=== PATIENT | male | born 1970 | race Caucasian/White ===

== ENCOUNTER → 2020-05-01 16:06 | Outpatient (CLI) | payer OTHER, SELFPAY ==
[2016-10-18 14:06] VITALS: BMI 22.8
--- NOTE | 2020-05-01 16:11 | RAD_ITS ---
STUDY: X-RAY - LEFT SHOULDER REASON FOR EXAM: Male, 49 years old. LIFTING INJURY, PAIN X1 MONTH, LIMITED ROM TECHNIQUE: 4 view(s) of the shoulder. COMPARISON: None. FINDINGS: Normal glenohumeral articulation. There is degenerative arthrosis of the acromioclavicular joint without inferior osseous spur formation. Normal acromion. Normal humeral head and visualized proximal humerus. The soft tissue structures are unremarkable. Normal visualized pulmonary apex. RAD/Shoulder min 2 Views IMPRESSION: Mild acromioclavicular joint arthrosis. MRI may be useful. Electronically Signed: Giovanny Luevano MD at 7:23 EDT Tel , Service support ,
== END ==
PROVIDERS: PCP Family Medicine; Referring Provider Family Medicine; Visit Provider Family Medicine
DX: S46.002A Unspecified injury of muscle(s) and tendon(s) of the rotator cuff of left shoulder, initial encounter (principal)
CPT/HCPCS: 73030

== ENCOUNTER → 2020-06-18 07:10 | Outpatient (CLI) | payer OTHER, SELFPAY ==
[2020-06-08 12:57] VITALS: BMI 24.3
--- NOTE | 2020-06-18 07:11 | MRI_ITS ---
STUDY: MRI LEFT SHOULDER REASON FOR EXAM: Left shoulder pain for 2 months. TECHNIQUE: Standardized fat and water weighted pulse sequences were obtained in all 3 orthogonal planes. COMPARISON: Radiographs 05/01/2020. FINDINGS: There is a full-thickness tear of the supraspinatus tendon retracted approximately 2.4 cm (T2 coronal images 8-12). Normal infraspinatus tendon. Normal subscapularis tendon. Normal teres minor tendon. Normal supraspinatus muscle. Normal infraspinatus muscle. Normal subscapularis muscle. Normal teres minor muscle. There is a glenohumeral joint effusion. There is very mild reactive bone edema in the posterior aspect of the greater tuberosity. Normal biceps labral complex. There is mild tendinosis of the intracapsular long biceps tendon (T2 sagittal images 9-13). Normal labrum. Normal capsulo- ligamentous complex. There is acromioclavicular arthrosis without substantial undersurface osteophytes (T2 sagittal images 8, 9). There is a Type I morphology (flat undersurface), with a neutral orientation. There is a small volume of subacromial-subdeltoid bursal fluid. Normal visualized coracohumeral and coracoacromial ligaments. Normal deltoid muscle. Normal trapezius muscle. MRI/Upper Ext Joint Only(Routine) IMPRESSION: Full-thickness tear of the supraspinatus tendon. Mild tendinosis of the long biceps tendon. Acromioclavicular arthrosis. Glenohumeral joint fluid communicating with the subacromial-subdeltoid bursa. Electronically Signed: Jeramy Murphy MD at 9:11 EDT Tel , Service support ,
== END ==
PROVIDERS: PCP Family Medicine; Referring Provider Orthopaedic Surgery; Visit Provider Orthopaedic Surgery
DX: M25.512 Pain in left shoulder (principal)
CPT/HCPCS: 73221

== ENCOUNTER 2020-06-26 09:30 | Outpatient (RCR) | payer OTHER, SELFPAY ==
[2020-06-08 12:57] VITALS: BMI 24.3
--- NOTE | 2020-06-29 14:26 | HP.FCE ---
Floor (Occasional 1-33% of Day): 35# Floor (Frequent 34-66% of Day): 18# Floor (Constant 67-100% of Day): 7# Floor PDL: Light-Medium Knee (Occasional 1-33% of Day): 45# Knee (Frequent 34-66% of Day): 22# Knee (Constant 67-100% of Day): 9# Knee PDL: Light-Medium Waist (Occasional 1-33% of Day): 45# Waist (Frequent 34-66% of Day): 22# Waist (Constant 67-100% of Day): 9# Waist PDL: Light-Medium Shoulder (Occasional 1-33% of Day): 35# Shoulder (Frequent 34-66% of Day): 18# Shoulder (Constant 67-100% of Day): 7# Shoulder PDL: Light-Medium Overhead (Occasional 1-33% of Day): 25# Overhead (Frequent 34-66% of Day): 12# Overhead (Constant 67-100% of Day): NA Overhead PDL: Light Bending: Occasional Ability (1-33% of day) Squatting: Occasional Ability (1-33% of day) Comments: low occasional ability Kneeling: Occasional Ability (1-33% of day) Comments: low occasional ability Reaching out: Frequent Ability (34-66% of day) Reaching up: Occasional Ability (1-33% of day) Sitting: Occasional Ability (1-33% of day) Walking: Occasional Ability (1-33% of day) Standing: Occasional Ability (1-33% of day) Duration Sedentary Sedentary Light Light Light Medium Medium Medium Heavy Very Heavy Heavy Occasional (0-33% of day) Frequent (34-66% of day) Constant (67-100% of day) 10 # Negligible Negligible 15 # 8 # Negligible 20 # 10# Negli. 35 # 18 # 7 # 50 # 25 # 10 # 75 # 100 # >100 # 38 # 50 # >50 # 15 # 20 # >20 # Height: 1.63 m Weight:: 63.503 kg Hand Dominance: right Medical History Including Restrictions: This 49-year-old male states he was in good health until he had his first back fusion in 2005 at level L4-L5. pt states he had a 2nd back sx L3-L4 January 2019. Pt states he had pain mtg until the last back sx he hasn't been able to return to pain mtg. since as he lost his medical insurance. Pt states he does have left shoulder pain that he had recent MRI on and reports carpal tunnel. pt states he does not exercise on a regular basis. Pt states he is not on lift restriction currently. Diagnoses: DDD dx 2006. carpal tunnel dx in 6 years ago Symptoms: bilateral hand tingling/numbness. pain in left shoulder. Back pain Pain: Pt states sitting his back pain 1-11/04. pt takes tylonal for pain. resting heart rate is 90 Work History: PT states he works at [employer] and has been employed there for 8 years. 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 pt states lifting requirements 50-100#. pt states he has not worked there for about a year and a half since his 2nd back sx. Pt states he is currently on disability through work. pt states he needs to be able to be on his feet for 10-hour days lifting, bending etc. pt states at this time he would not be able to work this position due to pain. Behavioral: Pt cooperative during the assessment ADLS: Pt lives with mother in a ranch home with a basement room. pt has a flight of stairs to get to the bathroom and shower. Pt states he is ind. with bathing/dressing- pt uses walk in shower. Drives independently. pt states sister does the grocery shopping, and his mother does the cooking. Pt states he does help with laundry but watches how he does the tasks. All share in the cleaning. pt does not use ad. eq. need currently. pt states he does the yard work with a riding electrician substation supervisor. pt states boys will assist at times son is 25 years and a 23-year-old when they are around. pt states he and his sister share yard work. ROM: pt demo ROM WNL Strength: left shoulder MMT -4/5. right shoulder MMT 4/5. LE 4/5 right LE 4+/5. heart rate increase to 105 with this task Right Aquacultural Worker Supervisor Strength Average: 66.66 Right Aquacultural Worker Supervisor Strength Percentile: 1.4% Left Aquacultural Worker Supervisor Strength Average: 78.33 Left Aquacultural Worker Supervisor Strength Percentile: 11% Right Lateral Pinch Average: 20.66 Right Lateral Pinch Percentile: 50% Left Lateral Pinch Average: 21.33 Left Lateral Pinch Percentile: 75% Right Tripod Pinch Average: 20.00 Right Tripod Pinch Percentile: 50% Left Tripod Pinch Average: 18.00 Left Tripod Pinch Percentile: 50% Sensation: right thumb 3.61 left 3.61 Diminished light touch. right IF 3.61 left 3.61 diminished light touch. right MF 4.08 Diminished protective sensation left 3.61 diminished light touch. right RF 3.22 diminished light touch left 2.83 Normal sensation. right LF 2.83 left 2.83 normal sensation Fine Motor: 9 hole-peg test. right 24.14 sec. 25%. left 31.68 sec. 0% Balance: no loss of balance noted Bending: initial heart rate 92 pt demo the ability to bend forward three times, ten times and ten times rapidly. pt reported pain at 5/10 HR at 105 pt can band forward on an occasional ability Squatting: pt demo the ability to squat three times with external support, ten times with both external support and using thighs to push. pt reported pain 7/10 HR at 106. pt unable to perform 10 x rapidly pt can squat on a low occasional ability Kneeling: pt demo the ability to kneel three times, ten times pt stated pain level was 6-7/10 HR at 118 pt was unable to kneel ten times rapidly. pt can kneel on a low occasional ability Reaching out/up: pt demo the abiilty to reach up/out three , ten times and ten times rapidly. pt c/ left shoulder pain 6/10 heart rate 120. pt request sitting down due to a increase in back pain 7/10. pt can reach out/up on occasional ability Walking: pt ambulated for 7 min with antalgic gait, pt states pain in back was 5/10 but LE fatigue with ambulation was more bothersome for him. Pt can ambulate on occasional ability Standing: pt demo standing for 3 min shifting weight and leaning on counter top. pt can stand on a occasional abiltiy Sitting: pt demo the ability to sit for 30 min with shifting body wt. noted from sitting to stand transition pt demo difficutly with standing. pt required increase time to transition from sitting to standing. pt can sit on a frequent ability Climbing Stairs: pt demo the ability to ascend/descend ten steps with reciprocal step pattern. Pt did use bilateral handrails intermittently. Floor Lift: pt demo the ability to lift 35# maximally from this level with good lift mecahnics Knee Lift: pt demo the ability to lift 45# maximally from this level with fair lift mechanics Waist Lift: Pt demo the ability to lift 45# maximally from this level with good lift mechanics Shoulder Lift: pt demo the ablity to lift 35# maximally from this level. reported sharp left shoulder pain during lift but not after. Overhead Lift: pt demo the ability to lift 25# maximally from this level. Carrying: pt demo the ability to carry 35# for 30 feet. HR 118 Comments: pt limited with functional tasks due to back pain. 122 HR. pt had increase in pain during the assessment ranging from 1-2/10 and increased to 7/10 this was with the repetitive squatting, bending and kneeling tasks.
--- NOTE | 2020-06-29 14:26 | HP.OT.NRP ---
EMIL Ruiz KANDICE was seen in my office for initial evaluation on . The following Plan of Care was established for this patient: pt was seen for FCE only This patient was last seen in our office . Pertinent comments regarding their Occupational therapy will appear below: At this point I will be discontinuing this patient from occupational therapy. I would be happy to see this patient again in the future if found appropriate by the physician. Thank you! Janee Lozano, OTR/L, CHT
== END 2020-06-26 19:00 | disposition home or self-care (01) ==
LOC: OT 09:30
PROVIDERS: PCP Family Medicine; Referring Provider Family Medicine; Visit Provider Family Medicine
DX: S46.009D Unspecified injury of muscle(s) and tendon(s) of the rotator cuff of unspecified shoulder, subsequent encounter (principal); M54.5 Low back pain; G89.29 Other chronic pain
CPT/HCPCS: 97750

== ENCOUNTER 2020-07-14 08:59 | Day surgery (SDC) | payer OTHER, SELFPAY ==
[2020-06-29 07:46] VITALS: BMI 24.3
--- NOTE | 2020-07-08 08:56 | EKG12_ITS ---
Test Reason : PRE OP Blood Pressure : / mmHG Vent. Rate : 070 BPM Atrial Rate : 070 BPM P-R Int : 160 ms QRS Dur : 072 ms QT Int : 382 ms P-R-T Axes : 037 034 065 degrees QTc Int : 412 ms Normal sinus rhythm Normal ECG Confirmed by DOYLE MILLER, SHWETHA ([id number]), pictures editor ALLYSON MCDONALD ([id number]) on 07/13/2020 8:26:27 A M Referred By: Madi Cloud Confirmed By:BELLO KWON MD
[2020-07-08 10:12] LABS: Hematocrit 36.3 % (40-54); Mean Corp Hgb Conc 33.1 g/dL (32-36); Mean Corpuscular Hgb 28.6 pg (27.0-32.0); Mean Corpuscular Volume 86.6 fL (80-94); Mean Platelet Vol. 9.6 fl (6.2-12.0); Platelet Count 414 K/mm3 (150-450); RBC Distribution Width CV 13.4 % (11.6-14.6); RBC Distribution Width SD 41.6 fl (35.1-43.9); Red Blood Count 4.19 M/mm3 (4.6-6.2); White Blood Count 8.7 K/mm3 (4.4-11.0)
[2020-07-14] VITALS (7 sets, daily range): BP systolic 133–145; BP diastolic 82–95; PULSE 63–83; RESP 16; TEMP 36.1–36.8; O2SAT 96–99; BMI 25.4
[2020-07-14] MEDS: Lactated Ringers 1,000 ML 100 ML IV (09:54)
[2020-07-14] MEDS: Epinephrine (1 mg/ml) 1 MG/ML VIAL (10:30)
[2020-07-14] MEDS: Cefazolin 2 GM in 0.9% Normal Saline 100 ML IV (11:35)
[2020-07-14] MEDS: Bupiv/Epi 0.5% Mpf 30 ML Vial (12:16)
[2020-07-14] MEDS: Bupivacaine Mpf 0.5% 30 ML VIAL (13:30)
[2020-07-14] MEDS: morphine PF (epidural) 5 MG/10 ML Vial (13:30)
--- NOTE | 2020-07-14 13:37 | PCM.HP.BLA ---
History and Physical Date of Admission: 07/14/20 Addendum entered and electronically signed by Madi Cloud DO 07/10/20 09:26: Assessment & Plan Problems 1. Traumatic complete tear of left rotator cuff, subsequent encounter S46.012D Plan - Dr. Madi Cloud DO Educated the patient about the anatomy of the shoulder and etiology of his pain. Spoke with him about a rotator cuff tear. Recommended the patient have surgery for rotator cuff repair and possible biceps tenotomy. Explained the procedure, post op restrictions and recovery. Reviewed the pre-operative plans with the patient. Risks and benefits of the procedure were fully explained, including but not limited to infection, neurovascular injury, continued pain, arthritis, stiffness, need for further surgery, re-injury, DVT, PE, general risks of anesthesia, and loss of limb or life. The patient understands all the risks and does wish to proceed with written consent. Follow up for 2 week post op appointment or sooner if pain, swelling, numbness or associated symptoms, or concerns develop. All questions answered. Patient in agreement of plan. Intake Intake Visit Reasons: LEFT SHOULDER Is patient in pain?: Yes Allergies aspirin Adverse Reaction (Verified 06/29/20 13:30) Upset Stomach tramadol Adverse Reaction (Verified 06/29/20 13:30) Upset Stomach Medications etodolac 500 mg tablet 500 mg PO BID #60 tab 06/08/20 [Rx Confirmed 06/08/20] FOR[facility]LY [facility] Medical History (Updated 06/08/20 @ 13:09 by Magalys Gilmore) H/o cataract surgery (Acute) H/o removal of appendix (Acute) Surgical History (Updated 06/08/20 @ 13:09 by Magalys Gilmore) H/O Spinal surgery (Acute) H/O inguinal hernia repair (Acute) Social History (Updated 06/29/20 @ 13:[address] Madi Cloud DO) household members: other details: mother and sister Smoking Status: Current every day smoker tobacco type: cigarettes Tobacco: How many years used: 20 alcohol intake: never what type of physical activity do you participate in: none do you feel safe at home: Yes HPI LEFT SHOULDER: Details: Parts of this documentation were recorded by a scribe, this documentation accurately reflects the service provided and the decisions made by me, Dr. Madi Cloud, DO 06/29/20 0746. EMIL WOODSON is a 49 year old M here today for a followup on his left shoulder MRI. Patient states that he continues to have shoulder pain and limited shoulder range of motion. He denies any changes in his symptoms since his last appointment. Patient has been taking the etodolac which has been helpful. ROS Musc Reports joint pain, Reports limited joint movement, Reports muscle weakness, Reports stiffness Skin/Breast Reports system reviewed and no additional complaints, except as docu Neuro Yes system reviewed and no additional complaints, except as docu Ortho Exam Left Shoulder Skin/Wound: Yes CDI, No ecchymosis, No erythema SHOULDER: eft Shoulder Skin/Wound: No ecchymosis, No erythema, No swelling Testing: Yes Hawkin's, Yes Neer's, Yes TTP Biceps, No TTP AC Joint, Yes Drop Arm, Yes AROM-Forward Elevation 0-180 (90), Yes AROM-External Rotation at 90 0-60 (50), Yes PROM-Forward Elevation 0-180 (75), Yes lift off (intact) SHOULDER: Drooping of left shoulder, that corrects with prompted postural commands. muscle spasms over romboid muscles, no cyst appreciated mild biceps tenderness mild ecchymosis over anterior arm multiple excoriations and scabbing without infection +drop arm, slight pop felt with range of motion intact sensation over deltoid arm and forearm Supplemental Info 06/18/2020 MRI left shoulder:Full-thickness tearing of the supraspinatus tendon with retraction tendinosis of long head of biceps AC joint arthrosis 05/01/2020 x-ray left shoulder: mild AC joint arthrosis Assessment & Plan Problems 1. Traumatic complete tear of left rotator cuff, subsequent encounter S46.012D Plan Educated the patient about the anatomy of the shoulder and etiology of his pain. Spoke with him about a rotator cuff tear. Recommended the patient have surgery for rotator cuff repair. Explained the procedure, post op restrictions and recovery. Reviewed the pre-operative plans with the patient. Risks and benefits of the procedure were fully explained, including but not limited to infection, neurovascular injury, continued pain, arthritis, stiffness, need for further surgery, re-injury, DVT, PE, general risks of anesthesia, and loss of limb or life. The patient understands all the risks and does wish to proceed with written consent. Follow up for 2 week post op appointment or sooner if pain, swelling, numbness or associated symptoms, or concerns develop. All questions answered. Patient in agreement of plan. Coding Level of Care Code Off vis,est,level 3 Diagnoses Traumatic complete tear of left rotator cuff, subsequent encounter S46.012D ??Encounter type: subsequent encounter ??Rotator cuff tear extent: complete ??Rotator cuff tear trauma status: traumatic I have re-examined the patient. There are no clinical changes since date of exam
--- NOTE | 2020-07-14 13:42 | PCM.DC.ORTHO ---
Additional Instructions: keep sling on. keep dressing clean and dry. do not remove dressing for 72 hrs. then may remove and begin showering daily. no active shoulder motion. ok to preform elbow and wrist and finger range of motion but no active lifting of shoulder. may replace dressing in 72 hrs with bandaids. follow up in 2 weeks in office call if any concerns. Allergies/Adverse Reactions: Allergies aspirin Adverse Reaction (Verified 07/14/20 09:33) Upset Stomach tramadol Adverse Reaction (Verified 07/14/20 09:33) Upset Stomach Medications to take at Discharge Etodolac 500 mg PO BID 07/06/20 Acetaminophen [Tylenol Extra Strength] 1,000 mg PO Q6H PRN #100 tab 07/14/20 Doxycycline 100 mg PO BID #40 cap 07/14/20 Oxycodone [Oxyir] 5 mg PO Q4H PRN PRN #60 tab 07/14/20 The following prescriptions were given: Doxycycline 100 mg PO BID #40 cap Transmission Status: Pending to [id number] Oxycodone [Oxyir] 5 mg PO Q4H PRN PRN #60 tab PRN Reason: Pain Score 6-10 Prescription Printed Acetaminophen [Tylenol Extra Strength] 1,000 mg PO Q6H PRN #100 tab Transmission Status: Pending to [id number] Primary Care Physician: Robert Diaz MD [Primary Care Provider] - Test Results: Test results from this visit will be discussed in further detail at your follow-up appointment, if applicable. Please Follow Up With: Madi Cloud DO - 2weeks
[2020-07-14] MEDS: oxyCODONE 5 MG Tablet PO (15:22)
[2020-07-14] MEDS: Acetaminophen 500 MG Tablet 1000 MG PO (15:22)
--- NOTE | 2020-07-14 15:32 | PCM.OPRPT ---
Report of Operation Date of Procedure: 07/14/20 Description of Surgical Findings:: Preoperative diagnosis: Left rotator cuff tear supra spinatus Postoperative diagnosis: Full-thickness supraspinatus rotator cuff tear Procedure: Arthroscopic rotator cuff repair Implants: Arthrex speed bridge 4 anchor pair Anesthesia: General with interscalane block EBL: 25 cc Complications None Indication for procedure: This is a 49-year-old male patient who had an injury to his left shoulder had MRI evidence of full-thickness retracted supraspinatus rotator cuff tear Risks benefits and alternatives of the procedure were reviewed including risk of bleeding infection nerve artery tissue damage need for further surgery continued pain postoperative stiffness and need for postoperative physical therapy and continued pain and retear. Procedure: Patient was met in the preoperative holding area the operative extremity was identified by both the patient and the physician and was marked. Patient was met by anesthesia and brought back to the operating room on a wheeled cart. Patient was transferred to the operating table in the supine position. Anesthesia was started. Patient was then positioned in the beach chair configuration. Bony prominences were well-padded. The patient was prepped and draped in the usual sterile fashion. A timeout was called to ensure the proper patient procedure and extremity were being contemplated. Anatomic landmarks were palpated and marked with a marking pen. A 0.25% Marcaine with epinephrine was injected into the planned portal sites. An 11 blade scalpel was used to make a stab incision in the posterior lateral portal. Arthroscope was inserted into the glenohumeral space with ease. Inflow and outflow tubes were attached and arthroscopic visualization began. An anterior portal was established with an 18-gauge spinal needle. Subscapularis was intact biceps had no tendinopathy tearing or synovitisThere is mild fraying of the superior portion of the labrum which was debrided The rotator cuff was evaluated and was found to have a full-thickness tear of supraspinatus . The axillary pouch was investigated and was free of loose bodies. The subscapularis was intact. The arthroscope was then repositioned into the subacromial space and a lateral portal was established. A subacromial decompression with an ArthroCare wand and shaver was performed. There was noted to be anterior spurring of the acromion which was burred to create a flat surface. Performing an anterior acromioplasty. Full-thickness tearing of the supraspinatus was noted there was significant retraction and bursal thickeningThe rotator cuff was freedAnd in a standard speed bridge configuration2 medial anchors were placedScorpion was used to pass theFiber tape through the rotator cuff and tapes were cut and crossed in standard fashion and secured to self punching lateral anchors.The free stitch in the posterior anchor was used to provide an additional fixation passing 1 limb through the infraspinatus and one limb through the posterior aspect of the supraspinatus and tying creating essentially a marginal convergenceThe free limb of the anterior lateral anchor was then used to place an additional simple stitch in the anterior rotator cuff Excellent repair was achieved. The wound was thoroughly irrigated through the scope followed by a subacromial injection with 4 mg of morphine and 8 cc of 0.5% Marcaine plain. Suture portals were closed with 3-0 nylon arthroscopic stitches followed by Xeroform 4 x 4 ABD and a Ioban dressing. A abduction sling and pillow was placed. Anesthesia was reversed and patient tolerated the procedure well was and was transferred to the PACU. All counts were correct patient will follow-up in the office in 2 weeks . Patient may begin active elbow and wrist range of motion and pendulums of the shoulder but no active shoulder motion, dressing is to be left on for 48 hours before being changed daily after showering
== END 2020-07-14 15:49 | disposition home or self-care (01) ==
LOC: SDC 08:59 → AC 08:59
PROVIDERS: Anesthesiology; PCP Family Medicine; Referring Provider Orthopaedic Surgery; Visit Provider Orthopaedic Surgery
PROC: (CPT 29827; principal; 2020-07-14 11:25)
DX: S46.012A Strain of muscle(s) and tendon(s) of the rotator cuff of left shoulder, initial encounter (principal); F17.210 Nicotine dependence, cigarettes, uncomplicated; K21.9 Gastro-esophageal reflux disease without esophagitis; Z20.828 Contact with and (suspected) exposure to other viral communicable diseases; X58.XXXA Exposure to other specified factors, initial encounter; Y93.89 Activity, other specified; Y92.89 Other specified places as the place of occurrence of the external cause; Y99.8 Other external cause status
CPT/HCPCS: 01630; 29826; 29827; 36415; 85027; 87635; 93005; C9803; J7120; J2405; U0003

== ENCOUNTER 2020-08-05 14:58 | Outpatient (RCR) | payer OTHER, SELFPAY ==
[2020-07-29 13:45] VITALS: BMI 24.3
--- NOTE | 2020-08-06 09:30 | HP.PTEVAL ---
Patient's Visit Information EMIL WOODSON is a 50 year old M referred to Physical Therapy by Dr. Madi Cloud DO with a diagnosis of S/P LEFT RTC REAPIR. Date of Evaluation: 08/05/20 Physical Therapist: Siva Smith, PT, Cert MDT, OCS - Visit Plan Frequency: 2x /Week Duration: 12 Plan: S/P RTC REPAIR OF SUPRASPINATOUS 07/14. S/P 4 WEEKS 08/11. PT INTERVENTIONS INTIALLY PROM ,THEN AAROM 4WEEKS AND AROM 6WEEKS ,MANUAL THERAPY CP/MHP,STRENGTHENING PER MD - Subjective This 49 y/o male presents to physical therapy with s/p left RTC repair on 07/14/[address] Bellamy at [facility]. Patient was d/c DOS with sling . Patient seen DR Bellamy last 07/29/20 okay to start PT remove sling for pendulum and PT. Start PROM ,then start 4weeks AAROM and AROM 6weeks. Patient RTD Aug 27. Patient injuried shoulder 2 months ago mid summer lifting self over garageheard a pop and caused gradual pain. Intially ,seen family DR santos Bellamy who did MRI 4weeks ago showed full thickness tear of supraspinatous. Patient has some pain . Patient has difiiculty sleeping from pain. Patient has limitations with all functional activity with ADLS and self hygine. Patient surgery RTC impairs QOL and function. SOCAIL: single. VOCATION: disablity - Pain Left Pain Intensity (Out of 10): 4 Pain Intensity Range: 10 - Objective POSTURE: mild foward posture rounded shoulders ,sling intact. OBSERVATION: inscion well approximate. PROM: shoulder flexion 135 degrees,abduction 140 degrees,ER 70 degrees. AROM: elbow and wrist WFL. MMT: NT - Goals Goal 1:: Patient to be I with HEP Goal Time Frame: 8-12 Weeks Goal 2:: Patient to improve AROM shoulder flexion 150 degrees ,abduction 150 degrees,ER 90 degrees and IR L1 to improve function with ADLS's. Goal Time Frame: 8-12 Weeks Goal 3:: Patient to decrease pain by 80% or> with function. Goal Time Frame: 8-12 Weeks Goal 4:: Patient to increase strength of RTC 4/5,except supraspinatous 4-/5 and deltoid 3+/5 to improve function. Goal Time Frame: 6-8 Weeks Goal 5:: Patient to improve quick dash by 10 points bor> to improve QOL. Goal Time Frame: 8-12 Weeks - Rehabilitation Potential Physical Therapy Diagnosis: This patient underwents s/p RTC repair 07/14/20 with decrease ROM,pain ,decrease strength which impairs function and ADL'S /self hygine thus benifit from skilled PT . Rehabilitation Potential: Good - Anticipated Interventions Patient/Client Instruction: Educate patient on: Condition, Plan of Care For the Purpose of:: To decrease pain, To increase ROM, To improve muscle performance and motor function, To improve ability to perform ADL's, To increase tolerance to activity/condition/position, To improve performance and independence with ADL's, To improve ability of physical actions for home/community/work/leisure, To improve health of tissue, To decrease soft tissue restriction, To increase flexibility/ROM, To reduce risk of recurrence, To improve ability to perform tasks related to life management Therapeutic Exercise to Include: Strength training, Passive ROM, Active ROM Comment: INTIALLY PROM ,AAROM 4 WEEKS AND AROM 6 WEEKS POST OP For the Purpose of:: To decrease pain, To increase ROM, To improve muscle performance and motor function, To improve ability to perform ADL's, To increase tolerance to activity/condition/position, To improve performance and independence with ADL's, To improve ability of physical actions for home/community/work/leisure, To improve health of tissue, To decrease soft tissue restriction, To increase flexibility/ROM, To assume or resume ADL's, To improve ability to perform tasks related to life management Manual Therapy Techniques to Include: Passive ROM For the Purpose of:: To increase ROM, To improve nutrient delivery to tissue, To increase oxygenation perfusion, To improve health of tissue, To decrease soft tissue restriction, To increase flexibility/ROM TENS: Yes IF ES: Yes Cryotherapy (ice pack, ice massage): Yes Thermo therapy (hot pack): Yes For the Purpose of:: To decrease pain, To decrease swelling/inflammation, To improve nutrient delivery to tissue, To increase oxygenation perfusion, To increase flexibility/ROM, To improve endurance Thank you for the opportunity to evaluate your patient. For Medicare and Medicare HMO plans, please review the plan of care and approve it. It will need to be FAXED BACK to us at [phone] for Medicare purposes. For Medicare only, by signing this I certify the plan of care. Please let me know if there are questions or concerns regarding this plan of care. Physician Signature: Date:
--- NOTE | 2021-02-17 09:45 | HP.PTDCNRP_ITS ---
EMIL WOODSON was seen in my office for initial evaluation on 08/05/20. The following Plan of Care was established for this patient: Initial Frequency: 2x /Week Initial Duration: 12 Patient/Client Instruction: Educate patient on: Condition, Plan of Care For the Purpose of:: To decrease pain, To increase ROM, To improve muscle performance and motor function, To improve ability to perform ADL's, To increase tolerance to activity/condition/position, To improve performance and inde pendence with ADL's, To improve ability of physical actions for home/community/work/leisure, To improve health of tissue, To decrease soft tissue restriction, To increase flexibility/ROM, To reduce risk of recurrence, To improve ability to perform tasks related to life management Therapeutic Exercise to Include: Strength training, Passive ROM, Active ROM For the Purpose of:: To decrease pain, To increase ROM, To improve muscle performance and motor function, To improve ability to perform ADL's, To increase tolerance to activity/condition/position, To improve performance and independence with ADL's, To improve ability of physical actions for home/community/work/leisure, To improve health of tissue, To decrease soft tissue restriction, To increase flexibility/ROM, To assume or resume ADL's, To improve ability to perform tasks related to life management Manual Therapy Techniques to Include: Passive ROM For the Purpose of:: To increase ROM, To improve nutrient delivery to tissue, To increase oxygenation perfusion, To improve health of tissue, To decrease soft tissue restriction, To increase flexibility/ROM TENS: Yes IF ES: Yes Cryotherapy (ice pack, ice massage): Yes Thermo therapy (hot pack): Yes For the Purpose of:: To decrease pain, To decrease swelling/inflammation, To improve nutrient delivery to tissue, To increase oxygenation perfusion, To increase flexibility/ROM, To improve endurance This patient was last seen in our office . Pertinent comments regarding their Physical therapy will appear below: Patient seen for PT EVAL FOR LEFT RTC REPAIR BUT NEVER RETURN TO PT At this point I will be discontinuing this patient from physical therapy. I would be happy to see this patient again in the future if found appropriate by the physician. Thank you! Siva Smith, PT, Cert MDT, OCS
== END 2020-08-05 19:00 | disposition home or self-care (01) ==
LOC: PT 14:58
PROVIDERS: PCP Family Medicine; Referring Provider Orthopaedic Surgery; Visit Provider Orthopaedic Surgery
DX: Z47.89 Encounter for other orthopedic aftercare (principal)
CPT/HCPCS: 97140; 97162

== ENCOUNTER → 2021-05-04 16:39 | Outpatient (CLI) | payer OTHER, SELFPAY ==
--- NOTE | 2021-05-04 16:43 | RAD_ITS ---
STUDY: X-RAY - UNILATERAL RIBS ( RIGHT ) REASON FOR EXAM: Male, 50 years old. INJURY OF RIB TECHNIQUE: 4 view(s) of the ribs. COMPARISON: None. FINDINGS: There is a linear fracture through the posterior aspect of the right 11th rib with mild separation of fracture fragments. The visualized lung is clear and expanded. RAD/Ribs Unil 2V No CXR IMPRESSION: Acute fracture of the right posterior 11th rib Electronically Signed: Mejia Raya MD at 17:20 EDT , Service support ,
--- NOTE | 2021-05-04 16:43 | RAD_ITS ---
STUDY: X-RAY - THORACIC SPINE REASON FOR EXAM: Male, 50 years old. SPINE PAIN TECHNIQUE: 3 view(s) of the thoracic spine were obtained. COMPARISON: None. FINDINGS: Normal kyphosis of the thoracic spine. There is no substantial scoliosis. There is a compression fracture of one of the mid dorsal vertebrae at approximately the level of T8 without well-defined fracture line probably chronic. There is no definitive evidence for acute fracture The soft tissue structures are unremarkable. RAD/Thoracic Spine 2 Views IMPRESSION: Probable chronic compression fracture of the mid dorsal spine however MRI would be helpful for further evaluation if suspicion for recent injury.. Electronically Signed: Mejia Raya MD at 18:22 EDT , Service support ,
== END ==
PROVIDERS: PCP Family Medicine; Referring Provider Family Medicine; Visit Provider Family Medicine
DX: M54.6 Pain in thoracic spine (principal); S29.9XXA Unspecified injury of thorax, initial encounter
CPT/HCPCS: 71100; 72070

== ENCOUNTER → 2021-06-04 16:23 | Outpatient (CLI) | payer OTHER, SELFPAY ==
--- NOTE | 2021-06-04 16:45 | MRI_ITS ---
STUDY: MRI THORACIC SPINE WITHOUT CONTRAST REASON FOR EXAM: Male, 50 years old. COMPRESSION FX TECHNIQUE: Standardized fat and water weighted pulse sequences were obtained in the sagittal and axial planes. COMPARISON: Thoracic spine x-rays from 05/04/2021 FINDINGS: PA superior endplate Schmorl''s node (disc herniation into superior endplate) shows low T1 and low T2 signal in the herniation pit. Adjacent marrow signal is normal; this is not an acute finding. There is slight anterior vertebral body height loss and there may be an associated chronic partial wedge compression fracture. Visualized cord shows normal signal with no intramedullary mass lesion. CONUS terminates at the distal L1 vertebral body level. There is a T10-T11 disc protrusion also completely effacing CSF signal anterior to the cord and resulting in anterior cord flattening. CSF signal posterior to the cord isn''t effaced; [id number] central canal stenosis. No other central canal stenosis suggested. There is no neural foraminal narrowing. Multilevel degenerative disc desiccation. No significant degenerative endplate changes. L1-L2, incompletely visualized. There appears to be significant irregularity inferior endplate of L1 with abnormal marrow signal changes. This is likely degenerative in etiology however correlation with MRI lumbar spine should be considered in this patient with reported lumbar pain. Soft tissues of the thorax and abdomen included in the [id number]-dn-[id number] normal limits. Posterior fossa included in the field of view shows no cerebellar ectopia or posterior crowding. Visualized portions of the brain and face are within normal limits the exam. MRI/Spine Thoracic (Routine) IMPRESSION: T8 superior endplate irregularity most likely represents a large disc herniation through the superior endplate; Schmorl''s node. Small anterior wedge compression fracture component cannot be completely excluded. No marrow edema to suggest acute etiology. T10-11 posterior disc protrusion results in [id number]-[id number] central canal stenosis. Incompletely visualized significant irregularity inferior endplate of L1 with significant associated marrow signal changes likely due to degenerative disc disease. Electronically Signed: Maverick Mccormack DO at 23:28 EDT Tel , Service support ,
== END ==
PROVIDERS: PCP Family Medicine; Referring Provider Family Medicine; Visit Provider Family Medicine
DX: M48.50XA Collapsed vertebra, not elsewhere classified, site unspecified, initial encounter for fracture (principal)
CPT/HCPCS: 72146

== ENCOUNTER → 2022-02-07 | Outpatient (CLI) | payer OTHER, SELFPAY ==
--- NOTE | 2022-02-07 | ASPOS_PTH ---
PATIENT: EMIL WOODSON LOC: [facility] U#:[id number] AGE/SX: 51/M ROOM: RE02/07/[address]: Dr. Girma Moon MD : 1970 BED: DIS: 02/07/2022 SPEC #: [id number] RECD: 02/07/22 11:25 STATUS: CALLIE BURT #: [id number] KAITLYNN: 02/07/22 00:[address]: Girma Moon DEPT: CYTOLOGY RECD BY: Luis Alberto Oliver ENTERED: 02/07/22 11:26 SP TYPE: ASP HERE OTHR DR: Dr. Robert Diaz MD Tissues: Neck, NOS Procedures: Surgery Specimen Level IV Cytology Other Fine Needle Asp on Site HEADER OPERATION: Fine needle aspiration left neck mass PRE-OP DIAGNOSIS: Left neck mass TISSUE SUBMITTED: Fine needle aspiration left neck mass DIAGNOSIS CYTOLOGY Fine needle aspiration, left neck mass (smears and cell block): Positive for malignant cells consistent with metastatic squamous cell carcinoma. AM:brenton 02/08/2022 COMMENT The specimen is evaluated at the time of FNA by Dr. Allen. Immediate Evaluation = Positive for malignant cells, metastatic squamous cell carcinoma. Case has been reviewed in consultation with Dr. Brito who concurs with the above diagnosis. IDC:SJ CYTOLOGY STUDY Slides are reviewed. CYTOLOGY GROSS Received is 0.25 ml of reddish fluid labeled with the patient's name, and designated left neck mass. Three imprints and two pap smears are made from the submitted fluid and the rest is added to CytoLyt for cell block preparation. Submitted for cytology study. / AM:brenton 02/07/2022 TC:0 CPT: 97091, 11469, 54649, 24535
== END | disposition home or self-care (01) ==
PROVIDERS: PCP Family Medicine; Referring Provider Otolaryngology; Visit Provider Otolaryngology
DX: R22.1 Localized swelling, mass and lump, neck (principal)
CPT/HCPCS: 10021; 88161; 88305

== ENCOUNTER → 2022-02-16 | Outpatient (CLI) | payer OTHER, SELFPAY ==
--- NOTE | 2022-02-16 08:18 | CT_ITS ---
STUDY: CT SOFT TISSUE NECK WITH CONTRAST REASON FOR EXAM: Male, 51 years old. NECK MASS RADIATION DOSAGE (If Supplied By Facility): CTDIvol = ( 16.95 ) mGy, DLP = ( 444.60 ) mGycm TECHNIQUE: The patient was scanned in a multi-detector CT scanner. High resolution transaxial imaging was performed following intravenous administration of IV 75mL Isovue-300. Sagittal and coronal images were reconstructed. Individualized dose optimization techniques were used for this CT. COMPARISON: None. FINDINGS: Normal bilateral parotid glands. Normal bilateral drive thru order taker spaces. Normal bilateral parapharyngeal spaces. Normal bilateral carotid spaces. Normal bilateral sublingual and submandibular glands and spaces. There is a large (3.5 x 5.5 cm (heterogeneous enhancing solid mass in the posterior aspect of the nasopharynx extending inferiorly into the posterior aspect of the oropharynx producing complete obstruction of the airway at the level of the palate and posterior oropharynx with invasion and lateral displacement of the parapharyngeal spaces bilaterally and invasion of the prevertebral space and the right carotid space with encasement of the right internal carotid artery worrisome for squamous cell carcinoma. Normal retropharyngeal space. Normal perivertebral space. Normal visualized bilateral faucial tonsils. The visualized tongue, tongue base and oropharynx are normal. Associated necrotic metastatic jugular lymphadenopathy bilaterally at the level of the floor the mouth measuring 1.8 x 2.2 cm on the right and 2.0 x 2.2 cm on the left with also some posterior triangle lymphadenopathy on the left. There is no abnormal contrast enhancement. Normal epiglottis, bilateral vallecula and hypopharynx. The pre-epiglottic and paraglottic adipose spaces are normal. Normal visualized bilateral piriform sinuses, aryepiglottic folds, vocal cords, and arytenoid-cricoid articulations. Normal subglottic trachea. Normal bilateral lobes of the thyroid gland. Normal visualized pulmonary apices. Mucosal thickening of the left maxillary sinus consistent with chronic sinusitis. Normal visualized cervical spine. 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 Electronically Signed: Giovanny Luevano MD at 8:48 EDT ,
== END | disposition home or self-care (01) ==
LOC: CT 08:13
PROVIDERS: PCP Family Medicine; Referring Provider Otolaryngology; Visit Provider Otolaryngology
DX: R22.1 Localized swelling, mass and lump, neck (principal)
CPT/HCPCS: 70491; Q9967; A4216

== ENCOUNTER 2022-02-25 16:49 | Inpatient (IN) | payer OTHER, SELFPAY ==
[2022-02-25] VITALS (20 sets, daily range): BP systolic 103–183; BP diastolic 52–121; PULSE 65–93; RESP 12–14; TEMP 36.2–36.8; O2SAT 96–100; BMI 25.0; BMI 24.5
--- NOTE | 2022-02-25 17:02 | ED.RN ---
PT KEEPS FALLING ASLEEP AN D RESPIRATIONS WILL DECREASE TO 10 OR LOWER AND PULSE OX WILL DROP TO LOW 80'S. PT DIFFICULT TO AROUSE. T GIVEN NARCAN 4MG.
--- NOTE | 2022-02-25 17:05 | EX.ED.DYSGE1 ---
HPI <Dr. Ambrosio Mendez MD - Last Filed: 02/25/22 20:23> History of Present Illness Chief Complaint: Neuro S/Sx <CIARA Paulson - Last Filed: 02/25/22 19:35> Narrative Narrative: 51-year-old male with a complex medical history history of drug abuse presents to the emergency department with lethargy, not protecting his own airway. Over the last week, the patient has had difficulty walking secondary to feeling imbalance. He did have a thyroid biopsy 1 to 2 days ago secondary to concern of thyroid cancer. Nurses are in the room trying to wake him up, patient was given 4 mg of Narcan prior to me seeing the patient. Patient has snoring respirations. PFSH <Dr. Ambrosio Mendez MD - Last Filed: 02/25/22 20:23> [facility] Medical History (Updated 02/25/22 @ 20:[address] Sarita Aj MD) Amphetamine use Chronic pain Ecstasy use disorder, mild, abuse History of ETOH abuse Metastatic squamous cell carcinoma Opiate addiction Smoker Substance abuse Home Medications amoxicillin-pot clavulanate 1 tab PO Q12H 02/25/22 [History Last Taken 02/25/22] Allergy/AdvReac Type Severity Reaction Status Date / Time aspirin AdvReac Upset Verified 02/25/22 16:58 Stomach tramadol AdvReac Upset Verified 02/25/22 16:58 Stomach Family History (Updated 02/25/22 @ 20:[address] Sarita Aj MD) Grandfather Cancer Grandfather Cancer Grandmother Hypertension Father Thyroid cancer Lung cancer Mother Hypertension Surgical History (Updated 02/25/22 @ 20:[address] Sarita Aj MD) H/O inguinal hernia repair H/O Spinal surgery History of fusion of lumbar spine S/P appendectomy S/P cataract extraction Social History (Updated 02/25/22 @ 20:[address] Sarita Aj MD) household members: other details: mother and sister housing: house current occupational status: disabled Smoking Status: Current every day smoker tobacco type: cigarettes Smoking packs per day: 1 Smoking cigarettes per day: 20.0 Years smoked: 37 Smoking pack-years: 37.00 Tobacco: How many years used: 20 alcohol intake: former details: Sober x ~ 10 years, prior heavy. substance use type: amphetamines, opiates, IV drugs and methamphetamine what type of physical activity do you participate in: none do you feel safe at home: Yes <CIARA Paulson - Last Filed: 02/25/22 19:35> ROS ED ROS Narrative Due to the illness, the patient was unable to provide a review of symptoms EXAM <Dr. Ambrosio Mendez MD - Last Filed: 02/25/22 20:23> Physical Exam Const Vital Signs: 02/25/22 16:50 02/25/22 17:20 02/25/22 17:30 Temperature 97.2 F L Temperature Source Temporal Pulse Rate 88 93 Respiratory Rate 14 Respiratory Effort Agonal Respiratory Depth Deep Respiratory Pattern Live-Mo Blood Pressure 135/86 H Blood Pressure Mean 102 Blood Pressure Source Blood Pressure Position Blood Pressure Location Pulse Ox 97 100 Oxygen Delivery Method Room Air Mechanical Ventilator Fraction of Inspired Oxygen (FIO2) 02/25/22 17:45 02/25/22 17:50 02/25/22 18:00 Temperature Temperature Source Pulse Rate 82 85 Respiratory Rate 12 Respiratory Effort Respiratory Depth Respiratory Pattern Normal Blood Pressure 183/121 H 103/80 Blood Pressure Mean 141 87 Blood Pressure Source Monitor Blood Pressure Position Supine Blood Pressure Location Left Arm Pulse Ox 100 Oxygen Delivery Method Mechanical Ventilator Fraction of Inspired Oxygen (FIO2) 50 50 02/25/22 18:15 02/25/22 18:30 02/25/22 18:45 Temperature Temperature Source Pulse Rate 86 85 85 Respiratory Rate 14 14 14 Respiratory Effort Respiratory Depth Respiratory Pattern Blood Pressure 138/97 H 174/111 H 138/101 H Blood Pressure Mean 110 132 113 Blood Pressure Source Blood Pressure Position Blood Pressure Location Pulse Ox 96 100 100 Oxygen Delivery Method Mechanical Ventilator Mechanical Ventilator Mechanical Ventilator Fraction of Inspired Oxygen (FIO2) 40 40 02/25/22 18:54 Temperature Temperature Source Pulse Rate 87 Respiratory Rate 12 Respiratory Effort Respiratory Depth Respiratory Pattern Blood Pressure 161/106 H Blood Pressure Mean 124 Blood Pressure Source Blood Pressure Position Blood Pressure Location Pulse Ox 100 Oxygen Delivery Method Mechanical Ventilator Fraction of Inspired Oxygen (FIO2) <CIARA Paulson - Last Filed: 02/25/22 19:35> Physical Exam Narrative Exam Narrative: Vital signs reviewed. Patient arrives in snoring respirations, GCS of 7. Patient has minimal response to Narcan 4 mg x 2. Immediately placed on oxygen taken to the resuscitation room and intubated by ER attending. HEET: Head normocephalic atraumatic, TMs clear bilaterally. Posterior pharynx is clear, moist mucous membranes. Nares clear bilaterally. Patient is drooling from mouth prior to intubation. Neck: Supple with no lymphadenopathy or tenderness. No signs of meningismus, negative jolt sign. Cardiac: Bradycardic rhythm no murmurs gallops or rubs, equal peripheral pulses bilaterally. Respiratory: Patient lung sounds are clear, breathing slow and shallow. No chest tenderness. Abdomen: Soft, nontender, nondistended. No abdominal bruit or pulsatile masses. No hepatosplenomegaly Extremities: No peripheral edema, no signs of gross trauma or deformity. Active full range of motion of all extremities. Neuro: Proper neurological exam was unable to be completed secondary to GCS of 7 Skin: Clean dry and intact with no rash, purpura, petechiae, vesicles or pustules. Backs/flank: No CVA tenderness, no midline spinal tenderness, no deformity. Psych: Normal mood and affect. No SI, HI or acute psychosis. Const Vital Signs: 02/25/22 16:50 02/25/22 17:20 02/25/22 17:30 Temperature 97.2 F L Temperature Source Temporal Pulse Rate 88 93 Respiratory Rate 14 Respiratory Effort Agonal Respiratory Depth Deep Respiratory Pattern Live-Mo Blood Pressure 135/86 H Blood Pressure Mean 102 Blood Pressure Source Blood Pressure Position Blood Pressure Location Pulse Ox 97 100 Oxygen Delivery Method Room Air Mechanical Ventilator Fraction of Inspired Oxygen (FIO2) 02/25/22 17:45 02/25/22 17:50 02/25/22 18:00 Temperature Temperature Source Pulse Rate 82 85 Respiratory Rate 12 Respiratory Effort Respiratory Depth Respiratory Pattern Normal Blood Pressure 183/121 H 103/80 Blood Pressure Mean 141 87 Blood Pressure Source Monitor Blood Pressure Position Supine Blood Pressure Location Left Arm Pulse Ox 100 Oxygen Delivery Method Mechanical Ventilator Fraction of Inspired Oxygen (FIO2) 50 50 02/25/22 18:15 02/25/22 18:30 02/25/22 18:45 Temperature Temperature Source Pulse Rate 86 85 85 Respiratory Rate 14 14 14 Respiratory Effort Respiratory Depth Respiratory Pattern Blood Pressure 138/97 H 174/111 H 138/101 H Blood Pressure Mean 110 132 113 Blood Pressure Source Blood Pressure Position Blood Pressure Location Pulse Ox 96 100 100 Oxygen Delivery Method Mechanical Ventilator Mechanical Ventilator Mechanical Ventilator Fraction of Inspired Oxygen (FIO2) 40 40 02/25/22 18:54 Temperature Temperature Source Pulse Rate 87 Respiratory Rate 12 Respiratory Effort Respiratory Depth Respiratory Pattern Blood Pressure 161/106 H Blood Pressure Mean 124 Blood Pressure Source Blood Pressure Position Blood Pressure Location Pulse Ox 100 Oxygen Delivery Method Mechanical Ventilator Fraction of Inspired Oxygen (FIO2) Positive cachectic and unkempt General Appearance ED: unkempt and cachectic Nutritional Appearance: cachectic Psych Appearance: unkempt [facility] <Dr. Ambrosio Mendez MD - Last Filed: 02/25/22 20:23> [facility] Narrative Medical decision making narrative: I have personally performed a face to face assessment of the patient and have reviewed the ARISTEO Note. I performed a substantive portion of the visit including all aspects of the following. My best findings include: History is limited because patient had Live-Mo respiration when I was somethings to the bedside. He is nonverbal. He recently had a biopsy of his thyroid gland which revealed cancer. Presently he has Live-Mo breathing with biphasic stridor. He does have history of illicit drug use. He admitted to nursing staff that he took fentanyl. Staff believes he improved with naloxone. My belief is that his breathing improved because he had Live-Mo respiration. Exam is patient unresponsive with GCS of 3. There is vertical nystagmus noted. Pupils are 2 to 3 mm size. They do react. There is no scleral icterus. There is no subconjunctival hemorrhage. There is no clinical findings of basal skull fracture. He does have contusions to the head and face. Trachea is midline. There is biphasic stridor noted. Patient is drooling and unable to control secretions. Lungs reveal rales at the bases bilaterally. Heart is regular without murmur, gallop or rub. Pulse ox was documented at 70% initially. Abdomen is soft. Bowel sounds are diminished. Negative Babinski sign. Negative clonus right or left ankle. Medical Decision Making patient was prepped for oral tracheal ovation. He received 20 mg of etomidate. [place] scope was inserted. Vocal cords were easily seen. He was oral tracheal intubated with a 7.5 endotracheal tube. To facilitate CAT scan and other diagnostic testing needed he was chemically paralyzed with [address] per my review revealed nothing acute. Per radiology review negative. Chest x-ray per my view reveals endotracheal tube in proper position. Orogastric tube was in proper position. There is no evidence of infiltrate. Other additions or changes: Patient has required sedation. He is presently on a propofol drip and fentanyl drip. He received additional dose of rocuronium and will contact hospitalist for admission ICU since there is no intracranial pathology. Lab Data Attestation: I reviewed the patient's lab results. Labs: Laboratory Results - last 24 hr 02/25/22 02/25/22 02/25/22 16:55 16:55 16:55 WBC 7.4 RBC 4.03 L Hgb 11.4 L Hct 33.5 L MCV 83.1 MCH 28.3 MCHC 34.0 RDW Std Deviation 39.7 RDW Coeff of Rolf 13.1 Plt Count 332 MPV 9.8 Immature Gran % (Auto) 0.300 Neut % (Auto) 56.0 Lymph % (Auto) 29.7 [place] % (Auto) 7.4 Eos % (Auto) 5.7 H Baso % (Auto) 0.9 Absolute Neuts (auto) 4.2 Absolute Lymphs (auto) 2.20 Nucleated RBC % 0 Sodium 138 Potassium 4.1 Chloride 105 Carbon Dioxide 28.0 Anion Gap 5 BUN 20 H Creatinine 1.06 Estim Creat Clear Calc 67.48 Est GFR (MDRD) Af Amer 94 Est GFR (MDRD) Non-Af 78 BUN/Creatinine Ratio 18.9 Glucose 111 H Calcium 8.3 L TSH 6.79 H Urine Color Urine Clarity Urine pH Ur Specific [place] Urine Protein Urine Glucose (UA) Urine Ketones Urine Occult Blood Urine Nitrite Urine Bilirubin Urine Urobilinogen Ur Leukocyte Esterase Urine RBC Urine WBC Ur Squamous Epith Cells Urine Bacteria Urine Mucus Urine Opiates Screen Urine Methadone Screen Ur Barbiturates Screen Ur Phencyclidine Scrn Ur Amphetamines Screen MDMA (Ecstasy) Screen U Benzodiazepines Scrn Urine Cocaine Screen U Cannabinoids Screen Ur Drug Screen Comment Ethyl Alcohol < 3.0 02/25/22 02/25/22 17:19 17:50 WBC RBC Hgb Hct MCV MCH MCHC RDW Std Deviation RDW Coeff of Rolf Plt Count MPV Immature Gran % (Auto) Neut % (Auto) Lymph % (Auto) [place] % (Auto) Eos % (Auto) Baso % (Auto) Absolute Neuts (auto) Absolute Lymphs (auto) Nucleated RBC % Sodium Potassium Chloride Carbon Dioxide Anion Gap BUN Creatinine Estim Creat Clear Calc Est GFR (MDRD) Af Amer Est GFR (MDRD) Non-Af BUN/Creatinine Ratio Glucose Calcium TSH Urine Color Yellow Urine Clarity Sl. Cloudy Urine pH 6.0 Ur Specific [place] 1.015 Urine Protein 15 H Urine Glucose (UA) Normal Urine Ketones Negative Urine Occult Blood 150 H Urine Nitrite Negative Urine Bilirubin Negative Urine Urobilinogen Normal Ur Leukocyte Esterase Negative Urine RBC 5-10 SEEN Urine WBC 0 SEEN Ur Squamous Epith Cells 0-5 SEEN Urine Bacteria 0 SEEN Urine Mucus 0 SEEN Urine Opiates Screen POSITIVE H Urine Methadone Screen NEGATIVE Ur Barbiturates Screen NEGATIVE Ur Phencyclidine Scrn NEGATIVE Ur Amphetamines Screen POSITIVE H MDMA (Ecstasy) Screen POSITIVE H U Benzodiazepines Scrn NEGATIVE Urine Cocaine Screen NEGATIVE U Cannabinoids Screen NEGATIVE Ur Drug Screen Comment Ethyl Alcohol ABG Data ABG results: ABG 02/25/22 18:03 Specimen Type ART Sample Site L Radial pH 7.29 L Bicarbonate Actual 25.8 Total CO2 28 Base Excess -1 O2 Saturation 95 O2 % 50 ABG pCO2 53.8 H ABG pO2 87 Respiration Rate 12 O2 Delivery Device Adult Vent Vent Mode AC Tidal Volume 400 POC PEEP 5 Radiography Diagnostic Testing: Clinical Impression(s) from Imaging Studies Brain CT 02/25/22 17:19 IMPRESSION: There are no acute intracranial findings. Electronically Signed: Dain Daniels MD at 17:47 EDT , Chest X-Ray 02/25/22 17:50 IMPRESSION: There are no acute findings. Electronically Signed: Dain Daniels MD at 18:11 EDT , EKG Initial EKG: Attestation: I personally reviewed and interpreted this EKG as follows: Interpretation: Sinus Rhythm (Ventricular rate is 64. ND interval is prolonged at 236. This is consistent with a first-degree heart block. QRS duration 78 ms. QT duration 392 ms. [place] is normal.) <CIARA Paulson - Last Filed: 02/25/22 19:35> MDM MDM Narrative Medical decision making narrative: Patient brought into the emergency department with agonal respiration, he did mention to the nurses that he did use fentanyl. Patient was immediately intubated by the ER attending. Patient did have a full work-up completed. Patient's CBC shows slight anemia with hemoglobin of 11.4. Patient's chemistries show a BUN of 20 TSH elevated 6.79. Due to the patient's negative CAT scan of the brain, chest x-ray read by the ER attending shows no acute process. Patient's urinalysis was negative for infection. Please see attending note secondary to intubation. Patient was paralyzed, sedated. After negative CAT scan, chest x-ray, Narcan failure, patient did have a urine drug screen, this was positive for opiates, amphetamines, ecstasy. At this time, the patient will need to be admitted to the ICU for respiratory failure secondary to drug abuse. Patient will be admitted to the hospitalist, patient remained stable here in the department. Stable for admission. Lab Data Labs: Laboratory Results - last 24 hr 02/25/22 02/25/22 02/25/22 16:55 16:55 16:55 WBC 7.4 RBC 4.03 L Hgb 11.4 L Hct 33.5 L MCV 83.1 MCH 28.3 MCHC 34.0 RDW Std Deviation 39.7 RDW Coeff of Rolf 13.1 Plt Count 332 MPV 9.8 Immature Gran % (Auto) 0.300 Neut % (Auto) 56.0 Lymph % (Auto) 29.7 [place] % (Auto) 7.4 Eos % (Auto) 5.7 H Baso % (Auto) 0.9 Absolute Neuts (auto) 4.2 Absolute Lymphs (auto) 2.20 Nucleated RBC % 0 Sodium 138 Potassium 4.1 Chloride 105 Carbon Dioxide 28.0 Anion Gap 5 BUN 20 H Creatinine 1.06 Estim Creat Clear Calc 67.48 Est GFR (MDRD) Af Amer 94 Est GFR (MDRD) Non-Af 78 BUN/Creatinine Ratio 18.9 Glucose 111 H Calcium 8.3 L TSH 6.79 H Urine Color Urine Clarity Urine pH Ur Specific [place] Urine Protein Urine Glucose (UA) Urine Ketones Urine Occult Blood Urine Nitrite Urine Bilirubin Urine Urobilinogen Ur Leukocyte Esterase Urine RBC Urine WBC Ur Squamous Epith Cells Urine Bacteria Urine Mucus Urine Opiates Screen Urine Methadone Screen Ur Barbiturates Screen Ur Phencyclidine Scrn Ur Amphetamines Screen MDMA (Ecstasy) Screen U Benzodiazepines Scrn Urine Cocaine Screen U Cannabinoids Screen Ur Drug Screen Comment Ethyl Alcohol < 3.0 02/25/22 02/25/22 17:19 17:50 WBC RBC Hgb Hct MCV MCH MCHC RDW Std Deviation RDW Coeff of Rolf Plt Count MPV Immature Gran % (Auto) Neut % (Auto) Lymph % (Auto) [place] % (Auto) Eos % (Auto) Baso % (Auto) Absolute Neuts (auto) Absolute Lymphs (auto) Nucleated RBC % Sodium Potassium Chloride Carbon Dioxide Anion Gap BUN Creatinine Estim Creat Clear Calc Est GFR (MDRD) Af Amer Est GFR (MDRD) Non-Af BUN/Creatinine Ratio Glucose Calcium TSH Urine Color Yellow Urine Clarity Sl. Cloudy Urine pH 6.0 Ur Specific [place] 1.015 Urine Protein 15 H Urine Glucose (UA) Normal Urine Ketones Negative Urine Occult Blood 150 H Urine Nitrite Negative Urine Bilirubin Negative Urine Urobilinogen Normal Ur Leukocyte Esterase Negative Urine RBC 5-10 SEEN Urine WBC 0 SEEN Ur Squamous Epith Cells 0-5 SEEN Urine Bacteria 0 SEEN Urine Mucus 0 SEEN Urine Opiates Screen POSITIVE H Urine Methadone Screen NEGATIVE Ur Barbiturates Screen NEGATIVE Ur Phencyclidine Scrn NEGATIVE Ur Amphetamines Screen POSITIVE H MDMA (Ecstasy) Screen POSITIVE H U Benzodiazepines Scrn NEGATIVE Urine Cocaine Screen NEGATIVE U Cannabinoids Screen NEGATIVE Ur Drug Screen Comment Ethyl Alcohol ABG Data ABG results: ABG 02/25/22 18:03 Specimen Type ART Sample Site L Radial pH 7.29 L Bicarbonate Actual 25.8 Total CO2 28 Base Excess -1 O2 Saturation 95 O2 % 50 ABG pCO2 53.8 H ABG pO2 87 Respiration Rate 12 O2 Delivery Device Adult Vent Vent Mode AC Tidal Volume 400 POC PEEP 5 Radiography Diagnostic Testing: Clinical Impression(s) from Imaging Studies Brain CT 02/25/22 17:19 IMPRESSION: There are no acute intracranial findings. Electronically Signed: Dain Daniels MD at 17:47 EDT , Chest X-Ray 02/25/22 17:50 IMPRESSION: There are no acute findings. Electronically Signed: Dain Daniels MD at 18:11 EDT , Procedures <Dr. Ambrosio Mendez MD - Last Filed: 02/25/22 20:23> Other Procedures Procedure(s): 1. Oral tracheal ovation as described under the MDM 2. Placement of orogastric tube per ED physician without difficulty on first attempt <Dr. Ambrosio Mendez MD - Last Filed: 02/25/22 20:23> Critical Care Time Critical Care Time: Yes Critical care time (excluding procedures): 30-74 minutes (42 minutes), Including time spent: (History, physical, documentation, interpretation laboratory results initiation of therapy), Discussing w/Patient &/or Family/Sales Order Clerk, Discussing w/Consultants and Arranging Admission or Transfer Discharge Plan Triage Chief Complaint: Neuro S/Sx ED Midlevel Provider: Jj Staton ED Provider: Ambrosio Mendez Dx/Rx/DC Orders Clinical Impression: Respiratory failure with hypoxia and hypercapnia, Live-Mo respiration, Coma, Amphetamine use, Ecstasy use disorder, mild, abuse, Opiate addiction Primary Care Provider: Robert Diaz Disposition Discharge Date/Time: 02/25/22 19:55
--- NOTE | 2022-02-25 17:06 | ED.RN ---
PT STATES HE IS HOT AND DOESN'T LIKE HOW HE FEELS AFTER THE NARCAN WAS GIVEN. PT KEEPS YAWNING AND STATING HE DOESN'T LIKE HOW HE FEELS. PT DENIES USING ANY OPIATES. AFTER EXPLAINING THE NARCAN ONLY WORKS ON OPIATES HE ADMITTED TO TAKING AN UNKNOWN AMT OF FENTANYL. ANOTHER DOSE OF NARCAN GIVEN. WHEN OXYGEN LEVEL DROPPED TO 77 AND HR WAS IN 40'S. PT IMMEDIATELY WOKE UP AND WAS MOANING.
[2022-02-25] MEDS: Naloxone 2 MG/2 ML Syringe IV ×2 (17:16→17:17)
--- NOTE | 2022-02-25 17:19 | CT_ITS ---
STUDY: CT BRAIN WITHOUT CONTRAST REASON FOR EXAM: Male, 51 years old. Technologist Notes HX BRAIN AND THROAT CA, PT UNRESPONSIVE Altered LOC TECHNIQUE: Transaxial CT imaging of the brain was performed without administration of intravenous contrast material. Individualized dose optimization techniques were used for this CT. COMPARISON: None FINDINGS: Normal calvarium. Normal soft tissues. ET tube and NG tube in place. Normal size ventricles and extra-axial spaces for the patient''s age. Normal white matter tracts of the cerebral hemispheres. Normal basal ganglia and thalami. Normal brainstem. Normal cerebellum. There is no intracranial hemorrhage. There are no findings of an acute ischemic infarction. There is sinus disease. ASPECTS 10 CT/Brain/Head without Contrast IMPRESSION: There are no acute intracranial findings. Electronically Signed: Dain Daniels MD at 17:47 EDT ,
--- NOTE | 2022-02-25 17:19 | EKG12_ITS ---
Test Reason : INTUBTION Blood Pressure : / mmHG Vent. Rate : 064 BPM Atrial Rate : 064 BPM P-R Int : 236 ms QRS Dur : 078 ms QT Int : 392 ms P-R-T Axes : 057 -01 041 degrees QTc Int : 404 ms Sinus rhythm with sinus arrhythmia with 1st degree A-V block Nonspecific ST abnormality Abnormal ECG Confirmed by SABI MILLER, DAVID ([id number]), newspaper copy editor ALLYSON MCDONALD ([id number]) on 02/28/2022 1:02:33 PM Referred By: CHIKIS Confirmed By:DAVID CELESTIN MD
[2022-02-25] MEDS: Rocuronium Bromide 50 MG/5 ML Vial IV ×2 (17:26→18:38)
[2022-02-25] MEDS: Etomidate 20 MG/10 ML Vial IV (17:26)
[2022-02-25 17:28] LABS: Absolute Neutrophil Count 4.2 X10^3/uL (2.0-7.7); Basophil# 0.07 X10^3/uL; Basophil% 0.9 % (0-1); Eosinophil# 0.42 X10^3/uL; Eosinophils% 5.7 % (0-5); Hematocrit 33.5 % (40-54); Hemoglobin 11.4 g/dL (13.0-16.5); Lymphocyte % 29.7 % (19-41); Mean Corpuscular Hgb 28.3 pg (27.0-32.0); Mean Corpuscular Volume 83.1 fL (80-94); Mean Platelet Vol. 9.8 fl (6.2-12.0); Monocyte# 0.55 X10^3/uL; Monocyte% 7.4 % (0-10); NRBC Flagged by Analyzer 0 % (0-5); Neutrophil # 4.15 X10^3/uL (2.7-7.7); Platelet Count 332 K/mm3 (150-450); RBC Distribution Width CV 13.1 % (11.6-14.6); RBC Distribution Width SD 39.7 fl (35.1-43.9); Red Blood Count 4.03 M/mm3 (4.6-6.2); White Blood Count 7.4 K/mm3 (4.4-11.0)
--- NOTE | 2022-02-25 17:28 | ED.RN ---
FAMILY UPDATED ON PT STATUS.
[2022-02-25] MEDS: Propofol 10MG/Ml 1,000 MG/100 ML Bottle 4 MG CONT INF (17:45)
--- NOTE | 2022-02-25 17:50 | RAD_ITS ---
STUDY: X-RAY CHEST REASON FOR EXAM: Male, 51 years old. Intubation TECHNIQUE: XR Chest 1 View COMPARISON: None FINDINGS: There is no demonstrated pleural abnormality. There is a feeding tube/ nasogastric tube noted. The tip is in the region of the stomach. ET tube in place. Normal size heart. Normal mediastinum and arnulfo. Normal visualized pulmonary arteries. There is atherosclerotic calcification of the aortic arch with tortuosity. There are diffuse degenerative changes of the visualized thoracic spine. There is degenerative osteoarthritis of the bilateral shoulders. There is no demonstrated abnormality of the visualized soft tissue structures of the upper abdomen. RAD/Chest 1 View (Portable) IMPRESSION: There are no acute findings. Electronically Signed: Dain Daniels MD at 18:11 EDT ,
[2022-02-25 17:56] LABS: Bacteria 0 SEEN /hpf (None Seen); Mucous, Urine 0 SEEN /hpf (<or=2+); White Blood Cells 0 SEEN /hpf (0-5)
[2022-02-25 17:57] LABS: Anion Gap 5 (5-15); BUN 20 mg/dL (7-18); BUN/Creat Ratio 18.9 RATIO (10-20); Calcium,Total 8.3 mg/dL (8.5-10.1); Chloride 105 mmol/L (98-107); Creatinine, Serum 1.06 mg/dL (0.70-1.30); EST Glomerular Filtration Rate 78 mL/min (>60); Est Glom Filt Rate - Afr Amer 94 mL/min (>60); Estimated Creatinine Clearance 67.48 ml/min; Glucose 111 mg/dL (74-106); Potassium 4.1 mmol/L (3.5-5.1); Sodium Level 138 mmol/L (136-145); Thyroid Stim Hormone (TSH) 6.79 uIU/mL (0.358-3.74)
[2022-02-25 17:58] LABS: Color, Urine Yellow (Yellow); Glucose, Dipstick Normal (Normal); Ketone-Dipstick Negative (Negative); Leukocyte Esterase-Dipstick Negative /ul (Negative); Nitrite-Dipstick Negative (Negative); Occult Blood-Urine 150 /ul (Negative); Protein-Dipstick 15 mg/dl (Negative); Specific Gravity, Urine 1.015 (1.002-1.030); Urine Bilirubin Dipstick Negative (Negative); Urine Clarity Sl. Cloudy (Clear); Urine Urobilinogen Normal (Normal)
[2022-02-25 18:01] LABS: Alcohol, Blood (Medical)-Serum < 3.0 mg/dL
[2022-02-25 18:10] LABS: Base Excess -1 mmol/L (-2 to +2); Bicarbonate 25.8 mmol/L (22-26); Blood Gas Specimen Type ART; FI02 50; Mode AC; O2 Delivery Device Adult Vent; PEEP 5; PO2 87 mmHG (75-100); RR 12; SITE L Radial; SO2 95 % (95-99); Total Carbon Dioxide 28 mmol/L; Vt 400; pCO2 53.8 mmHg (35-45); pH 7.29 (7.35-7.45)
[2022-02-25 18:12] LABS: Red Blood Cells-Urine 5-10 SEEN /hpf (0-5); Squamous Epithelial Cells - UA 0-5 SEEN /hpf (0-5)
[2022-02-25] MEDS: Propofol 200 MG/20 ML Vial 60 MG IV BOLUS (18:13)
[2022-02-25 18:18] LABS: Amphetamine Urine VISTA POSITIVE (<1000 ng/mL); Barbiturate Urine VISTA NEGATIVE (< 200 ng/mL); Benzodiazepine Urine VISTA NEGATIVE (< 200 ng/mL); Cocaine Urine VISTA NEGATIVE (< 300 ng/mL); Ecstacy Urine VISTA POSITIVE (< 500 ng/mL); Methadone Urine VISTA NEGATIVE (< 300 ng/mL); PCP Urine VISTA NEGATIVE (< 25 ng/mL); THC Urine VISTA NEGATIVE (< 50 ng/mL); Vista UDS pH Range 6
--- NOTE | 2022-02-25 18:40 | PCM.HP.STD ---
HPI - General General Date of Admission: 02/25/22 Date of Service: 02/25/22 Chief Complaint: Lethargic, falling. HPI Narrative The patient is a 51 y/o M w/ PMHx: Tobacco use, Recent 02/07/22 L neck mass biopsy consistent with Metastatic Squamous Cell Carcinoma, Polysubstance abuse (MDMA, Amphetamine, Opiate Abuse), Chronic lumbar back pain who presents to the [facility] ED on 02/25/22 with history of ~ 1 week with frequent falls and periods of increased lethargy prompting ED evaluation. In the ED patient became more lethargic and was noted to have Live-Mo breathing with biphasic stridor with eventual admission that he took fentanyl with some improvement with naloxone with a GCS of 3 with noted vertical nystagmus with pupils noted to be reactive with no scleral icterus with inability for patient to control his secretions and airway with pulse oximeter noting 70% prompting eventual intubation with administration of etomidate and usage of paralytic for CT scan. Work-up in the ED included T97.2, heart rate 88, BP 135/86, respiratory rate 14, 97% on room air eventually requiring intubation secondary to lethargy and inability to protect his airway, CBC with WC 7.4, hemoglobin 0.4, platelet 332 without marked shift, ABG not marked appearing aside pH 7.29, PCO2 mildly elevated 53.8 on vent, BMP with BUN/creatinine 20/1.06, glucose 111, TSH 6.79, urinalysis unremarkable with no obvious evidence of UTI, UDS with positive opiate, amphetamine, MDMA, ethyl alcohol less than 3, chest x-ray with no acute cardiopulmonary findings, CT of the brain with no acute intracranial findings. [facility] Medical History (Updated 02/25/22 @ 21:[address] Sarita Aj MD) Amphetamine use Chronic pain Ecstasy use disorder, mild, abuse History of ETOH abuse Metastatic squamous cell carcinoma Opiate addiction Smoker Substance abuse Home Medications amoxicillin-pot clavulanate 1 tab PO Q12H 02/25/22 [History Last Taken 02/25/22] Allergy/AdvReac Type Severity Reaction Status Date / Time aspirin AdvReac Upset Verified 02/25/22 16:58 Stomach tramadol AdvReac Upset Verified 02/25/22 16:58 Stomach Family History (Updated 02/25/22 @ 20:[address] Sarita Aj MD) Grandfather Cancer Grandfather Cancer Grandmother Hypertension Father Thyroid cancer Lung cancer Mother Hypertension Surgical History (Updated 02/25/22 @ 20:[address] Sarita Aj MD) H/O inguinal hernia repair H/O Spinal surgery History of fusion of lumbar spine S/P appendectomy S/P cataract extraction Social History (Updated 02/25/22 @ 20:[address] Sarita Aj MD) household members: other details: mother and sister housing: house current occupational status: disabled Smoking Status: Current every day smoker tobacco type: cigarettes Smoking packs per day: 1 Smoking cigarettes per day: 20.0 Years smoked: 37 Smoking pack-years: 37.00 Tobacco: How many years used: 20 alcohol intake: former details: Sober x ~ 10 years, prior heavy. substance use type: amphetamines, opiates, IV drugs and methamphetamine what type of physical activity do you participate in: none do you feel safe at home: Yes ROS Review of Systems ROS Unobtainable: due to encephalopathy, due to endotracheal tube and due to mental status Vital Signs Vital Signs Vital Signs: 02/25/22 16:50 02/25/22 17:20 02/25/22 17:45 Temperature 97.2 F L Temperature Source Temporal Pulse Rate 88 82 Respiratory Rate 14 12 Respiratory Effort Agonal Respiratory Depth Deep Respiratory Pattern Live-Mo Normal Blood Pressure 135/86 H 183/121 H Blood Pressure Mean 102 141 Blood Pressure Source Monitor Blood Pressure Position Supine Blood Pressure Location Left Arm Pulse Ox 97 Oxygen Delivery Method Room Air Fraction of Inspired Oxygen (FIO2) 50 02/25/22 17:50 Temperature Temperature Source Pulse Rate Respiratory Rate Respiratory Effort Respiratory Depth Respiratory Pattern Blood Pressure Blood Pressure Mean Blood Pressure Source Blood Pressure Position Blood Pressure Location Pulse Ox Oxygen Delivery Method Fraction of Inspired Oxygen (FIO2) 50 Weight Weight: 145 lb 11.609 oz Body Mass Index (BMI) 25.0 Physical Exam Narrative Physical Examination: General: Intubated and sedated, recently paralyzed, currently less distressed as had been agitated even with sedation, laying in ED bed. Skin: Normal color, normal turgor, no icterus, no cyanosis except very staged track alvarez and ecchymoses. HEENT: AT/NC, EOM unable to be assessed given intubated and sedated, bilateral equal pupils, decreased, reactive bilaterally, dry MM, no carotid bruits or JVD noted. Lungs: Diminished, symmetric rise, intubated, mildly coarse. Heart: Currently regular rate and rhythm; no gallop, rub audible. Abdomen: Soft, NTTP, ND, distant normal BS, no HSM. Extremities: No cyanosis, clubbing, or edema, see skin. Neurological: Intubated and sedated, recently paralyzed, currently less distressed as had been agitated even with sedation, laying in ED bed, cognitive function not baseline intact; bilateral equal pupils, decreased, reactive bilaterally, cranial nerves difficult to assess given intubated, sedated and paralyzed status, not moving as a result, strength severely globally decreased. Psychiatric: Affect appears currently flat, no acute evidence of depressive or anxiety feelings. Results Lab / Micro Data Result Diagrams: 02/25/22 16:55 02/25/22 16:55 Labs: Laboratory Results - last 24 hr 02/25/22 16:55: WBC 7.4, RBC 4.03 L, Hgb 11.4 L, Hct 33.5 L, MCV 83.1, MCH 28.3, MCHC 34.0, RDW Std Deviation 39.7, RDW Coeff of Rolf 13.1, Plt Count 332, MPV 9.8, Immature Gran % (Auto) 0.300, Neut % (Auto) 56.0, Lymph % (Auto) 29.7, [place] % (Auto) 7.4, Eos % (Auto) 5.7 H, Baso % (Auto) 0.9, Absolute Neuts (auto) 4.2, Absolute Lymphs (auto) 2.20, Nucleated RBC % 0 02/25/22 16:55: Sodium 138, Potassium 4.1, Chloride 105, Carbon Dioxide 28.0, Anion Gap 5, BUN 20 H, Creatinine 1.06, Estim Creat Clear Calc 67.48, Est GFR (MDRD) Af Amer 94, Est GFR (MDRD) Non-Af 78, BUN/Creatinine Ratio 18.9, Glucose 111 H, Calcium 8.3 L, TSH 6.79 H 02/25/22 16:55: Ethyl Alcohol < 3.0 02/25/22 17:19: Urine Opiates Screen POSITIVE H, Urine Methadone Screen NEGATIVE, Ur Barbiturates Screen NEGATIVE, Ur Phencyclidine Scrn NEGATIVE, Ur Amphetamines Screen POSITIVE H, MDMA (Ecstasy) Screen POSITIVE H, U Benzodiazepines Scrn NEGATIVE, Urine Cocaine Screen NEGATIVE, U Cannabinoids Screen NEGATIVE, Ur Drug Screen Comment 02/25/22 17:50: Urine Color Yellow, Urine Clarity Sl. Cloudy, Urine pH 6.0, Ur Specific [place] 1.015, Urine Protein 15 H, Urine Glucose (UA) Normal, Urine Ketones Negative, Urine Occult Blood 150 H, Urine Nitrite Negative, Urine Bilirubin Negative, Urine Urobilinogen Normal, Ur Leukocyte Esterase Negative, Urine RBC 5-10 SEEN, Urine WBC 0 SEEN, Ur Squamous Epith Cells 0-5 SEEN, Urine Bacteria 0 SEEN, Urine Mucus 0 SEEN ABG Data ABG results: ABG 02/25/22 18:03 Specimen Type ART Sample Site L Radial pH 7.29 L Bicarbonate Actual 25.8 Total CO2 28 Base Excess -1 O2 Saturation 95 O2 % 50 ABG pCO2 53.8 H ABG pO2 87 Respiration Rate 12 O2 Delivery Device Adult Vent Vent Mode AC Tidal Volume 400 POC PEEP [address] 02/25/22 17:19 IMPRESSION: There are no acute intracranial findings. Electronically Signed: Dain Daniels MD at 17:47 EDT , Chest X-Ray 02/25/22 17:50 IMPRESSION: There are no acute findings. Electronically Signed: Dain Daniels MD at 18:11 EDT , Assessment & Plan Assessment/Plan (1) Respiratory failure with hypoxia and hypercapnia: QUALIFIERS: Chronicity: acute Qualified Code(s): J96.01 - Acute respiratory failure with hypoxia; J96.02 - Acute respiratory failure with hypercapnia (2) Polysubstance overdose: QUALIFIERS: Encounter type: initial encounter Injury intent: accidental or unintentional Qualified Code(s): T50.901A - Poisoning by unspecified drugs, medicaments and biological substances, accidental (unintentional), initial encounter PLAN: The patient is a 51 y/o M w/ PMHx: Tobacco use, Recent 02/07/22 L neck mass biopsy consistent with Metastatic Squamous Cell Carcinoma, Polysubstance abuse (MDMA, Amphetamine, Opiate Abuse), Chronic lumbar back pain who presents to the [facility] ED on 02/25/22 with history of ~ 1 week with frequent falls and periods of increased lethargy. #1. Acute Encephalopathy, Multifactorial, secondary to Acute hypoxic and hypercarbic respiratory failure secondary to Polysubstance abuse (Opiate, MDMA, Methamphetamines): Will admit to the ICU, continue intubated and sedated status, increase as needed although ED did require paralytics secondary to severe agitation therefore will continue closely monitor, discussed case with grievance and appeals specialist who will evaluate in a.m., given concern for possible aspiration events with nausea and emesis during ED evaluations will place on Zosyn therapy to be cautious, continue evaluation for potential extubation in a.m., once patient is appropriately extubated and able to make decisions would plan to discuss opiate abuse treatment. #2. Polysubstance Abuse, IVDA Hx, Chronic back pain: Patient with significant polysubstance abuse history secondary to chronic back pain per discussion with family, no prior HIV and hepatitis testing per their report. Will obtain both HIV and hepatitis to be cautious although patient will need to be clean, sober to be a candidate for hep C treatment with documented attendance NA or AA meetings, counseling and ongoing negative drug screens. As noted above #1 once patient is appropriately extubated and may discuss would plan to offer opiate withdrawal treatment program. #3. Metastatic Squamous Cell Carcinoma: Recent 02/07/22 L neck mass biopsy consistent with Metastatic Squamous Cell Carcinoma, ENT evaluation with noted L sided oropharyngeal mass elevating the soft palate and obstructing larynx view from review of their notes, encourage continued follow-up with ANDREE Moon to continue care and initiate appropriate cancer treatment. Given usage of zosyn as noted, will hold augmentin recently started 02/24/22 per ENT. #4. Tobacco Abuse: Encouraged cessation, inpatient consultation per RT, NR if desired. #5. GERD: We will maintain on IV famotidine. #6. DVT prophylaxis: SCDs, Lovenox. Charges/Coding Visit Charges Inpatient E&M: 96659 Init Hosp L3
--- NOTE | 2022-02-25 19:18 | ED.RN ---
RN with pt since return from CT scan. Pt's mother & sister at bedside. Dr Aj assessing pt at this time.
--- NOTE | 2022-02-25 19:37 | CM.ED ---
ANTHONY SEGURA Assessment: Information Source: ED chart review and patient's sister and mother who were in ED trauma room #1. Patient presents with lethargy and not protecting his own airway. Patient has had difficulty walking secondary to feeling imbalance. He did have a thyroid biopsy 1-2 days ago secondary to concerns of thyroid cancers. Patient was giving 4 mg of Narcan prior to LINEMAN seeing the patient. There is complex medical history of drug abuse. Family present, Patient's mom, Jess Ordaz and patient's sister, Viviana Ordaz. NOK: Patient's sister and mother stated that patient has 2 boys, Saran age 25 who resides in [place] and Toney age 23 who resides in [place]. Family does not think that patient has any advanced directives PCP: Per chart patient's PCP is Emily. Family said it is a MD at [place] Specialist: Dr. Méndez Insurance: [employer] Just for Me RX Insurance: [employer] [employer] [place] Name of [facility]acy[facility] Lives in a house Living Arrangement: Resides with mom and sister Steps: 3 steps into the house. Patient lives in the basement. Per mom and sister patient has a room in the garage where he has a tv and does his drugs. ADL's: Patient is able to do ADL's per family Employed: Disabled Smoking: Per family patient smokes ETOH: Family reports they do not think patient has been drinking but he does have a past history of alcohol us. Transportation: Family reports that they are taking patient to appointments as his vehicle is not working however patient does have license. Patient has no current DME. Patient, per family, has no DME needs. No previous SNF or Home Health Care. MD spoke to patient's family about detox program at the hospital that hopefully patient will be open to once he is medically stable. Patient's family receptive to patient being aware of detox program. Plan: To be determined. Sylwia MARS
[2022-02-25 22:05] LABS: Base Excess 0 mmol/L (-2 to +2); Bicarbonate 23.7 mmol/L (22-26); Blood Gas Specimen Type ART; FI02 25; Mode AC; O2 Delivery Device Adult Vent; PEEP 5; PO2 77 mmHG (75-100); RR 14; SITE L Radial; SO2 96 % (95-99); Total Carbon Dioxide 25 mmol/L; Vt 450; pCO2 32.6 mmHg (35-45); pH 7.47 (7.35-7.45)
[2022-02-25] MEDS: Famotidine 200 MG/20 ML MDV 20 MG in 0.9% Normal Saline (Pres. free 8 ML 300 MG IV (22:48)
[2022-02-25] MEDS: Chlorhexidine 15 ML PO (22:48)
[2022-02-25] MEDS: 0.9% Normal Saline 1,000 ML 100 ML IV (22:49)
[2022-02-25] MEDS: Propofol 10MG/Ml 1,000 MG/100 ML Bottle 15.9 MG CONT INF (22:51)
[2022-02-26] VITALS (34 sets, daily range): BP systolic 87–144; BP diastolic 51–97; PULSE 82–104; RESP 14–24; TEMP 36.6–37.1; O2SAT 94–100
[2022-02-26] MEDS: TITRATION PARAMETER CHANGE 1 EACH IV (04:01)
[2022-02-26] MEDS: Propofol 10MG/Ml 1,000 MG/100 ML Bottle 19.1 MG CONT INF ×2 (04:49→09:23)
[2022-02-26 05:05] LABS: Absolute Lymphocyte Count 1.44 X10^3/uL (0.83-4.51); Absolute Neutrophil Count 10.8 X10^3/uL (2.0-7.7); Basophil# 0.05 X10^3/uL; Basophil% 0.4 % (0-1); Eosinophil# 0.14 X10^3/uL; Eosinophils% 1.1 % (0-5); Hematocrit 33.2 % (40-54); Lymphocyte # 1.44 X10^3/ul (0.83-4.51); Mean Corp Hgb Conc 33.1 g/dL (32-36); Mean Corpuscular Hgb 27.5 pg (27.0-32.0); Mean Platelet Vol. 9.6 fl (6.2-12.0); Monocyte# 0.65 X10^3/uL; NRBC Flagged by Analyzer 0 % (0-5); Neutrophil # 10.75 X10^3/uL (2.7-7.7); Neutrophil % 82.2 % (47-70); Platelet Count 334 K/mm3 (150-450); RBC Distribution Width CV 13.2 % (11.6-14.6); RBC Distribution Width SD 39.6 fl (35.1-43.9); White Blood Count 13.1 K/mm3 (4.4-11.0)
[2022-02-26 05:23] LABS: CPK Total, Creatine Kinase 90 U/L (39-308); Triglycerides 86 mg/dL
[2022-02-26 05:26] LABS: ALB/GLOB Ratio 0.8 RATIO (0.9-2.4); AST(SGOT) 18 U/L (15-37); Alanine Aminotransfer ALT/SGPT 23 U/L (16-61); Albumin, Serum 2.6 g/dL (3.2-5.0); Alkaline Phosphatase 102 U/L (45-117); Anion Gap 6 (5-15); BUN 17 mg/dL (7-18); BUN/Creat Ratio 16.3 RATIO (10-20); Calcium,Total 7.9 mg/dL (8.5-10.1); Chloride 108 mmol/L (98-107); Creatinine, Serum 1.04 mg/dL (0.70-1.30); EST Glomerular Filtration Rate 79 mL/min (>60); Est Glom Filt Rate - Afr Amer 96 mL/min (>60); Estimated Creatinine Clearance 68.78 ml/min; Globulin 3.1 g/dL (2.2-4.2); Glucose 109 mg/dL (74-106); Potassium 3.4 mmol/L (3.5-5.1); Protein, Total 5.7 g/dL (6.4-8.2); Sodium Level 141 mmol/L (136-145); T4 Free Direct 1.32 ng/dL (0.76-1.46)
--- NOTE | 2022-02-26 05:34 | EX.PCM.CONCC ---
Assessment & Plan Assessment/Plan (1) Acute respiratory failure: PLAN: RECOMMENDATIONS: 1. Continue assist control mode mechanical ventilation. Wean FiO2/PEEP for saturations greater than 90%. 2. Continue empiric antimicrobials, pending finalized culture results. 3. Minimize sedative medications as tolerated. 4. Continue appropriate ICU prophylaxis. 5. Hold on tube feeds today. 6. Plan for paired spontaneous awakening and breathing trials beginning tomorrow. IMPRESSIONS: 1. Acute combined respiratory failure likely secondary to polysubstance overdose The patient was ultimately intubated in the emergency department over concerns for airway protection. FiO2 requirement is minimal. The patient was placed on antimicrobials over concerns for potential aspiration. Sputum culture is currently pending. Plan to continue invasive mechanical ventilatory support. Antimicrobials will be continued, pending finalized culture results. I would attempt to minimize sedative medications as tolerated. Plan for paired spontaneous awakening and breathing trials beginning tomorrow. 2. Encephalopathy Likely secondary to illicit drug overdose coupled with CO2 retention. Anticipate improvement with invasive mechanical ventilatory support, time and stabilization of acid-base status. Attempt to minimize sedative medications as tolerated. 3. Recently diagnosed metastatic squamous cell carcinoma/chronic tobacco dependency/GERD/chronic pain syndrome Complicates care, management, recovery and prognosis. Nicotine replacement therapy can be offered to the patient while admitted to the hospital. TIME: 37 minutes of critical care time, independent of procedures, was spent addressing the patient's acute combined respiratory failure, polysubstance overdose, encephalopathy, review of all data and collaboration with the care team. HPI Consult Data Date of Consult: 02/27/22 HPI Narrative Reason for Consultation: Acute respiratory failure HPI Narrative: The patient is a 51-year-old male, with a history as outlined below, who presented to the emergency department on February 25 with altered mentation. History pertinent to the patient's hospitalization was obtained primarily via chart review, as the patient is currently intubated and there is no family available at the bedside. He has a reported history of recently diagnosed head and neck Stewart squamous cell carcinoma along with a history of polysubstance abuse and chronic back pain. On presentation to the emergency department, the patient was noted to be afebrile and hemodynamically stable. Initial laboratory evaluation revealed no evidence of a leukocytosis. Chemistry profile was largely unrevealing. TSH was elevated at 6.79 with a free T4 of 1.32. Urinalysis was unremarkable. Toxicology screen was positive for opiates, amphetamines and MDMA. Head CT was unremarkable. The patient was treated with Narcan with transient improvement in his mentation. Ultimately, over concerns for airway protection, the patient was intubated. Over concerns for potential aspiration, the patient was placed on antimicrobials. He was then admitted to the medical intensive care unit for further management. [facility] Medical History (Updated 02/26/22 @ 05:[address] Luc Ruiz DO) Amphetamine use Chronic pain Ecstasy use disorder, mild, abuse History of ETOH abuse Metastatic squamous cell carcinoma Opiate addiction Smoker Substance abuse Home Medications amoxicillin-pot clavulanate 1 tab PO Q12H 02/25/22 [History Last Taken 02/25/22] Allergy/AdvReac Type Severity Reaction Status Date / Time aspirin AdvReac Upset Verified 02/25/22 16:58 Stomach tramadol AdvReac Upset Verified 02/25/22 16:58 Stomach Family History (Updated 02/25/22 @ 20:[address] Sarita Aj MD) Grandfather Cancer Grandfather Cancer Grandmother Hypertension Father Thyroid cancer Lung cancer Mother Hypertension Surgical History (Updated 02/25/22 @ 20:[address] Sarita Aj MD) H/O inguinal hernia repair H/O Spinal surgery History of fusion of lumbar spine S/P appendectomy S/P cataract extraction Social History (Updated 02/25/22 @ 20:[address] Sarita Aj MD) household members: other details: mother and sister housing: house current occupational status: disabled Smoking Status: Current every day smoker tobacco type: cigarettes Smoking packs per day: 1 Smoking cigarettes per day: 20.0 Years smoked: 37 Smoking pack-years: 37.00 Tobacco: How many years used: 20 alcohol intake: former details: Sober x ~ 10 years, prior heavy. substance use type: amphetamines, opiates, IV drugs and methamphetamine what type of physical activity do you participate in: none do you feel safe at home: Yes ROS Review of Systems ROS Unobtainable: due to endotracheal tube Physical Exam Const no apparent distress General Appearance: intubated and patient mechanically ventilated HEENT normocephalic and head/scalp atraumatic Mouth: endotracheal tube in place and OG tube in place Eyes PERRL and conjunctivae normal Neck supple General: trachea midline Chest inspection of chest normal Resp Auscultation: Negative for rales, rhonchi or wheezes Cardio S1 normal heart sound and S2 normal heart sound Rate: tachycardic GI normal to inspection, nondistended, normoactive bowel sounds Extremity no clubbing, cyanosis or edema Skin no rashes or lesions noted Neuro Sensorium / Orientation: sedated on vent Lab / Micro Data Result Diagrams: 02/27/22 03:48 02/27/22 03:48 Labs: Laboratory Results - last 24 hr 02/25/22 16:55: WBC 7.4, RBC 4.03 L, Hgb 11.4 L, Hct 33.5 L, MCV 83.1, MCH 28.3, MCHC 34.0, RDW Std Deviation 39.7, RDW Coeff of Rolf 13.1, Plt Count 332, MPV 9.8, Immature Gran % (Auto) 0.300, Neut % (Auto) 56.0, Lymph % (Auto) 29.7, [place] % (Auto) 7.4, Eos % (Auto) 5.7 H, Baso % (Auto) 0.9, Absolute Neuts (auto) 4.2, Absolute Lymphs (auto) 2.20, Nucleated RBC % 0 02/25/22 16:55: Sodium 138, Potassium 4.1, Chloride 105, Carbon Dioxide 28.0, Anion Gap 5, BUN 20 H, Creatinine 1.06, Estim Creat Clear Calc 67.48, Est GFR (MDRD) Af Amer 94, Est GFR (MDRD) Non-Af 78, BUN/Creatinine Ratio 18.9, Glucose 111 H, Calcium 8.3 L, TSH 6.79 H 02/25/22 16:55: Ethyl Alcohol < 3.0 02/25/22 17:19: Urine Opiates Screen POSITIVE H, Urine Methadone Screen NEGATIVE, Ur Barbiturates Screen NEGATIVE, Ur Phencyclidine Scrn NEGATIVE, Ur Amphetamines Screen POSITIVE H, MDMA (Ecstasy) Screen POSITIVE H, U Benzodiazepines Scrn NEGATIVE, Urine Cocaine Screen NEGATIVE, U Cannabinoids Screen NEGATIVE, Ur Drug Screen Comment 02/25/22 17:50: Urine Color Yellow, Urine Clarity Sl. Cloudy, Urine pH 6.0, Ur Specific [place] 1.015, Urine Protein 15 H, Urine Glucose (UA) Normal, Urine Ketones Negative, Urine Occult Blood 150 H, Urine Nitrite Negative, Urine Bilirubin Negative, Urine Urobilinogen Normal, Ur Leukocyte Esterase Negative, Urine RBC 5-10 SEEN, Urine WBC 0 SEEN, Ur Squamous Epith Cells 0-5 SEEN, Urine Bacteria 0 SEEN, Urine Mucus 0 SEEN 02/26/22 04:54: WBC 13.1 H, RBC 4.00 L, Hgb 11.0 L, Hct 33.2 L, MCV 83.0, MCH 27.5, MCHC 33.1, RDW Std Deviation 39.6, RDW Coeff of Rolf 13.2, Plt Count 334, MPV 9.6, Immature Gran % (Auto) 0.300, Neut % (Auto) 82.2 H, Lymph % (Auto) 11.0 L, [place] % (Auto) 5.0, Eos % (Auto) 1.1, Baso % (Auto) 0.4, Absolute Neuts (auto) 10.8 H, Absolute Lymphs (auto) 1.44, Nucleated RBC % 0 02/26/22 04:54: Sodium 141, Potassium 3.4 L, Chloride 108 H, Carbon Dioxide 27.0, Anion Gap 6, BUN 17, Creatinine 1.04, Estim Creat Clear Calc 68.78, Est GFR (MDRD) Af Amer 96, Est GFR (MDRD) Non-Af 79, BUN/Creatinine Ratio 16.3, Glucose 109 H, Calcium 7.9 L, Total Bilirubin 0.50, AST 18, ALT 23, Alkaline Phosphatase 102, Total Protein 5.7 L, Albumin 2.6 L, Globulin 3.1, Albumin/Globulin Ratio 0.8 L, Free T4 1.32 02/26/22 04:54: Total Creatine Kinase 90, Triglycerides 86 ABG Data ABG results: ABG 02/25/22 02/25/22 18:03 21:59 Specimen Type ART ART Sample Site L Radial L Radial pH 7.29 L 7.47 H Bicarbonate Actual 25.8 23.7 Total CO2 28 25 Base Excess -1 0 O2 Saturation 95 96 O2 % 50 25 ABG pCO2 53.8 H 32.6 L ABG pO2 87 77 Calvin Test N/A Respiration Rate 12 14 O2 Delivery Device Adult Vent Adult Vent Vent Mode AC AC Tidal Volume 400 450 POC PEEP [address] 02/25/22 17:19 IMPRESSION: There are no acute intracranial findings. Electronically Signed: Dain Daniels MD at 17:47 EDT , Chest X-Ray 02/25/22 17:50 IMPRESSION: There are no acute findings. Electronically Signed: Dain Daniels MD at 18:11 EDT , Charges/Coding Procedures Hospitalists Procedures: [id number] [facility] Hr
--- NOTE | 2022-02-26 07:36 | PCM.PN.HOSP ---
Subjective Subjective Follow-up for acute hypoxic and hypercarbic respiratory failure., Polysubstance use and encephalopathy Patient is intubated on assist control mode. History taken from the chart with inputs from the nursing staff Objective Data Objective Data Vital Signs: Vital Signs Temp Pulse Resp BP Pulse Ox 97.8 F 101 H 14 101/71 100 02/26/22 04:00 02/26/22 07:27 02/26/22 07:00 02/26/22 07:00 02/26/22 07:00 Oxygen Flow Rate (L/min) 40 Oxygen Delivery Method Mechanical Ventilator Weight: 140 lb 11.2 oz Body Mass Index (BMI) 24.5 Intake & Output: Intake and Output for Last 24 Hours 02/24/22 02/25/22 02/26/22 23:59 23:59 23:59 Intake Total 143.06 / 168.96 309.39 / 309.39 Output Total 850 / 1650 1050 / 1050 Balance -706.94 / -1481.04 -740.61 / -740.61 Lab / Micro Data Result Diagrams: 02/26/22 04:54 02/26/22 04:54 Labs: Laboratory Results - last 24 hr 02/25/22 16:55: WBC 7.4, RBC 4.03 L, Hgb 11.4 L, Hct 33.5 L, MCV 83.1, MCH 28.3, MCHC 34.0, RDW Std Deviation 39.7, RDW Coeff of Rolf 13.1, Plt Count 332, MPV 9.8, Immature Gran % (Auto) 0.300, Neut % (Auto) 56.0, Lymph % (Auto) 29.7, Div[place] % (Auto) 7.4, Eos % (Auto) 5.7 H, Baso % (Auto) 0.9, Absolute Neuts (auto) 4.2, Absolute Lymphs (auto) 2.20, Nucleated RBC % 0 02/25/22 16:55: Sodium 138, Potassium 4.1, Chloride 105, Carbon Dioxide 28.0, Anion Gap 5, BUN 20 H, Creatinine 1.06, Estim Creat Clear Calc 67.48, Est GFR (MDRD) Af Amer 94, Est GFR (MDRD) Non-Af 78, BUN/Creatinine Ratio 18.9, Glucose 111 H, Calcium 8.3 L, TSH 6.79 H 06/03/22 16:55: Ethyl Alcohol < 3.0 02/25/22 17:19: Urine Opiates Screen POSITIVE H, Urine Methadone Screen NEGATIVE, Ur Barbiturates Screen NEGATIVE, Ur Phencyclidine Scrn NEGATIVE, Ur Amphetamines Screen POSITIVE H, MDMA (Ecstasy) Screen POSITIVE H, U Benzodiazepines Scrn NEGATIVE, Urine Cocaine Screen NEGATIVE, U Cannabinoids Screen NEGATIVE, Ur Drug Screen Comment 02/25/22 17:50: Urine Color Yellow, Urine Clarity Sl. Cloudy, Urine pH 6.0, Ur Specific [employer] 1.015, Urine Protein 15 H, Urine Glucose (UA) Normal, Urine Ketones Negative, Urine Occult Blood 150 H, Urine Nitrite Negative, Urine Bilirubin Negative, Urine Urobilinogen Normal, Ur Leukocyte Esterase Negative, Urine RBC 5-10 SEEN, Urine WBC 0 SEEN, Ur Squamous Epith Cells 0-5 SEEN, Urine Bacteria 0 SEEN, Urine Mucus 0 SEEN 02/26/22 04:54: WBC 13.1 H, RBC 4.00 L, Hgb 11.0 L, Hct 33.2 L, MCV 83.0, MCH 27.5, MCHC 33.1, RDW Std Deviation 39.6, RDW Coeff of Rolf 13.2, Plt Count 334, MPV 9.6, Immature Gran % (Auto) 0.300, Neut % (Auto) 82.2 H, Lymph % (Auto) 11.0 L, Divide % (Auto) 5.0, Eos % (Auto) 1.1, Baso % (Auto) 0.4, Absolute Neuts (auto) 10.8 H, Absolute Lymphs (auto) 1.44, Nucleated RBC % 0 02/26/22 04:54: Sodium 141, Potassium 3.4 L, Chloride 108 H, Carbon Dioxide 27.0, Anion Gap 6, BUN 17, Creatinine 1.04, Estim Creat Clear Calc 68.78, Est GFR (MDRD) Af Amer 96, Est GFR (MDRD) Non-Af 79, BUN/Creatinine Ratio 16.3, Glucose 109 H, Calcium 7.9 L, Total Bilirubin 0.50, AST 18, ALT 23, Alkaline Phosphatase 102, Total Protein 5.7 L, Albumin 2.6 L, Globulin 3.1, Albumin/Globulin Ratio 0.8 L, Free T4 1.32 02/26/22 04:54: Total Creatine Kinase 90, Triglycerides 86 ABG Data ABG results: ABG 02/25/22 02/25/22 18:03 21:59 Specimen Type ART ART Sample Site L Radial L Radial pH 7.29 L 7.47 H Bicarbonate Actual 25.8 23.7 Total CO2 28 25 Base Excess -1 0 O2 Saturation 95 96 O2 % 50 25 ABG pCO2 53.8 H 32.6 L ABG pO2 87 77 Calvin Test N/A Respiration Rate 12 14 O2 Delivery Device Adult Vent Adult Vent Vent Mode AC AC Tidal Volume 400 450 POC PEEP 5 5 Radiography Diagnostic Testing: Radiology Impression Brain CT 02/25/22 17:19 IMPRESSION: There are no acute intracranial findings. Electronically Signed: Dain Daniels MD at 17:47 EDT , Chest X-Ray 02/25/22 17:50 IMPRESSION: There are no acute findings. Electronically Signed: Dain Daniels MD at 18:11 EDT , Physical Exam Narrative General: Sedated. HEENT: Atraumatic, pupils reactive bilaterally normocephalic Oral: ET and OG tube. Neck: Supple, No JVD, Negative Carotid Bruits Lungs: Air entry diminished in bilateral lung bases. No crepitation/rhonchi Cardiovascular: Regular rate, Regular Rhythm, Normal S1, Normal S2, No murmurs Abdomen: Bowel Sounds Present, Soft, Non Tender, Non-Distended : Spangler catheter urine clear no renal angle tenderness. No suprapubic tenderness. Extremities: No edema, Capillary Refill Less than 3 Seconds Skin: Scab in legs Musculoskeletal: No Tenderness to Palpation of Joints or Extremities Neurological: Sedated, detailed neuro exam unobtainable Psych/Mental Status: Intubated. Assessment & Plan Assessment/Plan (1) Respiratory failure with hypoxia and hypercapnia: QUALIFIERS: Chronicity: acute Qualified Code(s): J96.01 - Acute respiratory failure with hypoxia; J96.02 - Acute respiratory failure with hypercapnia (2) Polysubstance overdose: QUALIFIERS: Encounter type: initial encounter Injury intent: accidental or unintentional Qualified Code(s): T50.901A - Poisoning by unspecified drugs, medicaments and biological substances, accidental (unintentional), initial encounter PLAN: The patient is a 51 y/o M who is admitted to ICU from ED for increased lethargy, altered mental status and frequent fall. Patient had a snoring breathing, not able to protect airway for therefore intubated in ED. #1. Acute Encephalopathy, multifactorial due to metabolic and toxic encephalopathy secondary to Polysubstance abuse (Opiate, MDMA, Methamphetamines) complicating into acute hypoxic and hypercarbic respiratory failure: Patient is in ICU, car escort consulted for vent management. On IV Zosyn. First ABG 7.2 //28 on 50% FiO2/400/12/5. This consistent with acute hypoxic and hypercarbic respiratory failure. Repeat ABG 7.4 on 25% FiO2, 450/14/5. Patient is intubated on assist-control mode on ventilator. Empirically on IV antibiotic Zosyn for concern of potential aspiration. Cultures are pending. Patient on minimal vent settings 21% FiO2, PEEP 5. #2. Polysubstance Abuse, IVDA history, Chronic back pain: History of polysubstance use, U tox positive of amphetamine MDMA and opioids. After extubation patient will need COWS and CINA monitoring for opioid withdrawal #3. Metastatic Squamous Cell Carcinoma: Patient had FNAC of left neck mass on 02/07/2022 and is positive for malignant cells consistent with metastatic squamous cell carcinoma. ENT evaluation noted L sided oropharyngeal mass elevating the soft palate and obstructing larynx view. Continue follow-up with ENT Dr. Mora. Augmentin was started on 03-16 by ENT and is on hold as patient has the patient is on Zosyn #4. Tobacco Abuse: Nicotine patch may be needed after extubation. #5. GERD: on IV famotidine. #6. DVT prophylaxis: SCDs, Lovenox. Charges/Coding Visit Charges Inpatient E&M: 26987 Subs Hosp L3
[2022-02-26] MEDS: 0.9% Normal Saline 1,000 ML 100 ML IV ×2 (08:36→17:47)
[2022-02-26] MEDS: Famotidine 200 MG/20 ML MDV 20 MG in 0.9% Normal Saline (Pres. free 8 ML 300 MG IV ×2 (09:15→21:42)
[2022-02-26] MEDS: Enoxaparin 40 MG/0.4 ML Syringe SC (09:15)
[2022-02-26] MEDS: Chlorhexidine 15 ML PO ×2 (09:15→20:43)
[2022-02-26 09:33] LABS: HIV - WCH Non-Reactive (Nonreactive)
[2022-02-26] MEDS: Propofol 10MG/Ml 1,000 MG/100 ML Bottle 11.5 MG CONT INF (15:28)
[2022-02-26] MEDS: Propofol 10MG/Ml 1,000 MG/100 ML Bottle 15.3 MG CONT INF (20:43)
[2022-02-27] VITALS (28 sets, daily range): BP systolic 101–151; BP diastolic 60–99; PULSE 80–105; RESP 10–18; TEMP 36.6–37.3; O2SAT 94–100
[2022-02-27] MEDS: Propofol 10MG/Ml 1,000 MG/100 ML Bottle 19.1 MG CONT INF (01:24)
[2022-02-27 04:00] LABS: Absolute Lymphocyte Count 1.85 X10^3/uL (0.83-4.51); Absolute Neutrophil Count 11.5 X10^3/uL (2.0-7.7); Basophil# 0.05 X10^3/uL; Basophil% 0.3 % (0-1); Eosinophil# 0.31 X10^3/uL; Eosinophils% 2.2 % (0-5); Hematocrit 31.3 % (40-54); Hemoglobin 10.3 g/dL (13.0-16.5); Lymphocyte # 1.85 X10^3/ul (0.83-4.51); Lymphocyte % 12.9 % (19-41); Mean Corp Hgb Conc 32.9 g/dL (32-36); Mean Corpuscular Hgb 28.4 pg (27.0-32.0); Mean Corpuscular Volume 86.2 fL (80-94); Monocyte# 0.63 X10^3/uL; Monocyte% 4.4 % (0-10); NRBC Flagged by Analyzer 0 % (0-5); Neutrophil # 11.47 X10^3/uL (2.7-7.7); Neutrophil % 79.9 % (47-70); Platelet Count 289 K/mm3 (150-450); RBC Distribution Width CV 13.7 % (11.6-14.6); RBC Distribution Width SD 42.7 fl (35.1-43.9); Red Blood Count 3.63 M/mm3 (4.6-6.2); White Blood Count 14.4 K/mm3 (4.4-11.0)
[2022-02-27] MEDS: 0.9% Normal Saline 1,000 ML 100 ML IV (04:06)
[2022-02-27 04:25] LABS: ALB/GLOB Ratio 0.6 RATIO (0.9-2.4); AST(SGOT) 26 U/L (15-37); Alanine Aminotransfer ALT/SGPT 23 U/L (16-61); Alkaline Phosphatase 103 U/L (45-117); Anion Gap 7 (5-15); BUN 14 mg/dL (7-18); BUN/Creat Ratio 12.2 RATIO (10-20); Calcium,Total 7.6 mg/dL (8.5-10.1); Chloride 111 mmol/L (98-107); Creatinine, Serum 1.15 mg/dL (0.70-1.30); EST Glomerular Filtration Rate 71 mL/min (>60); Est Glom Filt Rate - Afr Amer 85 mL/min (>60); Globulin 3.1 g/dL (2.2-4.2); Glucose 93 mg/dL (74-106); Potassium 3.2 mmol/L (3.5-5.1); Protein, Total 5.1 g/dL (6.4-8.2); Sodium Level 142 mmol/L (136-145)
--- NOTE | 2022-02-27 05:44 | PCM.PN.INT ---
Assessment & Plan Assessment/Plan (1) Acute respiratory failure: PLAN: RECOMMENDATIONS: 1. Proceed with a trial of extubation this morning. 2. Once extubated, wean supplemental oxygen to maintain saturations at or above 90%. 3. Perform bedside swallow evaluation and advance diet accordingly. 4. Continue antimicrobials. 5. Encourage incentive spirometer use and mobilize patient as tolerated. IMPRESSIONS: 1. Acute combined respiratory failure likely secondary to polysubstance overdose The patient was ultimately intubated in the emergency department over concerns for airway protection. He was also started empirically on antimicrobials over concerns for potential aspiration. The patient has improved clinically and is a candidate for extubation this morning. Once extubated, wean supplemental oxygen to maintain saturations at or above 90%. Perform bedside swallow evaluation and advance diet accordingly. Encourage incentive spirometer use and mobilize patient as tolerated. 2. Encephalopathy Resolved. Likely secondary to illicit drug overdose coupled with CO2 retention. The patient is alert and now following commands appropriately. 3. Recently diagnosed metastatic squamous cell carcinoma/chronic tobacco dependency/GERD/chronic pain syndrome Complicates care, management, recovery and prognosis. Nicotine replacement therapy can be offered to the patient while admitted to the hospital. TIME: 32 minutes of critical care time, independent of procedures, was spent addressing the patient's acute combined respiratory failure, polysubstance overdose, encephalopathy, review of all data and collaboration with the care team. Subjective Subjective The patient was seen and examined at the bedside this morning. Events from the last 24 hours have been reviewed. The patient is currently afebrile, hemodynamically stable and maintaining appropriate oxygen saturations on assist control mode mechanical ventilation with an FiO2 requirement of 21% and PEEP of 5. The patient has done well this morning on his spontaneous breathing trial. He is alert and able to follow commands appropriately. Objective Data Objective Data The patient's most recent lab work, culture data and imaging studies have all been personally reviewed. Infectious work-up has been unrevealing to date. Vital Signs: Vital Signs Temp Pulse Resp BP Pulse Ox 97.9 F 80 10 L 129/79 H 97 02/27/22 04:00 02/27/22 05:07 02/27/22 05:07 02/27/22 05:00 02/27/22 05:07 Oxygen Flow Rate (L/min) 40 Oxygen Delivery Method Mechanical Ventilator Weight: 66.406 kg Body Mass Index (BMI) 24.5 Intake & Output: Intake and Output for Last 24 Hours 02/25/22 02/26/22 02/27/22 23:59 23:59 23:59 Intake Total 143.06 / 168.96 2897.34 / 2931.44 1243.75 / 1243.75 Output Total 850 / 1650 1660 / 1660 150 / 150 Balance -706.94 / -1481.04 1237.34 / 1271.44 1093.75 / 1093.75 Lab / Micro Data Attestation: I reviewed the patient's lab results. Result Diagrams: 02/27/22 03:48 02/27/22 03:48 Labs: Laboratory Results - last 24 hr 02/25/22 21:40: HIV 1&2 Antibody Non-Reactive 02/27/22 03:48: WBC 14.4 H, RBC 3.63 L, Hgb 10.3 L, Hct 31.3 L, MCV 86.2, MCH 28.4, MCHC 32.9, RDW Std Deviation 42.7, RDW Coeff of Rolf 13.7, Plt Count 289, MPV 10.0, Immature Gran % (Auto) 0.300, Neut % (Auto) 79.9 H, Lymph % (Auto) 12.9 L, [place] % (Auto) 4.4, Eos % (Auto) 2.2, Baso % (Auto) 0.3, Absolute Neuts (auto) 11.5 H, Absolute Lymphs (auto) 1.85, Nucleated RBC % 0 02/27/22 03:48: Sodium 142, Potassium 3.2 L, Chloride 111 H, Carbon Dioxide 24.0, Anion Gap 7, BUN 14, Creatinine 1.15, Estim Creat Clear Calc 62.20, Est GFR (MDRD) Af Amer 85, Est GFR (MDRD) Non-Af 71, BUN/Creatinine Ratio 12.2, Glucose 93, Calcium 7.6 L, Total Bilirubin 0.50, AST 26, ALT 23, Alkaline Phosphatase 103, Total Protein 5.1 L, Albumin 2.0 L, Globulin 3.1, Albumin/Globulin Ratio 0.6 L Micro: Microbiology 02/25/22 19:39 Sputum, Induced/Lukens Gram Stain - Final 02/25/22 19:39 Sputum, Induced/Lukens Respiratory Culture - Preliminary Appears to be normal respiratory dahiana. Further studies to follow. Physical Exam Const alert and no apparent distress General Appearance: intubated and patient mechanically ventilated HEENT normocephalic and head/scalp atraumatic Mouth: endotracheal tube in place and OG tube in place Eyes PERRL and conjunctivae normal Neck supple General: trachea midline Chest inspection of chest normal Resp Auscultation: Negative for rales, rhonchi or wheezes Cardio regular rate, regular rhythm, S1 normal heart sound and S2 normal heart sound GI normal to inspection, nondistended, normoactive bowel sounds Extremity no clubbing, cyanosis or edema Skin no rashes or lesions noted Neuro Neuro Narrative: Alert and able to follow simple commands. Charges/Coding Procedures Hospitalists Procedures: 00586 Critial Care 1st Hr
[2022-02-27 08:06] LABS: Bedside Glucose 99 mg/dL (74-106)
--- NOTE | 2022-02-27 08:12 | PCM.PN.HOSP ---
Subjective Subjective Follow-up for acute hypoxic and hypercarbic respiratory failure. Patient is extubated in the morning. Has mild cough and sore throat after extubation. Patient has fear of choking on oral exam. Patient passed bedside swallow. Objective Data Objective Data Vital Signs: Vital Signs Temp Pulse Resp BP Pulse Ox 97.9 F 97 16 145/78 H 96 02/27/22 04:00 02/27/22 07:00 02/27/22 07:00 02/27/22 07:00 02/27/22 07:00 Oxygen Flow Rate (L/min) 40 Oxygen Delivery Method Mechanical Ventilator Weight: 146 lb 6.4 oz Body Mass Index (BMI) 24.5 Intake & Output: Intake and Output for Last 24 Hours 02/25/22 02/26/22 02/27/22 23:59 23:59 23:59 Intake Total 143.06 / 168.96 2897.34 / 2931.44 1243.75 / 1243.75 Output Total 850 / 1650 1660 / 1660 150 / 150 Balance -706.94 / -1481.04 1237.34 / 1271.44 1093.75 / 1093.75 Lab / Micro Data Result Diagrams: 02/27/22 03:48 02/27/22 03:48 Labs: Laboratory Results - last 24 hr 02/25/22 16:49: POC Glucose 99 02/25/22 21:40: HIV 1&2 Antibody Non-Reactive 02/27/22 03:48: WBC 14.4 H, RBC 3.63 L, Hgb 10.3 L, Hct 31.3 L, MCV 86.2, MCH 28.4, MCHC 32.9, RDW Std Deviation 42.7, RDW Coeff of Rolf 13.7, Plt Count 289, MPV 10.0, Immature Gran % (Auto) 0.300, Neut % (Auto) 79.9 H, Lymph % (Auto) 12.9 L, [place] % (Auto) 4.4, Eos % (Auto) 2.2, Baso % (Auto) 0.3, Absolute Neuts (auto) 11.5 H, Absolute Lymphs (auto) 1.85, Nucleated RBC % 0 02/27/22 03:48: Sodium 142, Potassium 3.2 L, Chloride 111 H, Carbon Dioxide 24.0, Anion Gap 7, BUN 14, Creatinine 1.15, Estim Creat Clear Calc 62.20, Est GFR (MDRD) Af Amer 85, Est GFR (MDRD) Non-Af 71, BUN/Creatinine Ratio 12.2, Glucose 93, Calcium 7.6 L, Total Bilirubin 0.50, AST 26, ALT 23, Alkaline Phosphatase 103, Total Protein 5.1 L, Albumin 2.0 L, Globulin 3.1, Albumin/Globulin Ratio 0.6 L Micro: Microbiology 02/25/22 19:39 Sputum, Induced/Lukens Gram Stain - Final 02/25/22 19:39 Sputum, Induced/Lukens Respiratory Culture - Preliminary Appears to be normal respiratory dahiana. Further studies to follow. Physical Exam Narrative General: Extubated, mild cough. HEENT: Atraumatic, pupils reactive bilaterally normocephalic Oral: Oral exam, irregular mass visualized over left soft palate, base of tongue, nonbleeding. Tongue depressor not used as patient has fear of choking/gagging Neck: Supple, No JVD, Negative Carotid Bruits Lungs: Air entry diminished in bilateral lung bases. No crepitation/rhonchi Cardiovascular: Regular rate, Regular Rhythm, Normal S1, Normal S2, No murmurs Abdomen: Bowel Sounds Present, Soft, Non Tender, Non-Distended : Spangler catheter urine clear no renal angle tenderness. No suprapubic tenderness. Extremities: No edema, Capillary Refill Less than 3 Seconds Skin: Scab in legs Musculoskeletal: No Tenderness to Palpation of Joints or Extremities Neurological: Sedated, detailed neuro exam unobtainable Psych/Mental Status: Intubated. Assessment & Plan Assessment/Plan (1) Respiratory failure with hypoxia and hypercapnia: QUALIFIERS: Chronicity: acute Qualified Code(s): J96.01 - Acute respiratory failure with hypoxia; J96.02 - Acute respiratory failure with hypercapnia (2) Polysubstance overdose: QUALIFIERS: Encounter type: initial encounter Injury intent: accidental or unintentional Qualified Code(s): T50.901A - Poisoning by unspecified drugs, medicaments and biological substances, accidental (unintentional), initial encounter PLAN: The patient is a 51 y/o M who is admitted to ICU from ED for increased lethargy, altered mental status and frequent fall. Patient had a snoring breathing, not able to protect airway for therefore intubated in ED. #1. Acute Encephalopathy, multifactorial due to metabolic and toxic encephalopathy secondary to Polysubstance abuse (Opiate, MDMA, Methamphetamines) complicating into acute hypoxic and hypercarbic respiratory failure: Patient is in ICU, power barker operator consulted for vent management. On IV Zosyn. First ABG 7.2 //28 on 50% FiO2/400/12/5. This consistent with acute hypoxic and hypercarbic respiratory failure. Repeat ABG 7.4 on 25% FiO2, 450/14/5. Patient is intubated on assist-control mode on ventilator. Empirically on IV antibiotic Zosyn for concern of potential aspiration. Cultures are pending. Patient on minimal vent settings 21% FiO2, PEEP 5. 6/5: Acute hypoxic respiratory failure resolved. Patient admitted that he snorted fentanyl for pain relief. Blood pressure and heart rate normal. Soft diet ordered in view of left soft palate mass. #2. Polysubstance Abuse, IVDA history, Chronic back pain: History of polysubstance use, U tox positive of amphetamine MDMA and opioids. After extubation patient will need COWS and CINA monitoring for opioid withdrawal 02/27: Hypokalemia: Potassium is getting replaced. We will check magnesium and phosphorus. #3. Metastatic Squamous Cell Carcinoma: Patient had FNAC of left neck mass on 02/07/2022 and is positive for malignant cells consistent with metastatic squamous cell carcinoma. ENT evaluation noted L sided oropharyngeal mass elevating the soft palate and obstructing larynx view. Continue follow-up with ENT Dr. Mora. Augmentin was started on 03-16 by ENT and is on hold as patient has the patient is on Zosyn 02/27: Follow-up with Dr. Valenzuela. He said he he will be referred to for further treatment. Dr. Mora #4. Tobacco Abuse: Nicotine patch #5. GERD: on IV famotidine. #6. DVT prophylaxis: SCDs, Lovenox. Charges/Coding Visit Charges Inpatient E&M: 93694 Subs Hosp L3
[2022-02-27 10:07] LABS: HEPATITIS B SURFACE AG Negative (Negative); Hepatitis B Core Ab Total Negative (Negative); Hepatitis C Ab <0.1 s/co ratio (0.0-0.9)
[2022-02-27 10:17] LABS: Hep B Surface Antibodies Non Reactive (.)
[2022-02-27 11:14] LABS: Magnesium 1.9 mg/dL (1.6-2.6); Phosphorus 2.8 mg/dL (2.5-4.9)
[2022-02-27] MEDS: Potassium Chloride 10mEq/100mL 10 MEQ/100 ML IV.SOLN. 100 MEQ IV BOLUS ×3 (11:30→13:56)
[2022-02-27] MEDS: 0.9% Saline Lock 10 ML Syringe IV (22:31)
[2022-02-28] VITALS (23 sets, daily range): BP systolic 111–164; BP diastolic 72–90; PULSE 73–100; RESP 11–18; TEMP 36.6–37.4; O2SAT 83–100
[2022-02-28 05:00] LABS: Absolute Neutrophil Count 12.8 X10^3/uL (2.0-7.7); Basophil# 0.04 X10^3/uL; Basophil% 0.3 % (0-1); Eosinophil# 0.54 X10^3/uL; Eosinophils% 3.4 % (0-5); Hematocrit 31.9 % (40-54); Hemoglobin 10.8 g/dL (13.0-16.5); Lymphocyte % 11.4 % (19-41); Mean Corp Hgb Conc 33.9 g/dL (32-36); Mean Corpuscular Hgb 28.3 pg (27.0-32.0); Mean Corpuscular Volume 83.7 fL (80-94); Monocyte# 0.59 X10^3/uL; Monocyte% 3.7 % (0-10); NRBC Flagged by Analyzer 0 % (0-5); Neutrophil # 12.78 X10^3/uL (2.7-7.7); Neutrophil % 80.8 % (47-70); Platelet Count 310 K/mm3 (150-450); RBC Distribution Width CV 13.9 % (11.6-14.6); RBC Distribution Width SD 42.9 fl (35.1-43.9); Red Blood Count 3.81 M/mm3 (4.6-6.2); White Blood Count 15.8 K/mm3 (4.4-11.0)
[2022-02-28 05:15] LABS: ALB/GLOB Ratio 0.6 RATIO (0.9-2.4); AST(SGOT) 17 U/L (15-37); Alanine Aminotransfer ALT/SGPT 22 U/L (16-61); Albumin, Serum 2.1 g/dL (3.2-5.0); Alkaline Phosphatase 102 U/L (45-117); Anion Gap 6 (5-15); BUN 12 mg/dL (7-18); BUN/Creat Ratio 13.2 RATIO (10-20); Chloride 106 mmol/L (98-107); Creatinine, Serum 0.91 mg/dL (0.70-1.30); EST Glomerular Filtration Rate 92 mL/min (>60); Est Glom Filt Rate - Afr Amer 112 mL/min (>60); Estimated Creatinine Clearance 78.61 ml/min; Globulin 3.5 g/dL (2.2-4.2); Glucose 107 mg/dL (74-106); Potassium 3.7 mmol/L (3.5-5.1); Protein, Total 5.6 g/dL (6.4-8.2); Sodium Level 137 mmol/L (136-145)
[2022-02-28] MEDS: Acetaminophen 650 MG/20 ML UDC GT (05:28)
[2022-02-28] MEDS: BENZOCAINE/MENTHOL 1 LOZENGE MUCOUS MEM ×2 (05:29→17:29)
--- NOTE | 2022-02-28 06:16 | PCM.PN.INT ---
Assessment & Plan Assessment/Plan (1) Acute respiratory failure: PLAN: RECOMMENDATIONS: 1. Wean supplemental oxygen to maintain saturations at or above 90%. 2. Transition from Zosyn to Augmentin to complete a total of 7 days of therapy. 3. Encourage incentive spirometer use and mobilize patient as tolerated. 4. The patient is medically stable for transfer out of the intensive care unit. 5. Given the patient's lack of further ICU needs, will sign off. Please call with any additional questions. IMPRESSIONS: 1. Acute combined respiratory failure likely secondary to polysubstance overdose The patient was ultimately intubated in the emergency department over concerns for airway protection. He was also started empirically on antimicrobials over concerns for potential aspiration. The patient improved clinically and was able to be extubated on February 27. He has done well from a respiratory perspective. Plan to wean supplemental oxygen for saturations greater than 90%. Encourage incentive spirometer use and mobilize patient as tolerated. I would recommend that the patient be transition from Zosyn to Augmentin to complete a total of 7 days of therapy. 2. Encephalopathy Resolved. Likely secondary to illicit drug overdose coupled with CO2 retention. 3. Recently diagnosed metastatic squamous cell carcinoma/chronic tobacco dependency/GERD/chronic pain syndrome Complicates care, management, recovery and prognosis. Nicotine replacement therapy can be offered to the patient while admitted to the hospital. This note was generated with [employer] dictation software. It may contain incorrect words, spelling, and punctuation that were not noted in checking the note before signing. Subjective Subjective The patient was seen and examined at the bedside this morning. Events from the last 24 hours have been reviewed. The patient is currently afebrile, hemodynamically stable and maintaining appropriate oxygen saturations on 2 L/min via nasal cannula. The patient has done well following extubation yesterday. He is currently documented to be overall net +2.5 L for the hospitalization. The patient reported the presence of nasal stuffiness this morning. Objective Data Objective Data The patient's most recent lab work, culture data and imaging studies have all been personally reviewed. Infectious work-up has been unrevealing to date. Vital Signs: Vital Signs Temp Pulse Resp BP Pulse Ox 99.3 F H 82 14 130/83 H 99 02/28/22 04:00 02/28/22 05:00 02/28/22 05:00 02/28/22 05:00 02/28/22 05:00 Oxygen Flow Rate (L/min) 2 Oxygen Delivery Method Nasal Cannula Weight: 67.585 kg Body Mass Index (BMI) 24.5 Intake & Output: Intake and Output for Last 24 Hours 02/26/22 02/27/22 02/28/22 23:59 23:59 23:59 Intake Total 2897.34 / 2931.44 2544.42 / 2544.42 109.75 / 109.75 Output Total 1660 / 1660 525 / 625 100 / 100 Balance 1237.34 / 1271.44 2019.42 / 1919.42 9.75 / 9.75 Lab / Micro Data Attestation: I reviewed the patient's lab results. Result Diagrams: 02/28/22 04:50 02/28/22 04:50 Labs: Laboratory Results - last 24 hr 02/25/22 16:49: POC Glucose 99 02/25/22 21:40: Hep Bs Antigen Negative, Hep Bs Antibody Non Reactive, Hep B Core Total Ab Negative, Hepatitis C Antibody <0.1, Hep C Ab Comment Comment 02/27/22 03:48: Phosphorus 2.8, Magnesium 1.9 02/28/22 04:50: WBC 15.8 H, RBC 3.81 L, Hgb 10.8 L, Hct 31.9 L, MCV 83.7, MCH 28.3, MCHC 33.9, RDW Std Deviation 42.9, RDW Coeff of Rolf 13.9, Plt Count 310, MPV 10.0, Immature Gran % (Auto) 0.400, Neut % (Auto) 80.8 H, Lymph % (Auto) 11.4 L, [place] % (Auto) 3.7, Eos % (Auto) 3.4, Baso % (Auto) 0.3, Absolute Neuts (auto) 12.8 H, Absolute Lymphs (auto) 1.80, Nucleated RBC % 0 02/28/22 04:50: Sodium 137, Potassium 3.7, Chloride 106, Carbon Dioxide 25.0, Anion Gap 6, BUN 12, Creatinine 0.91, Estim Creat Clear Calc 78.61, Est GFR (MDRD) Af Amer 112, Est GFR (MDRD) Non-Af 92, BUN/Creatinine Ratio 13.2, Glucose 107 H, Calcium 8.0 L, Total Bilirubin 0.40, AST 17, ALT 22, Alkaline Phosphatase 102, Total Protein 5.6 L, Albumin 2.1 L, Globulin 3.5, Albumin/Globulin Ratio 0.6 L Micro: Microbiology 02/25/22 19:39 Sputum, Induced/Lukens Gram Stain - Final 02/25/22 19:39 Sputum, Induced/Lukens Respiratory Culture - Preliminary Appears to be normal respiratory dahiana. Further studies to follow. Physical Exam Const alert, oriented x3 and no apparent distress HEENT normocephalic and head/scalp atraumatic Teeth and [place]: poor dentition Eyes PERRL, EOMs intact bilaterally and conjunctivae normal Neck supple General: trachea midline Chest inspection of chest normal Resp Auscultation: Negative for rales, rhonchi or wheezes Cardio regular rate, regular rhythm, S1 normal heart sound and S2 normal heart sound GI normal to inspection, nondistended, normoactive bowel sounds Extremity no clubbing, cyanosis or edema Skin no rashes or lesions noted Neuro CN's II-XII intact bilaterally, moves all extremities and no focal motor deficits Psych cooperative and affect normal Charges/Coding Visit Charges Inpatient E&M: 44742 Subs Hosp L3
--- NOTE | 2022-02-28 09:36 | CASEMGMT ---
Social Work Note SW reviewed chart. It was noted that physician had spoken to pt's family regarding detox program. SW placed a call to addiction Therapist Addie. Addie states that she was told pt is not yet officially RAMP but she will be in to speak to pt. Heather Turner FLIGHT ATTENDANT/INFLIGHT SUPERVISOR, LITHOGRAPHERS PRINTER
--- NOTE | 2022-02-28 11:26 | PCM.PN.HOSP ---
Subjective Subjective Doing well, no issues overnight. Was extubated yesterday and currently maintaining his oxygen sats on nasal cannula. Objective Data Objective Data Vital Signs: Vital Signs Temp Pulse Resp BP Pulse Ox 99.3 F H 86 13 128/87 H 99 02/28/22 04:00 02/28/22 08:00 02/28/22 08:00 02/28/22 08:00 02/28/22 08:00 Oxygen Flow Rate (L/min) 2 Oxygen Delivery Method Room Air Weight: 149 lb Body Mass Index (BMI) 24.5 Intake & Output: Intake and Output for Last 24 Hours 02/27/22 02/28/22 03/01/22 03:59 03:59 03:59 Intake Total 3987.52 / 4014.87 1378.02 / 1378.02 409.75 / 409.75 Output Total 860 / 860 625 / 625 450 / 450 Balance 3127.52 / 3154.87 753.02 / 753.02 -40.25 / -40.25 Lab / Micro Data Result Diagrams: 02/28/22 04:50 02/28/22 04:50 Labs: Laboratory Results - last 24 hr 02/28/22 04:50: WBC 15.8 H, RBC 3.81 L, Hgb 10.8 L, Hct 31.9 L, MCV 83.7, MCH 28.3, MCHC 33.9, RDW Std Deviation 42.9, RDW Coeff of Rolf 13.9, Plt Count 310, MPV 10.0, Immature Gran % (Auto) 0.400, Neut % (Auto) 80.8 H, Lymph % (Auto) 11.4 L, [place] % (Auto) 3.7, Eos % (Auto) 3.4, Baso % (Auto) 0.3, Absolute Neuts (auto) 12.8 H, Absolute Lymphs (auto) 1.80, Nucleated RBC % 0 02/28/22 04:50: Sodium 137, Potassium 3.7, Chloride 106, Carbon Dioxide 25.0, Anion Gap 6, BUN 12, Creatinine 0.91, Estim Creat Clear Calc 78.61, Est GFR (MDRD) Af Amer 112, Est GFR (MDRD) Non-Af 92, BUN/Creatinine Ratio 13.2, Glucose 107 H, Calcium 8.0 L, Total Bilirubin 0.40, AST 17, ALT 22, Alkaline Phosphatase 102, Total Protein 5.6 L, Albumin 2.1 L, Globulin 3.5, Albumin/Globulin Ratio 0.6 L Micro: Microbiology 02/25/22 19:39 Sputum, Induced/Lukens Gram Stain - Final 02/25/22 19:39 Sputum, Induced/Lukens Respiratory Culture - Final Presumptive C albicans Physical Exam Const alert, oriented x3 and no apparent distress General Appearance: cooperative HEENT normocephalic and moist oral mucous membranes Eyes PERRL, EOMs intact bilaterally and conjunctivae normal Neck supple and no JVD Resp normal respiratory effort, no retractions, no use of accessory muscles and clear to auscultation bilaterally Auscultation: Negative for crackles, rales, rhonchi or wheezes Cardio regular rate, regular rhythm, S1 normal heart sound, S2 normal heart sound and no murmurs GI soft to palpation, non-tender and non-distended; Negative for hepatosplenomegaly Extremity no clubbing, cyanosis or edema Skin no rashes or lesions noted Neuro no focal motor deficits and no sensory deficits noted Psych affect normal Appearance: appropriate Assessment & Plan Assessment/Plan (1) Respiratory failure with hypoxia and hypercapnia: QUALIFIERS: Chronicity: acute Qualified Code(s): J96.01 - Acute respiratory failure with hypoxia; J96.02 - Acute respiratory failure with hypercapnia (2) Polysubstance overdose: QUALIFIERS: Encounter type: initial encounter Injury intent: accidental or unintentional Qualified Code(s): T50.901A - Poisoning by unspecified drugs, medicaments and biological substances, accidental (unintentional), initial encounter PLAN: #1. Acute Encephalopathy, multifactorial due to metabolic and toxic encephalopathy secondary to Polysubstance abuse (Opiate, MDMA, Methamphetamines) complicating into acute hypoxic and hypercarbic respiratory failure: Patient is in ICU, traveling representative consulted for vent management. On IV Zosyn. First ABG 7.2 /28 on 50% FiO2/400/12/5. This consistent with acute hypoxic and hypercarbic respiratory failure. Repeat ABG 7.4 on 25% FiO2, 450/14/5. Patient is intubated on assist-control mode on ventilator. Empirically on IV antibiotic Zosyn for concern of potential aspiration. Cultures are pending. Patient on minimal vent settings 21% FiO2, PEEP 5. 6/: Acute hypoxic respiratory failure resolved. Patient admitted that he snorted fentanyl for pain relief. Blood pressure and heart rate normal. Soft diet ordered in view of left soft palate mass. 02/28/2022: Doing well, extubated yesterday. We will have him meet with ramp to have outpatient rehab versus inpatient rehab. Continue with Augmentin and complete 7 days of antibiotics #2. Polysubstance Abuse, IVDA history, Chronic back pain: History of polysubstance use, U tox positive of amphetamine MDMA and opioids. After extubation patient will need COWS and CINA monitoring for opioid withdrawal 02/27: Hypokalemia: Potassium is getting replaced. We will check magnesium and phosphorus. 02/28/2022: Potassium is stable, has agreed to meeting with 180 for rehab #3. Metastatic Squamous Cell Carcinoma: Patient had FNAC of left neck mass on 02/07/2022 and is positive for malignant cells consistent with metastatic squamous cell carcinoma. ENT evaluation noted L sided oropharyngeal mass elevating the soft palate and obstructing larynx view. Continue follow-up with ENT Dr. Mora. Augmentin was started on 03-16 by ENT and is on hold as patient has the patient is on Zosyn 02/27: Follow-up with Dr. Valenzuela. He said he he will be referred to for further treatment. Dr. Mora #4. Tobacco Abuse: Nicotine patch #5. GERD: on IV famotidine. DVT: SCDs, Lovenox. Charges/Coding Visit Charges Inpatient E&M: 10061 Subs Hosp L2
--- NOTE | 2022-02-28 13:05 | NURSING ---
report called to 3rd floor for transfer to room 306, with belongings
[2022-02-28] MEDS: Acetaminophen 325 MG Tablet 650 MG PO ×2 (14:39→20:46)
[2022-02-28] MEDS: Amox/Clavulanate 875 MG Tablet PO (17:23)
[2022-02-28] MEDS: hydrALAZINE 20 MG/ML Vial 10 MG IV (20:46)
[2022-02-28] MEDS: 0.9% Saline Lock 10 ML Syringe IV (20:46)
[2022-03-01 03:01] VITALS: BP 156/99; PULSE 80; RESP 18; TEMP 36.8; O2SAT 96
[2022-03-01] MEDS: BENZOCAINE/MENTHOL 1 LOZENGE MUCOUS MEM (03:08)
[2022-03-01] MEDS: Acetaminophen 325 MG Tablet 650 MG PO ×2 (03:08→08:46)
[2022-03-01 06:33] LABS: Absolute Lymphocyte Count 1.44 X10^3/uL (0.83-4.51); Absolute Neutrophil Count 8.9 X10^3/uL (2.0-7.7); Basophil# 0.03 X10^3/uL; Basophil% 0.3 % (0-1); Eosinophil# 0.27 X10^3/uL; Eosinophils% 2.4 % (0-5); Hematocrit 35.1 % (40-54); Hemoglobin 11.2 g/dL (13.0-16.5); Lymphocyte # 1.44 X10^3/ul (0.83-4.51); Lymphocyte % 12.8 % (19-41); Mean Corp Hgb Conc 31.9 g/dL (32-36); Mean Corpuscular Hgb 27.3 pg (27.0-32.0); Mean Corpuscular Volume 85.6 fL (80-94); Mean Platelet Vol. 10.2 fl (6.2-12.0); Monocyte# 0.51 X10^3/uL; Monocyte% 4.5 % (0-10); NRBC Flagged by Analyzer 0 % (0-5); Neutrophil # 8.91 X10^3/uL (2.7-7.7); Neutrophil % 79.5 % (47-70); Platelet Count 361 K/mm3 (150-450); RBC Distribution Width CV 13.3 % (11.6-14.6); RBC Distribution Width SD 41.7 fl (35.1-43.9); White Blood Count 11.2 K/mm3 (4.4-11.0)
[2022-03-01 06:54] LABS: Anion Gap 8 (5-15); BUN 8 mg/dL (7-18); BUN/Creat Ratio 12.2 RATIO (10-20); Calcium,Total 8.6 mg/dL (8.5-10.1); Chloride 107 mmol/L (98-107); Creatinine, Serum 0.66 mg/dL (0.70-1.30); EST Glomerular Filtration Rate 135 mL/min (>60); Est Glom Filt Rate - Afr Amer 163 mL/min (>60); Estimated Creatinine Clearance 108.38 ml/min; Glucose 98 mg/dL (74-106); Potassium 3.4 mmol/L (3.5-5.1); Sodium Level 138 mmol/L (136-145)
[2022-03-01 07:40] VITALS: O2SAT 95
[2022-03-01 08:34] VITALS: BP 155/100; PULSE 87; RESP 16; TEMP 36.5; O2SAT 95
[2022-03-01] MEDS: Amox/Clavulanate 875 MG Tablet PO (08:46)
--- NOTE | 2022-03-01 09:43 | PN.HOSP_ITS ---
Subjective Subjective Doing well, wants to follow-up with for his cancer he will be needing ENT. The ENT here in [place] I believe was supposed to set up the referral. He is also waiting to talk to [facility] again about outpatient rehab for his substance abuse issues. Objective Data Objective Data Vital Signs: Vital Signs Temp Pulse Resp BP Pulse Ox 97.7 F L 87 16 155/100 H 95 03/01/22 08:34 03/01/22 08:34 03/01/22 08:34 03/01/22 08:34 03/01/22 08:34 Oxygen Flow Rate (L/min) 2 Oxygen Delivery Method Room Air Weight: 140 lb 14.006 oz Body Mass Index (BMI) 24.5 Intake & Output: Intake and Output for Last 24 Hours 02/28/22 03/01/22 03/02/22 03:59 03:59 03:59 Intake Total 1378.02 / 1378.02 509.75 / 509.75 Output Total 625 / 625 600 / 600 Balance 753.02 / 753.02 -90.25 / -90.25 Lab / Micro Data Result Diagrams: 03/01/22 05:17 03/01/22 05:17 Labs: Laboratory Results - last 24 hr 03/01/22 05:17: WBC 11.2 H, RBC 4.10 L, Hgb 11.2 L, Hct 35.1 L, MCV 85.6, MCH 27.3, MCHC 31.9 L D, RDW Std Deviation 41.7, RDW Coeff of Rolf 13.3, Plt Count 361, MPV 10.2, Immature Gran % (Auto) 0.500, Neut % (Auto) 79.5 H, Lymph % (Auto) 12.8 L, [place] % (Auto) 4.5, Eos % (Auto) 2.4, Baso % (Auto) 0.3, Absolute Neuts (auto) 8.9 H, Absolute Lymphs (auto) 1.44, Nucleated RBC % 0 03/01/22 05:17: Sodium 138, Potassium 3.4 L, Chloride 107, Carbon Dioxide 23.0, Anion Gap 8, BUN 8, Creatinine 0.66 L, Estim Creat Clear Calc 108.38, Est GFR (MDRD) Af Amer 163, Est GFR (MDRD) Non-Af 135, BUN/Creatinine Ratio 12.2, Glucose 98, Calcium 8.6 Micro: Microbiology 02/25/22 19:39 Sputum, Induced/Lukens Gram Stain - Final 02/25/22 19:39 Sputum, Induced/Lukens Respiratory Culture - Final Presumptive C albicans Physical Exam Const alert, oriented x3 and no apparent distress General Appearance: cooperative HEENT normocephalic and moist oral mucous membranes Eyes PERRL, EOMs intact bilaterally and conjunctivae normal Neck supple and no JVD Resp normal respiratory effort, no retractions, no use of accessory muscles and clear to auscultation bilaterally Auscultation: Negative for crackles, rales, rhonchi or wheezes Cardio regular rate, regular rhythm, S1 normal heart sound, S2 normal heart sound and no murmurs GI soft to palpation, non-tender and non-distended; Negative for hepatosplenomegaly Extremity no clubbing, cyanosis or edema Skin no rashes or lesions noted Neuro no focal motor deficits and no sensory deficits noted Psych affect normal Appearance: appropriate Assessment & Plan Assessment/Plan (1) Respiratory failure with hypoxia and hypercapnia: QUALIFIERS: Chronicity: acute Qualified Code(s): J96.01 - Acute respiratory failure with hypoxia; J96.02 - Acute respiratory failure with hypercapnia (2) Polysubstance overdose: QUALIFIERS: Encounter type: initial encounter Injury intent: accidental or unintentional Qualified Code(s): T50.901A - Poisoning by unspecified drugs, medicaments and biological substances, accidental (unintentional), initial encounter PLAN: #1. Acute Encephalopathy, multifactorial due to metabolic and toxic encephalop athy secondary to Polysubstance abuse (Opiate, MDMA, Methamphetamines) complicating into acute hypoxic and hypercarbic respiratory failure: Patient is in ICU, local owner operator truck driver consulted for vent management. On IV Zosyn. First ABG 7.2 //28 on 50% FiO2/400/12/5. This consistent with acute hypoxic and hypercarbic respiratory failure. Repeat ABG 7.4 on 25% FiO2, 450/14/5. Patient is intubated on assist-control mode on ventilator. Empirically on IV antibiotic Zosyn for concern of potential aspiration. Cultures are pending. Patient on minimal vent settings 21% FiO2, PEEP 5. 6/5: Acute hypoxic respiratory failure resolved. Patient admitted that he snorted fentanyl for pain relief. Blood pressure and heart rate normal. Soft diet ordered in view of left soft palate mass. 02/28/2022: Doing well, extubated yesterday. We will have him meet with ramp to have outpatient rehab versus inpatient rehab. Continue with Augmentin and complete 7 days of antibiotics 03/01/2022: We will have him follow-up with [facility] today for outpatient rehab. If he does come to the plan he could likely be discharged today and follow-up with ENT as an outpatient #2. Polysubstance Abuse, IVDA history, Chronic back pain: History of polysubstance use, U tox positive of amphetamine MDMA and opioids. After extubation patient will need COWS and CINA monitoring for opioid withdrawal 02/27: Hypokalemia: Potassium is getting replaced. We will check magnesium and phosphorus. 02/28/2022: Potassium is stable, has agreed to meeting with [facility] for rehab #3. Metastatic Squamous Cell Carcinoma: Patient had FNAC of left neck mass on 02/07/2022 and is positive for malignant cells consistent with metastatic squa mous cell carcinoma. ENT evaluation noted L sided oropharyngeal mass elevating the soft palate and obstructing larynx view. Continue follow-up with ENT Dr. Mora. Augmentin was started on 03-16 by ENT and is on hold as patient has the patient is on Zosyn 02/27: Follow-up with Dr. Valenzuela. He said he he will be referred to for further treatment. Dr. Mora #4. Tobacco Abuse: Nicotine patch #5. GERD: on IV famotidine. DVT: SCDs, Lovenox. Charges/Coding Visit Charges Inpatient E&M: 92325 Subs Hosp L2
[2022-03-01] MEDS: Potassium Chloride Oral Tablet 20 MEQ 40 MEQ PO (10:10)
--- NOTE | 2022-03-01 11:26 | ADDICTION ---
This functional tester typewriters met with PT to conduct ASAM, MSE, AUDIT assessments and to plan for d/c. PT A+Ox4 and participated actively. All assessments completed and placed in PT's chart. PT plans to f/u with [facility] for follow-up treatment services. PT did not indicate a need for transportation post d/c from [facility].
--- NOTE | 2022-03-01 12:13 | PCM.DC ---
Discharge Instructions Diet Discharge Diet: No restrictions Activity Discharge Activity: Return to Normal Activity Dressing / Incision Call your doctor if you observe: Fever of 101 or Higher, Shortness of breath, Dizziness, Fainting spells, Swelling in the ankles, Chest pain and Increased palpitations (irregular heartbeat) Follow Up Care Test Results: Test results from this visit will be discussed in further detail at your follow-up appointment, if applicable. Discharge Plan Admission Admit Date/Time: 02/25/22 18:59 Attending Provider: Antione Zapata Primary Care Provider: Robert Diaz Consulting Providers: Sarita Aj ; Farzad Benitez ; Luc Ruiz Discharge Orders/Prescriptions Prescriptions: Continued amoxicillin-pot clavulanate 875-125 mg tablet 1 tab PO Q12H RF: 0 Referrals / Follow Up: Robert Diaz MD [Primary Care Provider] - Mark Good MD [NON-STAFF] - 03/16/22 1:00 pm (if have to cancel apt call [phone] [address] [place] [address]) Disposition Disposition (needs filled in before D/C Order can be placed): Home, Self Care
--- NOTE | 2022-03-01 12:31 | DS.PCM_ITS ---
Providers Date of Admission: 02/25/22 Primary Care Physician: Dr. Robert Diaz MD Consultations 02/25/22 20:41 Consult: Machine Sorter / Pulmonary Medicine Routine Consulting Provider: Luc Ruiz Reason for Consult: Vent management EMERGENT Consult: No MD Notified: Yes Date Notified: 02/25/22 Time Notified: 20:16 Method of Notification: discussed on phone Reason For Visit: ACUTE RESP FAILURE, POLYSUBSTANCE ABUSE Diagnosis Discharge Diagnosis (1) Respiratory failure with hypoxia and hypercapnia: Status: Acute Code(s): J96.91 - Respiratory failure, unspecified with hypoxia; J96.92 - Respiratory failure, unspecified with hypercapnia Qualifiers: Chronicity: acute Qualified Code(s): J96.01 - Acute respiratory failure with hypoxia; J96.02 - Acute respiratory failure with hypercapnia (2) Polysubstance overdose: Status: Acute Code(s): T50.901A - Poisoning by unspecified drugs, medicaments and biological substances, accidental (unintentional), initial encounter Qualifiers: Encounter type: initial encounter Injury intent: accidental or unintentional Qualified Code(s): T50.901A - Poisoning by unspecified drugs, medicaments and biological substances, accidental (unintentional), initial encounter Medications at Discharge Home Medications amoxicillin-pot clavulanate 1 tab PO Q12H 02/25/22 Hospital Course Operations None Procedures Intubation Summary of Care Provided Minutes Spent on Discharge: 45 Hospital Course: Per HPI: The patient is a 51 y/o M w/ PMHx: Tobacco use, Recent 02/07/22 L neck mass biopsy consistent with Metastatic Squamous Cell Carcinoma, Polysubstance abuse (MDMA, Amphetamine, Opiate Abuse), Chronic lumbar back pain who presents to the [facility] ED on 02/25/22 with history of ~ 1 week with frequent falls and periods of increased lethargy prompting ED evaluation. In the ED patient became more lethargic and was noted to have Live-Mo breathing with biphasic stridor with eventual admission that he took fentanyl with some improvement with naloxone with a GCS of 3 with noted vertical nystagmus with pupils noted to be reactive with no scleral icterus with inability for patient to control his secretions and airway with pulse oximeter noting 70% prompting eventual intubation with administration of etomidate and usage of paralytic for CT scan. Work-up in the ED included T97.2, heart rate 88, BP 135/86, respiratory rate 14, 97% on room air eventually requiring intubation secondary to lethargy and inability to protect his airway, CBC with WC 7.4, hemoglobin 0.4, platelet 332 without marked shift, ABG not marked appearing aside pH 7.29, PCO2 mildly elevated 53.8 on vent, BMP with BUN/creatinine 20/1.06, glucose 111, TSH 6.79, urinalysis unremarkable with no obvious evidence of UTI, UDS with positive opi ate, amphetamine, MDMA, ethyl alcohol less than 3, chest x-ray with no acute cardiopulmonary findings, CT of the brain with no acute intracranial findings. Hospital Course: #1. Acute Encephalopathy, multifactorial due to metabolic and toxic encephalopathy secondary to Polysubstance abuse (Opiate, MDMA, Methamphetamines) complicating into acute hypoxic and hypercarbic respiratory failure: Patient is in ICU, guest house manager consulted for vent management. On IV Zosyn. First ABG 7.2 //28 on 50% FiO2/400/12/5. This consistent with acute hypoxic and hypercarbic respiratory failure. Repeat ABG 7.4 on 25% FiO2, 450/14/5. Patient is intubated on assist-control mode on ventilator. Empirically on IV antibiotic Zosyn for concern of potential aspiration. Cultures are pending. Patient on minimal vent settings 21% FiO2, PEEP 5. 6/5: Acute hypoxic respiratory failure resolved. Patient admitted that he snorted fentanyl for pain relief. Blood pressure and heart rate normal. Soft diet ordered in view of left soft palate mass. 02/28/2022: Doing well, extubated yesterday. We will have him meet with [facility] to have outpatient rehab versus inpatient rehab. Continue with Augmentin and complete 7 days of antibiotics 03/01/2022: Plan will be for him to [facility] with [facility] and he will need to follow-up with ENT and already scheduled appointment at for his metastatic squamous cell carcinoma. I discussed with him the plan for discharge today and he expressed understanding of this benefits of going home and he would like to go home today. He does understand that he needs to go to rehab to get his drug issues under control. #2. Polysubstance Abuse, IVDA history, Chronic back pain: History of polysubstance use, U tox positive of amphetamine MDMA and opioids. After extubation patient will need COWS and CINA monitoring for opioid withdrawal 02/27: Hypokalemia: Potassium is getting replaced. We will check magnesium and phosphorus. 02/28/2022: Potassium is stable, has agreed to meeting with [facility] for rehab 03/01/2022: HIV and hepatitis panels negative #3. Metastatic Squamous Cell Carcinoma: Patient had FNAC of left neck mass on 02/07/2022 and is positive for malignant cells consistent with metastatic squamous cell carcinoma. ENT evaluation noted L sided oropharyngeal mass elevating the soft palate and obstructing larynx view. Continue follow-up with ENT Dr. Mora. Augmentin was started on 03-16 by ENT and is on hold as patient has the patient is on Zosyn 02/27: Follow-up with Dr. Valenzuela. He said he he will be referred to for further treatment. Dr. Mora 03/01/2022: We will need to follow-up with ENT at , would recommend resuming his Augmentin that he had been started on the day prior to admission and completing the course on discharge #4. Tobacco Abuse: Nicotine patch #5. GERD: on IV famotidine. Weight / BMI Weight Weight: 140 lb 14.006 oz Body Mass Index (BMI) 24.5 ABG / Lab / Microbiology Data Result Diagrams: 03/01/22 05:17 03/01/22 05:17 Laboratory: Laboratory Results - last 24 hr 03/01/22 05:17: WBC 11.2 H, RBC 4.10 L, Hgb 11.2 L, Hct 35.1 L, MCV 85.6, MCH 27.3, MCHC 31.9 L D, RDW Std Deviation 41.7, RDW Coeff of Rolf 13.3, Plt Count 361, MPV 10.2, Immature Gran % (Auto) 0.500, Neut % (Auto) 79.5 H, Lymph % (Auto) 12.8 L, [place] % (Auto) 4.5, Eos % (Auto) 2.4, Baso % (Auto) 0.3, Absolute Neuts (auto) 8.9 H, Absolute Lymphs (auto) 1.44, Nucleated RBC % 0 03/01/22 05:17: Sodium 138, Potassium 3.4 L, Chloride 107, Carbon Dioxide 23.0, Anion Gap 8, BUN 8, Creatinine 0.66 L, Estim Creat Clear Calc 108.38, Est GFR (MDRD) Af Amer 163, Est GFR (MDRD) Non-Af 135, BUN/Creatinine Ratio 12.2, Glucose 98, Calcium 8.6 Microbiology: Microbiology 02/25/22 19:39 Sputum, Induced/Lukens Gram Stain - Final 02/25/22 19:39 Sputum, Induced/Lukens Respiratory Culture - Final Presumptive C albicans D/C Instructions Discharge Diet: No restrictions Call your doctor if you observe: Fever of 101 or Higher, Shortness of breath, Dizziness, Fainting spells, Swelling in the ankles, Chest pain and Increased palpitations (irregular heartbeat) Meaningful Use Info Meaningful Use Diagnoses (Choose all that apply): None applicable Discharge Plan Admission Admit Date/Time: 02/25/22 18:59 Attending Provider: Antione Zapata Primary Care Provider: Robert Diaz Consulting Providers: Sarita Aj ; Farzad Benitez ; Luc Ruiz Discharge Orders/Prescriptions Prescriptions: Continued amoxicillin-pot clavulanate 875-125 mg tablet 1 tab PO Q12H RF: 0 Referrals / Follow Up: Robert Diaz MD [Primary Care Provider] - Mark Good MD [NON-STAFF] - 03/16/22 1:00 pm (if have to cancel apt call [phone] option [address] [place] [address]) Disposition Disposition (needs filled in before D/C Order can be placed): Home, Self Care Charges/Coding Visit Charges Inpatient E&M: 21773 Disch Hosp
--- NOTE | 2022-03-01 13:21 | CASEMGMT ---
Social Work Note SW updated that pt has recent Cancer Diagnosis. SW reviewed chart, it appears pt was diagnosed on 02/07/2022. SW in to speak with pt. SW introduced self and role at [facility]. Pt confirms recent cancer diagnosis. Pt states he was diagnosed a week ago. Pt states he didn't handle the diagnosis very well. SW offered support to pt. SW offered to provide Cancer information and Support Group information and pt denied. Pt does have an appointment today at 2:30pm with [facility]. Heather Turner HAND INSERTER OPERATOR, SENIOR CYTOGENETICS LABORATORY DIRECTOR
== END 2022-03-01 13:27 | disposition home or self-care (01) | DRG 917 ==
LOC: ED 17:09 → ICU 02-26 07:35 → MS3 02-28 13:23
PROVIDERS: Internal Medicine; Nurse Practitioner; Admitting Provider Family Medicine; Emergency Provider Emergency Medicine; PCP Family Medicine; Visit Provider Family Medicine
DX: T40.411A Poisoning by fentanyl or fentanyl analogs, accidental (unintentional), initial encounter (principal); J96.01 Acute respiratory failure with hypoxia; G92.8 Other toxic encephalopathy; J96.02 Acute respiratory failure with hypercapnia; C73 Malignant neoplasm of thyroid gland; F11.10 Opioid abuse, uncomplicated; F15.10 Other stimulant abuse, uncomplicated; T43.621A Poisoning by amphetamines, accidental (unintentional), initial encounter; E87.6 Hypokalemia; K21.9 Gastro-esophageal reflux disease without esophagitis; F17.210 Nicotine dependence, cigarettes, uncomplicated; G89.4 Chronic pain syndrome; M54.50 Low back pain, unspecified
CPT/HCPCS: 31500; 31720; 36415; 36600; 51702; 70450; 71045; 80048; 80053; 80307; 81001; 82077; 82550; 82803; 82962; 83735; 84100; 84439; 84443; 84478; 85025; 86703; 86704; 86705; 86706; 86707; 86803; 87070; 87205; 87340; 87350; 92610; 93005; 94002; 94003; 94660; 97162; 97802; 99251; 99285; 99406; J7030; J7050; A4216; G0463; J3010; J3490

== ENCOUNTER → 2022-04-06 | Outpatient (CLI) | payer OTHER, SELFPAY ==
--- NOTE | 2022-04-06 09:36 | MRI_ITS ---
STUDY: MRI SOFT TISSUE NECK WITH AND WITHOUT CONTRAST REASON FOR EXAM: Male, 51 years old. large invasive SCC or oropharynx -- eval disease extent TECHNIQUE: Standarized fat and water weighted pulse sequences were obtained in all 3 orthogonal plane pre and post administration of IV DOTAREM 13CC. COMPARISON: None. FINDINGS: Normal bilateral parotid glands. Normal bilateral rn nursery spaces. Normal bilateral parapharyngeal spaces. Normal bilateral carotid spaces. Normal bilateral sublingual and submandibular glands and spaces. Normal visualized nasopharynx. Normal retropharyngeal space. Normal perivertebral space. Normal visualized bilateral faucial tonsils. Large (3.5 x 5.0 cm) enhancing soft tissue mass centered on the left side of the oropharynx with complete obstruction of the airway with abutment of the tongue and invasion of both parapharyngeal spaces in the prevertebral space consistent with known squamous cell carcinoma. Necrotic bilateral jugular lymphadenopathy at the level of the floor the mouth measuring 2.5 cm on the right and the left. An adjacent metastatic left jugular lymph node measures 1.5 cm in diameter. Normal epiglottis, bilateral vallecula and hypopharynx. The pre-epiglottic and paraglottic adipose spaces are normal. Normal visualized bilateral piriform sinuses, aryepiglottic folds, vocal cords, and arytenoid-cricoid articulations. Normal subglottic trachea. Normal bilateral lobes of the thyroid gland. Normal visualized pulmonary apices. Normal visualized paranasal sinuses. Normal visualized cervical spine. MRI/Orbit Face Neck W/WO Contrast IMPRESSION: Large squamous cell carcinoma centered on the left side of the oropharynx with complete obstruction of the airway with associated metastatic bilateral jugular lymphadenopathy. Electronically Signed: Giovanny Luevano MD at 16:48 EDT ,
== END | disposition home or self-care (01) ==
LOC: MRI 09:36
PROVIDERS: PCP Family Medicine; Visit Provider Student in an Organized Health Care Education/Training Program
DX: C10.8 Malignant neoplasm of overlapping sites of oropharynx (principal)
CPT/HCPCS: 70543; A9575

== ENCOUNTER 2022-04-14 12:11 | Day surgery (SDC) | payer OTHER, SELFPAY ==
[2022-04-14 12:38] VITALS: BP 116/69; PULSE 77; RESP 16; TEMP 36.7; O2SAT 100; BMI 21.2
--- NOTE | 2022-04-14 12:46 | HP.PCM_ITS ---
History and Physical Date of Admission: 04/14/22 Date of Service:? 04/12/22 MR#:[id number] Acct:[id number] Name:EMIL BANEGAS :1970 Age/Sex:?51/M? Provider:Dr. Madison Stoner MD Rep #:[id number] Location:[facility] Status:Signed Intake Vital Signs ? 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 Amphetamine use Chronic pain Ecstasy use disorder, mild, abuse History of ETOH abuse Metastatic squamous cell carcinoma Opiate addiction Polysubstance overdose Regional lymph node metastasis present Smoker Substance abuse Tracheostomy in place Surgical History? H/O inguinal hernia repair H/O Spinal surgery H/O tooth extraction History of bronchoscopy History of fusion of lumbar spine S/P appendectomy S/P cataract extraction S/P percutaneous endoscopic gastrostomy (PEG) tube placement Family History? Grandfather CancerGrandfather CancerGrandmother HypertensionFather Thyroid cancer Lung cancerMother Hypertension Social History? household members:? other details: mother and sister housing:? house current occupational status:? disabled Smoking Status:? Current every day smoker tobacco type: cigarettes Tobacco: How many years used:? 20 alcohol intake:? former details:? Sober x ~ 10 years, prior heavy. substance use type:? amphetamines, opiates, IV drugs and methamphetamine what type of physical activity do you participate in:? none do you feel safe at home:? 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 Patient is here for port placement.? Patient plan to start chemotherapy on Monday.? Patient initially was evaluated by ENT due to left cervical lymphadenopathy. ROS General General: Yes fatigue; No weight change, appetite, colon cancer, breast cancer or weakness HEENT HEENT: Yes difficulty swallowing and swollen glands; No eye injury or eye surgery Skin Skin: No rash or changing moles Musc Musculoskeletal: No back problems, arthritis, rheumatoid arthritis, gout or joint pain Cardio Cardiovascular: No murmur, pacemaker, heart disease, atrial fibrillation, high blood pressure, heart attack, heart stent, palpitations, shortness of breat with exertion or chest pain Psych Psychiatric: No depression, anxiety or hearing voices Resp Respiratory: No shortness of breath, No sleep apnea, No cough, No COPD, No asthma, No emphysema and No wheezing Gastro Gastrointestinal: No abdominal pain, No nausea or vomiting, No diarrhea, No constipation, No blood in stool, No acid reflux, No hemorrhoids, No ulcers, No gallbladder problem and No black,tarry stools [place] Hematologic: No blood thinners, No blood disorders, No bleeding, No anemia and No blood clots Neuro Neurologic: No confusion and No weakness Exam Const General: cooperative, healthy appearing and no acute distress Neck Other: Trach in place, bilateral cervical lymphadenopathy right larger than left Chest Other: Normal palpation to bilateral upper chest Resp Effort & Inspection: normal respiratory effort (Via trach) Cardio Rate: regular rate GI Inspection: non-distended Palpation: soft and nontender Other: PEG in place Skin General: no rashes or lesions noted Neuro General: patient oriented x3 Extrem General: no clubbing, cyanosis or edema Psych Affect: normal affect COVID (Procedure Consent) Procedure Criteria Procedure Criteria: Yes Elective The surgeon/proceduralist and patient have discussed in detail the risk of exposure to and/or potential harm posed by the COVID-19 virus with having a surgery/procedure at this time versus the risk of? delaying the surgery/procedure. It is not possible to know either the risk of delaying the surgery or procedure or chance of getting an infection with perfect accuracy, but a joint decision was made between the patient and the surgeon/proceduralist ?to proceed at this time with the scheduled surgery/procedure as indicated on the consent form. Assessment and Plan Assessment and Plan (1) Encounter for insertion of tunneled central venous catheter (CVC) with port: ?Status:?Acute (2) Cancer of overlapping sites of oropharynx: ?Status:?Acute (3) Regional lymph node metastasis present: ?Status:?Acute (4) Tracheostomy in place: ?Status:?Acute ?Comment: 03/22/22 [facility] I have discussed above with the patient- Port-a-Cath placement. Patient has been counseled as to the risks/benefits of the procedure. I have explained the risks of the surgery, including but not limited to: infection, bleeding, injury to any blood vessels/nerves, injury to lungs (such as pneumothorax or hemothorax and need for chest tube), not having any access, nonfunctioning of port due to thrombosis, infection of port, etc.? the patient understands and agrees to proceed. I have answered all the patient's questions to the patient?s satisfaction and the patient has no further questions. Madison Stoner M.D. Pager: [phone] [facility] [address] [place] [address], [address] [place] [address] Office: [phone] Coding Level of Care Code Off vis,new,level 3 Diagnoses Encounter for insertion of tunneled central venous catheter (CVC) with port? Z45.2 Cancer of overlapping sites of oropharynx? C10.8 Regional lymph node metastasis present? C77.[address]? Z93.0 04/12/22 1418 <Electronically signed by Madison Stoner MD> Date Madison Stoner MD
[2022-04-14] MEDS: Lactated Ringers 1,000 ML 15 ML IV (12:52)
[2022-04-14] MEDS: Cefazolin 2 GM in 0.9% Normal Saline 100 ML IV (13:43)
[2022-04-14] MEDS: Bupivacaine 0.25% 30 ML Vial (13:56)
[2022-04-14] MEDS: Lidocaine 1% /Epi 1:100 (20ml) 20 ML Vial (13:56)
--- NOTE | 2022-04-14 14:20 | RAD_ITS ---
STUDY: X-RAY CHEST REASON FOR EXAM: Male, 51 years old. Port -- pacu TECHNIQUE: Single AP portable view of the chest. COMPARISON: Comparison is made with prior study dated 02/25/2022. FINDINGS: A right-sided Port-A-Cath has been placed. The tip is at the junction of the superior vena cava and right atrium. A tracheostomy tube is in situ. The tip is at 5.1 cm proximal to the luis. Hyperinflation. The lungs are clear. There is no demonstrated pleural abnormality. Normal size heart. Normal mediastinum and arnulfo. Normal visualized pulmonary arteries. Normal visualized aortic arch and descending thoracic aorta. Normal visualized thoracic spine. Normal visualized ribs, clavicles, and shoulders. There is no demonstrated abnormality of the visualized soft tissue structures of the upper abdomen. RAD/CXR for Line Placement IMPRESSION: The tip of the right catheter is at the junction of the superior vena cava and right atrium. Electronically Signed: Anthony Adams MD at 14:51 EDT ,
--- NOTE | 2022-04-14 14:20 | PCM.OPRPT ---
Report of Operation Date of Procedure: 04/14/22 Pre-Operative Diagnosis: Z45.2, oropharynx cancer Post-Operative Diagnosis: Same Surgery/Procedure Performed:: 1. Placement of right IJ Port-A-Cath, 2. Use of fluoroscopy, 4. Use of ultrasound. Surgeon: Madison Stoner Type of Anesthesia: General/Supplemental Anesthesiologist: Gamaliel Kern Special Medications: Ancef 2 g IV x1 Specimen's removed: None Estimated Blood Loss (mL): <10 cc Description of Procedure: After informed consent was given, the patient was brought to the operating room and placed in the supine position. Appropriate time out protocol was followed. General anesthesia was induced due to patient having a trach. The patient's right upper chest and neck were then prepped with a surgical skin preparation and sterile surgical drapes were placed. After proper landmarks were ascertained, the skin at the upper right chest area was then infiltrated with 1:1 mixture of 1% lidocaine with epinephrine and 0.25% marcaine. A needle trocar was then inserted into the right internal jugular vein with ultrasound guidance-multiple vessels were viewed with u/s and the right IJ was chosen-- and there was good aspiration of venous blood. A wire was then threaded into the needle trocar and this was visualized under fluoroscopy to ensure that the wire was in the superior vena cava. Once this was done, then the needle trocar was removed. A small skin kim was made with an 11 blade knife at the wire entrance site. The dilator with the introducer sheath attached was then placed over the wire into the right internal jugular vein via the Seldinger technique and this was visualized under fluoroscopy. The dilator and sheath were in proper position as visualized by fluoroscopy. A subcutaneous pocket was then created caudad to the catheter insertion site. A transverse skin incision was made after the skin and subcutaneous tissues were infiltrated with local anesthetic. Blunt dissection was then used to create a space large enough for placement of the subcutaneous port. The catheter was then tunneled into the subcutaneous pocket. The wire and dilator were then removed. The catheter was then threaded into the introducer sheath and was positioned with its tip at the junction of the superior vena cava and the right atrium as visualized under fluoroscopy. The excess catheter was transected. The catheter was then attached to the subcutaneous port using manufacturers guidelines. The catheter was flushed with a heparin saline mixture prior to placement. Hemostasis was carefully controlled with electrocautery. The port was sutured to the subcutaneous fascia using 2-0 Vicryl suture at two sites. The port was then placed in the subcutaneous pocket. The incision were reapproximated with interrupted subdermal 3-0 vicryl sutures. The skin was reapproximated with 3-0 nylon suture in a interrupted fashion. Steristrips were used for reinforcement of the skin closure at IJ insertion site and a sterile opsite dressings were applied. The patient tolerated the procedure well. - Grafts/Implants Used: Bard PowerPort isp M.R.I. 6Fr Lot [id number] Complications none
[2022-04-14 14:23] VITALS: BP 116/69; BP 118/70; PULSE 71; RESP 16; TEMP 36.2; O2SAT 100
--- NOTE | 2022-04-14 14:23 | DCINST_ITS ---
Discharge Instructions Procedure Port-A-Cath Diet Discharge Diet: Light diet - advance as tolerated Activity May shower in (days): 5 (Keep port site clean and dry x5 days. Neck incision okay to get wet after 1 day. Okay to lower shower and upper sponge bath. OR okay to taper off port site with a Ziploc bag to shower) Lifting Restrictions: No lifting > 15 pounds for 3 days with the arm on the side of the port Dressing / Incision Call your doctor if your incision/area has: Continuous Slow Oozing, Sudden Increased Bleeding, Increased Pain/ Swelling, Increased Redness, Foul Smelling Discharge and Swelling at the incision site Call your doctor if you observe: Fever of 101 or Higher Change Dressing in: 2 days Follow Up Care Please Follow Up With: Madison Stoner MD When: In 10 days for permanent suture removal?call office for appointment Test Results: Test results from this visit will be discussed in further detail at your follow- up appointment, if applicable. Discharge Plan Admission Attending Provider: Madison Stoner Primary Care Provider: Robert Fritz Discharge Orders/Prescriptions Prescriptions: Continued oxycodone 5 mg tablet 1 tab PO Q6H PRN (Reason: Pain) Label Comments: TAKE 1 TABLET BY MOUTH TWICE DAILY NEEDED FOR PAIN FOR UP TO 5 DAYS lorazepam 0.5 mg tablet 0.5 mg PO BID PRN (Reason: pre procedure anxiety) Qty: 3 0RF Rx Instructions: take 1-2 tabs prior to procedure MAGIC MOUTH WASH (BMX) 180 mL suspension 15 ml PO .qid PRN (Reason: pain) Qty: 180 6RF Rx Instructions: diphenhydramine 12.5 mg/5 mL oral liquid 60 mL; aluminum-mag hydroxide- simethicone 400 mg-400 mg-40 mg/5 mL oral susp 60 mL; Lidocaine Viscous 2 % mucosal solution 60 mL; Per 180 mL oxycodone 5 mg tablet 5 mg PO Q6H PRN (Reason: pain) 7 Days Qty: 30 0RF Rx Instructions: take one tab PO q6 hrs prn pain Referrals / Follow Up: Robert Fritz MD [Primary Care Provider] - Disposition Disposition (needs filled in before D/C Order can be placed): Home, Self Care
[2022-04-14 14:30] VITALS: BP 108/70; BP 116/69; PULSE 70; RESP 16; O2SAT 100
[2022-04-14 14:45] VITALS: BP 104/69; BP 116/69; PULSE 68; RESP 16; O2SAT 100
[2022-04-14 14:55] VITALS: BP 111/71; BP 116/69; PULSE 70; RESP 16; TEMP 36.6; O2SAT 100
[2022-04-14 15:56] VITALS: BP 102/67; BP 116/69; PULSE 67; RESP 16; TEMP 36.3; O2SAT 100
== END 2022-04-14 15:57 | disposition home or self-care (01) ==
LOC: SDC 12:13 → AC 12:17
PROVIDERS: PCP Family Medicine; Referring Provider Surgery; Visit Provider Surgery
PROC: (CPT 36561; principal; 2022-04-14 13:30)
DX: Z45.2 Encounter for adjustment and management of vascular access device (principal); Z93.0 Tracheostomy status; C77.9 Secondary and unspecified malignant neoplasm of lymph node, unspecified; C10.8 Malignant neoplasm of overlapping sites of oropharynx; Z80.8 Family history of malignant neoplasm of other organs or systems; F17.210 Nicotine dependence, cigarettes, uncomplicated
CPT/HCPCS: 36561; 00532; 71045; 77001; J7120; J2405

== ENCOUNTER → 2022-04-21 | Outpatient (CLI) | payer OTHER, SELFPAY | END | disposition home or self-care (01) | PROVIDERS: PCP Family Medicine; Visit Provider Family Medicine Hospice and Palliative Medicine | DX: F11.99 Opioid use, unspecified with unspecified opioid-induced disorder (principal) ==

== ENCOUNTER 2022-04-22 14:37 | Emergency (ER) | payer OTHER, SELFPAY ==
[2022-04-22 14:38] VITALS: BP 105/61; PULSE 94; RESP 18; TEMP 35.5; O2SAT 100; BMI 22.3
--- NOTE | 2022-04-22 15:06 | EKG12_ITS ---
Test Reason : SYNCOPE Blood Pressure : / mmHG Vent. Rate : 087 BPM Atrial Rate : 087 BPM P-R Int : 162 ms QRS Dur : 070 ms QT Int : 348 ms P-R-T Axes : 069 019 055 degrees QTc Int : 418 ms Normal sinus rhythm Normal ECG Confirmed by DOYLE MILLER, SHWETHA ([id number]), editor at large ALLYSON MCDONALD ([id number]) on 04/25/2022 11:41:20 AM Referred By: EM Confirmed By:BELLO KWON MD
--- NOTE | 2022-04-22 15:12 | EX.ED.DYSGE1 ---
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 Patient is in his first week of radiation, he has 30 treatments total. He states that his ears and throat have been bothering him is more recently. He was sitting up for speech therapy, became pale, sweaty and had a syncopal episode while sitting, no injury. When he woke up he was unsure what happened. Denies any history of seizures. Denies any fevers or chills recently. PFSH <CIARA Paulson - Last Filed: 04/22/22 16:45> [facility] Medical History Amphetamine use Anxiety Chronic pain Ecstasy use disorder, mild, abuse History of ETOH abuse Iron deficiency anemia due to chronic blood loss Metastatic squamous cell carcinoma Opiate addiction Polysubstance overdose Regional lymph node metastasis present Smoker Substance abuse Tracheostomy in place Home Medications lorazepam 0.5 mg tablet 0.5 mg PO BID PRN pre procedure anxiety #3 tabs 04/06/22 [Rx Last Taken Unknown] MAGIC MOUTH WASH (BMX) 180 mL suspension 15 ml PO .qid PRN pain #180 mL 04/14/22 [Rx Last Taken Unknown] ondansetron 8 mg disintegrating tablet 8 mg PO Q8H PRN Nausea And Vomiting 14 days #42 tabs 04/18/22 [Rx Last Taken Unknown] Allergy/AdvReac Type Severity Reaction Status Date / Time aspirin AdvReac Upset Verified 04/22/22 14:43 Stomach tramadol AdvReac Upset Verified 04/22/22 14:43 Stomach Family History Grandfather Cancer Grandfather Cancer Grandmother Hypertension Father Thyroid cancer Lung cancer Mother Hypertension Surgical History H/O inguinal hernia repair H/O Spinal surgery H/O tooth extraction History of bronchoscopy History of fusion of lumbar spine S/P appendectomy S/P cataract extraction S/P percutaneous endoscopic gastrostomy (PEG) tube placement Social History household members: other details: mother and sister housing: house current occupational status: disabled Smoking Status: Current every day smoker tobacco type: cigarettes Tobacco: How many years used: 20 alcohol intake: former details: Sober x ~ 10 years, prior heavy. substance use type: amphetamines, opiates, IV drugs and methamphetamine what type of physical activity do you participate in: none do you feel safe at home: Yes ROS <CIARA Paulson - Last Filed: 04/22/22 16:45> ROS ED ROS Narrative Constitutional: Negative for fever, chills, weight loss, weakness Eyes: Negative for vision loss, vision change, double vision ENT: Negative for any sore throat, ear pain, congestion Cardiovascular: Negative for any chest pain, tightness, palpitations Respiratory: Negative for any cough, sputum production, hemoptysis, dyspnea, dyspnea on exertion, orthopnea Gastrointestinal: Negative for any abdominal pain, nausea, vomiting, diarrhea, constipation, blood in stool, blood in vomit : Negative for any urinary frequency, dysuria, retention, blood in urine Muscle skeletal: Negative for any muscle joint pain, stiffness, myalgias, arthralgias, neck pain, back pain Neurological: Negative for any headache, numbness or tingling, dizziness. Positive for syncope Skin: Negative for any rashes, lumps, itching, abrasions, lacerations Psychiatric: Negative for any depression, anxiety, stress, suicidal ideation, homicidal ideation Hematologic: Negative for any easy bruising, excessive bruising, easy bleeding Allergies: Negative for any eczema, hives, rash EXAM <CIARA Paulson - Last Filed: 04/22/22 16:45> Physical Exam Narrative Exam Narrative: Vital signs reviewed. Patient appears well, patient is in no distress. HEET: Head normocephalic atraumatic, TMs clear bilaterally. Posterior pharynx is clear, dry mucous membranes. Nares clear bilaterally. Neck: Supple with no lymphadenopathy or tenderness. No signs of meningismus, negative jolt sign. Cardiac: Regular rate and rhythm no murmurs gallops or rubs, equal peripheral pulses bilaterally. Respiratory: Lungs clear to auscultation bilaterally. No chest tenderness. Abdomen: Soft, nontender, nondistended. No abdominal bruit or pulsatile masses. No hepatosplenomegaly Extremities: No peripheral edema, no signs of gross trauma or deformity. Active full range of motion of all extremities. Neuro: Cranial nerves II through XII intact, no focal neurological deficits. Skin: Clean dry and intact with no rash, purpura, petechiae, vesicles or pustules. Backs/flank: No CVA tenderness, no midline spinal tenderness, no deformity. Psych: Normal mood and affect. No SI, HI or acute psychosis. Const Vital Signs: 04/22/22 14:38 04/22/22 15:33 04/22/22 17:02 Temperature 96 F L Temperature Source Temporal Pulse Rate 94 78 Respiratory Rate 18 18 Respiratory Effort Normal Non-Labored Blood Pressure 105/61 110/82 H Blood Pressure Mean 75 Pulse Ox 100 97 Oxygen Delivery Method Room Air Positive well nourished and well developed General Appearance ED: well developed <Wilber Kyle MD - Last Filed: 04/23/22 00:03> Physical Exam Const Vital Signs: 04/22/22 14:38 04/22/22 15:33 04/22/22 17:02 Temperature 96 F L Temperature Source Temporal Pulse Rate 94 78 Respiratory Rate 18 18 Respiratory Effort Normal Non-Labored Blood Pressure 105/61 110/82 H Blood Pressure Mean 75 Pulse Ox 100 97 Oxygen Delivery Method Room Air MDM <CIARA Paulson - Last Filed: 04/22/22 16:45> MDM Lab Data Attestation: I reviewed the patient's lab results. Labs: Laboratory Results - last 24 hr 04/22/22 04/22/22 15:30 15:30 WBC 12.9 H RBC 3.65 L Hgb 9.9 L Hct 30.7 L MCV 84.1 MCH 27.1 MCHC 32.2 RDW Std Deviation 40.9 RDW Coeff of Rolf 13.3 Plt Count 427 MPV 9.2 Immature Gran % (Auto) 0.700 Neut % (Auto) 84.7 H Lymph % (Auto) 6.0 L Elliott % (Auto) 7.2 Eos % (Auto) 1.2 Baso % (Auto) 0.2 Absolute Neuts (auto) 11.0 H Absolute Lymphs (auto) 0.77 L Nucleated RBC % 0 Sodium 131 L Potassium 4.0 Chloride 99 Carbon Dioxide 27.0 Anion Gap 5 BUN 16 Creatinine 0.87 Estim Creat Clear Calc 81.90 Est GFR (MDRD) Af Amer 118 Est GFR (MDRD) Non-Af 98 BUN/Creatinine Ratio 18.5 Glucose 183 H Calcium 8.7 Radiography Diagnostic Testing: Clinical Impression(s) from Imaging Studies Chest X-Ray 04/22/22 15:35 IMPRESSION: No acute cardiopulmonary process. Electronically Signed: Lilo Burkett MD at 16:11 EDT , Treatment and Re-Evaluation Narrative: Patient appears well, patient appears nontoxic, vital signs are stable. Patient presents the [facility] with a syncopal episode while performing speech therapy today. Patient's physical examination was grossly unremarkable, patient was alert and oriented acting appropriate. Patient's EKG was unremarkable. Patient did receive some basic laboratory values, patient CBC shows a leukocytosis with a white blood count 12.9, patient's CBC shows sodium 131, glucose of 183, I did speak with the patient regarding this. The patient will follow up outpatient. Patient's physical examination, work-up here, is consistent with vasovagal syncope. There is no indication of any ACS, ME, cardiac involvement. Patient's chest x-ray was unremarkable any acute process inserted by ER physician. At this time, patient was given IV fluids, feels much better and will be discharged. Patient will follow up with his PCP regarding his hyperglycemia. Patient stable for discharge <Wilber Kyle MD - Last Filed: 04/23/22 00:03> [facility] Narrative Medical decision making narrative: I have personally performed a face to face assessment of the patient and have reviewed the ARISTEO Note. I performed a substantive portion of the visit including all aspects of the following. My best findings include: History is oropharyngeal cancer, undergoing procedure, syncopal episode today. Exam is afebrile. Vital signs noted. Awake, alert, regular rate and rhythm. Lungs clear to auscultation bilaterally. Medical Decision Making check labs. IV fluids. Check EKG. Discharge. Other additions or changes: [None] Lab Data Labs: Laboratory Results - last 24 hr 04/22/22 04/22/22 15:30 15:30 WBC 12.9 H RBC 3.65 L Hgb 9.9 L Hct 30.7 L MCV 84.1 MCH 27.1 MCHC 32.2 RDW Std Deviation 40.9 RDW Coeff of Rolf 13.3 Plt Count 427 MPV 9.2 Immature Gran % (Auto) 0.700 Neut % (Auto) 84.7 H Lymph % (Auto) 6.0 L Elliott % (Auto) 7.2 Eos % (Auto) 1.2 Baso % (Auto) 0.2 Absolute Neuts (auto) 11.0 H Absolute Lymphs (auto) 0.77 L Nucleated RBC % 0 Sodium 131 L Potassium 4.0 Chloride 99 Carbon Dioxide 27.0 Anion Gap 5 BUN 16 Creatinine 0.87 Estim Creat Clear Calc 81.90 Est GFR (MDRD) Af Amer 118 Est GFR (MDRD) Non-Af 98 BUN/Creatinine Ratio 18.5 Glucose 183 H Calcium 8.7 Radiography Diagnostic Testing: Clinical Impression(s) from Imaging Studies Chest X-Ray 04/22/22 15:35 IMPRESSION: No acute cardiopulmonary process. Electronically Signed: Lilo Burkett MD at 16:11 EDT , Discharge Plan Triage Chief Complaint: Syncope ED Midlevel Provider: Jj Staton ED Provider: Wilber Kyle Dx/Rx/DC Orders Clinical Impression: Vasovagal syncope, Hyperglycemia Instructions: High Blood Sugar (Hyperglycemia), Causes of Syncope, ED Near-Fainting- Vagal Reaction Prescriptions: No Action ondansetron 8 mg Tablet,Disintegrating 8 mg PO Q8H PRN (Reason: Nausea And Vomiting) 14 Days Qty: 42 3RF lorazepam 0.5 mg tablet 0.5 mg PO BID PRN (Reason: pre procedure anxiety) Qty: 3 0RF Rx Instructions: take 1-2 tabs prior to procedure MAGIC MOUTH WASH (BMX) 180 mL suspension 15 ml PO .qid PRN (Reason: pain) Qty: 180 6RF Rx Instructions: diphenhydramine 12.5 mg/5 mL oral liquid 60 mL; aluminum-mag hydroxide-simethicone 400 mg-400 mg-40 mg/5 mL oral susp 60 mL; Lidocaine Viscous 2 % mucosal solution 60 mL; Per 180 mL Primary Care Provider: Robert Fritz Referrals: Robert Fritz MD [Primary Care Provider] - Activity Restrictions/Additional Instructions: Please maintain your hydration. Please follow-up with your physician regarding your elevated blood glucose of 181. Disposition Disposition: Home, Self Care Discharge Date/Time: 04/22/22 17:02
[2022-04-22] MEDS: 0.9% Normal Saline 1,000 ML 1000 ML IV (15:32)
--- NOTE | 2022-04-22 15:35 | RAD_ITS ---
STUDY: X-RAY CHEST REASON FOR EXAM: Male, 51 years old. Syncope TECHNIQUE: Single frontal view of the chest. COMPARISON: 02/25/2022. FINDINGS: There is no new focal consolidation. There is a right-sided central venous catheter placed terminating within the expected region of the superior vena cava. There is a tracheostomy in place terminating 5.1 cm above the luis. Normal size heart. Normal mediastinum and arnulfo. Normal visualized pulmonary arteries. Normal visualized aortic arch and descending thoracic aorta. Normal visualized thoracic spine. Normal visualized ribs, clavicles, and shoulders. There is no demonstrated abnormality of the visualized soft tissue structures of the upper abdomen. RAD/Chest 1 View (Portable) IMPRESSION: No acute cardiopulmonary process. Electronically Signed: Lilo Burkett MD at 16:11 EDT ,
[2022-04-22 15:49] LABS: Absolute Lymphocyte Count 0.77 X10^3/uL (0.83-4.51); Basophil# 0.02 X10^3/uL; Basophil% 0.2 % (0-1); Eosinophil# 0.16 X10^3/uL; Eosinophils% 1.2 % (0-5); Hematocrit 30.7 % (40-54); Hemoglobin 9.9 g/dL (13.0-16.5); Lymphocyte # 0.77 X10^3/ul (0.83-4.51); Mean Corp Hgb Conc 32.2 g/dL (32-36); Mean Corpuscular Hgb 27.1 pg (27.0-32.0); Mean Corpuscular Volume 84.1 fL (80-94); Mean Platelet Vol. 9.2 fl (6.2-12.0); Monocyte# 0.93 X10^3/uL; Monocyte% 7.2 % (0-10); NRBC Flagged by Analyzer 0 % (0-5); Neutrophil # 10.95 X10^3/uL (2.7-7.7); Neutrophil % 84.7 % (47-70); Platelet Count 427 K/mm3 (150-450); RBC Distribution Width CV 13.3 % (11.6-14.6); RBC Distribution Width SD 40.9 fl (35.1-43.9); Red Blood Count 3.65 M/mm3 (4.6-6.2); White Blood Count 12.9 K/mm3 (4.4-11.0)
[2022-04-22 16:02] LABS: Anion Gap 5 (5-15); BUN 16 mg/dL (7-18); BUN/Creat Ratio 18.5 RATIO (10-20); Calcium,Total 8.7 mg/dL (8.5-10.1); Chloride 99 mmol/L (98-107); Creatinine, Serum 0.87 mg/dL (0.70-1.30); EST Glomerular Filtration Rate 98 mL/min (>60); Est Glom Filt Rate - Afr Amer 118 mL/min (>60); Glucose 183 mg/dL (74-106); Sodium Level 131 mmol/L (136-145)
[2022-04-22] MEDS: oxyCODONE 5 MG Tablet 10 MG PO (16:16)
[2022-04-22 17:02] VITALS: BP 110/82; PULSE 78; RESP 18; O2SAT 97
== END 2022-04-22 17:02 | disposition home or self-care (01) ==
PROVIDERS: Nurse Practitioner; Emergency Provider Emergency Medicine; PCP Family Medicine; Visit Provider Emergency Medicine
DX: R55 Syncope and collapse (principal); C77.9 Secondary and unspecified malignant neoplasm of lymph node, unspecified; C10.8 Malignant neoplasm of overlapping sites of oropharynx; R73.9 Hyperglycemia, unspecified; G89.29 Other chronic pain; M54.9 Dorsalgia, unspecified; F17.210 Nicotine dependence, cigarettes, uncomplicated
CPT/HCPCS: 36591; 71045; 77336; 77386; 80048; 85025; 93005; 96360; 99283; J7030; A4216

== ENCOUNTER 2022-05-02 08:06 | Inpatient (IN) | payer OTHER, SELFPAY ==
[2022-05-02] VITALS (11 sets, daily range): BP systolic 87–112; BP diastolic 47–65; PULSE 70–103; RESP 15–21; TEMP 36.1–38.1; O2SAT 96–100; BMI 22.3; BMI 21.4
--- NOTE | 2022-05-02 08:12 | RAD_ITS ---
STUDY: X-RAY CHEST REASON FOR EXAM: Male, 51 years old. Fever TECHNIQUE: Single AP portable view of the chest. COMPARISON: Comparison is made with prior study dated 04/22/2022. FINDINGS: A tracheostomy tube is in situ. The tip is at 5.3 cm proximal to the luis. A right-sided portacatheter is seen with the tip at the junction of the superior vena cava and right atrium. There is hyperinflation of the lungs consistent with chronic obstructive lung disease (COPD). Minimal increased markings in the left lung base. Early infiltrate should be ruled out. There is no demonstrated pleural abnormality. Normal size heart. Normal mediastinum and arnulfo. Normal visualized pulmonary arteries. Normal visualized aortic arch and descending thoracic aorta. Normal visualized thoracic spine. Evidence of prior left rotator cuff surgery. There is no demonstrated abnormality of the visualized soft tissue structures of the upper abdomen. RAD/Chest 1 View (Portable) IMPRESSION: Hyperinflation. Minimal increased markings at the left lung base. Early infiltrate should be ruled out. Electronically Signed: Anthony Adams MD at 9:22 EDT ,
[2022-05-02] MEDS: Acetaminophen 325 MG Tablet 650 MG PO ×3 (08:43→20:25)
[2022-05-02 08:49] LABS: ALB/GLOB Ratio 0.6 RATIO (0.9-2.4); AST(SGOT) 25 U/L (15-37); Alanine Aminotransfer ALT/SGPT 25 U/L (16-61); Albumin, Serum 2.4 g/dL (3.2-5.0); Alkaline Phosphatase 78 U/L (45-117); Anion Gap 7 (5-15); BUN 19 mg/dL (7-18); BUN/Creat Ratio 21.1 RATIO (10-20); Calcium,Total 8.2 mg/dL (8.5-10.1); Chloride 96 mmol/L (98-107); EST Glomerular Filtration Rate 94 mL/min (>60); Est Glom Filt Rate - Afr Amer 113 mL/min (>60); Estimated Creatinine Clearance 79.17 ml/min; Globulin 3.7 g/dL (2.2-4.2); Glucose 118 mg/dL (74-106); Phosphorus 2.9 mg/dL (2.5-4.9); Potassium 3.9 mmol/L (3.5-5.1); Protein, Total 6.1 g/dL (6.4-8.2); Sodium Level 128 mmol/L (136-145)
[2022-05-02] MEDS: 0.9% Normal Saline 1,000 ML 999 ML IV ×2 (09:00→12:15)
[2022-05-02 09:03] LABS: Lactic Acid 0.6 mmol/L (0.4-1.9)
--- NOTE | 2022-05-02 10:04 | NURSING ---
[id number] JOHNSON [id number] [place]ALL
--- NOTE | 2022-05-02 10:27 | NURSING ---
DR SABINO ALBRECHT
--- NOTE | 2022-05-02 10:29 | HP.PCM.HOS_ITS ---
HPI - General General Date of Admission: 05/02/22 Date of Service: 05/02/22 Chief Complaint: R Chest Cellulitis HPI Narrative EMIL WOODSON, is a 51 M who presented emergency department [facility] on 05/02/2022 after being sent over by the infusion center for fever. Patient has a history of oropharyngeal cancer with his last chemo being 1 week ago and is currently undergoing radiation. Patient states he started feeling poorly this morning wanting out of bed. Yesterday he states he was feeling well. He noted some redness in his right upper chest however and recently had a pustule which he popped at what looks to be the insertion site of his med port. There is a small open area that has some purulent drainage there at this time as well however I do not see any visibility of the catheter. The Mediport was placed on 04/14/[address] Stoner. The patient states this morning he has had general malaise, myalgias, fever, chills but denies nausea vomiting constipation or diarrhea. Radiation with concomitant cisplatin therapy was started on April 18, 2022. He was diagnosed with oropharyngeal cancer via an FNA of a left neck mass on 02/07/2022. The tumor was HPV positive and stage III clinically with TN, N2, M0. On 03/22/2022 he underwent a sharpe endoscopy with dental extractions prophylactic tracheostomy and a PEG tube placement and that that time he was noted to have a large posterior oropharyngeal tumor extending into the left lateral wall abutting the tonsil, soft palate, and uvula. 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 PET scan done on 04/01/2022 showed increased uptake in the right retropharyngeal and bilateral level 2A and 2B lymph nodes with no evidence of metastatic disease. Upon presentation the emergency department his temperature was 100.6 with a heart rate of 103, blood pressure 102/62, respiratory rate 17 and oxygen saturation was 100% on room air. CBC showed a white count of 6.8 with a hemoglobin of 7.6 and a platelet count of 283,000. He has a left shift with a neutrophilia of 93.6% and no neutropenia was identified. His chemistry panel showed a mild hyponatremia with a sodium of 128 but was otherwise unremarkable. His lactic acid was 0.6. Liver functions were normal. UA and blood cultures were ordered but pending upon admission. Chest x-ray showed hyperinflation with minimal increased markings in the left base. His right upper chest is erythematous and this was initially thought to be related to his radiation however it is asymmetrical and he is getting bilateral neck radiation. The emergency department he was started on vancomycin and Zosyn and cultures were also obtained of the wound on his right neck. [facility] Medical History Amphetamine use Anxiety Chronic pain Ecstasy use disorder, mild, abuse History of ETOH abuse Iron deficiency anemia due to chronic blood loss Metastatic squamous cell carcinoma Opiate addiction Polysubstance overdose Regional lymph node metastasis present Smoker Substance abuse Tracheostomy in place Home Medications lorazepam 0.5 mg tablet 0.5 mg PO BID PRN pre procedure anxiety #3 tabs 04/06/22 [Rx Last Taken Unknown] MAGIC MOUTH WASH (BMX) 180 mL suspension 15 ml PO .qid PRN pain #180 mL 04/14/22 [Rx Last Taken Unknown] ondansetron 8 mg disintegrating tablet 8 mg PO Q8H PRN Nausea And Vomiting 14 days #42 tabs 04/18/22 [Rx Last Taken Unknown] oxycodone 5 mg tablet 10 mg PO Q4H PRN 04/25/22 [History Last Taken Unknown] famotidine 20 mg tablet (Pepcid) 20 mg PO DAILY 04/27/22 [History Last Taken Unknown] Allergy/AdvReac Type Severity Reaction Status Date / Time aspirin AdvReac Upset Verified 05/02/22 08:07 Stomach tramadol AdvReac Upset Verified 05/02/22 08:07 Stomach Family History Grandfather Cancer Grandfather Cancer Grandmother Hypertension Father Thyroid cancer Lung cancer Mother Hypertension Surgical History H/O inguinal hernia repair H/O Spinal surgery H/O tooth extraction History of bronchoscopy History of fusion of lumbar spine S/P appendectomy S/P cataract extraction S/P percutaneous endoscopic gastrostomy (PEG) tube placement Social History household members: other details: mother and sister housing: house current occupational status: disabled Smoking Status: Current every day smoker tobacco type: cigarettes Tobacco: How many years used: 20 alcohol intake: former details: Sober x ~ 10 years, prior heavy. substance use type: amphetamines, opiates, IV drugs and methamphetamine what type of physical activity do you participate in: none do you feel safe at home: Yes ROS Constitutional Constitutional: Reports change in weight, chills, fatigue, fever(s), malaise and weakness; Denies anorexia, night sweats or other Eyes Eyes: Denies blurry vision, change in eye color, change in vision, discharge from eye(s), double vision, erythema, eye pain, loss of vision or other ENT HEENT: Reports dysphagia, sore throat and other Details: Sore oropharynx ; Denies abnormal hearing, ear pain, epistaxis, headache(s), hearing loss, nasal congestion, nasal discharge, post nasal drip or sinus pressure Cardiovascular Cardiovascular: Denies chest pain, claudication, dyspnea on exertion, edema, lightheadedness, orthopnea, palpitations, paroxysmal nocturnal dyspnea, rapid heart rate, syncope or other Respiratory/Chest Respiratory/Chest: Reports cough and productive cough; Denies dyspnea, excessive phlegm production, hemoptysis, shortness of breath at rest, shortness of breath with exertion, wheezing or other Gastrointestinal Gastrointestinal: Denies abdominal pain, coffee ground emesis, constipation, diarrhea, dyspepsia, hematemesis, hematochezia, loose stools, melena, nausea, vomiting or other Genitourinary Genitourinary: Denies burning urination, difficulty urinating, dysuria, hematuria, nocturia, urinary frequency, urinary hesitancy, urinary incontinence, urinary urgency or other Musculoskeletal Musculoskeletal: Reports myalgias; Denies arthralgias, back pain, joint pain, joint stiffness, joint swelling, neck pain or other Neurologic Neurologic: Denies abnormal gait, abnormal speech, confusion, disequilibrium, dizziness, focal weakness, headache(s), numbness, paresthesias, seizure-like activity, seizures, syncope, tingling, tremor(s) or other Psychiatric Psychiatric: Denies anxiety, depression, homicidal ideation, suicidal ideation or other Endocrine Endocrinology: Denies change in body appearance, cold intolerance, excessive sweating, heat intolerance, polydipsia, polyuria or other Hematologic/Lymphatic Hematologic/Lymphatic: Denies anemia, easy bleeding, easy bruising, lymphadenopathy or other Allergic/Immunologic Allergic/Immunologic: Denies rhinitis, hives, eczemia, asthma or other Vital Signs Vital Signs Vital Signs: 05/02/22 08:07 05/02/22 08:11 05/02/22 08:17 Temperature 100.6 F H 99.1 F 99.1 F Temperature Source Temporal Oral Oral Pulse Rate 103 H 103 H Respiratory Rate 17 17 Respiratory Effort Respiratory Pattern Blood Pressure 102/62 102/62 Blood Pressure Mean 75 Pulse Ox 100 100 Oxygen Delivery Method Room Air Room Air 05/02/22 08:17 05/02/22 09:02 05/02/22 10:08 Temperature 99.9 F H 99.7 F H Temperature Source Oral Temporal Pulse Rate 95 90 Respiratory Rate 21 H 15 Respiratory Effort Normal Non-Labored Respiratory Pattern Normal Blood Pressure 110/63 100/58 L Blood Pressure Mean 78 72 Pulse Ox 99 97 Oxygen Delivery Method Room Air Room Air Weight Weight: 58.967 kg Body Mass Index (BMI) 22.3 Physical Exam Const alert, oriented x3, no apparent distress and average body habitus Constitutional Narrative: Middle-aged white male sitting up in bed, appears comfortable but ill, no acute distress at this time General Appearance: cooperative HEENT normocephalic, head/scalp atraumatic and hearing grossly normal bilaterally HEENT Narrative: Just membranes are dry Eyes PERRL and EOMs intact bilaterally Eyes Narrative: No scleral icterus, conjunctiva are pale Neck supple, no JVD and no carotid bruits Neck Narrative: Trachea midline, tracheostomy with trach in place-cuffless and PMV with decent vocal quality, right neck is erythematous at the site of the med port and up into the right neck, small open area in the location of the tunneled Mediport with purulent drainage, area is tender Resp normal respiratory effort, no retractions, no use of accessory muscles and clear to auscultation bilaterally Resp Narrative: Diffusely diminished but clear Auscultation: Negative for crackles, rales, rhonchi or wheezes Cardio regular rate, regular rhythm, S1 normal heart sound, S2 normal heart sound, no murmurs, no rub, no gallops, no clicks and no JVD GI normal to inspection, nondistended, normoactive bowel sounds, soft to palpation, non-tender and non-distended Extremity normal to inspection and no clubbing, cyanosis or edema Skin No no rashes or lesions noted, No no wounds, skin turgor normal, no jaundice, no petechiae and no mottling Skin Narrative: As noted above Neuro oriented x3, CN's II-XII intact bilaterally, moves all extremities and no focal motor deficits Neuro Narrative: Generalized weakness, speech is abnormal secondary to trach Sensorium / Orientation: awake and alert Psych affect normal Psych Narrative: Very pleasant and appropriately interactive Results Lab / Micro Data Result Diagrams: 05/02/22 07:45 Labs: Laboratory Results - last 24 hr 05/02/22 07:45: Sodium 128 L, Potassium 3.9, Chloride 96 L, Carbon Dioxide 25.0, Anion Gap 7, BUN 19 H, Creatinine 0.90, Estim Creat Clear Calc 79.17, Est GFR (MDRD) Af Amer 113, Est GFR (MDRD) Non-Af 94, BUN/Creatinine Ratio 21.1 H, Glucose 118 H, Calcium 8.2 L, Phosphorus 2.9, Total Bilirubin 0.40, AST 25, ALT 25, Alkaline Phosphatase 78, Total Protein 6.1 L, Albumin 2.4 L, Globulin 3.7, Albumin/Globulin Ratio 0.6 L 05/02/22 08:20: Lactic Acid 0.6 Micro: Microbiology 05/02/22 08:31 Nasal Secretion SARS-CoV-2 Antigen (Rapid) - Final Radiology Impression Chest X-Ray 05/02/22 08:12 IMPRESSION: Hyperinflation. Minimal increased markings at the left lung base. Early infiltrate should be ruled out. Electronically Signed: Anthony Adams MD at 9:22 EDT , Assessment & Plan Assessment/Plan (1) Fever: (2) Cellulitis of chest wall: (3) Hyponatremia: PLAN: Plan Fever with cellulitis of the right chest wall -Located at med port site -Open area at site insertion and right IJ area -Catheter is not identified externally -Blood cultures pending -UA pending -Chest x-ray appears overall unremarkable -Wound cultures pending -Check wound for MRSA PCR -Start vancomycin and Zosyn -If blood cultures positive will need to get ID involvement as well as possibly general surgery for Mediport removal depending on organism Acute hyponatremia -Likely related to dehydration and decreased solute intake -IV fluids already initiated the emergency department and will continue at 100 cc/h for 1 bag -Recheck in a.m. Dysphagia -States he is not taking in anything orally at this time -Has pending swallow eval in [place] upcoming -Patient to remain n.p.o. -Patient unclear what his tube feeds are--> consult dietitian for recommendations Iron deficiency anemia -Patient undergoing IV iron infusions as an outpatient secondary to decreased ability to take p.o. -Management per oncology Oral pharyngeal squamous cell carcinoma -T4, N2, M0 -Patient with history of tobacco and alcohol abuse -HPV positive -Currently undergoing chemotherapy with nansemond [place] agent as well as concomitant radiation therapy -Plan is for radiation therapy again today -Consult radiation oncology--> Case discussed with Dr. Lombardi in the emergency department GERD -Continue home famotidine Oropharyngeal discomfort -Continue Magic mouthwash History of tobacco and alcohol abuse -Recommend continued cessation DVT prophylaxis -Lovenox 40 mg daily CODE STATUS -Full code as confirmed upon admission Charges/Coding Visit Charges Inpatient E&M: 18693 Init Hosp L3
--- NOTE | 2022-05-02 10:31 | NURSING ---
MED SURG SABINO HIGH RISK FEVER, CELLULITIS
--- NOTE | 2022-05-02 10:42 | NURSING ---
DR GALLO IN ROOM
--- NOTE | 2022-05-02 11:11 | EDS_ITS ---
HPI History of Present Illness Chief Complaint: Fever Informant: patient Narrative Narrative: Patient is a 51-year-old male with cancer of the oropharynx currently going through chemotherapy with cisplatin as well as radiation therapy presenting with fever. Patient showed up to have his chemotherapy this morning was found to have a fever. His temperature initially was 100.6 hours nine 9.7 in the ER. Patient states has been feeling a little rundown over the past few days and started feeling worse around 4 AM. He notes he had some increased redness of his right chest wall and about 2 days ago he had a boil that he popped at the base of his right neck and drained purulence. [facility] Medical History Amphetamine use Anxiety Chronic pain Ecstasy use disorder, mild, abuse History of ETOH abuse Iron deficiency anemia due to chronic blood loss Metastatic squamous cell carcinoma Opiate addiction Polysubstance overdose Regional lymph node metastasis present Smoker Substance abuse Tracheostomy in place Home Medications lorazepam 0.5 mg tablet 0.5 mg PO BID PRN pre procedure anxiety #3 tabs 04/06/22 [Rx Last Taken Unknown] MAGIC MOUTH WASH (BMX) 180 mL suspension 15 ml PO .qid PRN pain #180 mL 04/14/22 [Rx Last Taken Unknown] ondansetron 8 mg disintegrating tablet 8 mg PO Q8H PRN Nausea And Vomiting 14 days #42 tabs 04/18/22 [Rx Last Taken Unknown] famotidine 20 mg tablet (Pepcid) 20 mg PO DAILY gi 04/27/22 [History Last Taken Unknown] morphine 15 mg tablet,extended release 15 mg PO Q8H pain 05/02/22 [History Last Taken Unknown] Allergy/AdvReac Type Severity Reaction Status Date / Time aspirin AdvReac Upset Verified 05/02/22 08:07 Stomach tramadol AdvReac Upset Verified 05/02/22 08:07 Stomach Family History Grandfather Cancer Grandfather Cancer Grandmother Hypertension Father Thyroid cancer Lung cancer Mother Hypertension Surgical History H/O inguinal hernia repair H/O Spinal surgery H/O tooth extraction History of bronchoscopy History of fusion of lumbar spine S/P appendectomy S/P cataract extraction S/P percutaneous endoscopic gastrostomy (PEG) tube placement Social History household members: other details: mother and sister housing: house current occupational status: disabled Smoking Status: Former smoker Tobacco: How many years used: 20 alcohol intake: former details: Sober x ~ 10 years, prior heavy. substance use type: amphetamines, opiates, IV drugs and methamphetamine what type of physical activity do you participate in: none do you feel safe at home: Yes ROS ROS ED Constitutional Constitutional ED: Reports chills, fever(s) and sweats Eyes Eyes: Denies change in vision or diplopia ENT ENT ED: Denies rhinorrhea or sore throat Cardiovascular Cardiovascular: Denies chest pain or palpitations Respiratory/Chest Respiratory/Chest: Reports cough; Denies dyspnea or dyspnea on exertion Gastrointestinal Gastrointestinal: Denies abdominal pain, nausea or vomiting Musculoskeletal Musculoskeletal: Denies arthralgias or myalgias Integumentary Reports abscess and rash Neurologic Neurologic: Denies headache(s) or paresthesias Psychiatric Psychiatric: Denies anxiety Hematologic/Lymphatic Hematologic/Lymphatic: Denies easy bleeding or easy bruising EXAM Physical Exam Const Vital Signs: 05/02/22 08:07 05/02/22 08:11 05/02/22 08:17 Temperature 100.6 F H 99.1 F 99.1 F Temperature Source Temporal Oral Oral Pulse Rate 103 H 103 H Respiratory Rate 17 17 Respiratory Effort Respiratory Pattern Blood Pressure 102/62 102/62 Blood Pressure Mean 75 Pulse Ox 100 100 Oxygen Delivery Method Room Air Room Air 05/02/22 08:17 05/02/22 09:02 05/02/22 10:08 Temperature 99.9 F H 99.7 F H Temperature Source Oral Temporal Pulse Rate 95 90 Respiratory Rate 21 H 15 Respiratory Effort Normal Non-Labored Respiratory Pattern Normal Blood Pressure 110/63 100/58 L Blood Pressure Mean 78 72 Pulse Ox 99 97 Oxygen Delivery Method Room Air Room Air Positive well nourished and well developed General Appearance ED: well developed and NAD HEENT Reports dry mucous membranes Negative for trauma Mouth ED: Yes dry mucous membranes Mouth: dry mucous membranes Eyes PERRL and EOMs intact bilaterally Neck supple and no JVD Neck Narrative: Tracheostomy in place Chest Wall palpation of chest normal Chest Narrative: Port-A-Cath in place in the right anterior chest wall Resp normal respiratory effort and clear to auscultation bilaterally Cardio regular rate, regular rhythm and no murmurs GI normal to inspection, nondistended, normoactive bowel sounds and non-tender GI Narrative: PEG tube in place Extremity normal to inspection Neuro oriented x3 Neuro Narrative: No focal deficits appreciated Motor Exam: general weakness Psych mental status grossly normal Skin Skin Narrative: 1 cm irregular abrasion to the left cheek just lateral to the nose. No surrounding erythema or drainage appreciated. Patient has diffuse erythema and warmth of the right superior anterior chest wall rating up into the neck. There is a small lesion at the base of the right anterior neck with some associated purulence around it. No significant induration of this area however this is overriding his tunneled catheter. No lymphangitic streaking appreciated. Wounds: wounds noted MDM MDM MDM Narrative Medical decision making narrative: Patient is evaluated for fever. CBC obtained earlier today is reviewed. He is not neutropenic however he does have a downtrending lymphopenia as well as downtrending anemia. Likely this is associated with his chemotherapy. Chest x- ray shows a possible early left lower lobe infiltrate with hyperinflation. This is reviewed by myself as well as radiology. BMP is remarkable for mild hyponatremia with a sodium of 128. Lactate is normal at 0.6. Case discussed with the patient's radiation oncologist as its not clear if the redness in his chest wall is associated with skin irritation from radiation versus cellulitis. Dr. Lombardi , felt that it is a little early in his course to have radiation associated skin changes and likely this is a cellulitis. Patient does have an area of small abscess that was spontaneously draining and culture is obtained. He started on broad-spectrum antibiotics, vancomycin and Rocephin. In addition he has a possible left lower lobe infiltrate which will be treated. He does not have any increased O2 demands. Case is discussed with oncology who agrees that patient should be admitted for IV antibiotics given his immunocompromise state. Patient is given IV fluids in the emergency room. Is admitted to the hospital service. Lab Data Attestation: I reviewed the patient's lab results. Labs: Laboratory Results - last 24 hr 05/02/22 05/02/22 07:45 08:20 Sodium 128 L Potassium 3.9 Chloride 96 L Carbon Dioxide 25.0 Anion Gap 7 BUN 19 H Creatinine 0.90 Estim Creat Clear Calc 79.17 Est GFR (MDRD) Af Amer 113 Est GFR (MDRD) Non-Af 94 BUN/Creatinine Ratio 21.1 H Glucose 118 H Lactic Acid 0.6 Calcium 8.2 L Phosphorus 2.9 Total Bilirubin 0.40 AST 25 ALT 25 Alkaline Phosphatase 78 Total Protein 6.1 L Albumin 2.4 L Globulin 3.7 Albumin/Globulin Ratio 0.6 L Radiography Diagnostic Testing: Clinical Impression(s) from Imaging Studies Chest X-Ray 05/02/22 08:12 IMPRESSION: Hyperinflation. Minimal increased markings at the left lung base. Early infiltrate should be ruled out. Electronically Signed: Anthony Adams MD at 9:22 EDT , Discharge Plan Dx/Rx/DC Orders Clinical Impression: Hyponatremia, Cancer of overlapping sites of oropharynx, Fever, Cellulitis of chest wall, Abnormal chest x-ray Disposition Disposition: Acute Care Hospital [facility]
--- NOTE | 2022-05-02 11:22 | ED.RN ---
MD stated okay to start antibiotics prior to getting urine sample. pt feels like he will be able to pee and did not want st cathed. wound cultures from chest pustule/scab obtained after MD showing the location.
--- NOTE | 2022-05-02 13:01 | PCM.RX.CS ---
Consult Pharmacy has been consulted to manage selected antiobiotic: Vancomycin Type of Consult: New start Suspected Infection: Skin/Soft tissue Labs: Sodium 128 mmol/L (136-145) L 05/02/22 07:45 Potassium 3.9 mmol/L (3.5-5.1) 05/02/22 07:45 Chloride 96 mmol/L (98-107) L 05/02/22 07:45 Carbon Dioxide 25.0 mmol/L (21.0-32.0) 05/02/22 07:45 Anion Gap 7 (5-15) 05/02/22 07:45 BUN 19 mg/dL (7-18) H 05/02/22 07:45 Creatinine 0.90 mg/dL (0.70-1.30) 05/02/22 07:45 Est GFR (MDRD) Af Amer 113 mL/min (>60) 05/02/22 07:45 Est GFR (MDRD) Non-Af 94 mL/min (>60) 05/02/22 07:45 BUN/Creatinine Ratio 21.1 RATIO (10-20) H 05/02/22 07:45 Glucose 118 mg/dL (74-106) H 05/02/22 07:45 Microbiology: Microbiology 05/02/22 08:31 Nasal Secretion SARS-CoV-2 Antigen (Rapid) - Final Goal Trough: 10-15 mcg/mL Pharmacy Plan for Drug Dosing: NEW START IV VANCOMYCIN Consulting Physician: Dr. Irving Miller Indication: SSTI Goal Trough: 10-15 SrCr:0.9 CrCl: 79 mL/min Comments: 1500mg vancomycin IV x1 ordered and administered in ED 05/02/22 @1227 Vancomycin Dose: 500mg IV Q12hr to start 05/03/22 @0030 Pending Level: 05/04/22 @0000, prior to 4th total dose per protocol Pharmacy Service will continue to monitor and adjust dosing as required.
[2022-05-02] MEDS: 0.9% Normal Saline 1,000 ML 100 ML IV (13:26)
[2022-05-02] MEDS: oxyCODONE 5 MG Tablet 10 MG PO ×2 (14:46→20:26)
[2022-05-02 16:29] LABS: Probe Check PASS; Staph aureus DNA By PCR POSITIVE (Negative)
[2022-05-02 16:31] LABS: M R Staph aureus DNA By PCR POSITIVE (Negative)
[2022-05-02] MEDS: Pivot 1.5 Cal 1,000 ML BOTTLE 240 ML GT ×2 (18:31→22:38)
[2022-05-03] VITALS (10 sets, daily range): BP systolic 89–118; BP diastolic 53–77; PULSE 66–85; RESP 17–20; TEMP 36.2–36.9; O2SAT 94–99
[2022-05-03] MEDS: Vancomycin IV 500 MG/100 ML BAG 100 MG IV ×2 (02:28→12:31)
[2022-05-03] MEDS: Pivot 1.5 Cal 1,000 ML BOTTLE 240 ML GT ×4 (05:14→23:00)
[2022-05-03 07:13] LABS: ALB/GLOB Ratio 0.6 RATIO (0.9-2.4); AST(SGOT) 110 U/L (15-37); Alanine Aminotransfer ALT/SGPT 85 U/L (16-61); Albumin, Serum 1.8 g/dL (3.2-5.0); Alkaline Phosphatase 155 U/L (45-117); Anion Gap 7 (5-15); BUN 16 mg/dL (7-18); BUN/Creat Ratio 24.3 RATIO (10-20); Calcium,Total 7.4 mg/dL (8.5-10.1); Chloride 107 mmol/L (98-107); Creatinine, Serum 0.66 mg/dL (0.70-1.30); EST Glomerular Filtration Rate 134 mL/min (>60); Est Glom Filt Rate - Afr Amer 163 mL/min (>60); Estimated Creatinine Clearance 103.81 ml/min; Globulin 2.9 g/dL (2.2-4.2); Glucose 175 mg/dL (74-106); Magnesium 2.1 mg/dL (1.6-2.6); Phosphorus 2.4 mg/dL (2.5-4.9); Protein, Total 4.7 g/dL (6.4-8.2); Sodium Level 134 mmol/L (136-145)
[2022-05-03 07:21] LABS: Absolute Lymphocyte Count 0.06 X10^3/uL (0.83-4.51); Absolute Neutrophil Count 2.8 X10^3/uL (2.0-7.7); Basophil# 0.01 X10^3/uL; Basophil% 0.3 % (0-1); Hematocrit 21.8 % (40-54); Hemoglobin 7.5 g/dL (13.0-16.5); Lymphocyte # 0.06 X10^3/ul (0.83-4.51); Mean Corp Hgb Conc 34.4 g/dL (32-36); Mean Corpuscular Hgb 28.1 pg (27.0-32.0); Mean Corpuscular Volume 81.6 fL (80-94); Mean Platelet Vol. 8.7 fl (6.2-12.0); Monocyte# 0.12 X10^3/uL; Monocyte% 4.1 % (0-10); NRBC Flagged by Analyzer 0 % (0-5); Neutrophil # 2.76 X10^3/uL (2.7-7.7); Neutrophil % 93.3 % (47-70); POSITIVE DIFFERENTIAL YES; Platelet Count 225 K/mm3 (150-450); RBC Distribution Width SD 41.1 fl (35.1-43.9); Red Blood Count 2.67 M/mm3 (4.6-6.2)
[2022-05-03 07:27] LABS: Differential Indicated SCAN CRITERIA MET
[2022-05-03 07:49] LABS: Platelet Estimate ADEQUATE (ADEQ)
[2022-05-03 07:50] LABS: Red Cell Morphology NORM C+C NORMAL (NORM C&C)
--- NOTE | 2022-05-03 08:56 | ECHOD_ITS ---
Reason For Study: MRSA Bacteremia Procedure This was a 2D Doppler, Color Flow transthoracic echocardiogram. Myocardial strain analysis was performed in this exam to aid in the assessment of cardiac function. The exam was of adequate technical quality. Exam performed portable in patient room. Left Ventricle Normal LV size. Mid cavitary false tendon noted. Left ventricular systolic function is normal. The estimated ejection fraction is 65 %. The global longitudinal strain = -19 % (normal). Diastolic function is indeterminate. No regional wall motion abnormalities noted. Right Ventricle Normal RV size. Normal systolic function. Atria Normal left atrium. Normal right atrium. No doppler evidence for ASD. Mitral Valve There is no mitral annular calcification. Mild diffuse mitral valve thickening. The mitral valve chordae are thickened and/or calcified. Trivial mitral valve insufficiency. Tricuspid Valve Normal tricuspid valve. Mild tricuspid valve insufficiency. Right ventricular systolic pressure estimated to be 29 mmHg. Aortic Valve Trisinus/trileaflet aortic valve. Normal aortic valve. Pulmonic Valve The pulmonic valve is not well visualized. Great Vessels Normal sized aortic root. Calcified aortic root. Pericardium/Pleural No pericardial effusion. MMode/2D Measurements & Calculations LVIDd: 4.9 cm IVSd: 0.89 cm Ao root diam: 3.5 cm LVIDs: 3.1 cm LVPWd: 0.83 cm LA dimension: 3.5 cm RVDd: 4.3 cm FS: 36.5 % LAV(MOD-bp): 53.8 ml LA A4 area: 20.1 cm2 RA A4 area: 16.6 cm2 LAV(MOD-bp) Indexed: 33.6 ml/m2 LAV(MOD-sp2): 45.6 ml LAV(MOD-sp4): 55.0 ml Time Measurements MV dec time: 0.23 sec Doppler Measurements & Calculations MV E max ros: 74.6 cm/sec MV V2 max: 110.2 cm/sec MV P1/2t max ros: 86.7 cm/sec MV A max ros: 99.5 cm/sec MV max P.9 mmHg MV P1/2t: 80.6 msec MV E/A: 0.75 MV V2 mean: 64.5 cm/sec MV dec slope: 315.3 cm/sec2 MV mean P.9 mmHg MVA(P1/2t): 2.7 cm2 MV V2 VTI: 30.2 cm Ao V2 max: 132.5 cm/sec LV V1 max: 117.3 cm/sec PA V2 max: 112.7 cm/sec Ao max P.0 mmHg LV V1 max P.5 mmHg PA V2 mean: 80.7 cm/sec LV V1 mean P.4 mmHg LV V1 mean: 87.9 cm/sec LV V1 VTI: 21.1 cm TR max ros: 252.4 cm/sec TR max P.5 mmHg ECHO/Echo Complete Interpretation Summary Left ventricular systolic function is normal. The estimated ejection fraction is 65 %. The global longitudinal strain = -19 % (normal). Mid cavitary false tendon noted. Mild diffuse mitral valve thickening. The mitral valve chordae are thickened and/or calcified. Trivial mitral valve insufficiency. Mild tricuspid valve insufficiency. Calcified aortic root. Right ventricular systolic pressure estimated to be 29 mmHg. Diastolic function is indeterminate. Ordering Physician: Neelima Miller Referring Physician: Robert Fritz Performed By: Rodrigo Brady RCS
[2022-05-03] MEDS: Famotidine 20 MG Tablet PO (09:38)
[2022-05-03] MEDS: morphine SR 15 MG Tablet PO ×2 (09:38→16:47)
[2022-05-03] MEDS: Enoxaparin 40 MG/0.4 ML Syringe SC (09:38)
--- NOTE | 2022-05-03 10:08 | CON.PCM.SX_ITS ---
Assessment & Plan Assessment/Plan (1) CRBSI (catheter-related bloodstream infection): (2) Port-A-Cath in place: (3) Cellulitis of chest wall: PLAN: Plan Discussed procedure of removal of right IJ Port-A-Cath with the patient. Patient was agreeable with plan. Patient states he does have 3 more chemo sessions discussed that he may need to use a peripheral IV for this. Madison Stoner M.D. Pager: [phone] [facility] [address] [place] [address], Outpatient Pavilion, [address] [place] [address] Office: [phone] HPI Consult Data Date of Consult: 05/04/22 HPI Narrative HPI Narrative: EMIL WOODSON, is a 51 M who admitted with bacteremia, infected right IJ Port-A-Cath. Patient states area became red on Monday and did have some purulent drainage prior to coming the hospital as well. Patient did have some fevers at home. Blood cultures came back MRSA. Consulted for removal of port. [facility] Medical History Amphetamine use Anxiety Chronic pain Ecstasy use disorder, mild, abuse History of ETOH abuse Iron deficiency anemia due to chronic blood loss Metastatic squamous cell carcinoma Opiate addiction Polysubstance overdose Regional lymph node metastasis present Smoker Substance abuse Tracheostomy in place Home Medications lorazepam 0.5 mg tablet 0.5 mg PO BID PRN pre procedure anxiety #3 tabs 04/06/22 [Rx Last Taken Unknown] MAGIC MOUTH WASH (BMX) 180 mL suspension 15 ml PO .qid PRN pain #180 mL 04/14/22 [Rx Last Taken Unknown] ondansetron 8 mg disintegrating tablet 8 mg PO Q8H PRN Nausea And Vomiting 14 days #42 tabs 04/18/22 [Rx Last Taken Unknown] famotidine 20 mg tablet (Pepcid) 20 mg PO DAILY gi 04/27/22 [History Last Taken Unknown] morphine 15 mg tablet,extended release 15 mg PO Q8H pain 05/02/22 [History Last Taken Unknown] Allergy/AdvReac Type Severity Reaction Status Date / Time aspirin AdvReac Upset Verified 05/02/22 08:07 Stomach tramadol AdvReac Upset Verified 05/02/22 08:07 Stomach Family History Grandfather Cancer Grandfather Cancer Grandmother Hypertension Father Thyroid cancer Lung cancer Mother Hypertension Surgical History H/O inguinal hernia repair H/O Spinal surgery H/O tooth extraction History of bronchoscopy History of fusion of lumbar spine S/P appendectomy S/P cataract extraction S/P percutaneous endoscopic gastrostomy (PEG) tube placement Social History household members: other details: mother and sister housing: house current occupational status: disabled Smoking Status: Former smoker Tobacco: How many years used: 20 alcohol intake: former details: Sober x ~ 10 years, prior heavy. substance use type: amphetamines, opiates, IV drugs and methamphetamine what type of physical activity do you participate in: none do you feel safe at home: Yes ROS Constitutional Constitutional: Reports fever(s) Eyes Eyes: Denies change in vision ENT HEENT: Reports dysphagia Cardiovascular Cardiovascular: Denies chest pain Respiratory/Chest Respiratory/Chest: Reports productive cough; Denies shortness of breath at rest or wheezing Gastrointestinal Gastrointestinal: Denies abdominal pain, nausea or vomiting Genitourinary Genitourinary: Denies dysuria Integumentary Integumentary: Reports systems reviewed and no addt'l complaints, except as documented Neurologic Neurologic: Denies tingling Physical Exam Const alert and no apparent distress General Appearance: cooperative HEENT HEENT Narrative: Trach in place Chest Chest Narrative: Erythema surrounding the right superior portion of his chest to his right neck. Purulent drainage from the previous access site of the port as well able to be expressed from right IJ incision. Initially patient did have trach secretions overlying the bandage of the the port as it was previously accessed. Cardio Rate: regular rate GI soft to palpation, non-tender and non-distended GI Narrative: PEG tube in place Medical Records Data Medical Nutrition Assessment Dietitian: Malnutrition Criteria Met Start: 05/02/22 14:04 Freq: Status: Active Protocol: Document 05/02/22 14:04 (Rec: 05/02/22 14:04 [id number]) Nutrition Malnutrition Evidence of Malnutrition Exists Yes Malnutrition (severe): Chronic Evidenced By Suboptimal Energy Intake ( Severe),Weight Loss (Severe) Clinical Problem Chronic Disease or Condition Related Malnutrition Etiology severe, chronic malnutrition related to inadequate oral intake w/ increased energy needs d/t cancer Signs/Symptoms as evidenced by estimated PO intake meeting <50% of estimated energy needs x2 months; unintentional wt loss of 9.7kg/15% x 2 months Status Active Problem Recommendation Dietitian Recommendations/Changes NPO. Via PEG- Pivot 1.5 240mL bolus 5x/day w/ 100mL H2O flush before and after each bolus to provide 1800 calories , 113 g protein, and 1900mL fluid/day. Will start w/ 120mL bolus and increase by 60mL each bolus as tolerated until goal rate is achieved. As ordered, enteral nutrition meets 100% of estimated energy needs. Lab / Micro Data Result Diagrams: 05/04/22 06:25 05/04/22 06:25 Labs: Laboratory Results - last 24 hr 05/02/22 11:10: S.aureus Protein A PCR POSITIVE H, MRSA (PCR) POSITIVE H 05/03/22 06:30: WBC Cancelled, Corrected WBC Cancelled, RBC Cancelled, Hgb Cancelled, Hct Cancelled, MCV Cancelled, MCH Cancelled, MCHC Cancelled, RDW Std Deviation Cancelled, RDW Coeff of Rolf Cancelled, Plt Count Cancelled, MPV Cancelled, Immature Gran % (Auto) Cancelled, Neut % (Auto) Cancelled, Lymph % (Auto) Cancelled, [place] % (Auto) Cancelled, Eos % (Auto) Cancelled, Baso % (Auto) Cancelled, Absolute Neuts (auto) Cancelled, Absolute Lymphs (auto) Cancelled, Total Counted Cancelled, Neutrophils % (Manual) Cancelled, Band Neutrophils % Cancelled, Lymphocytes % (Manual) Cancelled, Monocytes % (Manual) Cancelled, Eosinophils % (Manual) Cancelled, Basophils % (Manual) Cancelled, Metamyelocytes % Cancelled, Myelocytes % Cancelled, Promyelocytes % Cancelled, Blast Cells % Cancelled, Plasma Cell % (Manual) Cancelled, Other Cells % Cancelled, Nucleated RBC % Cancelled, Nucleated RBCs/100 WBC Cancelled, Differential Comment Cancelled, Diff Path Review Cancelled, Hypersegmented Neuts Cancelled, Atypical Lymphocytes Cancelled, Reactive Lymphocytes Cancelled, Smudge Cells Cancelled, Toxic Granulation Cancelled, Toxic Vacuolation Cancelled, Dohle Bodies Canc elled, Bro Rods Cancelled, Platelet Estimate Cancelled, Plt Morphology Comment Cancelled, RBC Morphology Cancelled, Polychromasia Cancelled, Hypochromasia Cancelled, Poikilocytosis Cancelled, Basophilic Stippling Cancelled, Anisocytosis Cancelled, Microcytosis Cancelled, Macrocytosis Cancelled, Sph erocytes Cancelled, Sickle Cells Cancelled, Target Cells Cancelled, Tear Drop Cells Cancelled, Ovalocytes Cancelled, Stomatocytes Cancelled, Henson-Gilbert Bodies Cancelled, [place] Cells Cancelled, Bite Cells Cancelled, Crenated Cell Cancelled, Acanthocytes (Spur) Cancelled, Rouleaux Cancelled, Schistocytes Cancelled 05/03/22 06:30: Sodium 134 L, Potassium 4.0, Chloride 107, Carbon Dioxide 20.0 L , Anion Gap 7, BUN 16, Creatinine 0.66 L, Estim Creat Clear Calc 103.81, Est GFR (MDRD) Af Amer 163, Est GFR (MDRD) Non-Af 134, BUN/Creatinine Ratio 24.3 H, Glucose 175 H, Calcium 7.4 L, Phosphorus 2.4 L, Magnesium 2.1, Total Bilirubin 0.30, AST 110 H, ALT 85 H, Alkaline Phosphatase 155 H, Total Protein 4.7 L, Albumin 1.8 L, Globulin 2.9, Albumin/Globulin Ratio 0.6 L 05/03/22 07:08: WBC 3.0 L, RBC 2.67 L, Hgb 7.5 L, Hct 21.8 L, MCV 81.6, MCH 28.1, MCHC 34.4, RDW Std Deviation 41.1, RDW Coeff of Rolf 14.0, Plt Count 225, MPV 8.7, Immature Gran % (Auto) 0.300, Neut % (Auto) 93.3 H, Lymph % (Auto) 2.0 L, [place] % (Auto) 4.1, Eos % (Auto) 0.0, Baso % (Auto) 0.3, Absolute Neuts (auto) 2.8, Absolute Lymphs (auto) 0.06 L, Nucleated RBC % 0, Diff Path Review January, Platelet Estimate ADEQUATE, RBC Morphology NORM C+C Micro: Microbiology 05/02/22 08:20 Blood Culture (Wb) #2 - Other Bacteria Detection (PCR) - Final Meth. resistant Staph. aureus mecA Resistance Marker 05/02/22 08:20 Blood Culture (Wb) #2 - Other Blood Culture - Preliminary 05/02/22 08:31 Blood Culture (Wb) - Anticubital Left Blood Culture - Preliminary 05/02/22 08:31 Nasal Secretion SARS-CoV-2 Antigen (Rapid) - Final Charges/Coding Visit Charges Inpatient E&M: 59666 Init Hosp L2
--- NOTE | 2022-05-03 10:20 | CON.PCM.ID_ITS ---
Assessment & Plan Assessment/Plan (1) CRBSI (catheter-related bloodstream infection): PLAN: MRSA bacteremia per pcr. R chest port with inflammation/purulence. Echo pending. Recommend surgery consult for port removal. On vanc/zosyn em pirically. Last chemo a week ago. Will follow, thank you, d/w Dr. Miller HPI Consult Data Date of Consult: 05/03/22 HPI Narrative Reason for Consultation: bacteremia HPI Narrative: EMIL WOODSON, is a 51 M with oropharyngeal cancer, on chemo/radiation. Has R chest port, last chemo a week ago. Came to ED 05/02 with two days R chest pain, swelling, redness. Was able to pop a pustule at that site. Had progressive fever, fatigue yesterday, went to ED. Admitted on vanc/zosyn, bcx now with MRSA on pcr. Feeling about the same today. No new joint/back pain. Full ROS performed and neg except as noted above. [facility] Medical History Amphetamine use Anxiety Chronic pain Ecstasy use disorder, mild, abuse History of ETOH abuse Iron deficiency anemia due to chronic blood loss Metastatic squamous cell carcinoma Opiate addiction Polysubstance overdose Regional lymph node metastasis present Smoker Substance abuse Tracheostomy in place Home Medications lorazepam 0.5 mg tablet 0.5 mg PO BID PRN pre procedure anxiety #3 tabs 04/06/22 [Rx Last Taken Unknown] MAGIC MOUTH WASH (BMX) 180 mL suspension 15 ml PO .qid PRN pain #180 mL 04/14/22 [Rx Last Taken Unknown] ondansetron 8 mg disintegrating tablet 8 mg PO Q8H PRN Nausea And Vomiting 14 days #42 tabs 04/18/22 [Rx Last Taken Unknown] famotidine 20 mg tablet (Pepcid) 20 mg PO DAILY gi 04/27/22 [History Last Taken Unknown] morphine 15 mg tablet,extended release 15 mg PO Q8H pain 05/02/22 [History Last Taken Unknown] Allergy/AdvReac Type Severity Reaction Status Date / Time aspirin AdvReac Upset Verified 05/02/22 08:07 Stomach tramadol AdvReac Upset Verified 05/02/22 08:07 Stomach Family History Grandfather Cancer Grandfather Cancer Grandmother Hypertension Father Thyroid cancer Lung cancer Mother Hypertension Surgical History H/O inguinal hernia repair H/O Spinal surgery H/O tooth extraction History of bronchoscopy History of fusion of lumbar spine S/P appendectomy S/P cataract extraction S/P percutaneous endoscopic gastrostomy (PEG) tube placement Social History household members: other details: mother and sister housing: house current occupational status: disabled Smoking Status: Former smoker Tobacco: How many years used: 20 alcohol intake: former details: Sober x ~ 10 years, prior heavy. substance use type: amphetamines, opiates, IV drugs and methamphetamine what type of physical activity do you participate in: none do you feel safe at home: Yes Physical Exam Const alert, oriented x3 and no apparent distress HEENT normocephalic and head/scalp atraumatic Eyes PERRL and EOMs intact bilaterally Neck supple Neck Narrative: trach in place Resp normal air movement and clear to auscultation bilaterally Cardio regular rate and regular rhythm Heart Sounds: murmur GI soft to palpation, non-tender and non-distended Extremity General Extremity: Negative for edema Skin Skin Narrative: R chest redness/swelling around tunneled catheter/port. No splinter hemorrhages. Neuro CN's II-XII intact bilaterally Medical Records Data Medical Nutrition Assessment Dietitian: Malnutrition Criteria Met Start: 05/02/22 14:04 Freq: Status: Active Protocol: Document 05/02/22 14:04 (Rec: 05/02/22 14:04 [id number]) Nutrition Malnutrition Evidence of Malnutrition Exists Yes Malnutrition (severe): Chronic Evidenced By Suboptimal Energy Intake ( Severe),Weight Loss (Severe) Clinical Problem Chronic Disease or Condition Related Malnutrition Etiology severe, chronic malnutrition related to inadequate oral intake w/ increased energy needs d/t cancer Signs/Symptoms as evidenced by estimated PO intake meeting <50% of estimated energy needs x2 months; unintentional wt loss of 9.7kg/15% x 2 months Status Active Problem Recommendation Dietitian Recommendations/Changes NPO. Via PEG- Pivot 1.5 240mL bolus 5x/day w/ 100mL H2O flush before and after each bolus to provide 1800 calories , 113 g protein, and 1900mL fluid/day. Will start w/ 120mL bolus and increase by 60mL each bolus as tolerated until goal rate is achieved. As ordered, enteral nutrition meets 100% of estimated energy needs. Lab / Micro Data Attestation: I reviewed the patient's lab results. Result Diagrams: 05/03/22 07:08 05/03/22 06:30 Labs: Laboratory Results - last 24 hr 05/02/22 11:10: S.aureus Protein A PCR POSITIVE H, MRSA (PCR) POSITIVE H 05/03/22 06:30: WBC Cancelled, Corrected WBC Cancelled, RBC Cancelled, Hgb Cancelled, Hct Cancelled, MCV Cancelled, MCH Cancelled, MCHC Cancelled, RDW Std Deviation Cancelled, RDW Coeff of Rolf Cancelled, Plt Count Cancelled, MPV Cancelled, Immature Gran % (Auto) Cancelled, Neut % (Auto) Cancelled, Lymph % (Auto) Cancelled, [place] % (Auto) Cancelled, Eos % (Auto) Cancelled, Baso % (Auto) Cancelled, Absolute Neuts (auto) Cancelled, Absolute Lymphs (auto) Cancelled, Total Counted Cancelled, Neutrophils % (Manual) Cancelled, Band Neutrophils % Cancelled, Lymphocytes % (Manual) Cancelled, Monocytes % (Manual) Cancelled, Eosinophils % (Manual) Cancelled, Basophils % (Manual) Cancelled, Metamyelocytes % Cancelled, Myelocytes % Cancelled, Promyelocytes % Cancelled, Blast Cells % Cancelled, Plasma Cell % (Manual) Cancelled, Other Cells % Cancelled, Nucleated RBC % Cancelled, Nucleated RBCs/100 WBC Cancelled, Differential Comment Cancelled, Diff Path Review Cancelled, Hypersegmented Neuts Cancelled, Atypical Lymphocytes Cancelled, Reactive Lymphocytes Cancelled, Smudge Cells Cancelled, Toxic Granulation Cancelled, Toxic Vacuolation Cancelled, Dohle Bodies Cancelled, Bro Rods Cancelled, Platelet Estimate Cancelled, Plt Morphology Comment Cancelled, RBC Morphology Cancelled, Polychromasia Cancelled, Hypochromasia Cancelled, Poikilocytosis Cancelled, Basophilic Stippling Cancelled, Anisocytosis Cancelled, Microcytosis Cancelled, Macrocytosis Cancelled, Spherocytes Cancelled, Sickle Cells Cancelled, Target Cells Cancelled, Tear Drop Cells Cancelled, Ovalocytes Cancelled, Stomatocytes Cancelled, Henson[place] Bodies Cancelled, [place] Cells Cancelled, Bite Cells Cancelled, Crenated Cell Cancelled, Acanthocytes (Spur) Cancelled, Rouleaux Cancelled, Schistocytes Cancelled 05/03/22 06:30: Sodium 134 L, Potassium 4.0, Chloride 107, Carbon Dioxide 20.0 L , Anion Gap 7, BUN 16, Creatinine 0.66 L, Estim Creat Clear Calc 103.81, Est GFR (MDRD) Af Amer 163, Est GFR (MDRD) Non-Af 134, BUN/Creatinine Ratio 24.3 H, Glucose 175 H, Calcium 7.4 L, Phosphorus 2.4 L, Magnesium 2.1, Total Bilirubin 0.30, AST 110 H, ALT 85 H, Alkaline Phosphatase 155 H, Total Protein 4.7 L, Albumin 1.8 L, Globulin 2.9, Albumin/Globulin Ratio 0.6 L 05/03/22 07:08: WBC 3.0 L, RBC 2.67 L, Hgb 7.5 L, Hct 21.8 L, MCV 81.6, MCH 28.1, MCHC 34.4, RDW Std Deviation 41.1, RDW Coeff of Rolf 14.0, Plt Count 225, MPV 8.7, Immature Gran % (Auto) 0.300, Neut % (Auto) 93.3 H, Lymph % (Auto) 2.0 L, [place] % (Auto) 4.1, Eos % (Auto) 0.0, Baso % (Auto) 0.3, Absolute Neuts (auto) 2.8, Absolute Lymphs (auto) 0.06 L, Nucleated RBC % 0, Diff Path Review May foll, Platelet Estimate ADEQUATE, RBC Morphology NORM C+C Micro: Microbiology 05/02/22 08:20 Blood Culture (Wb) #2 - Other Bacteria Detection (PCR) - Final Meth. resistant Staph. aureus mecA Resistance Marker 05/02/22 08:20 Blood Culture (Wb) #2 - Other Blood Culture - Preliminary 05/02/22 08:31 Blood Culture (Wb) - Anticubital Left Blood Culture - Preliminary 05/02/22 08:31 Nasal Secretion SARS-CoV-2 Antigen (Rapid) - Final
--- NOTE | 2022-05-03 11:22 | NS ---
Followed by [facility] outpatient Nutrition Services for enteral nutrition. Script for home enteral supplies/formula faxed to [facility] last week. Pt states he did not receive any supplies prior to admission. Call to [facility] ([phone]), customer advocacy manager states there is only an order in their system for Boost (oral nutrition supplement). Called Suzan at [facility] outpatient Nutrition Services, she will re-send order to [facility] for Pivot 1.5 and enteral supplies. Adria Hsu MS, RDN, LD
--- NOTE | 2022-05-03 13:00 | CASEMGMT ---
Addendum entered by Heather Waldron 05/03/22 14:23: Pt out of dept for radiation. Will attempt again later. Nadia COTTON CM Original Note: This RN CM to room to complete CM assessment and pt is in middle of procedure with Dr. Stoner. CM to to attempt again later. Nadia COTTON CM
[2022-05-03 13:06] LABS: Pathologist Review Reviewed
--- NOTE | 2022-05-03 13:20 | NURSING ---
Report given to YURY Grande, will assume care of pt for rest of shift
[2022-05-03] MEDS: oxyCODONE 5 MG Tablet 10 MG PO ×2 (13:38→20:24)
[2022-05-03] MEDS: Acetaminophen 325 MG Tablet 650 MG PO (13:39)
--- NOTE | 2022-05-03 13:39 | PCM.OPRPT ---
Report of Operation Date of Procedure: 05/03/22 Pre-Operative Diagnosis: Infected port, MRSA bacteremia Post-Operative Diagnosis: Same Surgery/Procedure Performed:: Removal of infected right IJ port Surgeon: Madison Stoner Type of Anesthesia: Local Specimen's removed: Port tip sent for culture Estimated Blood Loss (mL): minimal Description of Procedure: Patient was placed supine. timeout was completed verifying correct patient, procedure, site, positioning, special, prior to beginning procedure. Consent was signed. The right chest was prepped and draped in usual sterile fashion?purulent drainage was seen at previous access site. Local anesthesia of 2% lidocaine was used. The previous right port site was re-incised with a 15 blade scalpel in Metzenbaum scissors were used to sharply incise the capsule surrounding the port. The catheter was removed while pressure was being held on the right IJ site externally. Next the port was removed from the pocket. Tip of catheter was sent for culture. Port site and neck site were irrigated with saline. 4 x 4 gauze and OpSite were placed over both sites?to help protect from trach secretions. Patient tolerated procedure well. Complications none
--- NOTE | 2022-05-03 14:00 | PCM.PN.HOSP ---
Subjective Subjective Reports he is feeling little bit better. Tube feeds have been started and he states he is tolerating this well. We discussed the results of his blood cultures and the fact that his Mediport will need to be removed given the fact that this is MRSA. He voices understanding and has no questions at this time. Objective Data Objective Data Vital Signs: Vital Signs Temp Pulse Resp BP Pulse Ox O2 Del Method FiO2 97.4 F L 84 20 H 115/72 97 Room Air 28 05/03/22 09:00 05/03/22 09:00 05/03/22 09:00 05/03/22 09:00 05/03/22 09:00 05/03/22 09:00 05/03/22 00:03 Oxygen Delivery Method Room Air Weight: 56.7 kg Body Mass Index (BMI) 21.4 Intake & Output: Intake and Output for Last 24 Hours 05/01/22 05/02/22 05/03/22 23:59 23:59 23:59 Intake Total 3866.67 / 4006.67 640 / 640 Output Total 0 / 0 Balance 3866.67 / 4006.67 640 / 640 Medical Nutrition Assessment Dietitian: Malnutrition Criteria Met Start: 05/02/22 14:04 Freq: Status: Active Protocol: Document 05/02/22 14:04 AG (Rec: 05/02/22 14:04 [id number]) Nutrition Malnutrition Evidence of Malnutrition Exists Yes Malnutrition (severe): Chronic Evidenced By Suboptimal Energy Intake ( Severe),Weight Loss (Severe) Clinical Problem Chronic Disease or Condition Related Malnutrition Etiology severe, chronic malnutrition related to inadequate oral intake w/ increased energy needs d/t cancer Signs/Symptoms as evidenced by estimated PO intake meeting <50% of estimated energy needs x2 months; unintentional wt loss of 9.7kg/15% x 2 months Status Active Problem Recommendation Dietitian Recommendations/Changes NPO. Via PEG- Pivot 1.5 240mL bolus 5x/day w/ 100mL H2O flush before and after each bolus to provide 1800 calories , 113 g protein, and 1900mL fluid/day. Will start w/ 120mL bolus and increase by 60mL each bolus as tolerated until goal rate is achieved. As ordered, enteral nutrition meets 100% of estimated energy needs. Lab / Micro Data Result Diagrams: 05/03/22 07:08 05/03/22 06:30 Labs: Laboratory Results - last 24 hr 05/02/22 11:10: S.aureus Protein A PCR POSITIVE H, MRSA (PCR) POSITIVE H 05/03/22 06:30: WBC Cancelled, Corrected WBC Cancelled, RBC Cancelled, Hgb Cancelled, Hct Cancelled, MCV Cancelled, MCH Cancelled, MCHC Cancelled, RDW Std Deviation Cancelled, RDW Coeff of Rolf Cancelled, Plt Count Cancelled, MPV Cancelled, Immature Gran % (Auto) Cancelled, Neut % (Auto) Cancelled, Lymph % (Auto) Cancelled, Hinds % (Auto) Cancelled, Eos % (Auto) Cancelled, Baso % (Auto) Cancelled, Absolute Neuts (auto) Cancelled, Absolute Lymphs (auto) Cancelled, Total Counted Cancelled, Neutrophils % (Manual) Cancelled, Band Neutrophils % Cancelled, Lymphocytes % (Manual) Cancelled, Monocytes % (Manual) Cancelled, Eosinophils % (Manual) Cancelled, Basophils % (Manual) Cancelled, Metamyelocytes % Cancelled, Myelocytes % Cancelled, Promyelocytes % Cancelled, Blast Cells % Cancelled, Plasma Cell % (Manual) Cancelled, Other Cells % Cancelled, Nucleated RBC % Cancelled, Nucleated RBCs/100 WBC Cancelled, Differential Comment Cancelled, Diff Path Review Cancelled, Hypersegmented Neuts Cancelled, Atypical Lymphocytes Cancelled, Reactive Lymphocytes Cancelled, Smudge Cells Cancelled, Toxic Granulation Cancelled, Toxic Vacuolation Cancelled, Dohle Bodies Cancelled, Bro Rods Cancelled, Platelet Estimate Cancelled, Plt Morphology Comment Cancelled, RBC Morphology Cancelled, Polychromasia Cancelled, Hypochromasia Cancelled, Poikilocytosis Cancelled, Basophilic Stippling Cancelled, Anisocytosis Cancelled, Microcytosis Cancelled, Macrocytosis Cancelled, Spherocytes Cancelled, Sickle Cells Cancelled, Target Cells Cancelled, Tear Drop Cells Cancelled, Ovalocytes Cancelled, Stomatocytes Cancelled, Henson-Hermiston Bodies Cancelled, Anna Cells Cancelled, Bite Cells Cancelled, Crenated Cell Cancelled, Acanthocytes (Spur) Cancelled, Rouleaux Cancelled, Schistocytes Cancelled 05/03/22 06:30: Sodium 134 L, Potassium 4.0, Chloride 107, Carbon Dioxide 20.0 L, Anion Gap 7, BUN 16, Creatinine 0.66 L, Estim Creat Clear Calc 103.81, Est GFR (MDRD) Af Amer 163, Est GFR (MDRD) Non-Af 134, BUN/Creatinine Ratio 24.3 H, Glucose 175 H, Calcium 7.4 L, Phosphorus 2.4 L, Magnesium 2.1, Total Bilirubin 0.30, AST 110 H, ALT 85 H, Alkaline Phosphatase 155 H, Total Protein 4.7 L, Albumin 1.8 L, Globulin 2.9, Albumin/Globulin Ratio 0.6 L 05/03/22 07:08: WBC 3.0 L, RBC 2.67 L, Hgb 7.5 L, Hct 21.8 L, MCV 81.6, MCH 28.1, MCHC 34.4, RDW Std Deviation 41.1, RDW Coeff of Rolf 14.0, Plt Count 225, MPV 8.7, Immature Gran % (Auto) 0.300, Neut % (Auto) 93.3 H, Lymph % (Auto) 2.0 L, Hinds % (Auto) 4.1, Eos % (Auto) 0.0, Baso % (Auto) 0.3, Absolute Neuts (auto) 2.8, Absolute Lymphs (auto) 0.06 L, Nucleated RBC % 0, Diff Path Review Reviewed, Platelet Estimate ADEQUATE, RBC Morphology NORM C+C Micro: Microbiology 05/02/22 08:31 Blood Culture (Wb) - Anticubital Left Blood Culture - Preliminary 05/02/22 08:20 Blood Culture (Wb) #2 - Other Bacteria Detection (PCR) - Final Meth. resistant Staph. aureus mecA Resistance Marker 05/02/22 08:20 Blood Culture (Wb) #2 - Other Blood Culture - Preliminary Staphylococcus aureus 05/02/22 11:10 Wound Abcess - Chest Gram Stain - Final 05/02/22 11:10 Wound Abcess - Chest Wound Culture - Preliminary Staphylococcus species Beta streptococcus 05/02/22 08:31 Nasal Secretion SARS-CoV-2 Antigen (Rapid) - Final Radiography Diagnostic Testing: Radiology Impression Echocardiogram 05/03/22 08:56 Interpretation Summary Left ventricular systolic function is normal. The estimated ejection fraction is 65 %. The global longitudinal strain = -19 % (normal). Mid cavitary false tendon noted. Mild diffuse mitral valve thickening. The mitral valve chordae are thickened and/or calcified. Trivial mitral valve insufficiency. Mild tricuspid valve insufficiency. Calcified aortic root. Right ventricular systolic pressure estimated to be 29 mmHg. Diastolic function is indeterminate. Ordering Physician: Neelima Miller Referring Physician: Robert Fritz Performed By: Rodrigo Brady RCS Physical Exam Const alert, oriented x3, no apparent distress and average body habitus Constitutional Narrative: Middle-aged white male lying in bed in a dark room, appears comfortable but ill, no acute distress at this time, appears fatigued General Appearance: cooperative HEENT normocephalic, head/scalp atraumatic and hearing grossly normal bilaterally Eyes PERRL and EOMs intact bilaterally Eyes Narrative: No scleral icterus, conjunctiva are pale Neck supple, no JVD and no carotid bruits Neck Narrative: Trachea midline, tracheostomy with trach in place-cuffless PMV is off, right neck is erythematous but not extending beyond the outlined area at the site of the med port and up into the right neck, small open area in the location of the tunneled Mediport with persistent purulent drainage, area is tender but improved. Resp normal respiratory effort, no retractions, no use of accessory muscles and clear to auscultation bilaterally Resp Narrative: Diffusely diminished but clear Auscultation: Negative for crackles, rales, rhonchi or wheezes Cardio regular rate, regular rhythm, S1 normal heart sound, S2 normal heart sound, no murmurs, no rub, no gallops, no clicks and no JVD GI normal to inspection, nondistended, normoactive bowel sounds, soft to palpation, non-tender and non-distended Extremity normal to inspection and no clubbing, cyanosis or edema Skin No no rashes or lesions noted, No no wounds, skin turgor normal, no jaundice, no petechiae and no mottling Skin Narrative: As noted above Neuro oriented x3, CN's II-XII intact bilaterally, moves all extremities and no focal motor deficits Neuro Narrative: Generalized weakness, speech is abnormal secondary to trach Sensorium / Orientation: awake and alert Psych Psych Narrative: Affect is somewhat flat today and patient appears fatigued Assessment & Plan Assessment/Plan (1) Cellulitis of chest wall: (2) Hyponatremia: (3) CRBSI (catheter-related bloodstream infection): (4) MRSA bacteremia: (5) Transaminitis: (6) Hyperglycemia: PLAN: Plan MRSA bacteremia secondary to cellulitis and port infection -Continue vancomycin and Zosyn empirically -Initial blood cultures show MRSA--> awaiting finalization -Wound cultures from port site are growing staph and beta strep -Check echocardiogram given MRSA bacteremia -Repeat blood cultures for clearance -Consult general surgery for port removal -Consult infectious disease Acute hyponatremia -Improved--> 128-134 -Continue tube feed as ordered -Repeat BMP in a.m. Hyperglycemia -Blood sugar this morning was 175 could be reactive with infection and initiation of tube feeds -We will check hemoglobin A1c -Start sliding scale insulin -Accu-Cheks Transaminitis -Suspect antibiotic related as this was new in the last 24 hours--> suspect Zosyn -Repeat in a.m. Dysphagia -States he is not taking in anything orally at this time -Has pending swallow eval in [place] upcoming -Patient to remain n.p.o. -Dietitian has been consulted tube feeds have been initiated Patient tolerating well Iron deficiency anemia -Patient undergoing IV iron infusions as an outpatient secondary to decreased ability to take p.o. -Management per oncology Oral pharyngeal squamous cell carcinoma -T4, N2, M0 -Patient with history of tobacco and alcohol abuse -HPV positive -Currently undergoing chemotherapy with [place] agent as well as concomitant radiation therapy -Ongoing radiation per radiation oncology-Dr. Lombardi -We will need to hold on chemo for now GERD -Continue home famotidine Oropharyngeal discomfort -Continue Magic mouthwash History of tobacco and alcohol abuse -Recommend continued cessation DVT prophylaxis -Lovenox 40 mg daily CODE STATUS -Full code as confirmed upon admission Charges/Coding Visit Charges Inpatient E&M: 03115 [facility] L3
--- NOTE | 2022-05-03 14:26 | NURSING ---
Nurse assisted with port removal and catheter tip send for culture. Pt is medicated with prn oxy and tylenol for generalize pain prior transport to radiation. Pt is suctioned prior down to radiation.
[2022-05-03] MEDS: 0.9% Saline Lock 10 ML Syringe IV ×2 (15:14→22:55)
[2022-05-03] MEDS: Lidocaine 2% (5ml sdv) 5 ML VIAL.MPF INFILT (15:16)
[2022-05-03 17:55] LABS: Bedside Glucose 77 mg/dL (74-106)
[2022-05-03] MEDS: BMX LIQUID 180 ML 15 ML PO (22:55)
[2022-05-03 23:40] LABS: Bedside Glucose 85 mg/dL (74-106)
[2022-05-04] MEDS: morphine SR 15 MG Tablet PO ×3 (00:24→16:48)
[2022-05-04] MEDS: 0.9% Saline Lock 10 ML Syringe IV (00:47)
[2022-05-04] MEDS: Vancomycin IV 500 MG/100 ML BAG 100 MG IV (00:47)
[2022-05-04 00:54] LABS: Vancomycin, Trough Level 8.5 ug/mL (5.0-15.0)
--- NOTE | 2022-05-04 01:16 | PCM.RX.CS ---
Consult Pharmacy has been consulted to manage selected antiobiotic: Vancomycin Type of Consult: Follow-up Prior Doses of Antibiotics Received/Current Regimen: Medications Vancomycin HCl 750 mg/ Sodium (Chloride) 265 mls @ 250 mls/hr IV Q12H MARIE Vancomycin HCl () 500 mg in 100 mls @ 100 mls/hr IV Q12H MARIE Stop: 05/04/22 02:00 Last Admin: 05/04/22 00:47 Dose: 100 mls/hr Labs: Sodium 134 mmol/L (136-145) L 05/03/22 06:30 Potassium 4.0 mmol/L (3.5-5.1) 05/03/22 06:30 Chloride 107 mmol/L (98-107) 05/03/22 06:30 Carbon Dioxide 20.0 mmol/L (21.0-32.0) L 05/03/22 06:30 Anion Gap 7 (5-15) 05/03/22 06:30 BUN 16 mg/dL (7-18) 05/03/22 06:30 Creatinine 0.66 mg/dL (0.70-1.30) L 05/03/22 06:30 Est GFR (MDRD) Af Amer 163 mL/min (>60) 05/03/22 06:30 Est GFR (MDRD) Non-Af 134 mL/min (>60) 05/03/22 06:30 BUN/Creatinine Ratio 24.3 RATIO (10-20) H 05/03/22 06:30 Glucose 175 mg/dL (74-106) H 05/03/22 06:30 Vancomycin Trough 8.5 ug/mL (5.0-15.0) 05/04/22 00:15 Microbiology: Microbiology 05/02/22 08:31 Blood Culture (Wb) - Anticubital Left Blood Culture - Preliminary 05/02/22 08:20 Blood Culture (Wb) #2 - Other Bacteria Detection (PCR) - Final Meth. resistant Staph. aureus mecA Resistance Marker 05/02/22 08:20 Blood Culture (Wb) #2 - Other Blood Culture - Preliminary Staphylococcus aureus 05/02/22 11:10 Wound Abcess - Chest Gram Stain - Final 05/02/22 11:10 Wound Abcess - Chest Wound Culture - Preliminary Staphylococcus species Beta streptococcus 05/02/22 08:31 Nasal Secretion SARS-CoV-2 Antigen (Rapid) - Final Weight used for dosin.7 kg Estimated Creatinine Clearance: 103 Goal Trough: 10-15 mcg/mL Pharmacy Plan for Drug Dosing: Vancomycin trough level of 8.5 was below target range of 10-15. Per dosing calculator, will increase dose to 750mg q12h and re-draw a trough prior to 4th dose of new regimen. Pharmacy Service will continue to monitor and adjust dosing as required. Follow-Up Labs: Trough Vancomycin Labs to be done on [date and time ordered]: 05/06/22 @0030
[2022-05-04 02:04] VITALS: BP 105/74; PULSE 66; RESP 18; TEMP 36.2; O2SAT 100
[2022-05-04] MEDS: oxyCODONE 5 MG Tablet 10 MG PO ×4 (02:14→21:12)
[2022-05-04] MEDS: Pivot 1.5 Cal 1,000 ML BOTTLE 240 ML GT ×4 (05:54→18:15)
[2022-05-04 06:40] LABS: Bedside Glucose 107 mg/dL (74-106)
[2022-05-04 07:14] LABS: Absolute Lymphocyte Count 0.24 X10^3/uL (0.83-4.51); Absolute Neutrophil Count 1.9 X10^3/uL (2.0-7.7); Basophil# 0.01 X10^3/uL; Basophil% 0.4 % (0-1); Eosinophil# 0.03 X10^3/uL; Eosinophils% 1.3 % (0-5); Hematocrit 25.1 % (40-54); Hemoglobin 7.9 g/dL (13.0-16.5); Lymphocyte # 0.24 X10^3/ul (0.83-4.51); Lymphocyte % 10.2 % (19-41); Mean Corp Hgb Conc 31.5 g/dL (32-36); Mean Corpuscular Volume 85.7 fL (80-94); Mean Platelet Vol. 9.4 fl (6.2-12.0); Monocyte# 0.19 X10^3/uL; Monocyte% 8.1 % (0-10); NRBC Flagged by Analyzer 0 % (0-5); Neutrophil # 1.87 X10^3/uL (2.7-7.7); Neutrophil % 79.6 % (47-70); POSITIVE DIFFERENTIAL YES; POSITIVE MORPHOLOGY YES; Platelet Count 299 K/mm3 (150-450); RBC Distribution Width CV 14.1 % (11.6-14.6); RBC Distribution Width SD 43.7 fl (35.1-43.9); Red Blood Count 2.93 M/mm3 (4.6-6.2); White Blood Count 2.4 K/mm3 (4.4-11.0)
[2022-05-04 07:17] LABS: Differential Indicated SCAN CRITERIA MET
[2022-05-04 07:37] VITALS: BP 108/61; PULSE 72; RESP 18; TEMP 36.8; O2SAT 98
[2022-05-04 07:39] LABS: ALB/GLOB Ratio 0.6 RATIO (0.9-2.4); AST(SGOT) 45 U/L (15-37); Alanine Aminotransfer ALT/SGPT 74 U/L (16-61); Alkaline Phosphatase 153 U/L (45-117); Anion Gap 6 (5-15); BUN 13 mg/dL (7-18); Calcium,Total 8.2 mg/dL (8.5-10.1); Chloride 106 mmol/L (98-107); Creatinine, Serum 0.72 mg/dL (0.70-1.30); EST Glomerular Filtration Rate 120 mL/min (>60); Est Glom Filt Rate - Afr Amer 146 mL/min (>60); Estimated Creatinine Clearance 99.35 ml/min; Globulin 3.4 g/dL (2.2-4.2); Glucose 105 mg/dL (74-106); Potassium 3.5 mmol/L (3.5-5.1); Protein, Total 5.4 g/dL (6.4-8.2); Sodium Level 138 mmol/L (136-145)
[2022-05-04 07:42] LABS: Hemoglobin A1c 5.6 % (3.8-5.6)
[2022-05-04 07:59] LABS: Anisocytosis 1+; Platelet Estimate ADEQUATE (ADEQ); Red Cell Morphology N CHROM NORMAL (NORM C&C)
--- NOTE | 2022-05-04 08:45 | CASEMGMT ---
Call from [facility] and they state pt is active with them currently. SStdestinee RN CM
[2022-05-04] MEDS: Enoxaparin 40 MG/0.4 ML Syringe SC (09:30)
[2022-05-04] MEDS: Famotidine 20 MG Tablet PO (09:30)
[2022-05-04] MEDS: Escitalopram Oxalate 10 MG Tablet PO (09:30)
--- NOTE | 2022-05-04 10:58 | CASEMGMT ---
Addendum entered by Mariama Colin 05/04/22 11:56: Pt denies any alcohol, cigarette, street or illegal drug use. Pt is also active with Palliative Care, [facility]. Original Note: YURY SEGURA Assessment: Face to Face with pt for initial transition planning/care coordination assessment. YURY SEGURA introduced self and role at [facility], pt voices understanding and consents to assessment. Pt is A/O x4 and answers all questions appropriately at this time. Pt lying in bed in no distress. Pt capped trach to talk during assessment. Care providers, pharmacy, and demographics verified/updated. Admitting Dx: R chest cellulitis PCP:Lam Specialists:karime Lombardi Preferred Pharmacy: [facility] Retail Insurance: [facility] Just For Me Prescription Benefit: yes LW/HPOA: Pt denies having a LW/DPOA and denies need for info regarding AD. LNOK: Viviana Ordaz, sister; Jess Ordaz, mother Living Arrangements: Pt lives with sister and mother in a single story house with 3 steps to enter. Pt used to live in the basement/garage but states he is now living upstairs. Pt is I in ADL's and denies concerns at home. Transportation: Pt drives self and denies concerns with transportation. DME/HHC/SNF: Pt has trach cleaning supplies with suction as well as PEG supplies from [employer]. Pt states he does gravity feedings at home independently. Pt does not have AD or use AD. Pt denies hx of HHC or SNF stays. Pt states no concerns with going home at time of dc. He states his sister is a RN at the health department. Discussed pt possibility of needing IV antibiotics at home. Pt states he would want to do this at home and his sister would help as well. Discussed needing HHC as well for this. Also discussed the possibility if his IV is daily to come to the Infusion Center. Pt states he would prefer this overall as he has to come in daily for radiation anyway. Pt states no further concerns/needs. CM to follow. Advised pt to ask CM if any further question/concerns/needs arise, voices understanding. Pt Goal: Home and outpt infusion center if IV atb needed. Plan: TBD, pending ID recommendations.
[2022-05-04 12:00] LABS: Bedside Glucose 116 mg/dL (74-106)
[2022-05-04 12:39] LABS: Pathologist Review Reviewed
--- NOTE | 2022-05-04 13:23 | PN.HOSP_ITS ---
Subjective Subjective Patient states he still fairly fatigued but overall is feeling better. Med port removed yesterday. Repeat blood cultures are pending. Echo showed no vegetations. Objective Data Objective Data Vital Signs: Vital Signs Temp Pulse Resp BP Pulse Ox O2 Del Method O2 Flow Rate 98.3 F 72 18 108/61 98 Room Air 6 05/04/22 07:37 05/04/22 07:37 05/04/22 07:37 05/04/22 07:37 05/04/22 07:37 05/04/22 10:00 05/04/22 02:12 FiO2 21 05/03/22 21:07 Oxygen Flow Rate (L/min) 6 Oxygen Delivery Method Room Air Weight: 61.19 kg Body Mass Index (BMI) 21.4 Intake & Output: Intake and Output for Last 24 Hours 05/02/22 05/03/22 05/04/22 23:59 23:59 23:59 Intake Total 3866.67 / 4006.67 3095 / 3125 700 / 700 Output Total 0 / 0 Balance 3866.67 / 4006.67 3095 / 3125 700 / 700 Medical Nutrition Assessment Dietitian: Malnutrition Criteria Met Start: 05/02/22 14:04 Freq: Status: Active Protocol: Document 05/02/22 14:04 AG (Rec: 05/02/22 14:04 [id number]) Nutrition Malnutrition Evidence of Malnutrition Exists Yes Malnutrition (severe): Chronic Evidenced By Suboptimal Energy Intake ( Severe),Weight Loss (Severe) Clinical Problem Chronic Disease or Condition Related Malnutrition Etiology severe, chronic malnutrition related to inadequate oral intake w/ increased energy needs d/t cancer Signs/Symptoms as evidenced by estimated PO intake meeting <50% of estimated energy needs x2 months; unintentional wt loss of 9.7kg/15% x 2 months Status Active Problem Recommendation Dietitian Recommendations/Changes NPO. Via PEG- Pivot 1.5 240mL bolus 5x/day w/ 100mL H2O flush before and after each bolus to provide 1800 calories , 113 g protein, and 1900mL fluid/day. Will start w/ 120mL bolus and increase by 60mL each bolus as tolerated until goal rate is achieved. As ordered, enteral nutrition meets 100% of estimated energy needs. Lab / Micro Data Result Diagrams: 05/04/22 06:25 05/04/22 06:25 Labs: Laboratory Results - last 24 hr 05/02/22 11:10: S.aureus Protein A PCR POSITIVE H, MRSA (PCR) POSITIVE H 05/03/22 16:26: POC Glucose 77 05/03/22 22:46: POC Glucose 85 05/04/22 00:15: Vancomycin Trough 8.5 05/04/22 06:21: POC Glucose 107 H 05/04/22 06:25: WBC 2.4 L, RBC 2.93 L, Hgb 7.9 L, Hct 25.1 L, MCV 85.7 D, MCH 27.0, MCHC 31.5 L D, RDW Std Deviation 43.7, RDW Coeff of Rolf 14.1, Plt Count 299, MPV 9.4, Immature Gran % (Auto) 0.400, Neut % (Auto) 79.6 H, Lymph % (Auto) 10.2 L, [place] % (Auto) 8.1, Eos % (Auto) 1.3, Baso % (Auto) 0.4, Absolute Neuts (auto) 1.9 L, Absolute Lymphs (auto) 0.24 L, Nucleated RBC % 0, Differential Comment , Diff Path Review Reviewed, Platelet Estimate ADEQUATE, RBC Morphology N CHROM, Anisocytosis 1+ 05/04/22 06:25: Sodium 138, Potassium 3.5, Chloride 106, Carbon Dioxide 26.0, Anion Gap 6, BUN 13, Creatinine 0.72, Estim Creat Clear Calc 99.35, Est GFR (MDRD) Af Amer 146, Est GFR (MDRD) Non-Af 120, BUN/Creatinine Ratio 18.0, Glucose 105, Calcium 8.2 L, Total Bilirubin 0.30, AST 45 H, ALT 74 H, Alkaline Phosphatase 153 H, Total Protein 5.4 L, Albumin 2.0 L, Globulin 3.4, Albumin/Globulin Ratio 0.6 L 05/04/22 06:25: Hemoglobin A1c 5.6 05/04/22 11:41: POC Glucose 116 H Micro: Microbiology 05/03/22 13:23 Other - Other Gram Stain - Final 05/02/22 11:10 Wound Abcess - Chest Gram Stain - Final 05/02/22 11:10 Wound Abcess - Chest Wound Culture - Preliminary Staphylococcus aureus Streptococcus group G 05/02/22 08:31 Blood Culture (Wb) - Anticubital Left Blood Culture - Final Staphylococcus aureus 05/02/22 08:20 Blood Culture (Wb) #2 - Other Bacteria Detection (PCR) - Final Meth. resistant Staph. aureus mecA Resistance Marker 05/02/22 08:20 Blood Culture (Wb) #2 - Other Blood Culture - Final Meth. resistant Staph. aureus 05/02/22 08:31 Nasal Secretion SARS-CoV-2 Antigen (Rapid) - Final Physical Exam Const alert, oriented x3, no apparent distress and average body habitus Constitutional Narrative: Middle-aged white male sleeping in bed in a dark room in right side-lying, awakens easily, appears comfortable and less ill, no acute distress at this time, appears fatigued General Appearance: cooperative HEENT normocephalic, head/scalp atraumatic and hearing grossly normal bilaterally Neck Neck Narrative: Trachea midline, tracheostomy with trach in place-cuffless PMV is off, improved erythema right neck, med port removed, site tender postoperatively Resp normal respiratory effort, no retractions, no use of accessory muscles and clear to auscultation bilaterally Resp Narrative: Diffusely diminished but clear Auscultation: Negative for crackles, rales, rhonchi or wheezes Cardio regular rate, regular rhythm, S1 normal heart sound, S2 normal heart sound, no murmurs, no rub, no gallops, no clicks and no JVD GI normal to inspection, nondistended, normoactive bowel sounds, soft to palpation, non-tender and non-distended GI Narrative: PEG in place left upper quadrant-clean and dry Extremity normal to inspection and no clubbing, cyanosis or edema Neuro oriented x3, moves all extremities and no focal motor deficits Neuro Narrative: Generalized weakness, speech is abnormal secondary to trach Psych Psych Narrative: Affect is slightly flattened patient seems depressed Assessment & Plan Assessment/Plan (1) Cellulitis of chest wall: (2) Hyponatremia: (3) CRBSI (catheter-related bloodstream infection): (4) MRSA bacteremia: (5) Transaminitis: (6) Hyperglycemia: (7) Severe malnutrition: PLAN: Plan MRSA bacteremia secondary to cellulitis and port infection -Continue vancomycin, Zosyn discontinued -Blood cultures positive for MRSA -Wound cultures from port site are growing staph and group G strep -Echo negative for any vegetations -Repeat blood cultures for clearance are pending -Port removed on 05/03/2022 -ID following-appreciate input Acute hyponatremia -Resolved Hyperglycemia -Blood sugars 105 this morning -Suspect likely reactive with acute infection -A1c was 5.6 -Continue sliding scale insulin but if blood sugars remain stable may be able to discontinue -Accu-Cheks Transaminitis -Suspect antibiotic related as this was new in the last 24 hours--> suspect Zosyn -Trending down and Zosyn since discontinued Severe malnutrition -Tube feeds initiated this hospitalization -Dietitian is following -Supplements as ordered Dysphagia -States he is not taking in anything orally at this time -Patient did have his swallow eval in [place] and reports that he was cleared to take p.o. however appetite has been extremely poor -Will consult speech therapy -Patient to remain n.p.o. -Dietitian has been consulted tube feeds have been initiated Patient tolerating well Iron deficiency anemia -Patient undergoing IV iron infusions as an outpatient secondary to decreased ability to take p.o. -Management per oncology Oral pharyngeal squamous cell carcinoma -T4, N2, M0 -Patient with history of tobacco and alcohol abuse -HPV positive -Currently undergoing chemotherapy with [place] agent as well as concomitant radiation therapy -Ongoing radiation per radiation oncology-Dr. Lombardi -We will need to hold on chemo for now GERD -Continue home famotidine Oropharyngeal discomfort -Continue Magic mouthwash History of tobacco and alcohol abuse -Recommend continued cessation DVT prophylaxis -Lovenox 40 mg daily CODE STATUS -Full code as confirmed upon admission Charges/Coding Visit Charges Inpatient E&M: 67687 Subs Hosp L2
--- NOTE | 2022-05-04 13:28 | PCM.PN.SRG ---
Subjective Subjective Patient states he is ready to go home. Patient's right chest erythema is improved since removal of the port. Objective Data Objective Data Vital Signs: Vital Signs Temp Pulse Resp BP Pulse Ox O2 Del Method O2 Flow Rate 98.3 F 72 18 108/61 98 Room Air 6 05/04/22 07:37 05/04/22 07:37 05/04/22 07:37 05/04/22 07:37 05/04/22 07:37 05/04/22 10:00 05/04/22 02:12 FiO2 21 05/03/22 21:07 Oxygen Flow Rate (L/min) 6 Oxygen Delivery Method Room Air Weight: 134 lb 14.4 oz Body Mass Index (BMI) 21.4 Intake & Output: Intake and Output for Last 24 Hours 05/02/22 05/03/22 05/04/22 23:59 23:59 23:59 Intake Total 3866.67 / 4006.67 3095 / 3125 700 / 700 Output Total 0 / 0 Balance 3866.67 / 4006.67 3095 / 3125 700 / 700 Medical Nutrition Assessment Dietitian: Malnutrition Criteria Met Start: 05/02/22 14:04 Freq: Status: Active Protocol: Document 05/02/22 14:04 AG (Rec: 05/02/22 14:04 [id number]) Nutrition Malnutrition Evidence of Malnutrition Exists Yes Malnutrition (severe): Chronic Evidenced By Suboptimal Energy Intake ( Severe),Weight Loss (Severe) Clinical Problem Chronic Disease or Condition Related Malnutrition Etiology severe, chronic malnutrition related to inadequate oral intake w/ increased energy needs d/t cancer Signs/Symptoms as evidenced by estimated PO intake meeting <50% of estimated energy needs x2 months; unintentional wt loss of 9.7kg/15% x 2 months Status Active Problem Recommendation Dietitian Recommendations/Changes NPO. Via PEG- Pivot 1.5 240mL bolus 5x/day w/ 100mL H2O flush before and after each bolus to provide 1800 calories , 113 g protein, and 1900mL fluid/day. Will start w/ 120mL bolus and increase by 60mL each bolus as tolerated until goal rate is achieved. As ordered, enteral nutrition meets 100% of estimated energy needs. Lab / Micro Data Result Diagrams: 05/04/22 06:25 05/04/22 06:25 Labs: Laboratory Results - last 24 hr 05/02/22 11:10: S.aureus Protein A PCR POSITIVE H, MRSA (PCR) POSITIVE H 05/03/22 16:26: POC Glucose 77 05/03/22 22:46: POC Glucose 85 05/04/22 00:15: Vancomycin Trough 8.5 05/04/22 06:21: POC Glucose 107 H 05/04/22 06:25: WBC 2.4 L, RBC 2.93 L, Hgb 7.9 L, Hct 25.1 L, MCV 85.7 D, MCH 27.0, MCHC 31.5 L D, RDW Std Deviation 43.7, RDW Coeff of Rolf 14.1, Plt Count 299, MPV 9.4, Immature Gran % (Auto) 0.400, Neut % (Auto) 79.6 H, Lymph % (Auto) 10.2 L, [place] % (Auto) 8.1, Eos % (Auto) 1.3, Baso % (Auto) 0.4, Absolute Neuts (auto) 1.9 L, Absolute Lymphs (auto) 0.24 L, Nucleated RBC % 0, Differential Comment , Diff Path Review Reviewed, Platelet Estimate ADEQUATE, RBC Morphology N CHROM, Anisocytosis 1+ 05/04/22 06:25: Sodium 138, Potassium 3.5, Chloride 106, Carbon Dioxide 26.0, Anion Gap 6, BUN 13, Creatinine 0.72, Estim Creat Clear Calc 99.35, Est GFR (MDRD) Af Amer 146, Est GFR (MDRD) Non-Af 120, BUN/Creatinine Ratio 18.0, Glucose 105, Calcium 8.2 L, Total Bilirubin 0.30, AST 45 H, ALT 74 H, Alkaline Phosphatase 153 H, Total Protein 5.4 L, Albumin 2.0 L, Globulin 3.4, Albumin/Globulin Ratio 0.6 L 05/04/22 06:25: Hemoglobin A1c 5.6 05/04/22 11:41: POC Glucose 116 H Micro: Microbiology 05/03/22 13:23 Other - Other Gram Stain - Final 05/02/22 11:10 Wound Abcess - Chest Gram Stain - Final 05/02/22 11:10 Wound Abcess - Chest Wound Culture - Preliminary Staphylococcus aureus Streptococcus group G 05/02/22 08:31 Blood Culture (Wb) - Anticubital Left Blood Culture - Final Staphylococcus aureus 05/02/22 08:20 Blood Culture (Wb) #2 - Other Bacteria Detection (PCR) - Final Meth. resistant Staph. aureus mecA Resistance Marker 05/02/22 08:20 Blood Culture (Wb) #2 - Other Blood Culture - Final Meth. resistant Staph. aureus 05/02/22 08:31 Nasal Secretion SARS-CoV-2 Antigen (Rapid) - Final Physical Exam Narrative Right chest incisions dressed with 4 x 4 and OpSite's. Erythema resolved. Resp normal respiratory effort Cardio regular rate Assessment & Plan Assessment/Plan (1) CRBSI (catheter-related bloodstream infection): (2) Cellulitis of chest wall: PLAN: Plan Patient is erythematous resolved with removal of right IJ Port-A-Cath and IV antibiotics per primary. Continue dressing at the site until completely healed especially due to tracheostomy and drainage from this. Madison Stoner M.D. Pager: [phone] [facility] [address] [place] [address], [facility], [address] [place] [address] Office: [phone] Charges/Coding Visit Charges Inpatient E&M: 64077 Subs Hosp L2
--- NOTE | 2022-05-04 15:14 | CASEMGMT ---
Social Work SW in to meet with pt. Introduced self and role at the hospital. Pt was in good spirits and agreeable to talking. SW discussed mental health and mood changes with pt. Pt shared he has been experiencing low moods. Sw inquired about new medication pt is taking and pt shared he had not noticed a difference in his mood yet. SW explained that medication can often take some time to because fully effective. Pt voiced his understanding. SW shared Oncology Support group resources with pt and also provided him with a list of counselors in the area. Pt discussed concern with being tired and overwhelmed with all other medical appointments. SW shared that the option of telehealth therapy might be a better fit for him and pt expressed some interest in this. SW also shared the Oncology Support group, [facility], may possibly have a group telehealth option. NISSA Davis
[2022-05-04 16:50] VITALS: BP 116/64; PULSE 70; RESP 18; TEMP 36.8; O2SAT 98
[2022-05-04 17:00] LABS: Bedside Glucose 144 mg/dL (74-106)
[2022-05-04 21:06] VITALS: BP 121/79; PULSE 75; RESP 18; TEMP 36.6; O2SAT 100
[2022-05-04] MEDS: Zolpidem Tartrate 5 MG Tablet PO (21:12)
[2022-05-04] MEDS: BMX LIQUID 180 ML 15 ML PO (21:40)
[2022-05-04 22:00] LABS: Bedside Glucose 87 mg/dL (74-106)
[2022-05-05] MEDS: morphine SR 15 MG Tablet PO ×3 (01:14→16:02)
[2022-05-05] MEDS: 0.9% Saline Lock 10 ML Syringe IV ×2 (01:15→11:42)
[2022-05-05 03:58] VITALS: BP 128/76; PULSE 67; RESP 18; TEMP 36.8; O2SAT 100
[2022-05-05] MEDS: Pivot 1.5 Cal 1,000 ML BOTTLE 240 ML GT ×2 (06:41→09:56)
[2022-05-05 07:10] LABS: Bedside Glucose 109 mg/dL (74-106)
[2022-05-05 08:03] VITALS: O2SAT 98
[2022-05-05] MEDS: Escitalopram Oxalate 10 MG Tablet PO (09:55)
[2022-05-05] MEDS: Enoxaparin 40 MG/0.4 ML Syringe SC (09:55)
[2022-05-05] MEDS: Famotidine 20 MG Tablet PO (09:55)
--- NOTE | 2022-05-05 09:57 | PCM.PN.ID ---
Physical Exam Narrative Feeling better, interested in leaving, no fever, no n/v/d. Const alert and no apparent distress Resp normal air movement and clear to auscultation bilaterally Cardio regular rate and regular rhythm GI soft to palpation, non-tender and non-distended Skin no rashes or lesions noted ID ID: Route of nutrition/ use of supplements: [] Nutritional Intake: [] IV Site: [] Spangler Catheter: [] Assessment & Plan Assessment/Plan (1) CRBSI (catheter-related bloodstream infection): PLAN: MRSA bacteremia. R chest port with inflammation/purulence. TTE with no veg. Port removed 05/03. Bcx prior to removal neg at 48h. Last chemo a week ago. On vanc. Is on SSRI. Given recent chemo, will do picc and 4 weeks total iv dapto, stop date 05/30, for once daily dosing at infusion center. Weekly bmp, cbc, LFT, and CK. Will follow, d/w Dr. Miller. ID followup in 2-3 weeks.
[2022-05-05 10:00] VITALS: BP 123/73; PULSE 68; RESP 18; TEMP 36.8; O2SAT 99
--- NOTE | 2022-05-05 10:05 | CASEMGMT ---
Addendum entered by Mariama Colin 05/05/22 13:10: YURY SEGURA in to pt room, pt is aware to continue his previous feedings until the new order is approved by his insurance. He states he has this Boost plus at home and he is aware to order more if necessary. Pt is aware that he needs to have his wound covered and it is to be changed daily. He states he can do this and has supplies to do so. Pt is aware of time to be at the Infusion Center tomorrow. Pt denies further needs. Addendum entered by Mariama Colin 05/05/22 13:04: Received tc from Janee stating pt can come to the Infusion Center but the wound needs to be covered and they cannot do the dressing change to it. Spoke with Kaila and pt is to come tomorrow at 9:30a then they will adjust time with his radiation. Addendum entered by Mariama Colin 05/05/22 12:35: TC to [facility], they are awaiting to see if they can accommodate the patient d/t his infection. Will await returned call. YURY SEGURA in to pt room, pt states he is using Boost Plus through the PEG at home. Pivot 1.5 is ordered for pt. TC to scroll machine operator Carmelita, she states that she sent the order to [facility] on Monday. TC to [place], spoke with Kerri, she states that they are awaiting further documentation as the calories are >2000/day. She states they have spoke with Frnacy and is awaiting the documentation. She states then the patient's insurance will require a prior auth that [facility] will do and can take up to 2wks. TC back to [facility] scroll machine operator she states pt able to continue on what he was taking at home until this new feeding is approved. She will call Francy to get the clinical documentation sent. Updated hospitalist of this situation. Original Note: YURY SEGURA spoke with [facility], order for daily IV received. Pt wishes to go to outpt infusion. YURY SEGURA in to pt room. Pt states he would like appt to be around 11-12 as he would go to radiation after. TC to [facility] Infusion, spoke with Meredith, she will check and call YURY SEGURA back.
--- NOTE | 2022-05-05 11:29 | DS.PCM_ITS ---
Providers Date of Admission: 05/02/22 Date of Discharge: 05/05/22 Primary Care Physician: Dr. Robert Fritz MD Consultations 05/02/22 11:31 Consult: Oncology Radiation [Consult: Radiation Oncology] Routine Consulting Provider: Lucien Lombardi Reason for Consult: XRT EMERGENT Consult: No Notified: Yes Date Notified: 05/02/22 Time Notified: 10:35 Method of Notification: ED Physician Initiated 05/03/22 08:56 Consult: Infectious Disease Routine Consulting Provider: Joseph Phoenix Reason for Consult: MRSA bacteremia with Medport EMERGENT Consult: No Notified: Yes Date Notified: 05/03/22 Time Notified: 08:56 Method of Notification: Text 05/03/22 09:57 Consult: General Surgery Routine Consulting Provider: Madison Stoner Reason for Consult: MedPort removal 2/2 MRSA bacteremia EMERGENT Consult: No MD Notified: Yes Date Notified: 05/03/22 Time Notified: 09:57 Method of Notification: Text Reason For Visit: R CHEST CELLULITIS Diagnosis Discharge Diagnosis (1) CRBSI (catheter-related bloodstream infection): Status: Acute Code(s): T80.211A - Bloodstream infection due to central venous catheter, initial encounter Medications at Discharge Home Medications lorazepam 0.5 mg tablet 0.5 mg PO BID PRN pre procedure anxiety #3 tabs 04/06/22 MAGIC MOUTH WASH (BMX) 180 mL suspension 15 ml PO .qid PRN pain #180 mL 04/14/22 ondansetron 8 mg disintegrating tablet 8 mg PO Q8H PRN Nausea And Vomiting 14 days #42 tabs 04/18/22 famotidine 20 mg tablet (Pepcid) 20 mg PO DAILY gi 04/27/22 morphine 15 mg tablet,extended release 15 mg PO Q8H pain 05/02/22 daptomycin 500 mg intravenous solution 350 mg IV Q24H 26 days #26 ea 05/05/22 escitalopram oxalate 10 mg tablet 10 mg PO DAILY #30 tabs 05/05/22 nut.tx.comp. immune systm,reg 0.09 gram-1.5 kcal/mL liquid for tube feed (Pivot 1.5 Sean) 240 ml G-tube 5X/DAY #237 mL 05/05/22 Hospital Course Operations - (Right-sided Mediport removal) Procedures 2-D Echocardiogram and PICC line placement Summary of Care Provided Minutes Spent on Discharge: 38 Hospital Course: Mr. Ordaz is a 51-year-old white male who presented to emergency department [facility] on 05/02/2022 after being sent over by the infusion center for fever. The patient has a history of oropharyngeal cancer with his last chemo being 1 week prior to presentation. He has been undergoing radiation as well. Patient reported he started feeling poorly on the morning of admission when he got out of bed. He reported he was feeling well the day previously. He indicated he noted some redness to his right upper chest and recently had a pustule that popped at what looked like to be the insertion site of his med port. There was a small open area in that same site that had some purulent drainage however the catheter was not visualized subcutaneously. The Mediport was placed on 04/14/[address] Stoner. Patient on admission he complained of general malaise, myalgias, fever, and chills but denied any nausea, vomiting, constipation, or diarrhea. Radiation with concomitant cisplatin therapy was started on 04/18/2022. He was iagnosed with oropharyngeal cancer via an FNA of a left neck mass on 02/07/2022.? The tumor was HPV positive and stage III clinically with TN, N2, M0.? On 03/22/2022 he underwent a sharpe endoscopy with dental extractions prophylactic tracheostomy and a PEG tube placement and that that time he was noted to have a large posterior oropharyngeal tumor extending into the left lateral wall abutting the tonsil, soft palate, and uvula.? 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 PET scan done on 04/01/2022 showed increased uptake in the right retropharyngeal and bilateral level 2A and 2B lymph nodes with no evidence of metastatic disease. Upon presentation the emergency department his temperature was 100.6 with a heart rate of 103, blood pressure 102/62, respiratory rate 17 and oxygen saturation was 100% on room air.? CBC showed a white count of 6.8 with a hemoglobin of 7.6 and a platelet count of 283,000.? He has a left shift with a neutrophilia of 93.6% and no neutropenia was identified.? His chemistry panel showed a mild hyponatremia with a sodium of 128 but was otherwise unremarkable.? His lactic acid was 0.6.? Liver functions were normal.? UA and blood cultures were ordered but pending upon admission.? Chest x-ray showed hyperinflation with minimal increased markings in the left base.? His right upper chest is erythematous and this was initially thought to be related to his radiation however it is asymmetrical and he is getting bilateral neck radiation. The emergency department he was started on vancomycin and Zosyn after blood cultures were obtained and cultures were also obtained of the wound on his right neck. He was admitted to the medical floor. Vancomycin and Zosyn was continued on admission. His blood cultures resulted positive for MRSA and we therefore obtained an echocardiogram which showed no valvular abnormalities or vegetations, his EF was 65% and his right ventricular systolic pressure was 29 mmHg. General surgery was consulted for removal of his Mediport given his MRSA bacteremia and this was performed on 05/03/2022. Repeat cultures were obtained for clearance on 05/03/2022 and at this time have been negative at 48 hours. Infectious disease was consulted upon the initial result of MRSA. Wound culture grew MRSA and group G strep. Cultures from his port removal are also growing staph aureus. With the clearance cultures being negative infectious disease felt it was okay to place a PICC line and continue IV antibiotics for an additional 4 weeks with daptomycin. His stop date for Dapto is 05/30/2022. He will be getting weekly BMPs, CMP, LFT and CK to be sent to infectious disease for follow. He is to also follow-up with infectious disease in 2 to 3 weeks. Med port placement can pursue after he is cleared by infectious disease at that time. He will need to follow-up with radiation oncology as well as his oncologist after discharge. Radiation oncology has been following him during his hospitalization and [facility] We were also able to start tube feed during his hospital course and he tolerated these well and was discharged with tube feed orders. Patient was discharged home after PICC line placement in stable condition on 05/05/2022. Discharge diagnoses: MRSA bacteremia Med port infection Right chest cellulitis Acute hyponatremia-resolved Hyperglycemia-A1c 5.6--> suspect reactive with infection Transaminitis-resolved Severe malnutrition Dysphagia Iron deficiency anemia Oral pharyngeal squamous cell carcinoma GERD History of tobacco abuse History of alcohol abuse Physical Exam Narrative No issues overnight. Patient is anxious to go home. Tolerating tube feed without any difficulty. Const alert, oriented x3, no apparent distress, average body habitus and no limitations Constitutional Narrative: Thin middle-aged white male lying in bed, appears older than stated age, nontoxic and appears as if he is feeling much better General Appearance: cooperative, comfortable, well kempt and well developed Orientation / Consciousness: awake Exam Limitations: no limitations Nutritional Appearance: thin HEENT normocephalic, head/scalp atraumatic, hearing grossly normal bilaterally and moist oral mucous membranes HEENT Narrative: Temporal wasting, Mallampati 2, no thrush Eyes PERRL and EOMs intact bilaterally Eyes Narrative: Pale conjunctiva bilaterally, no scleral icterus Neck no lymphadenopathy, supple and no JVD Neck Narrative: Tracheostomy tube in place with PMV, good vocal quality, trachea midline, no thyroid enlargement Resp normal respiratory effort, no retractions, no use of accessory muscles and clear to auscultation bilaterally Resp Narrative: Diffusely diminished but clear Auscultation: Negative for crackles, rales, rhonchi or wheezes Cardio regular rate, regular rhythm, S1 normal heart sound, S2 normal heart sound, no murmurs, no rub, no gallops, no clicks and no JVD GI normal to inspection, nondistended, normoactive bowel sounds, soft to palpation, non-tender and non-distended GI Narrative: PEG in left upper quadrant-clean and dry Extremity no clubbing, cyanosis or edema Skin no wounds, skin turgor normal and no jaundice Skin Narrative: Female presentRight chest wall with postoperative dressing in place status post port removal on admission has resolved Neuro oriented x3, CN's II-XII intact bilaterally, moves all extremities, no focal m otor deficits and no sensory deficits noted Sensorium / Orientation: awake, alert and oriented to person Motor Exam: strength 5/5 throughout Psych Psych Narrative: Affect is somewhat flattened mood seems depressed Medical Records Data Medical Nutrition Assessment Dietitian: Malnutrition Criteria Met Start: 05/02/22 14:04 Freq: Status: Active Protocol: Document 05/02/22 14:04 (Rec: 05/02/22 14:04 [id number]) Nutrition Malnutrition Evidence of Malnutrition Exists Yes Malnutrition (severe): Chronic Evidenced By Suboptimal Energy Intake ( Severe),Weight Loss (Severe) Clinical Problem Chronic Disease or Condition Related Malnutrition Etiology severe, chronic malnutrition related to inadequate oral intake w/ increased energy needs d/t cancer Signs/Symptoms as evidenced by estimated PO intake meeting <50% of estimated energy needs x2 months; unintentional wt loss of 9.7kg/15% x 2 months Status Active Problem Recommendation Dietitian Recommendations/Changes NPO. Via PEG- Pivot 1.5 240mL bolus 5x/day w/ 100mL H2O flush before and after each bolus to provide 1800 calories , 113 g protein, and 1900mL fluid/day. Will start w/ 120mL bolus and increase by 60mL each bolus as tolerated until goal rate is achieved. As ordered, enteral nutrition meets 100% of estimated energy needs. Weight / BMI Weight Weight: 60.9 kg Body Mass Index (BMI) 21.4 ABG / Lab / Microbiology Data Result Diagrams: 05/04/22 06:25 05/04/22 06:25 Laboratory: Laboratory Results - last 24 hr 05/04/22 06:25: Diff Path Review Reviewed 05/04/22 11:41: POC Glucose 116 H 05/04/22 16:36: POC Glucose 144 H 05/04/22 21:11: POC Glucose 87 05/05/22 06:40: POC Glucose 109 H Microbiology: Microbiology 05/03/22 13:23 Other - Other Miscellaneous Culture - Preliminary Staphylococcus aureus 05/03/22 13:23 Other - Other Gram Stain - Final 05/03/22 10:05 Blood Culture (Wb) - Right Hand Blood Culture - Preliminary No growth in 48 hours. 05/03/22 10:00 Blood Culture (Wb) - Anticubital Right Blood Culture - Prelim inary No growth in 48 hours. 05/02/22 11:10 Wound Abcess - Chest Gram Stain - Final 05/02/22 11:10 Wound Abcess - Chest Wound Culture - Final Meth. resistant Staph. aureus Streptococcus group G 05/02/22 08:31 Blood Culture (Wb) - Anticubital Left Blood Culture - Final Staphylococcus aureus 05/02/22 08:20 Blood Culture (Wb) #2 - Other Bacteria Detection (PCR) - Final Meth. resistant Staph. aureus mecA Resistance Marker 05/02/22 08:20 Blood Culture (Wb) #2 - Other Blood Culture - Final Meth. resistant Staph. aureus 05/02/22 08:31 Nasal Secretion SARS-CoV-2 Antigen (Rapid) - Final D/C Instructions Discharge Diet: - (diet as directed by speech therapy dept) Discharge Activity: Return to Normal Activity Return to work on: 05/09/22 Meaningful Use Info Meaningful Use Diagnoses (Choose all that apply): None applicable Discharge Plan Admission Admit Date/Time: 05/02/22 10:30 Primary Reason for Your Visit: Fever Attending Provider: Neelima Miller Primary Care Provider: Robert Fritz Consulting Providers: Lucien Lombardi ; Joseph Phoenix ; Madison Stoner Discharge Orders/Prescriptions Prescriptions: New daptomycin 500 mg Recon Soln 350 mg IV Q24H 26 Days Qty: 26 0RF Rx Instructions: dx: MRSA bacteremia weekly bmp, cbc, LFT, and CK. Fax to [phone] stop date 05/30/22 escitalopram oxalate 10 mg Tablet 10 mg PO DAILY Qty: 30 2RF Pivot 1.5 Sean 0.09 gram- 1.5 kcal/mL Liquid 240 ml G-tube 5X/DAY Qty: 237 2RF Continued famotidine [Pepcid] 20 mg tablet 20 mg PO DAILY ondansetron 8 mg Tablet,Disintegrating 8 mg PO Q8H PRN (Reason: Nausea And Vomiting) 14 Days Qty: 42 3RF morphine 15 mg Tablet Extended Release 15 mg PO Q8H lorazepam 0.5 mg tablet 0.5 mg PO BID PRN (Reason: pre procedure anxiety) Qty: 3 0RF Rx Instructions: take 1-2 tabs prior to procedure MAGIC MOUTH WASH (BMX) 180 mL suspension 15 ml PO .qid PRN (Reason: pain) Qty: 180 6RF Rx Instructions: diphenhydramine 12.5 mg/5 mL oral liquid 60 mL; aluminum-mag hydroxide-simethicone 400 mg-400 mg-40 mg/5 mL oral susp 60 mL; Lidocaine Viscous 2 % mucosal solution 60 mL; Per 180 mL Referrals / Follow Up: Robert Fritz MD [Primary Care Provider] - Within 2 Weeks Masood Payne MD [Med Staff - Active Staff] - See Referral Note (as scheduled) Lucien Lombardi DO [Med Staff - Active Staff] - See Referral Note (as scheduled) Joseph Phoenix MD [Med Staff - Active Staff] - Within 2 Weeks (Call [facility] after discharge for appt to be seen in 2-3 weeks) Disposition Disposition (needs filled in before D/C Order can be placed): Home, Self Care Charges/Coding Visit Charges Inpatient E&M: 77092 Disch Hosp
[2022-05-05 11:30] VITALS: O2SAT 97
[2022-05-05] MEDS: Acetaminophen 325 MG Tablet 650 MG PO (13:00)
[2022-05-05] MEDS: oxyCODONE 5 MG Tablet 10 MG PO (13:00)
[2022-05-05 16:00] VITALS: BP 121/76; PULSE 69; RESP 18; TEMP 36.8; O2SAT 99
--- NOTE | 2022-05-05 16:23 | NURSING ---
Gauze applied over insertion site d/t bleeding. Please change the bandage on 05/06
== END 2022-05-05 16:17 | disposition home or self-care (01) | DRG 314 ==
LOC: ED 09:20 → PCU 10:54 → MS3 05-03 19:35
PROVIDERS: Admitting Provider Internal Medicine; Emergency Provider Emergency Medicine; PCP Family Medicine; Visit Provider Internal Medicine
DX: T80.211A Bloodstream infection due to central venous catheter, initial encounter (principal); E43 Unspecified severe protein-calorie malnutrition; L03.313 Cellulitis of chest wall; E87.1 Hypo-osmolality and hyponatremia; Z93.0 Tracheostomy status; T80.212A Local infection due to central venous catheter, initial encounter; C10.9 Malignant neoplasm of oropharynx, unspecified; B95.62 Methicillin resistant Staphylococcus aureus infection as the cause of diseases classified elsewhere; Z79.4 Long term (current) use of insulin; Z93.1 Gastrostomy status; D50.9 Iron deficiency anemia, unspecified; F10.10 Alcohol abuse, uncomplicated; F17.210 Nicotine dependence, cigarettes, uncomplicated; K21.9 Gastro-esophageal reflux disease without esophagitis; Z80.8 Family history of malignant neoplasm of other organs or systems; Z80.1 Family history of malignant neoplasm of trachea, bronchus and lung; G89.29 Other chronic pain; R73.9 Hyperglycemia, unspecified; Z95.828 Presence of other vascular implants and grafts; R74.01 Elevation of levels of liver transaminase levels; R13.10 Dysphagia, unspecified; Z68.22 Body mass index [BMI] 22.0-22.9, adult
CPT/HCPCS: 31720; 36415; 36569; 36591; 71045; 77336; 77386; 80053; 80202; 82962; 83036; 83605; 83735; 84100; 85025; 87040; 87070; 87077; 87081; 87149; 87186; 87205; 87640; 87811; 92611; 93306; 97802; 97803; 99284; 99406; J0878; J7030; J7040; J7050; A4216; J3490

== ENCOUNTER → 2022-05-06 | Outpatient (CLI) | payer OTHER, SELFPAY ==
[2022-05-06 10:15] VITALS: BP 110/66; PULSE 75; RESP 16; TEMP 35.7; O2SAT 99
== END | disposition home or self-care (01) ==
LOC: MEDOUTP 09:13
PROVIDERS: PCP Family Medicine; Visit Provider Internal Medicine Infectious Disease
DX: R78.81 Bacteremia (principal); B95.62 Methicillin resistant Staphylococcus aureus infection as the cause of diseases classified elsewhere
CPT/HCPCS: 96365; J0878; J7050; A4216; J3490

== ENCOUNTER 2022-05-07 10:57 | Outpatient (CLI) | payer OTHER, SELFPAY ==
[2022-05-07] MEDS: 0.9% Saline Lock 10 ML Syringe IV ×2 (11:10→12:23)
== END 2022-05-07 12:30 | disposition home or self-care (01) ==
LOC: MEDOUTP 10:58 → MS3 11:00
PROVIDERS: PCP Family Medicine; Referring Provider Internal Medicine Infectious Disease; Visit Provider Internal Medicine Infectious Disease
DX: R78.81 Bacteremia (principal); B95.62 Methicillin resistant Staphylococcus aureus infection as the cause of diseases classified elsewhere
CPT/HCPCS: 96365; J0878; J7050; A4216; J3490

== ENCOUNTER 2022-05-08 12:03 | Outpatient (CLI) | payer OTHER, SELFPAY ==
[2022-05-08] MEDS: 0.9% Saline Lock 10 ML Syringe IV ×2 (12:05→13:54)
== END 2022-05-08 13:25 | disposition home or self-care (01) ==
LOC: MEDOUTP 12:04 → MS3 12:05
PROVIDERS: PCP Family Medicine; Visit Provider Internal Medicine Infectious Disease
DX: R78.81 Bacteremia (principal); B95.62 Methicillin resistant Staphylococcus aureus infection as the cause of diseases classified elsewhere
CPT/HCPCS: 96365; J0878; J7050; A4216; J3490

== ENCOUNTER 2022-05-09 07:51 | Outpatient (CLI) | payer OTHER, SELFPAY | END 2022-05-09 23:59 | disposition home or self-care (01) | LOC: MEDOUTP 07:52 | PROVIDERS: PCP Family Medicine; Referring Provider Internal Medicine Infectious Disease; Visit Provider Internal Medicine Infectious Disease | DX: R78.81 Bacteremia (principal); C10.8 Malignant neoplasm of overlapping sites of oropharynx; B95.62 Methicillin resistant Staphylococcus aureus infection as the cause of diseases classified elsewhere | CPT/HCPCS: 96365; 36592; 77336; 77386; 80048; 83735; 84100; 85025; 85045; J0878; J7030; A4216; J3490 ==

== ENCOUNTER 2022-05-10 07:47 | Outpatient (CLI) | payer OTHER, SELFPAY | END 2022-05-10 23:59 | disposition home or self-care (01) | LOC: MEDOUTP 07:47 | PROVIDERS: PCP Family Medicine; Referring Provider Internal Medicine Infectious Disease; Visit Provider Internal Medicine Infectious Disease | DX: R78.81 Bacteremia (principal); C10.8 Malignant neoplasm of overlapping sites of oropharynx; B95.62 Methicillin resistant Staphylococcus aureus infection as the cause of diseases classified elsewhere | CPT/HCPCS: 96365; 77386; J0878; J7030; A4216; J3490 ==

== ENCOUNTER 2022-05-11 11:17 | Outpatient (CLI) | payer OTHER, SELFPAY | END 2022-05-11 23:59 | disposition home or self-care (01) | LOC: MEDOUTP 11:17 | PROVIDERS: PCP Family Medicine; Referring Provider Internal Medicine Infectious Disease; Visit Provider Internal Medicine Infectious Disease | DX: R78.81 Bacteremia (principal); C10.8 Malignant neoplasm of overlapping sites of oropharynx; B95.62 Methicillin resistant Staphylococcus aureus infection as the cause of diseases classified elsewhere | CPT/HCPCS: 96365; 77386; 97803; J0878; J7030; A4216; J3490 ==

== ENCOUNTER 2022-05-12 11:16 | Outpatient (CLI) | payer OTHER, SELFPAY ==
[2022-05-12 12:11] LABS: Hematocrit 25.7 % (40-54); Hemoglobin 8.1 g/dL (13.0-16.5); Mean Corp Hgb Conc 31.5 g/dL (32-36); Mean Corpuscular Hgb 27.2 pg (27.0-32.0); Mean Corpuscular Volume 86.2 fL (80-94); Mean Platelet Vol. 9.1 fl (6.2-12.0); Platelet Count 433 K/mm3 (150-450); RBC Distribution Width CV 15.9 % (11.6-14.6); RBC Distribution Width SD 46.8 fl (35.1-43.9); Red Blood Count 2.98 M/mm3 (4.6-6.2); White Blood Count 3.6 K/mm3 (4.4-11.0)
[2022-05-12 12:29] LABS: AST(SGOT) 16 U/L (15-37); Alanine Aminotransfer ALT/SGPT 27 U/L (16-61); Albumin, Serum 2.3 g/dL (3.2-5.0); Alkaline Phosphatase 115 U/L (45-117); Anion Gap 6 (5-15); BUN 11 mg/dL (7-18); BUN/Creat Ratio 16.7 RATIO (10-20); Bilirubin, Direct 0.06 mg/dL (0.00-0.30); CPK Total, Creatine Kinase 30 U/L (39-308); Calcium,Total 8.7 mg/dL (8.5-10.1); Chloride 108 mmol/L (98-107); Creatinine, Serum 0.66 mg/dL (0.70-1.30); EST Glomerular Filtration Rate 134 mL/min (>60); Est Glom Filt Rate - Afr Amer 162 mL/min (>60); Globulin 3.5 g/dL (2.2-4.2); Glucose 100 mg/dL (74-106); Potassium 3.6 mmol/L (3.5-5.1); Protein, Total 5.8 g/dL (6.4-8.2); Sodium Level 140 mmol/L (136-145)
[2022-05-12 20:08] LABS: Xtra Tube EP Lab EXTRA TUBE
== END 2022-05-12 23:59 | disposition home or self-care (01) ==
LOC: MEDOUTP 11:16
PROVIDERS: PCP Family Medicine; Referring Provider Internal Medicine Infectious Disease; Visit Provider Internal Medicine Infectious Disease
DX: R78.81 Bacteremia (principal); C10.8 Malignant neoplasm of overlapping sites of oropharynx; B95.62 Methicillin resistant Staphylococcus aureus infection as the cause of diseases classified elsewhere
CPT/HCPCS: 96365; 36592; 77386; 80048; 80076; 82550; 85027; J0878; J7030; A4216; J3490

== ENCOUNTER 2022-05-13 12:23 | Outpatient (CLI) | payer OTHER, SELFPAY ==
[2022-05-13 12:36] VITALS: BP 118/63; PULSE 86; RESP 16; TEMP 36.4; O2SAT 97
== END 2022-05-13 23:59 | disposition home or self-care (01) ==
LOC: MEDOUTP 12:23
PROVIDERS: PCP Family Medicine; Referring Provider Internal Medicine Infectious Disease; Visit Provider Internal Medicine Infectious Disease
DX: R78.81 Bacteremia (principal); C10.8 Malignant neoplasm of overlapping sites of oropharynx; B95.62 Methicillin resistant Staphylococcus aureus infection as the cause of diseases classified elsewhere
CPT/HCPCS: 96365; 77336; 77386; J0878; J7050; A4216; J3490

== ENCOUNTER 2022-05-14 12:47 | Outpatient (CLI) | payer OTHER, SELFPAY ==
[2022-05-14 12:39] VITALS: BP 109/61; PULSE 82; RESP 18; O2SAT 99
== END 2022-05-14 13:27 | disposition home or self-care (01) ==
LOC: MEDOUTP 12:49 → MS3 12:50
PROVIDERS: PCP Family Medicine; Referring Provider Internal Medicine Infectious Disease; Visit Provider Internal Medicine Infectious Disease
DX: R78.81 Bacteremia (principal); B95.62 Methicillin resistant Staphylococcus aureus infection as the cause of diseases classified elsewhere
CPT/HCPCS: 96365; J0878; J3490

== ENCOUNTER 2022-05-15 09:36 | Outpatient (CLI) | payer OTHER, SELFPAY ==
[2022-05-15] MEDS: 0.9% Saline Lock 10 ML Syringe IV ×2 (09:45→10:39)
[2022-05-15 09:51] VITALS: BP 99/53; PULSE 85; RESP 18; TEMP 36.6; O2SAT 96
== END 2022-05-15 10:39 | disposition home or self-care (01) ==
LOC: MEDOUTP 09:36 → MS3 09:37
PROVIDERS: PCP Family Medicine; Referring Provider Internal Medicine Infectious Disease; Visit Provider Internal Medicine Infectious Disease
DX: R78.81 Bacteremia (principal); B95.62 Methicillin resistant Staphylococcus aureus infection as the cause of diseases classified elsewhere
CPT/HCPCS: 96365; J0878; J7050; A4216; J3490

== ENCOUNTER 2022-05-16 07:55 | Outpatient (CLI) | payer OTHER, SELFPAY | END 2022-05-16 23:59 | disposition home or self-care (01) | LOC: MEDOUTP 07:55 | PROVIDERS: PCP Family Medicine; Referring Provider Internal Medicine Infectious Disease; Visit Provider Internal Medicine Infectious Disease | DX: R78.81 Bacteremia (principal); C10.8 Malignant neoplasm of overlapping sites of oropharynx; B96.89 Other specified bacterial agents as the cause of diseases classified elsewhere | CPT/HCPCS: 96365; J0878; J3490 ==

== ENCOUNTER 2022-05-17 11:21 | Outpatient (CLI) | payer OTHER, SELFPAY | END 2022-05-17 23:59 | disposition home or self-care (01) | LOC: MEDOUTP 11:21 | PROVIDERS: PCP Family Medicine; Referring Provider Internal Medicine Infectious Disease; Visit Provider Internal Medicine Infectious Disease | DX: R78.81 Bacteremia (principal); C10.8 Malignant neoplasm of overlapping sites of oropharynx; B95.62 Methicillin resistant Staphylococcus aureus infection as the cause of diseases classified elsewhere | CPT/HCPCS: 96365; 77386; J0878; J7030; A4216; J3490 ==

== ENCOUNTER 2022-05-18 10:50 | Outpatient (CLI) | payer OTHER, SELFPAY | END 2022-05-18 23:59 | disposition home or self-care (01) | LOC: MEDOUTP 10:50 | PROVIDERS: PCP Family Medicine; Referring Provider Internal Medicine Infectious Disease; Visit Provider Internal Medicine Infectious Disease | DX: R78.81 Bacteremia (principal); C10.8 Malignant neoplasm of overlapping sites of oropharynx; B95.62 Methicillin resistant Staphylococcus aureus infection as the cause of diseases classified elsewhere | CPT/HCPCS: 96365; 77386; J0878; J7030; J7050; A4216; J3490 ==

== ENCOUNTER → 2022-05-18 | Outpatient (CLI) | payer OTHER, SELFPAY | END | disposition home or self-care (01) | PROVIDERS: PCP Family Medicine; Referring Provider Family Medicine Hospice and Palliative Medicine; Visit Provider Family Medicine Hospice and Palliative Medicine | DX: F11.11 Opioid abuse, in remission (principal) ==

== ENCOUNTER 2022-05-19 10:01 | Outpatient (CLI) | payer OTHER, SELFPAY ==
[2022-05-19 11:32] LABS: Hematocrit 24.2 % (40-54); Hemoglobin 7.4 g/dL (13.0-16.5); Mean Corp Hgb Conc 30.6 g/dL (32-36); Mean Corpuscular Hgb 28.1 pg (27.0-32.0); Mean Platelet Vol. 9.5 fl (6.2-12.0); Platelet Count 298 K/mm3 (150-450); RBC Distribution Width CV 17.4 % (11.6-14.6); Red Blood Count 2.63 M/mm3 (4.6-6.2); White Blood Count 4.6 K/mm3 (4.4-11.0)
[2022-05-19 11:50] LABS: AST(SGOT) 19 U/L (15-37); Alanine Aminotransfer ALT/SGPT 28 U/L (16-61); Albumin, Serum 2.6 g/dL (3.2-5.0); Alkaline Phosphatase 94 U/L (45-117); Anion Gap 4 (5-15); BUN 31 mg/dL (7-18); BUN/Creat Ratio 42.6 RATIO (10-20); CPK Total, Creatine Kinase 46 U/L (39-308); Calcium,Total 8.4 mg/dL (8.5-10.1); Chloride 104 mmol/L (98-107); Creatinine, Serum 0.73 mg/dL (0.70-1.30); EST Glomerular Filtration Rate 120 mL/min (>60); Est Glom Filt Rate - Afr Amer 145 mL/min (>60); Glucose 117 mg/dL (74-106); Potassium 4.2 mmol/L (3.5-5.1); Protein, Total 5.6 g/dL (6.4-8.2); Sodium Level 140 mmol/L (136-145)
== END 2022-05-19 23:59 | disposition home or self-care (01) ==
LOC: MEDOUTP 10:01
PROVIDERS: PCP Family Medicine; Referring Provider Internal Medicine Infectious Disease; Visit Provider Internal Medicine Infectious Disease
DX: Z51.0 Encounter for antineoplastic radiation therapy (principal); C10.8 Malignant neoplasm of overlapping sites of oropharynx; R78.81 Bacteremia; B95.62 Methicillin resistant Staphylococcus aureus infection as the cause of diseases classified elsewhere
CPT/HCPCS: 96365; 77014; 77290; 77386; 80048; 80076; 82550; 85027; 96366; J0878; J1756; J7040; J7050; Q9967; A4216; J3490

== ENCOUNTER 2022-05-20 10:47 | Outpatient (CLI) | payer OTHER, SELFPAY | END 2022-05-20 23:59 | disposition home or self-care (01) | LOC: MEDOUTP 10:47 | PROVIDERS: PCP Family Medicine; Referring Provider Internal Medicine Infectious Disease; Visit Provider Internal Medicine Infectious Disease | DX: R78.81 Bacteremia (principal); C10.8 Malignant neoplasm of overlapping sites of oropharynx; B95.62 Methicillin resistant Staphylococcus aureus infection as the cause of diseases classified elsewhere | CPT/HCPCS: 96365; 77336; 77386; J0878; J7040; A4216; J3490 ==

== ENCOUNTER 2022-05-21 10:51 | Outpatient (CLI) | payer OTHER, SELFPAY ==
[2022-05-21] MEDS: 0.9% Saline Lock 10 ML Syringe IV ×2 (11:26→12:21)
== END 2022-05-21 12:18 | disposition home or self-care (01) ==
LOC: MEDOUTP 10:51 → PCU 10:53
PROVIDERS: PCP Family Medicine; Referring Provider Internal Medicine Infectious Disease; Visit Provider Internal Medicine Infectious Disease
DX: R78.81 Bacteremia (principal); B95.62 Methicillin resistant Staphylococcus aureus infection as the cause of diseases classified elsewhere
CPT/HCPCS: 96365; J0878; A4216; J3490

== ENCOUNTER → 2022-05-23 | Outpatient (CLI) | payer OTHER, SELFPAY | END | disposition home or self-care (01) | LOC: MEDOUTP 08:12 | PROVIDERS: PCP Family Medicine; Referring Provider Internal Medicine Infectious Disease; Visit Provider Internal Medicine Infectious Disease | DX: R78.81 Bacteremia (principal); B95.62 Methicillin resistant Staphylococcus aureus infection as the cause of diseases classified elsewhere | CPT/HCPCS: 96365; 96367; J0878; J3490 ==

== ENCOUNTER → 2022-05-24 | Outpatient (CLI) | payer OTHER, SELFPAY | END | disposition home or self-care (01) | LOC: MEDOUTP 11:39 | PROVIDERS: PCP Family Medicine; Referring Provider Internal Medicine Infectious Disease; Visit Provider Internal Medicine Infectious Disease | DX: R78.81 Bacteremia (principal); B95.62 Methicillin resistant Staphylococcus aureus infection as the cause of diseases classified elsewhere | CPT/HCPCS: 96365; J0878; J3490 ==

== ENCOUNTER 2022-05-25 11:48 | Outpatient (CLI) | payer OTHER, SELFPAY ==
[2022-05-25 12:08] VITALS: BP 117/60; PULSE 71; RESP 16; TEMP 36.6; O2SAT 97; BMI 20.7
== END 2022-05-25 23:59 | disposition home or self-care (01) ==
LOC: MEDOUTP 11:48
PROVIDERS: PCP Family Medicine; Referring Provider Internal Medicine Infectious Disease; Visit Provider Internal Medicine Infectious Disease
DX: R78.81 Bacteremia (principal); C10.8 Malignant neoplasm of overlapping sites of oropharynx; B95.62 Methicillin resistant Staphylococcus aureus infection as the cause of diseases classified elsewhere
CPT/HCPCS: 96365; J0878; J7050; J3490

== ENCOUNTER 2022-05-26 11:40 | Outpatient (CLI) | payer OTHER, SELFPAY ==
[2022-05-26 12:13] VITALS: BP 126/72; PULSE 80; RESP 16; TEMP 36.8; O2SAT 97; BMI 20.7
[2022-05-26 12:39] LABS: Hematocrit 24.9 % (40-54); Hemoglobin 7.8 g/dL (13.0-16.5); Mean Corp Hgb Conc 31.3 g/dL (32-36); Mean Corpuscular Hgb 28.3 pg (27.0-32.0); Mean Corpuscular Volume 90.2 fL (80-94); Mean Platelet Vol. 9.8 fl (6.2-12.0); Platelet Count 317 K/mm3 (150-450); RBC Distribution Width CV 17.7 % (11.6-14.6); RBC Distribution Width SD 57.7 fl (35.1-43.9); Red Blood Count 2.76 M/mm3 (4.6-6.2); White Blood Count 4.1 K/mm3 (4.4-11.0)
[2022-05-26 12:58] LABS: AST(SGOT) 23 U/L (15-37); Alanine Aminotransfer ALT/SGPT 34 U/L (16-61); Albumin, Serum 2.7 g/dL (3.2-5.0); Alkaline Phosphatase 81 U/L (45-117); Anion Gap 8 (5-15); BUN 24 mg/dL (7-18); BUN/Creat Ratio 40.5 RATIO (10-20); CPK Total, Creatine Kinase 100 U/L (39-308); Chloride 102 mmol/L (98-107); Creatinine, Serum 0.59 mg/dL (0.70-1.30); EST Glomerular Filtration Rate 152 mL/min (>60); Est Glom Filt Rate - Afr Amer 184 mL/min (>60); Estimated Creatinine Clearance 112.41 ml/min; Globulin 3.2 g/dL (2.2-4.2); Glucose 94 mg/dL (74-106); Protein, Total 5.9 g/dL (6.4-8.2); Sodium Level 136 mmol/L (136-145)
== END 2022-05-26 23:59 | disposition home or self-care (01) ==
LOC: MEDOUTP 11:40
PROVIDERS: PCP Family Medicine; Referring Provider Internal Medicine Infectious Disease; Visit Provider Internal Medicine Infectious Disease
DX: R78.81 Bacteremia (principal); C10.8 Malignant neoplasm of overlapping sites of oropharynx; B95.62 Methicillin resistant Staphylococcus aureus infection as the cause of diseases classified elsewhere
CPT/HCPCS: 96365; 36592; 80048; 80076; 82550; 85027; J0878; J3490

== ENCOUNTER → 2022-05-27 | Outpatient (CLI) | payer OTHER, SELFPAY ==
[2022-05-27 11:44] VITALS: BP 131/72; PULSE 75; RESP 16; O2SAT 100; BMI 20.7
== END | disposition home or self-care (01) ==
LOC: MEDOUTP 11:29
PROVIDERS: PCP Family Medicine; Referring Provider Internal Medicine Infectious Disease; Visit Provider Internal Medicine Infectious Disease
DX: R78.81 Bacteremia (principal); B95.62 Methicillin resistant Staphylococcus aureus infection as the cause of diseases classified elsewhere
CPT/HCPCS: 96365; J0878; J3490

== ENCOUNTER 2022-05-29 02:56 | Emergency (ER) | payer OTHER, SELFPAY ==
[2022-05-29 02:58] VITALS: BP 121/72; PULSE 64; RESP 16; TEMP 37.3; O2SAT 96; BMI 20.5
--- NOTE | 2022-05-29 03:03 | ED.RN ---
7.5mm 10.8mm cuffless tracheostomy kit at bedside. Pt brought it with him.
--- NOTE | 2022-05-29 04:08 | EX.ED.DYSGE1 ---
HPI History of Present Illness Chief Complaint: Other, Pain/Inj Narrative Narrative: Patient is a 51-year-old male with past medical history of esophageal cancer requiring chemotherapy and radiation. He states secondary to the size of the cancer in his treatment he needed a tracheostomy placed for airway protection. Patient states he has been doing this for approximately 6 weeks and has just 1 more week of treatment. He reports that he has been feeling better each week. He states that this evening he fell asleep and he must of coughed or accidentally hit his trach while he was rolling over and dislodged the tube. He states he tried to replace it but was unable to do so at home. He states that this occurred roughly 1 hour prior to arrival. He states that as he cannot get the trach back in place he presents for evaluation but otherwise has no complaints. [facility] Medical History Amphetamine use Anemia Anxiety Cancer of overlapping sites of oropharynx Chronic pain CRBSI (catheter-related bloodstream infection) Ecstasy use disorder, mild, abuse History of ETOH abuse Iron deficiency anemia due to chronic blood loss Metastatic squamous cell carcinoma Opiate addiction Polysubstance overdose Regional lymph node metastasis present Severe malnutrition Smoker Substance abuse Tracheostomy in place Home Medications lorazepam 0.5 mg tablet 0.5 mg PO BID PRN pre procedure anxiety #3 tabs 04/06/22 [Rx Last Taken Unknown] MAGIC MOUTH WASH (BMX) 180 mL suspension 15 ml PO .qid PRN pain #180 mL 04/14/22 [Rx Last Taken Unknown] ondansetron 8 mg disintegrating tablet 8 mg PO Q8H PRN Nausea And Vomiting 14 days #42 tabs 04/18/22 [Rx Last Taken Unknown] famotidine 20 mg tablet (Pepcid) 20 mg PO DAILY gi 04/27/22 [History Last Taken Unknown] morphine 15 mg tablet,extended release 15 mg PO Q8H pain 05/02/22 [History Last Taken Unknown] daptomycin 500 mg intravenous solution 350 mg IV Q24H 26 days #26 ea 05/05/22 [Rx Last Taken Unknown] escitalopram oxalate 10 mg tablet 10 mg PO DAILY #30 tabs 05/05/22 [Rx Last Taken Unknown] nut.tx.comp. immune systm,reg 0.09 gram-1.5 kcal/mL liquid for tube feed (Pivot 1.5 Sean) 240 ml G-tube 5X/DAY #237 mL 05/05/22 [Rx Last Taken Unknown] Allergy/AdvReac Type Severity Reaction Status Date / Time aspirin AdvReac Upset Verified 05/29/22 03:00 Stomach tramadol AdvReac Upset Verified 05/29/22 03:00 Stomach Family History Grandfather Cancer Grandfather Cancer Grandmother Hypertension Father Thyroid cancer Lung cancer Mother Hypertension Surgical History H/O inguinal hernia repair H/O Spinal surgery H/O tooth extraction History of bronchoscopy History of fusion of lumbar spine S/P appendectomy S/P cataract extraction S/P percutaneous endoscopic gastrostomy (PEG) tube placement Social History household members: other details: mother and sister housing: house current occupational status: disabled Smoking Status: Former smoker Tobacco: How many years used: 20 alcohol intake: former details: Sober x ~ 10 years, prior heavy. substance use type: amphetamines, opiates, IV drugs and methamphetamine what type of physical activity do you participate in: none do you feel safe at home: Yes ROS ROS ED Constitutional Constitutional ED: Denies chills or fever(s) ENT ENT ED: Reports sore throat Cardiovascular Cardiovascular: Denies chest pain Respiratory/Chest Respiratory/Chest: Denies cough or dyspnea Gastrointestinal Gastrointestinal: Denies abdominal pain, diarrhea, nausea or vomiting Genitourinary Genitourinary ED: Denies dysuria Musculoskeletal Musculoskeletal: Reports neck pain; Denies myalgias Integumentary Reports rash Neurologic Neurologic: Denies headache(s) Psychiatric Psychiatric: Reports anxiety Hematologic/Lymphatic Hematologic/Lymphatic: Denies easy bleeding or easy bruising EXAM Physical Exam Const Vital Signs: 05/29/22 02:58 05/29/22 03:01 Temperature 99.2 F H Temperature Source Temporal Pulse Rate 64 Respiratory Rate 16 Respiratory Effort Normal Respiratory Pattern Normal Blood Pressure 121/72 H Blood Pressure Mean 88 Pulse Ox 96 Positive well nourished and well developed General Appearance ED: well developed HEENT Reports moist mucous membranes HEENT Narrative: No tongue or lip swelling no oral lesions no airway edema or compromise. Eyes PERRL and EOMs intact bilaterally Neck supple Neck Narrative: There is a stoma opening in the anterior lower neck consistent with tracheostomy. There is no surrounding erythema or warmth to suggest infection. Patient does have thickening of the surrounding neck tissue/skin consistent with his radiation and chemo exposure. No crepitance noted. Resp normal respiratory effort and clear to auscultation bilaterally Cardio regular rate and regular rhythm Extremity normal to inspection Neuro oriented x3 and CN's II-XII intact bilaterally Sensorium / Orientation: alert Psych mental status grossly normal Skin Skin Narrative: Post chemo/radiation changes to the neck as documented above MDM MDM MDM Narrative Medical decision making narrative: Patient presented to the ER in no acute respiratory distress satting 96 to 100% on room air. His tracheostomy tube is only been out for roughly 1-[address] I attempted to place his replacement tracheostomy tube in his stoma but there is already been stricturing of the site and it will not fit. Secondary to this respiratory therapy was notified. Respiratory therapy tried with 2 smaller cannulas but the stricturing was too tight for these to fit as well. The patient does not have any airway compromise and therefore there is no need to emergently transfer for tracheostomy placement. At this time patient has a patent airway he is in no respiratory distress his oxygen level is normal between 96 and 100% on room air. The tracheostomy site will be covered and patient will follow up with his ENT to discuss need for possible surgical replacement of the tube Discharge Plan Triage Chief Complaint: Other, Pain/Inj ED Provider: Derek Hatch Dx/Rx/DC Orders Clinical Impression: Complication of tracheostomy tube, Cancer of overlapping sites of oropharynx Instructions: Tracheostomy Stoma Care, ED Tracheostomy Care Prescriptions: No Action famotidine [Pepcid] 20 mg tablet 20 mg PO DAILY ondansetron 8 mg Tablet,Disintegrating 8 mg PO Q8H PRN (Reason: Nausea And Vomiting) 14 Days Qty: 42 3RF morphine 15 mg Tablet Extended Release 15 mg PO Q8H daptomycin 500 mg Recon Soln 350 mg IV Q24H 26 Days Qty: 26 0RF Rx Instructions: dx: MRSA bacteremia weekly bmp, cbc, LFT, and CK. Fax to [phone] stop date 05/30/22 escitalopram oxalate 10 mg Tablet 10 mg PO DAILY Qty: 30 2RF Pivot 1.5 Sean 0.09 gram- 1.5 kcal/mL Liquid 240 ml G-tube 5X/DAY Qty: 237 2RF lorazepam 0.5 mg tablet 0.5 mg PO BID PRN (Reason: pre procedure anxiety) Qty: 3 0RF Rx Instructions: take 1-2 tabs prior to procedure MAGIC MOUTH WASH (BMX) 180 mL suspension 15 ml PO .qid PRN (Reason: pain) Qty: 180 6RF Rx Instructions: diphenhydramine 12.5 mg/5 mL oral liquid 60 mL; aluminum-mag hydroxide-simethicone 400 mg-400 mg-40 mg/5 mL oral susp 60 mL; Lidocaine Viscous 2 % mucosal solution 60 mL; Per 180 mL Primary Care Provider: Robert Fritz Referrals: Robert Fritz MD [Primary Care Provider] - Activity Restrictions/Additional Instructions: Please contact your specialist and let them know that your tube has been dislodged and is not able to be replaced. If you develop difficulty breathing or have any further concerns please return to the ER for repeat evaluation Disposition Disposition: Home, Self Care
[2022-05-29 04:38] VITALS: BP 112/73; PULSE 75; RESP 15
== END 2022-05-29 04:39 | disposition home or self-care (01) ==
PROVIDERS: Emergency Provider Emergency Medicine; PCP Family Medicine; Visit Provider Emergency Medicine
DX: Z43.0 Encounter for attention to tracheostomy (principal); F16.10 Hallucinogen abuse, uncomplicated; F11.10 Opioid abuse, uncomplicated; F10.21 Alcohol dependence, in remission; Z87.891 Personal history of nicotine dependence; F41.9 Anxiety disorder, unspecified; G89.4 Chronic pain syndrome; Z79.899 Other long term (current) drug therapy
CPT/HCPCS: 99282

== ENCOUNTER 2022-05-29 11:37 | Outpatient (CLI) | payer OTHER, SELFPAY ==
[2022-05-29] MEDS: 0.9% Saline Lock 10 ML Syringe IV ×2 (11:45→12:52)
== END 2022-05-29 12:56 | disposition home or self-care (01) ==
LOC: MEDOUTP 11:39 → MS3 11:41
PROVIDERS: PCP Family Medicine; Referring Provider Internal Medicine Infectious Disease; Visit Provider Internal Medicine Infectious Disease
DX: R78.81 Bacteremia (principal); B95.62 Methicillin resistant Staphylococcus aureus infection as the cause of diseases classified elsewhere
CPT/HCPCS: 96365; J0878; J7050; A4216; J3490

== ENCOUNTER 2022-09-02 11:30 | Outpatient (RCR) | payer OTHER, SELFPAY ==
--- NOTE | 2022-04-22 15:04 | HP.SP.EVAL ---
History - History Date of Eval: 04/22/22 Medical Diagnosis (from RX): Cancer of overlapping sites of oropharynx (C10.8) Date of Onset of Diagnosis: 02/07/2022 Previous speech therapy: Yes Results: MBS study 04/08/2022 revealed normal oral phase, delayed pharyngeal phase, adequate epiglottic inversion and laryngeal elevation, trace in-and-out laryngeal penetration of thin barium, no aspiration or nasopharyngeal reflux, no significant pharyngeal residues. 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 (03/16/2022), DL with triple endoscopy, tracheostomy, dental extractions, PEG tube placement (03/22/2022), and PET scan (04/01/2022). He is currently receiving chemoradiation treatment, which began 04/18/2022. Radiation treatment is being provided to the oropharynx/nasopharynx and bilateral neck. Smoking Status: Current every day smoker Hx Smoking: Yes - 1/2 ppd x 20 yrs Hx Smoking Cessation Date: 04/06/22 Hx Tobacco Use: Yes - Pain Is pain an issue with your current prescribed condition?: Yes - Personal Preferred language: Indonesian Patient Allergies - Allergies Allergies aspirin Adverse Reaction (Verified 04/22/22 14:43) Upset Stomach tramadol Adverse Reaction (Verified 04/22/22 14:43) Upset Stomach Subjective Dysphagia - Symptoms Reported Symptoms/Problems with: Weight Loss Other: Decreased taste - Current Diet Solids Current Diet: Soft - Current Diet Liquids Current Liquids: Thin - NPO NPO - Alternative Nutrition Method: Gastrostomy Tube - Pt has not yet required PEG tube. Objective Dysphagia - Administered by Administered by: Self - Thin Liquids Administred via: Cup Oral Transit: Delay > 1 seconds Bolus clearance: fully cleared Pharyngeal phase: immediate laryngeal elevation Comments: No overt s/s of aspiration. Limited trials observed as the patient required emergent visit to ER for light-headedness and hypotension. - Swallowing Impairment Contributing Factors to Swallowing Impairment: Mastication Inefficiency, Delayed Swallow Initiation - Impact Impact on Safety & Functioning: Risk for Aspiration, Risk for Inadequate Nutrition/Hydration - Diet Texture Recommendations Solids: Soft & Bite sized (Level 6, Chopped) Liquids: Thin (Level 0) - Safety Saftey Precautions/Swallowing Recommendations (Check all that Apply): Small Sips & Bites when Eating, Alternate Liquids & Solids Other: sitting upright for oral intake - Results Swallowing Within Normal Limits: Yes Swallowing Diagnosis: Oropharyngeal Phase Dysphagia (R13.12) Severity: Mild Objective Oral Motor - Oral Status Dentition: Missing Teeth Additional: pulled for treatment - Labial Impairment: WNL - Lingual Impairment: WNL - Oral Motor Comments Comments: Tumor visible extending from the pharynx to the nasopharynx along the L side of the oropharynx. - Respiratory Status Respiratory Status: Room Air, Trach, Passy Terence Speaking Valve Oxygen Level: 96% Comments: Pt became light headed 2X after oral mech examination. RETURNED ITEM CLERK assessed SpO2 and patient oxygenating 96%. RETURNED ITEM CLERK left the room to locate a physician to assess the patient; however, when the RETURNED ITEM CLERK returned two nurses were attending to the patient. Per pt's sister, Viviana, the patient had become light headed two more times with his eyes rolling backwards. Pt's was hypotensive and taken to the ED. 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 - V Trigeminal Nerve V Trigeminal Nerve Response: Impaired Comment:: decreased contraction of jaw musculature upon clenching jaw - VII Facial Nerve VII Facial Nerve Result: Intact - X Vagus Nerve X Vagus Nerve Result: Intact Comment:: Hyper-reflexive gag - XII Hypoglossal Nerve XII Hypoglossal Nerve Result: Intact Swallowing Performance Scale - Swallowing Performance Scale Swallowing Performance Scale Result: 4 Mild to Moderate Plan - Plan Plan: Will recommend the patient for skilled outpatient dysphagia therapy to address oropharyngeal dysphagia related to oropharyngeal cancer and to provide the patient further education re: prophylactic oropharyngeal exercise program, diet texture recommendations, aspiration precautions, and compensatory strategies to decrease risk for aspiration. Additionally, will provide ongoing assessment of diet tolerance during and post radiation treatment. Without skilled ST services, the patient is at increased risk for aspiration, weight loss, and malnutrition. - Recommendations MBS: Yes Treatment Warranted: Yes Treatment Warranted: Dysphagia Comment: Repeat MBS study 3 months after completion of radiation therapy. - Progress Prognosis: Good - Frequency Frequency: 1x/Week Duration: 12 Months - Goal #1-5 Goal #1: The patient will consume least restrictive diet textures without overt s/s of aspiration with minimal verbal cues for use of compensatory strategies to decrease risk for aspiration. Goal #2: The patient will complete an oropharyngeal exercise program during and post radiation treatment independently to improve and maintain strength, ROM, and coordination of swallowing mechanism (X10 repetitions, 3-5X daily). Goal #3: The patient will participate in ongoing education re: short-term and long-term effects of chemoradiation treatment on swallow function and management of symptoms that contribute to dysphagia. Goal #4: The patient will participate in MBS study to objectively assess swallow function and provide recommendations for safest, least restrictive diet and compensatory strategies to reduce risk for aspiration. Education - Patient Instruction Patient Education: Treatment Plan, Diet Level Other Education: Education provided regarding the potential impacts of radiation treatment on swallow function during and post treatment, including effects such as mucositis, dysgeusia, radiation fibrosis, lymphedema, and disuse atrophy which may result in restricted range of motion and weakness of swallowing mechanism. Discussed impaired swallowing and increased risk for aspiration, aspiration related illnesses, weight loss, and malnutrition. Discussed importance for speech therapy to monitor and address dysphagia during and post radiation treatment to maintain optimal swallow function through continued education and prophylactic exercise program. Person Taught: Patient, Family Teaching Method: Discussion Response to teaching: Verbalize understanding
--- NOTE | 2023-02-10 11:42 | HP.SP.DC ---
ST Discharge Summary - Discharged: Discharge: Patient was evaluated by speech therapy 03/2022 and POC initiated to address dysphagia secondary to cancer of overlapping sites of oropharynx. He underwent chemoradiation from 03/2022-04/2022 and was followed by speech therapy during and intermittently following treatment to managed oropharyngeal dysphagia. Patient has unfortunately and will be discharged from speech therapy.
== END 2022-09-02 19:00 | disposition home or self-care (01) ==
LOC: SP 11:30
PROVIDERS: PCP Family Medicine; Referring Provider Student in an Organized Health Care Education/Training Program; Visit Provider Student in an Organized Health Care Education/Training Program
DX: C10.8 Malignant neoplasm of overlapping sites of oropharynx (principal)
CPT/HCPCS: 92526; 92610

== ENCOUNTER → 2022-09-08 | Outpatient (CLI) | payer OTHER, SELFPAY ==
--- NOTE | 2022-09-08 10:05 | SP.MBSS_ITS ---
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 He is s/p chemoradiation/radiation? treatment. The patient has a hole in his left soft palate. PMHx: Amphetamine use Anemia Anxiety Cancer of overlapping sites of oropharynx Chronic pain CRBSI (catheter-related bloodstream infection) Ecstasy use disorder, mild, abuse History of ETOH abuse Iron deficiency anemia due to chronic blood loss Metastatic squamous cell carcinoma Opiate addiction Polysubstance overdose Regional lymph node metastasis present Severe malnutrition Smoker Substance abuse Tracheostomy in place Current Diet Ordered: Puree/thin w/ use of PEG Dentition: Edentulous Mental Status: WNL Respiratory Status: Oxygenating on Room Air - Penetration-Aspiration Scale Penetration-Aspiration Scale: OBJECTIVE ASSESSMENT OF SWALLOW FUNCTION (QUANTITATIVE ? PER TRIAL): PENETRATION / ASPIRATION SCALE (MIKE): 1 = does not enter airway 2 = enters airway/above vocal folds/ejected 3 = enters airway/above vocal folds/not ejected 4 = enters airway/contacts vocal folds/ejected 5 = enters airway/contacts vocal folds/not ejected 6 = enters airway/below vocal folds/ejected 7 = enters airway/below vocal folds/not ejected despite effort 8 = enters airway/below vocal folds/no effort VIDEOFLOROSCOPIC SCALE SCORE (MIKE): Grade I = aspiration of material that has penetrated into the laryngeal vestibule, intact cough reflex Grade II = aspiration < 10 % of the bolus, intact cough reflex Grade III = aspiration of < 10 % of the bolus, reduced cough reflex or aspiration of > 10 % of the bolus, intact cough reflex Grade IV = aspiration of > 10 % of the bolus, reduced cough reflex - Penetration-Aspiration Scale Score Thin Liquid via teaspoon Result: 4= enters airway/contacts vocal folds/ejected Thin Liquid via small single sip from cup Result: 7= enters airways/below vocal folds/not ejected despite effort Comment: very weak throat clearing response to aspiration [place] Thick Liquid via small single sip from cup Result: 5= enters airways/contacts vocal folds/not ejected [place] Thick Liquid via small single sip from cup Result: 3= enters airways/above vocal folds/not ejected Pudding via teaspoon Result: 3= enters airways/above vocal folds/not ejected Thin Liquid via small single sip from cup Trial 2 Result: 2= enter airway/above vocal folds/ejected Thin Liquid via sequential sips from cup Result: 8= enters airway/below vocal folds/no effort Thin Liquid via small single sip from cup Effortful swallow Result: 8= enters airway/below vocal folds/no effort Thin Liquid via single sip from straw Result: 2= enter airway/above vocal folds/ejected [place] Thick Liquid via small single sip from cup Trial 2 Result: 3= enters airways/above vocal folds/not ejected - Oral Phase Labial Seal: No Labial Escape Tongue Control During Bolus Hold: Cohesive bolus between tongue to palatal seal Bolus Transport/Lingual Motion: Delayed initiation of tongue motion Oral Residue: Residue collection on oral structures - Pharyngeal Phase Initiation of Pharyngeal Swallow: Bolus head in pyriforms Soft Palate Elevation: Escape to nasal cavity Laryngeal Elevation: Min superior movement thyroid cart/min apprx aryte cart- epig petiole Anterior Hyoid Excursion: Partial anterior movement Epiglottic Movement: Partial inversion Laryngeal Vestibule Closure at Height of Swallow: Incomplete; narrow column of air/contrast in laryngeal vestibule Pharyngeal Stripping Wave: Present - diminished Pharyngoesophageal Segment Opening: Parital distension and partial duration; parital obstruction of flow Tongue Base Retraction: Wide column of contrast between tongue base & post. pharyngeal wall Pharyngeal Residue: Collection of residue within or on pharyngeal structures - Esophageal Phase Esophageal Clearance: Esophageal retention - Diagnosis/Impression Diagnosis: moderate oropharyngeal dysphagia Impression: The oral phase is characterized by: * oral residue post deglutition * swallow onset delay resulting in?premature bolus loss w/ liquids The pharyngeal phase is characterized by: * delayed pharyngeal swallow onset timing?resulting in?suboptimal bolus location upon swallow onset (thin liquid in pyriforms) contributing to?prandial?penetration of thin liquid * minimal to no superior movement of the hyoid resulting in incomplete epiglottic inversion * reduced thyrohyoid excursion resulting in reduced PES distention/duration * poor pharyngeal motility?attributed to?reduced tongue based retraction and absent superior portion of the pharyngeal stripping wave resulting in pharyngeal residue retention * reduced PES distention resulted in residue accumulation in the pyriform sinuses, contrast noted to penetrate the laryngeal vestibule posteriorly resulting in aspiration w/ thin liquids and post-prandial penetration w/ all other consistencies * significant vallecular, tongue base and superior pharyngeal wall residue, noted to increase in amount retrained as viscosity increased * nasal cavity penetration noted d/t hole in soft palate, contrast did not eject from the nostrils * penetration during the swallow was noted to be inconsistent, although post- prandial penetration/aspiration was fairly consistent across trials * appeared to tolerate thin liquid w/ less penetration when consuming small sips and w/ intake via straw * penetration/aspiration was lessened/eliminated w/ increased liquid viscosity (mildly thick) * patient benefitted from multiple swallows to aid in clearance of retained pharyngeal residue The esophageal phase is characterized by: * slowed lower 1/2 esophageal transit w/ eventual clearance Diet Recommended: * PEG as primary source of nutrition/hydration * Pureed Texture (IDDSI: 4) and Thin Liquid (IDDSI: 0) for comfort/pleasure and to maintain swallow function * thin liquids to be consumed in accordance w/ the [place] Free Water Protocol w/ consideration for thickening liquids to a mildly thick consistency if going to consume liquids other than water Compensatory Strategies Recommended: * Small bites * Small sips * Alternate bites of solids w/ sips of liquids * Encourage straw use * Multiple swallows per bolus * Sit upright w/ hip flexion at 90 degrees during PO intake? * Remain seated upright for 30-60 minutes after PO intake (GERD precautions) Patient requires intensive skilled speech-language intervention targeting:? * continued diet texture management * training and implementation of recommended compensatory strategies - Status Active ST Patient: Active - Contact Information [facility] Speech Therapy:: Jacquie Bauer M.A., CCC-CHURN TENDER [address] [place] [address] [phone] [email or web address]
== END | disposition home or self-care (01) ==
LOC: RAD 09:04
PROVIDERS: PCP Family Medicine; Visit Provider Student in an Organized Health Care Education/Training Program
DX: C10.8 Malignant neoplasm of overlapping sites of oropharynx (principal)
CPT/HCPCS: 74230; 92611

== ENCOUNTER 2022-09-15 09:05 | Outpatient (CLI) | payer OTHER, SELFPAY ==
[2022-09-09 08:22] LABS: Platelet Count 492 K/mm3 (150-450)
[2022-09-09 08:35] LABS: International Normalized Ratio 1.1; Prothrombin Time (Protime)PT. 13.9 SECONDS (11.7-14.9)
[2022-09-09 08:36] LABS: Partial Thromboplast Time 33.4 Seconds (24.1-36.2)
[2022-09-15] VITALS (12 sets, daily range): BP systolic 119–137; BP diastolic 71–92; PULSE 66–986; RESP 12–27; TEMP 36.6; O2SAT 92–100; BMI 20.5
--- NOTE | 2022-09-15 | ASPIGT_PTH ---
PATIENT: EMIL WOODSNO LOC: CT U#:[id number] AGE/SX: 52/M ROOM: RE09/15/[address]: Dr. Lucien Lombardi DO : 1970 BED: DIS: 09/15/2022 SPEC #: [id number] RECD: 09/15/22 10:30 STATUS: CALLIE JAVED #: [id number] KAITLYNN: 09/15/22 00:[address]: Lucien Lombardi DEPT: SURGICAL PATHOLOGY RECD BY: Ann Kincaid ENTERED: 09/15/22 12:38 SP TYPE: ASP RAD OT DR: Dr. Robert Fritz MD Tissues: Lung, NOS Procedures: FNA Specimen Adequacy Special Stain Group II Surgery Specimen Level IV Imprint (control) HEADER OPERATION: Right upper lobe lung biopsy PRE-OP DIAGNOSIS: Right upper lobe lung lesion TISSUE SUBMITTED: Right upper lobe lung lesion 20-gauge x5 MICROSCOPIC DIAGNOSIS Right upper lung lesion, CT-guided core biopsy: Lung parenchymal tissue, negative for malignancy. See comment. YAMILKA:brenton 09/16/2022 COMMENT The specimen is evaluated at the time of biopsy by Dr. Brito. Immediate Evaluation = Mild atypical cells noted. Correlation with clinical, radiologic findings and appropriate follow up are necessary. Please make reference to previous specimen ([id number]) fine needle aspiration, left neck mass with diagnosis of ?positive for malignant cells consistent with metastatic squamous cell carcinoma.? MICROSCOPIC DESCRIPTION Slides are reviewed. GROSS DESCRIPTION Received in fixative is one container labeled with the patient's name and designated right upper lobe lung. The specimen consists of multiple irregular fragments of gonzales soft tissue that in aggregate measure 1 x 0.1 x <0.1 cm. The specimen is totally submitted in one cassette. Three touch imprints are prepared at the time of core biopsy. / YAMILKA:brenton 09/15/2022 TC:5 CPT: 96664, 87476
--- NOTE | 2022-09-15 09:31 | CT_ITS ---
PROCEDURE: CT GUIDED CORE NEEDLE BIOPSY OF A right upper lobe LUNG LESION INDICATION: Male, 52 years old. Abnormal findings on PET scan -- lung lesions to rule out metastasis PHYSICIAN: Dr. DREW Lincoln CONSENT: Written informed consent was obtained having explained the risks, benefits and alternatives in detail with the patient who accepted the risks and agreed to proceed. Laboratory review and clinical assessment was performed. CONSCIOUS SEDATION PROTOCOL: The Drugs used were: 2 mg Versed, IV., and 50 mcg Fentanyl, IV. The sedation time was: 20 minutes. Conscious sedation was started at 10:14 AM and terminated at 10:34 AM. The conscious sedation protocol was independently monitored. RADIATION DOSAGE (If Supplied By Facility): CTDIvol = ( 15 ) mGy, DLP = ( 205.61 ) mGycm Individualized dose optimization techniques were used for this CT. TECHNIQUE: The patient was placed in the supine position. A noncontrast CT was performed to localize the lesion in the medial aspect of the right upper lobe . The skin surface was prepped and draped in a sterile fashion. 1% lidocaine was used for local anesthesia. Using CT guidance, a 20-gauge coaxial biopsy device was advanced to the periphery of the lesion. A total of 5 core specimens were obtained. The specimens were placed in a formalin solution. A post procedure CT demonstrated no adverse sequelae or pneumothorax. The patient tolerated the procedure well without adverse event. A negative biopsy does not exclude malignancy. Further imaging or clinical followup based on patient condition and degree of clinical suspicion for malignancy. Suggest rebiopsy, if biopsy results do not match with clinical scenario. CT/Biopsy/Inj or Needle Placement IMPRESSION: 1. CT directed core needle biopsy of the right upper lobe lung nodule using CT image guidance with image documentation as described. Pathology results are pending. 2. Conscious Sedation protocol utilized with independent monitoring. Electronically Signed: Anthony Adams MD at 10:56 EST ,
[2022-09-15] MEDS: Midazolam 2 MG/2 ML Syringe IV ×2 (10:14→10:20)
[2022-09-15] MEDS: Lidocaine 1% (20 ml mdv) 20 ML Vial INFILT (10:15)
[2022-09-15] MEDS: fentaNYL 100 MCG/2 ML Ampul IV (10:15)
--- NOTE | 2022-09-15 10:30 | RAD_ITS ---
STUDY: X-RAY CHEST REASON FOR EXAM: Male, 52 years old. 1030 -- Immediately post lung biopsy TECHNIQUE: AP inspiration and expiration views. COMPARISON: Comparison is made with prior study 05/02/2022. FINDINGS: Possible tiny right apical pneumothorax. The patient is asymptomatic. RAD/Chest Insp/Exp 2 View IMPRESSION: Findings suggest a very tiny right apical pneumothorax. The patient is asymptomatic. Electronically Signed: Anthony Adams MD at 11:30 EST ,
[2022-09-15] MEDS: 0.9% Saline Lock 10 ML Syringe IV (10:50)
--- NOTE | 2022-09-15 12:30 | RAD_ITS ---
STUDY: X-RAY CHEST REASON FOR EXAM: Male, 52 years old. Post lung bx -- 2 hours post lung biopsy TECHNIQUE: AP inspiration and expiration views. COMPARISON: Comparison is made with prior examination done earlier in the day. FINDINGS: The patient is status post right lung biopsy. Minimal right apical pneumothorax. The patient is asymptomatic. RAD/Chest Insp/Exp 2 View IMPRESSION: Slight decrease in size of the tiny right apical pneumothorax. Electronically Signed: Anthony Adams MD at 9:46 EST ,
== END 2022-09-15 23:59 | disposition home or self-care (01) ==
PROVIDERS: PCP Family Medicine; Referring Provider Student in an Organized Health Care Education/Training Program; Visit Provider Student in an Organized Health Care Education/Training Program
DX: R91.8 Other nonspecific abnormal finding of lung field (principal)
CPT/HCPCS: 32408; 36415; 71046; 77012; 85049; 85610; 85730; 88172; 88305; 88313; 99156; J7050; A4216

== ENCOUNTER → 2022-10-28 | Outpatient (CLI) | payer OTHER, SELFPAY ==
--- NOTE | 2022-10-28 15:20 | CT_ITS ---
STUDY: CT SOFT TISSUE NECK WITH CONTRAST REASON FOR EXAM: Male, 52 years old. Follow up treated oropharyngeal cancer, COMPARE TO PET. CHEMO, RADIATION AND REMOVAL OF TUMOR RADIATION DOSAGE (If Supplied By Facility): CTDIvol = ( 11.45 ) mGy, DLP = ( 551.40 ) mGycm TECHNIQUE: The patient was scanned in a multi-detector CT scanner. High resolution transaxial imaging was performed following intravenous administration of IV 75mL [id number]-[id number]. Sagittal and coronal images were reconstructed. Individualized dose optimization techniques were used for this CT. COMPARISON: Comparison is made with prior CT scans of the soft tissues of the neck dated 02/16/2022 and PET scan dated 08/31/2022. 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 Normal bilateral parapharyngeal spaces. Normal bilateral carotid spaces. Normal bilateral sublingual and submandibular glands and spaces. Persistent soft tissue mass in the posterior aspect of the nasopharynx extending inferiorly into the posterior aspect of the oropharynx. There is compromise of the airway although there has been marked improvement as compared to prior study. This is worse on the left side of the midline. Persistent adenopathy in the posterior triangle of the right and left-sided neck worse on the left side. There has been improvement. The largest lymph node in the left posterior neck measures 1.57 x 1.5 cm the largest on the right side measures 1.3 cm. Normal epiglottis, bilateral vallecula and hypopharynx. The pre-epiglottic and paraglottic adipose spaces are normal. Normal visualized bilateral piriform sinuses, aryepiglottic folds, vocal cords, and arytenoid-cricoid articulations. Normal subglottic trachea. Normal bilateral lobes of the thyroid gland. On the superior aspect of the thorax, there is evidence of a several irregular stellate appearing nodular densities in the right upper lobe. The largest is seen in the lateral aspect of the right upper lobe and measures 1.1 cm x 0.6 cm. Metastatic disease should be ruled out. Partial opacification of the maxillary sinuses as well as the ethmoid sinuses bilaterally. There is multilevel degenerative changes of the cervical spine. CT/Soft Tissue Neck WITH Contrast IMPRESSION: Since prior study, there has been improvement in the soft tissue neoplastic process involving the oropharynx and nasopharynx as described with the bilateral cervical lymphadenopathy. Findings suggestive of lung metastasis. The airway is patent at this time. Electronically Signed: Anthony Adams MD at 9:10 EST ,
--- NOTE | 2022-10-28 15:20 | CT_ITS ---
EXAM: CT CHEST WITH INTRAVENOUS CONTRAST CLINICAL INDICATION: follow up lung abnormalities on PET -- oropharyngeal cancer recently treated. CHEMO, RADIATION AND REMOVAL TUMOR TECHNIQUE: Helically acquired images were obtained of the chest with intravenous contrast. This CT exam was performed using one or more of the following dose reduction techniques: automated exposure control, adjustment of the mA and/or kV according to patient size, and/or use of iterative reconstruction technique. This report was created using [employer] report generation technology. CONTRAST: IV 75mL [id number] COMPARISON: PET/CT scan dated 08/31/2022 FINDINGS: LUNGS AND PLEURAL SPACES: There are new areas of nodularity with minimal consolidation within the right middle lobe. There are no effusions identified. There is very vague nodular opacity at the left base that measures 7 mm. No mass. No pneumothorax. HEART: Unremarkable. Heart size is normal. No pericardial effusion. No significant coronary artery calcifications. MEDIASTINUM: Unremarkable. No mediastinal or hilar adenopathy. Esophagus is unremarkable. No hiatal hernia. THYROID: Unremarkable. No thyroid lesions. BONES/JOINTS: Unremarkable. No suspicious lytic or blastic abnormality. VASCULATURE: Unremarkable. Thoracic aorta is non-dilated. No thoracic aortic dissection. No obvious central pulmonary embolism although this study was not performed with the pulmonary embolism protocol. TUBES, LINES AND DEVICES: Gastrostomy tube is in place. There are scattered areas consolidation and slightly spiculated lesions in the right upper lobe that are minimally improved and decreased in size from the reference exam. CT/Chest WITH Contrast IMPRESSION: Multiple nodular opacities seen within the right upper lobe which are minimally decreased in size from the reference exam. There are new small nodular areas with minimal consolidation in the right middle lobe on today''s examination. These were not present on the previous exam. There is also a vague nodule seen within the left lung base. These findings may represent progression of metastatic disease. Electronically Signed: Emery Arzate MD at 0:08 EST ,
== END | disposition home or self-care (01) ==
PROVIDERS: PCP Family Medicine; Visit Provider Student in an Organized Health Care Education/Training Program
DX: C10.8 Malignant neoplasm of overlapping sites of oropharynx (principal); R94.2 Abnormal results of pulmonary function studies
CPT/HCPCS: 70491; 71260; Q9967

== ENCOUNTER → 2022-11-11 | Outpatient (CLI) | payer OTHER, SELFPAY ==
[2022-11-11] VITALS (9 sets, daily range): BP systolic 124–149; BP diastolic 80–103; PULSE 53–88; RESP 8–20; TEMP 36.6; O2SAT 98–100; BMI 20.5
[2022-11-11 08:06] LABS: Absolute Neutrophil Count 8.6 X10^3/uL (2.0-7.7); Basophil# 0.04 X10^3/uL; Basophil% 0.4 % (0-1); Eosinophil# 0.19 X10^3/uL; Eosinophils% 1.8 % (0-5); Hematocrit 30.1 % (40-54); Hemoglobin 9.2 g/dL (13.0-16.5); Lymphocyte % 7.6 % (19-41); Mean Corp Hgb Conc 30.6 g/dL (32-36); Mean Corpuscular Hgb 26.3 pg (27.0-32.0); Mean Platelet Vol. 8.1 fl (6.2-12.0); Monocyte# 0.78 X10^3/uL; Monocyte% 7.4 % (0-10); NRBC Flagged by Analyzer 0 % (0-5); Neutrophil # 8.64 X10^3/uL (2.7-7.7); Neutrophil % 82.4 % (47-70); Platelet Count 464 K/mm3 (150-450); RBC Distribution Width CV 13.8 % (11.6-14.6); RBC Distribution Width SD 42.9 fl (35.1-43.9); White Blood Count 10.5 K/mm3 (4.4-11.0)
[2022-11-11 08:50] LABS: International Normalized Ratio 1.1; Prothrombin Time (Protime)PT. 13.8 SECONDS (11.7-14.9)
[2022-11-11 08:51] LABS: Partial Thromboplast Time 39.4 Seconds (24.1-36.2)
--- NOTE | 2022-11-11 08:52 | CT_ITS ---
PROCEDURE: CT GUIDED CORE NEEDLE BIOPSY OF A right upper lobe LUNG LESION INDICATION: Male, 52 years old. Lung nodules, H N cancer -- eval for metastatic disease, RUL PHYSICIAN: Dr. DREW Lincoln CONSENT: Written informed consent was obtained having explained the risks, benefits and alternatives in detail with the patient who accepted the risks and agreed to proceed. Laboratory review and clinical assessment was performed. CONSCIOUS SEDATION PROTOCOL: The Drugs used were: 2 mg Versed, IV., and 75 mcg Fentanyl, IV. The sedation time was: 21 minutes. Conscious sedation was started at 9:03 AM and terminating in 9:24 AM.. The conscious sedation protocol was independently monitored. RADIATION DOSAGE (If Supplied By Facility): CTDIvol = ( 17 ) mGy, DLP = ( 313.61 ) mGycm Individualized dose optimization techniques were used for this CT. TECHNIQUE: The patient was placed in the left down decubitus position. A noncontrast CT was performed to localize the lesion in the peripheral aspect of the right upper lobe . The skin surface was prepped and draped in a sterile fashion. 1% lidocaine was used for local anesthesia. Using CT guidance, multiple attempts were made for biopsy. The patient was unable to stay still. Patient was unable to hold his breath. Biopsy was not successful. A post procedure CT demonstrated no adverse sequelae or pneumothorax. The patient tolerated the procedure well without adverse event. A negative biopsy does not exclude malignancy. Further imaging or clinical followup based on patient condition and degree of clinical suspicion for malignancy. Suggest rebiopsy, if biopsy results do not match with clinical scenario. CT/Biopsy/Inj or Needle Placement IMPRESSION: 1. Attempted CT-guided biopsy of a right upper lobe pulmonary nodule. 2. Conscious Sedation protocol utilized with independent monitoring. Electronically Signed: Anthony Adams MD at 9:50 EST ,
[2022-11-11] MEDS: Midazolam 2 MG/2 ML Syringe IV (09:03)
[2022-11-11] MEDS: fentaNYL 100 MCG/2 ML Ampul IV ×3 (09:07→09:21)
[2022-11-11] MEDS: Lidocaine 2% (20 ml mdv) 20 ML Vial INFILT (09:15)
== END | disposition home or self-care (01) ==
PROVIDERS: PCP Family Medicine; Referring Provider Student in an Organized Health Care Education/Training Program; Visit Provider Student in an Organized Health Care Education/Training Program
DX: Z01.812 Encounter for preprocedural laboratory examination (principal); R91.8 Other nonspecific abnormal finding of lung field
CPT/HCPCS: 32408; 36415; 77012; 85025; 85610; 85730; 99156; J7050; A4216

== ENCOUNTER 2022-12-14 17:59 | Inpatient (IN) | payer OTHER, SELFPAY ==
[2022-12-14 18:00] VITALS: BP 136/90; PULSE 110; RESP 14; TEMP 37.7; O2SAT 96; BMI 17.3
[2022-12-14 19:14] LABS: Absolute Lymphocyte Count 0.38 X10^3/uL (0.83-4.51); Absolute Neutrophil Count 22.2 X10^3/uL (2.0-7.7); Basophil# 0.03 X10^3/uL; Basophil% 0.1 % (0-1); Eosinophil# 0.01 X10^3/uL; Hematocrit 35.8 % (40-54); Hemoglobin 11.5 g/dL (13.0-16.5); Lymphocyte # 0.38 X10^3/ul (0.83-4.51); Lymphocyte % 1.6 % (19-41); Mean Corp Hgb Conc 32.1 g/dL (32-36); Mean Corpuscular Hgb 26.1 pg (27.0-32.0); Mean Corpuscular Volume 81.2 fL (80-94); Mean Platelet Vol. 8.9 fl (6.2-12.0); Monocyte# 0.49 X10^3/uL; Monocyte% 2.1 % (0-10); NRBC Flagged by Analyzer 0 % (0-5); Neutrophil # 22.19 X10^3/uL (2.7-7.7); Neutrophil % 95.6 % (47-70); POSITIVE DIFFERENTIAL YES; Platelet Count 564 K/mm3 (150-450); RBC Distribution Width CV 14.3 % (11.6-14.6); RBC Distribution Width SD 42.3 fl (35.1-43.9); Red Blood Count 4.41 M/mm3 (4.6-6.2); White Blood Count 23.2 K/mm3 (4.4-11.0)
[2022-12-14] MEDS: Morphine 4 MG/ML Syringe IV (19:15)
[2022-12-14] MEDS: 0.9% Normal Saline 1,000 ML 1000 ML IV (19:15)
[2022-12-14] MEDS: Ondansetron 4 MG/2 ML Vial IV (19:15)
[2022-12-14 19:26] LABS: Differential Indicated SCAN CRITERIA MET
[2022-12-14 19:30] LABS: Differential Comment SCANNED
[2022-12-14 19:34] LABS: ALB/GLOB Ratio 0.5 RATIO (0.9-2.4); AST(SGOT) 11 U/L (15-37); Alanine Aminotransfer ALT/SGPT 12 U/L (16-61); Albumin, Serum 2.5 g/dL (3.2-5.0); Alkaline Phosphatase 100 U/L (45-117); Anion Gap 9 (5-15); BUN 37 mg/dL (7-18); BUN/Creat Ratio 31.4 RATIO (10-20); Calcium,Total 9.7 mg/dL (8.5-10.1); Chloride 97 mmol/L (98-107); Creatinine, Serum 1.18 mg/dL (0.70-1.30); EST Glomerular Filtration Rate 68 mL/min (>60); Est Glom Filt Rate - Afr Amer 83 mL/min (>60); Estimated Creatinine Clearance 46.28 ml/min; Glucose 98 mg/dL (74-106); Potassium 4.5 mmol/L (3.5-5.1); Protein, Total 7.5 g/dL (6.4-8.2); Sodium Level 132 mmol/L (136-145)
[2022-12-14] MEDS: 0.9% Normal Saline 1,000 ML 150 ML IV (20:26)
--- NOTE | 2022-12-14 20:51 | EX.ED.DYSGE1 ---
HPI History of Present Illness Chief Complaint: Other, Pain/Inj Detail of Chief Complaint: Upper left gum pain status post biopsy. 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 Of note patient has history of polysubstance use which include opiates, ecstasy and alcohol. He also is a smoker. Per old records he has history of malnourishment. He is seen by Dr. Lucien Lombardi at [facility]. He states his biopsy was performed by surgeon at [facility] yesterday. He denies fever, chills night sweats. He does complain of facial pain. He also complains of left ear pain. He denies ringing's ears or decreased hearing. He denies difficulty opening or closing his mouth. He complains of pain with opening closing his mouth. He denies drooling. Denies change in voice. He denies cardiac or respiratory symptoms. He denies GI symptoms. Prior similar symptoms: Yes Recent Illness/Hospitalization: Yes PFSH PFS Medical History Amphetamine use Anemia Anxiety Cancer of overlapping sites of oropharynx Chronic pain CRBSI (catheter-related bloodstream infection) Ecstasy use disorder, mild, abuse History of ETOH abuse Iron deficiency anemia due to chronic blood loss Metastatic squamous cell carcinoma Opiate addiction Polysubstance overdose Regional lymph node metastasis present Severe malnutrition Smoker Substance abuse Tracheostomy in place Home Medications oxycodone 5 mg/5 mL oral solution 5 mg feeding tube Q6H PRN Pain 12/14/22 [History Last Taken Unknown] Allergy/AdvReac Type Severity Reaction Status Date / Time aspirin AdvReac Upset Verified 12/14/22 18:00 Stomach tramadol AdvReac Upset Verified 12/14/22 18:00 Stomach Family History Grandfather Cancer Grandfather Cancer Grandmother Hypertension Father Thyroid cancer Lung cancer Mother Hypertension Surgical History H/O inguinal hernia repair H/O Spinal surgery H/O tooth extraction History of bronchoscopy History of fusion of lumbar spine S/P appendectomy S/P cataract extraction S/P percutaneous endoscopic gastrostomy (PEG) tube placement Social History household members: other details: mother and sister housing: house current occupational status: disabled Smoking Status: Current every day smoker tobacco type: cigarettes Tobacco: How many years used: 20 alcohol intake: former details: Sober x ~ 10 years, prior heavy. substance use type: amphetamines, opiates, IV drugs and methamphetamine what type of physical activity do you participate in: none do you feel safe at home: Yes ROS ROS ED Constitutional Constitutional ED: Reports sweats and weight loss; Denies chills, fever(s) or subjective Eyes Eyes: Denies blurry vision, change in vision or diplopia ENT ENT ED: Reports ear pain left and other; Denies rhinorrhea or sore throat Cardiovascular Cardiovascular: Denies chest pain, orthopnea, palpitations, paroxysmal nocturnal dyspnea or racing heartbeat Respiratory/Chest Respiratory/Chest: Reports cough and dyspnea on exertion; Denies dyspnea, orthopnea or paroxysmal nocturnal dyspnea Gastrointestinal Gastrointestinal: Reports nausea; Denies abdominal pain, constipation, diarrhea, melena or vomiting Genitourinary Genitourinary ED: Denies dysuria, hematuria or urinary frequency Musculoskeletal Musculoskeletal: Reports neck pain; Denies arthralgias, back pain or myalgias Integumentary Denies abscess, Abrasions or rash Neurologic Neurologic: Denies headache(s), paresthesias or weakness Psychiatric Psychiatric: Reports anxiety and depression Endocrine Endocrinology: Denies cold intolerance or heat intolerance Hematologic/Lymphatic Hematologic/Lymphatic: Reports systems reviewed and no addt'l complaints, except as documented Allergic/Immunologic Allergic/Immunologic ED: Reports mouth swelling and tongue swelling EXAM Physical Exam Const Vital Signs: 12/14/22 18:00 12/14/22 22:11 Temperature 99.9 F H Temperature Source Temporal Pulse Rate 110 H 71 Respiratory Rate 14 14 Blood Pressure 136/90 H 136/87 H Blood Pressure Mean 105 103 Pulse Ox 96 95 Oxygen Delivery Method Room Air Room Air Positive cachectic General Appearance ED: cachectic, NAD and pallor; Negative for cyanotic or diaphoretic Nutritional Appearance: cachectic HEENT Reports dry mucous membranes HEENT Narrative: Sutures in place at biopsy site. There is no bleeding. Uvula is midline. There is no trismus. There is no facial swelling. There is no facial cellulitis. Mouth ED: Yes dry mucous membranes Mouth: dry mucous membranes Eyes PERRL and EOMs intact bilaterally General Eye ED: Yes pale conjunctiva; Negative for scleral icterus Neck no lymphadenopathy, supple and no JVD Chest Wall inspection of chest normal and palpation of chest normal Resp normal respiratory effort and clear to auscultation bilaterally Cardio regular rhythm, S1 normal heart sound, S2 normal heart sound and no murmurs Rate: tachycardic GI normal to inspection, nondistended, normoactive bowel sounds, non-tender, non-distended and no masses; Negative for hepatosplenomegaly Back/Spine no CVA tenderness Thoracic Spine / Upper Back: Negative for thoracic spinal tenderness Lumbar Spine / Lower Back: Negative for lumbar spinal tenderness Extremity normal to inspection General Extremety ED: Negative for edema or tenderness General Extremity: Negative for edema Neuro oriented x3, CN's II-XII intact bilaterally and no sensory deficits noted Sensorium / Orientation: alert Psych Mood & Affect: depressed Skin No skin turgor normal Skin Narrative: Her auntSkin lesions due to radiation noted to her chest and neck region. General Skin Exam: pallor; Negative for elasticity normal or jaundice MDM MDM MDM Narrative Medical decision making narrative: Patient with postop pain. Patient was treated with opiate analgesia. After reviewing notes he will not receive any more opiate analgesics. Per prior records he has history of drug addiction and chronic pain. Because of his vague complaints and past history will obtain CBC to assess white count and differential. We will also obtain competence metabolic panel to assess his electrolytes, liver enzymes renal function. History & Record Review Discussion w/independent historian: Patient and Family (Family said he has had a rapid decline over the past 4 days. There is also concern that he may be aspirating. They also informed family that his chest x-ray was abnormal. In light of concern for aspiration elevated white count will obtain chest x-ray. He will require admission. This may explain) Additional record(s) reviewed:: Prior inpatient record, Prior outpatient record and Prior labs Lab Data Attestation: I reviewed the patient's lab results. Lab results narrative: White count is elevated 23.2 thousand with shift. There is no bandemia. He does have mild anemia with H&H 11.5 and 35.8 with normal and sees. Competence metabolic panel is remarkable for sodium 132. Creatinine is 1.18 with an estimated GFR of 68. BUN is elevated at 37 with a BUN/creatinine ratio of 31:1. Transaminases are normal. Since patient does have cancer with regional metastasis will obtain blood cultures. We will treat with IV antibiotics since his temperature is noted to be 99.9. Lactate is normal. Labs: Laboratory Results - last 24 hr 12/14/22 12/14/22 12/14/22 19:10 19:10 19:10 WBC 23.2 H RBC 4.41 L Hgb 11.5 L Hct 35.8 L MCV 81.2 MCH 26.1 L MCHC 32.1 RDW Std Deviation 42.3 RDW Coeff of Rolf 14.3 Plt Count 564 H MPV 8.9 Immature Gran % (Auto) 0.600 Neut % (Auto) 95.6 H Lymph % (Auto) 1.6 L Wright % (Auto) 2.1 Eos % (Auto) 0.0 Baso % (Auto) 0.1 Absolute Neuts (auto) 22.2 H Absolute Lymphs (auto) 0.38 L Nucleated RBC % 0 Differential Comment SCANNED Diff Path Review TECHNOLOGY ENGINEER Sodium 132 L Potassium 4.5 Chloride 97 L Carbon Dioxide 26.0 Anion Gap 9 BUN 37 H Creatinine 1.18 Estim Creat Clear Calc 46.28 Est GFR (MDRD) Af Amer 83 Est GFR (MDRD) Non-Af 68 BUN/Creatinine Ratio 31.4 H Glucose 98 Lactic Acid Calcium 9.7 Phosphorus 3.0 Magnesium 2.2 Total Bilirubin 0.20 AST 11 L ALT 12 L Alkaline Phosphatase 100 Total Protein 7.5 Albumin 2.5 L Globulin 5.0 H Albumin/Globulin Ratio 0.5 L 12/14/22 21:20 WBC RBC Hgb Hct MCV MCH MCHC RDW Std Deviation RDW Coeff of Rolf Plt Count MPV Immature Gran % (Auto) Neut % (Auto) Lymph % (Auto) Wright % (Auto) Eos % (Auto) Baso % (Auto) Absolute Neuts (auto) Absolute Lymphs (auto) Nucleated RBC % Differential Comment Diff Path Review Sodium Potassium Chloride Carbon Dioxide Anion Gap BUN Creatinine Estim Creat Clear Calc Est GFR (MDRD) Af Amer Est GFR (MDRD) Non-Af BUN/Creatinine Ratio Glucose Lactic Acid 1.0 Calcium Phosphorus Magnesium Total Bilirubin AST ALT Alkaline Phosphatase Total Protein Albumin Globulin Albumin/Globulin Ratio Radiography Chest X-Ray - ED: 2 View and Read by ED Physician (Patient has infiltrate right side consistent with aspiration pneumonitis.) Diagnostic Testing: Clinical Impression(s) from Imaging Studies Chest X-Ray 12/14/22 21:30 IMPRESSION: Suspect right medial lung base aspiration pneumonitis. Electronically Signed: Jj Valdez MD at 21:47 EDT , Treatment and Re-Evaluation :: And pain. Patient has 2 SIRS criteria. Lactate is normal. Family did call in and states patient is to be evaluated by palliative care next week Discharge Plan Dx/Rx/DC Orders Clinical Impression: Aspiration pneumonia, Cancer of overlapping sites of oropharynx, Regional lymph node metastasis present, Cancer related pain, SIRS (systemic inflammatory response syndrome), Adult failure to thrive, Chronic anemia, Acute prerenal azotemia Disposition Disposition: Acute Care [facility]
[2022-12-14] MEDS: HYDROmorphone 0.5 MG/0.5 ML SYRINGE IV (21:25)
--- NOTE | 2022-12-14 21:30 | RAD_ITS ---
INDICATION: Fever, rhonchi, suspect aspiration EXAMINATION/TECHNIQUE: X-RAY - XR Chest 2 Views COMPARISON: 09/15/2022 FINDINGS: LUNGS: The right lung base consolidative opacity. The left lung appears clear. MEDIASTINUM AND CARDIOVASCULAR STRUCTURES: Cardiac silhouette not enlarged. Central airways and mediastinal contour are unremarkable. RAD/Chest PA and Lateral IMPRESSION: Suspect right medial lung base aspiration pneumonitis. Electronically Signed: Jj Valdez MD at 21:47 EDT ,
--- NOTE | 2022-12-14 21:34 | ED.RN ---
PER PHONE CALL FROM SISTER TORITO, PT LIVES AT HOME WITH HER AND HIS MOTHER. HOWEVER PT IS VERY RESISTANT TO ANY HELPING HIM WITH ADLS. PT HAS BEEN DECLINING FOR PAST 4 DAYS, WEAK, BARELY ABLE TO TALK. PT IS TO SIGN UP WITH PALLIATIVE CARE NEXT WEEK WELL SEE DR GALLARDO. HE HAD RECENT PET SCAN AND BIOPSIES OF MASSES IN MOUTH AND THROAT, NO RESULTS YET. FAMILY IS AWARE OF SPOT IN LUNGS FROM CT SCAN YESTERDAY INDICATING POSSIBLE METS VS ASPIRATION PNEUMONIA. PT HAS BEEN EATING ICE CREAM, CONCERNS HE ASPIRATED. PT HAS FAILED CHEMO AND RADIATION, UNABLE TO HAVE SURGERY DUE TO MASS IS TOO CLOSE TO CAROTID. PLAN IS TO START IMMUNOTHERAPY FOR COMFORT MEASUREAS.
[2022-12-14 22:11] VITALS: BP 136/87; PULSE 71; RESP 14; O2SAT 95
--- NOTE | 2022-12-14 22:53 | HP.PCM_ITS ---
HPI - General General Date of Admission: 12/14/22 Date of Service: 12/14/22 Chief Complaint: Oral pain after recent Bx, fatigue, malaise, Adult FTT. HPI Narrative The patient is a 52 y/o M w/ PMHx: Chronic anemia, Former Tobacco use, Metasta tic Squamous Cell Carcinoma, Polysubstance abuse (MDMA, Amphetamine, Opiate Abuse), Chronic lumbar back who presents to the [facility] ED on 12/14/22 with history of ongoing persistent weakness, malaise, weight loss with biopsy performed the day prior at [facility] [place] specifically of the left upper gum in the vicinity of the upper molar with associated facial discomfort as well as pain in his left ear prompting ED evaluation. ED initial labs with significant leukocytosis and given chest x-ray findings concern for possible aspiration pneumonia. Patient's family did notify the emergency room that there is upcoming plan for palliative evaluation this coming week. Patient does state that he is supposed to continue tube feeds although sometimes he has not been administering his boluses in addition he is not supposed to take anything by mouth but reports occasionally at least ice chips. He has had some difficulty recently managing his oral secretions. He reports constant ongoing persistent diffuse pain with his metastatic disease. He does endorse the fact that palliative care has been involved and he will have evaluation this upcoming week. Discussed that patient is a candidate for hospice but at this time he notes he is not ready to transition completely. He reports quitting cigarette tobacco usage approximately 1 to 2 months prior and reports being clean with no drug usage recently as well. Work-up in the ED included T99.9, heart rate initially 110 with most recent repeat 71, BP 136/90, respiratory rate 14, 96% on room air, CBC with WBC 23.2, hemoglobin 11.5, MCV 81.2, platelet 564 with significant left shift and lymphopenia, CMP with sodium 132, chloride 97, BUN/creatinine 37/1.18, hepatic profile not marked appearing, lactic acid 1.0, chest x-ray with suspected right medial lung base aspiration pneumonitis, blood culture x2 pending per ED. In the ED patient ministered Zofran 4 mg IV x1, morphine 4 mg IV x1, Dilaudid 0.5 mg IV x1 1 L normal saline bolus followed by maintenance IV fluids as well as Unasyn 3 g IV x1. [facility] Medical History Amphetamine use Anemia Anxiety Cancer of overlapping sites of oropharynx Chronic pain CRBSI (catheter-related bloodstream infection) Ecstasy use disorder, mild, abuse History of ETOH abuse Iron deficiency anemia due to chronic blood loss Metastatic squamous cell carcinoma Opiate addiction Polysubstance overdose Regional lymph node metastasis present Severe malnutrition Smoker Substance abuse Tracheostomy in place Home Medications oxycodone 5 mg/5 mL oral solution 5 mg feeding tube Q6H PRN Pain 12/14/22 [History Last Taken 12/14/22] Allergy/AdvReac Type Severity Reaction Status Date / Time aspirin AdvReac Upset Verified 12/14/22 18:00 Stomach tramadol AdvReac Upset Verified 12/14/22 18:00 Stomach Family History Grandfather Cancer Grandfather Cancer Grandmother Hypertension Father Thyroid cancer Lung cancer Mother Hypertension Surgical History H/O inguinal hernia repair H/O Spinal surgery H/O tooth extraction History of bronchoscopy History of fusion of lumbar spine S/P appendectomy S/P cataract extraction S/P percutaneous endoscopic gastrostomy (PEG) tube placement Social History (Updated 12/15/22 @ 02:[address] Sarita Aj MD) household members: other details: mother and sister housing: house current occupational status: disabled Smoking Status: Former smoker Tobacco: How many years used: 20 how long ago did patient quit smoking: Quit ~ 1-2 months prior. alcohol intake: former details: Sober x ~ 10 years, prior heavy. substance use type: amphetamines, opiates, IV drugs and methamphetamine what type of physical activity do you participate in: none do you feel safe at home: Yes ROS ROS Narrative Admission Review of Systems: CONSTITUTIONAL: + Poor intake, weight loss, worsening weakness and fatigue, no fever, chills. Eyes: No visual loss, blurred vision, double vision or yellow sclerae. Ears, Nose, Throat: No hearing loss, sneezing, congestion, runny nose or sore throat. + Left mild facial swelling and discomfort following recent biopsy per ENT the day prior. SKIN: + Very staged ecchymoses, abrasions especially on the face, recent biopsy to the gum left-sided face with associated mild edema CARDIOVASCULAR: No chest pain, chest pressure or chest discomfort, palpitations, edema, orthopnea, syncopal events. RESPIRATORY: + Cough, difficulty with secretions but denies any shortness of breath or markedly productive sputum nor any wheezing or hemoptysis.is. GASTROINTESTINAL: + anorexia. No nausea, vomiting or diarrhea, abdominal pain, melena, BRBPR. GENITOURINARY: No dysuria, frequency, urgency or retention. NEUROLOGICAL: No headache, dizziness, syncope, paralysis, ataxia, numbness or tingling in the extremities, focal weakness, change in bowel or bladder control, seizure. MUSCULOSKELETAL: + muscle, back pain, joint pain or stiffness. HEMATOLOGIC: + anemia, bleeding or bruising. LYMPHATICS: No enlarged nodes. No history of splenectomy. PSYCHIATRIC: + history of depression or anxiety. ENDOCRINOLOGIC: No reports of sweating, cold or heat intolerance. No polyuria or polydipsia. ALLERGIES: No history of asthma, hives, eczema or rhinitis. Vital Signs Vital Signs Vital Signs: 12/14/22 18:00 12/14/22 22:11 Temperature 99.9 F H Temperature Source Temporal Pulse Rate 110 H 71 Respiratory Rate 14 14 Blood Pressure 136/90 H 136/87 H Blood Pressure Mean 105 103 Pulse Ox 96 95 Oxygen Delivery Method Room Air Room Air Weight Weight: 100 lb 12.8 oz Body Mass Index (BMI) 17.3 Physical Exam Narrative Physical Examination: General: Awake, alert, oriented x 3 and cooperative, laying in the ED bed, cachectic appearing, mildly disheveled, reports notable pain to the left face Skin: Normal color, normal turgor, no icterus, no cyanosis except for occasional staged ecchymoses as well as abrasion including the face, mild jacklyn-G-tube insertion irritation. HEENT: AT/NC, EOMI, PERRLA, dry MM, left face status post recent gum biopsy with mild left cheek edema, no carotid bruits or JVD noted. Lungs: Significantly diminished, greater bases, no evidence of any distress, mildly coarse primarily bilateral bases, right greater than left, no rhonchi or wheezing. Heart: Mildly tachycardic with regular rhythm; no gallop, rub audible. Abdomen: Soft, thin cachectic habitus, NTTP, ND, G-tube in place, mildly hyperactive bowel sounds, no marked HSM normal BS, no HSM. Extremities: No cyanosis, no clubbing and no edema, evidence of upper and lower extremity muscle wasting. Neurological: Patient awake, alert, oriented as noted, cognitive function intact; pupils equally reactive to light and accommodation, cranial nerves II- XII grossly normal, moving all 4 extremities, no focal deficits, strength severely global decrease secondary to acute presentation and underlying comorbidities. Psychiatric: Affect appears ill-appearing, cachectic, tearful with discussions about patient prognosis with underlying history of anxiety and depression. Results Lab / Micro Data Result Diagrams: 12/14/22 19:10 12/14/22 19:10 Labs: Laboratory Results - last 24 hr 12/14/22 19:10: WBC 23.2 H, RBC 4.41 L, Hgb 11.5 L, Hct 35.8 L, MCV 81.2, MCH 26.1 L, MCHC 32.1, RDW Std Deviation 42.3, RDW Coeff of Rolf 14.3, Plt Count 564 H, MPV 8.9, Immature Gran % (Auto) 0.600, Neut % (Auto) 95.6 H, Lymph % (Auto) 1.6 L, [place] % (Auto) 2.1, Eos % (Auto) 0.0, Baso % (Auto) 0.1, Absolute Neuts (auto) 22.2 H, Absolute Lymphs (auto) 0.38 L, Nucleated RBC % 0, Differential Comment SCANNED, Diff Path Review SAFETY SITTER 12/14/22 19:10: Sodium 132 L, Potassium 4.5, Chloride 97 L, Carbon Dioxide 26.0, Anion Gap 9, BUN 37 H, Creatinine 1.18, Estim Creat Clear Calc 46.28, Est GFR (MDRD) Af Amer 83, Est GFR (MDRD) Non-Af 68, BUN/Creatinine Ratio 31.4 H, Glucose 98, Calcium 9.7, Total Bilirubin 0.20, AST 11 L, ALT 12 L, Alkaline Phosphatase 100, Total Protein 7.5, Albumin 2.5 L, Globulin 5.0 H, Albumin/Globulin Ratio 0.5 L 12/14/22 21:20: Lactic Acid 1.0 Radiology Impression Chest X-Ray 12/14/22 21:30 IMPRESSION: Suspect right medial lung base aspiration pneumonitis. Electronically Signed: Jj Valdez MD at 21:47 EDT , Assessment & Plan Assessment/Plan (1) Aspiration pneumonia: PLAN: Plan The patient is a 52 y/o M w/ PMHx: Chronic anemia, Former Tobacco use, Metastatic Squamous Cell Carcinoma, Polysubstance abuse (MDMA, Amphetamine, Opiate Abuse), Chronic lumbar back who presents to the [facility] ED on 12/14/22 with h istory of ongoing persistent weakness, malaise, weight loss with biopsy performed the day prior at [facility] [place] specifically of the left upper gum in the vicinity of the upper molar with associated facial discomfort as well as pain in his left ear prompting ED evaluation. #1. Suspected aspiration pneumonia: Will admit to [facility], maintain on oxygen with wean as tolerated to room air, PRN albuterol, maintained on IV Zosyn, HOB, IS parameters w/ pending sputum cultures, full respiratory viral panel and COVID PCR to be cautious and urine antigens, will maintain n.p.o. status, speech therapy consulted and pending. #2. Metastatic Squamous Cell Carcinoma: 02/07/22 L neck mass biopsy consistent with Metastatic Squamous Cell Carcinoma with follow-up evaluation by ENT at [facility] with PET scan and triple endoscopy with biopsies performed as well as a trach and PEG placement as well as full mouth dental extractions, 03/22/2022 biopsies consistent with well differentiated invasive keratinizing squamous cell carcinoma p16 positive with follow-up 04/01/2022 PET scan with increased uptake in the right retropharyngeal and bilateral level 2A and 2B lymph nodes with no metastatic disease at that time with definitive chemoradiation received with follow-up 08/31/2022 PET scan with questionable left parapharyngeal mucosal space right lateral neck concerning for possible neoplasm with CT biopsy performed and most recently 10/28/2022 CT chest with contrast demonstrating multiple nodular opacities in the right upper lobe possibly progression of metastatic disease with most recent evaluation by radiation oncology 11/14/2022. As noted recent biopsy at [facility], pathology pending. #3. Polysubstance Abuse, IVDA Hx, Chronic back pain: Patient with significant polysubstance abuse history secondary to chronic back pain per discussion with family, reports that he has been clean and sober with no recent drug usage, encouraged clean and sober status. #4. History of Tobacco Abuse: Encouraged continued tobacco cessation with reported cessation over the last 1 to 2 months, inpatient consultation per RT, NR if desired. #5. Chronic anemia, normocytic: Likely secondary to underlying cancer and treatments: Admission hemoglobin 11.5 which is improved from previous 7-9 range, will continue to trend. #6. Adult failure to thrive, multifactorial w/ concurrent severe protein calorie malnutrition: Secondary to underlying comorbidities with metastatic cancer as well as prior history of substance abuse, presenting with aspiration pneumonia, case management consulted, ST consulted. Family does report plan to evaluation in the coming week for palliative therapy. Patient with weight loss, muscle and fat loss with BMI 17, nutrition consulted. #7. GERD: We will maintain on IV PPI. #8. DVT prophylaxis: Lovenox. #9. CODE status: Patient VIKTOR is his mother and living will is currently in place. Discussed CODE status at length including difference between FULL code, DNR-CCA and DNR-CC status. Following discussions about the differences in these status, requested DNR-CCA, no intubation status. He initially immediately responded to full code however following lengthy discussion given that he is in severe pain with his metastatic cancer he eventually decided that if he did pass he would prefer not to have aggressive interventions at that point. Advanced Care Planning Face to Face Time: 16 minutes. Admission Evaluation Time spent evaluating chart, patient history, patient evaluation, care planning and discussion with specialists: 75 minutes. Charges/Coding Visit Charges Inpatient E&M: 49377 Init Hosp L3 Procedures Hospitalists Procedures: 49393 Advncd Care Plan 30 Min
[2022-12-14 23:30] VITALS: BP 127/87; PULSE 75; RESP 15; TEMP 36.3; O2SAT 95
[2022-12-14 23:31] LABS: Magnesium 2.2 mg/dL (1.6-2.6)
[2022-12-15] MEDS: HYDROmorphone 0.5 MG/0.5 ML SYRINGE IV (00:36)
[2022-12-15 01:13] VITALS: BMI 17.0
[2022-12-15] MEDS: 0.9% Normal Saline 1,000 ML 150 ML IV ×4 (01:26→23:42)
[2022-12-15 01:43] VITALS: BP 128/79; PULSE 74; RESP 18; TEMP 37; O2SAT 97
[2022-12-15] MEDS: Acetaminophen 650 MG/20 ML UDC GT ×3 (01:49→20:10)
[2022-12-15] MEDS: oxyCODONE Soln 5 MG/0.25 ML PO.SYRINGE GT ×4 (01:50→20:10)
[2022-12-15] MEDS: 0.9% Saline Lock 10 ML Syringe IV ×2 (02:01→18:08)
[2022-12-15 04:20] VITALS: BMI 17.6
[2022-12-15 05:34] VITALS: BP 107/53; PULSE 64; RESP 18; TEMP 36.5; O2SAT 96
[2022-12-15 05:46] LABS: Absolute Lymphocyte Count 0.49 X10^3/uL (0.83-4.51); Absolute Neutrophil Count 12.4 X10^3/uL (2.0-7.7); Basophil# 0.04 X10^3/uL; Basophil% 0.3 % (0-1); Eosinophil# 0.03 X10^3/uL; Eosinophils% 0.2 % (0-5); Hematocrit 33.8 % (40-54); Hemoglobin 10.4 g/dL (13.0-16.5); Lymphocyte # 0.49 X10^3/ul (0.83-4.51); Lymphocyte % 3.7 % (19-41); Mean Corp Hgb Conc 30.8 g/dL (32-36); Mean Corpuscular Hgb 26.1 pg (27.0-32.0); Mean Corpuscular Volume 84.7 fL (80-94); Mean Platelet Vol. 9.2 fl (6.2-12.0); NRBC Flagged by Analyzer 0 % (0-5); Neutrophil # 12.37 X10^3/uL (2.7-7.7); Neutrophil % 92.1 % (47-70); POSITIVE DIFFERENTIAL YES; Platelet Count 505 K/mm3 (150-450); RBC Distribution Width CV 14.6 % (11.6-14.6); RBC Distribution Width SD 45.1 fl (35.1-43.9); Red Blood Count 3.99 M/mm3 (4.6-6.2); White Blood Count 13.4 K/mm3 (4.4-11.0)
--- NOTE | 2022-12-15 05:55 | RAD_ITS ---
EXAM: XR CHEST, 1 VIEW CLINICAL INDICATION: Dyspnea, cough TECHNIQUE: Frontal view of the chest. This report was created using [employer] report generation technology. COMPARISON: Previous chest radiographs of 12/14/2022 and 09/15/2022. Chest CT of 10/28/2022. FINDINGS: LUNGS AND PLEURAL SPACES: Patchy airspace disease seen within the medial right lung base on the study of one day ago atelectasis almost completely resolved. There is developing mild patchy airspace disease within the right upper lobe laterally, suspicious for pneumonia. Chronic pleural-parenchymal scarring noted more medially within the right upper lobe. Findings of pulmonary emphysema are noted with hyperinflation of lungs and pruning of the peripheral pulmonary vascular markings. No pneumothorax or pleural effusion identified. HEART: Heart size remains within normal limits. MEDIASTINUM: Stable minimal elongation of the thoracic aorta. BONES/JOINTS: No acute osseous abnormality. SOFT TISSUES: Unremarkable. RAD/Chest 1 View (Portable) IMPRESSION: Near-complete interval resolution of the patchy infiltrates within the right lower lung medially as compared to the study of one day ago. Developing mild patchy airspace disease within the right upper lobe laterally, suspicious for pneumonia. Chronic findings include right upper lobe parenchymal scarring and pulmonary emphysema. Electronically Signed: Wale Patel MD at 6:17 EDT ,
[2022-12-15 05:57] LABS: M R Staph aureus DNA By PCR POSITIVE (Negative); Probe Check PASS
[2022-12-15 06:22] LABS: Differential Indicated SCAN CRITERIA MET
[2022-12-15 06:24] LABS: ALB/GLOB Ratio 0.5 RATIO (0.9-2.4); AST(SGOT) 7 U/L (15-37); Alanine Aminotransfer ALT/SGPT 10 U/L (16-61); Alkaline Phosphatase 83 U/L (45-117); Anion Gap 8 (5-15); BUN 31 mg/dL (7-18); Calcium,Total 8.8 mg/dL (8.5-10.1); Chloride 104 mmol/L (98-107); Creatinine, Serum 0.94 mg/dL (0.70-1.30); EST Glomerular Filtration Rate 89 mL/min (>60); Est Glom Filt Rate - Afr Amer 107 mL/min (>60); Estimated Creatinine Clearance 59.34 ml/min; Globulin 4.1 g/dL (2.2-4.2); Glucose 97 mg/dL (74-106); Potassium 3.9 mmol/L (3.5-5.1); Protein, Total 6.1 g/dL (6.4-8.2); Sodium Level 136 mmol/L (136-145)
[2022-12-15 06:44] LABS: Differential Comment SCANNED
[2022-12-15 07:35] VITALS: O2SAT 92
--- NOTE | 2022-12-15 10:50 | CASEMGMT ---
RN CM Face to Face with patient for initial transition planning/care coordination assessment. RN CM introduced self and role at [facility]. Patient lying in bed, alert and oriented. Patient willing to participate in assessment and is able to answer all questions appropriately. Care providers, pharmacy, and demographics verified. Patient wishes to discharge home, denies need for home health at this time. Patient states he has no further needs or concerns at this time. CM to follow for discharge planning needs that may arise. PCP: Lam Specialists: Maria C oncology Preferred Pharmacy: [facility] retail Insurance: [employer] Prescription Benefit: yes Living Will/HPOA: yes, mother Jess Ordaz LNOK: mother, sister Living Arrangements: Patient lives with mother and sister in a single story home but patient lives in the basement. Patient states he is independent and able to ambulate stairs. Transportation: sister DME/HHC: Patient states he has shower chair, no previous HHC or SNF per patient. Patient states he is active with palliative care. Disposition Plan: Patient to discharge home with family support and follow-up plans in place. Heather BARNHART, RN, CM
[2022-12-15] MEDS: Enoxaparin 40 MG/0.4 ML Syringe SC (10:57)
[2022-12-15] MEDS: Morphine 2 MG/ML Syringe IV ×4 (11:02→22:05)
[2022-12-15 11:30] VITALS: BP 118/73; PULSE 61; RESP 18; TEMP 36.7; O2SAT 100
--- NOTE | 2022-12-15 14:10 | PN_ITS ---
Subjective Subjective Patient seen and examined. He complains of pain and says his pain medications are not controlling his pain well. He admits to a cough but denies any chest pain, palpitations, dizziness, nausea or vomiting. Review of systems otherwise negative. He has remained hemodynamically stable. Objective Data Objective Data Vital Signs: Vital Signs Temp Pulse Resp BP Pulse Ox O2 Del Method 98.1 F 61 18 118/73 100 Room Air 12/15/22 11:30 12/15/22 11:30 12/15/22 11:30 12/15/22 11:30 12/15/22 11:30 12/15/22 11:30 Oxygen Delivery Method Room Air Weight: 102 lb 15.294 oz Body Mass Index (BMI) 17.6 Intake & Output: Intake and Output for Last 24 Hours 12/13/22 12/14/22 12/15/22 23:59 23:59 23:59 Intake Total 1112 / 1112 2080 / 2080 Output Total 350 / 350 Balance 1112 / 1112 1730 / 1730 Medical Nutrition Assessment Dietitian: Malnutrition Criteria Met Start: 12/15/22 12:21 Freq: Status: Active Protocol: Document 12/15/22 12:21 LO (Rec: 12/15/22 12:22 [id number]) Nutrition Malnutrition Evidence of Malnutrition Exists Yes Malnutrition (severe): Chronic Evidenced By Weight Loss (Severe),Physical Changes (Severe) Intake Problem Inadequate Oral Intake Etiology related to inability to consume sufficient energy Signs/Symptoms as evidenced by NPO per HAND LACER Status Active Problem Clinical Problem Chronic Disease or Condition Related Malnutrition Etiology severe related to metastatic squamous cell carcinoma Signs/Symptoms as evidenced by 25.7lbs (20%) weight loss in 8 months and severe fat/muscle loss to orbital, temporal and clavicle regions. Status Active Problem Recommendation Dietitian Recommendations/Changes Recommend Jevity 1.5 - 200mL bolus 5x daily with 70mL feeding tube flush pre- and post-bolus to meet estimated nutrition needs. Lab / Micro Data Result Diagrams: 12/15/22 05:06 12/15/22 05:06 Labs: Laboratory Results - last 24 hr 12/14/22 19:10: WBC 23.2 H, RBC 4.41 L, Hgb 11.5 L, Hct 35.8 L, MCV 81.2, MCH 26.1 L, MCHC 32.1, RDW Std Deviation 42.3, RDW Coeff of Rolf 14.3, Plt Count 564 H, MPV 8.9, Immature Gran % (Auto) 0.600, Neut % (Auto) 95.6 H, Lymph % (Auto) 1.6 L, [place] % (Auto) 2.1, Eos % (Auto) 0.0, Baso % (Auto) 0.1, Absolute Neuts (auto) 22.2 H, Absolute Lymphs (auto) 0.38 L, Nucleated RBC % 0, Differential Comment SCANNED, Diff Path Review DEPARTMENTAL SHIPPING CLERK 12/14/22 19:10: Sodium 132 L, Potassium 4.5, Chloride 97 L, Carbon Dioxide 26.0, Anion Gap 9, BUN 37 H, Creatinine 1.18, Estim Creat Clear Calc 46.28, Est GFR (MDRD) Af Amer 83, Est GFR (MDRD) Non-Af 68, BUN/Creatinine Ratio 31.4 H, Glucose 98, Calcium 9.7, Total Bilirubin 0.20, AST 11 L, ALT 12 L, Alkaline Phosphatase 100, Total Protein 7.5, Albumin 2.5 L, Globulin 5.0 H, Albumin/Globulin Ratio 0.5 L 12/14/22 19:10: Phosphorus 3.0, Magnesium 2.2 12/14/22 21:20: Lactic Acid 1.0 12/14/22 23:10: COVID-19 (RENZO) Not Detected 12/15/22 02:19: MRSA (PCR) POSITIVE H 12/15/22 05:06: WBC 13.4 H, RBC 3.99 L, Hgb 10.4 L, Hct 33.8 L, MCV 84.7, MCH 26.1 L, MCHC 30.8 L, RDW Std Deviation 45.1 H, RDW Coeff of Rolf 14.6, Plt Count 505 H, MPV 9.2, Immature Gran % (Auto) 0.700, Neut % (Auto) 92.1 H, Lymph % (Auto) 3.7 L, [place] % (Auto) 3.0, Eos % (Auto) 0.2, Baso % (Auto) 0.3, Absolute Neuts (auto) 12.4 H, Absolute Lymphs (auto) 0.49 L, Nucleated RBC % 0, Differential Comment SCANNED 12/15/22 05:06: Sodium 136, Potassium 3.9, Chloride 104, Carbon Dioxide 24.0, Anion Gap 8, BUN 31 H, Creatinine 0.94, Estim Creat Clear Calc 59.34, Est GFR (MDRD) Af Amer 107, Est GFR (MDRD) Non-Af 89, BUN/Creatinine Ratio 33.0 H, Glucose 97, Calcium 8.8, Total Bilirubin 0.20, AST 7 L, ALT 10 L, Alkaline Phosphatase 83, Total Protein 6.1 L, Albumin 2.0 L, Globulin 4.1, Albumin/Globulin Ratio 0.5 L Micro: Microbiology 12/15/22 02:19 Urine, Clean Catch Streptococcus pneumoniae Antigen (M - Final 12/15/22 02:19 Urine, Clean Catch Legionella Antigen - Final 12/14/22 23:10 Mucosa - Nasopharyngeal Respiratory Panel (PCR) - Final Radiography Diagnostic Testing: Radiology Impression Chest X-Ray 12/14/22 21:30 IMPRESSION: Suspect right medial lung base aspiration pneumonitis. Electronically Signed: Jj Valdez MD at 21:47 EDT , Chest X-Ray 12/15/22 05:55 IMPRESSION: Near-complete interval resolution of the patchy infiltrates within the right lower lung medially as compared to the study of one day ago. Developing mild patchy airspace disease within the right upper lobe laterally, suspicious for pneumonia. Chronic findings include right upper lobe parenchymal scarring and pulmonary emphysema. Electronically Signed: Wale Patel MD at 6:17 EDT , Physical Exam Const alert Constitutional Narrative: restless, in moderate distress due to pain HEENT normocephalic, head/scalp atraumatic and moist oral mucous membranes Eyes PERRL and EOMs intact bilaterally Neck no lymphadenopathy and supple Lymph Lymphatic: no lymphadenopathy noted and no lymphedema noted Resp Resp Narrative: diminished breath sounds bibasally, no wheezes or crackles. On room air. Cardio regular rate, regular rhythm, S1 normal heart sound, S2 normal heart sound and no murmurs GI normal to inspection, nondistended, normoactive bowel sounds, soft to palpation and non-tender Extremity normal capillary refill and no clubbing, cyanosis or edema General Extremity: clubbing Skin General Skin Exam: no breakdown Neuro CN's II-XII intact bilaterally, no focal motor deficits and deep tendon reflexes 2+ bilaterally Motor Exam: strength 5/5 throughout Psych thought process normal Assessment & Plan Assessment/Plan (1) Aspiration pneumonia: PLAN: Plan #PRobable aspiration pneumonia * Patient not able to eat and swallow well due to his oropharyngeal carcinoma with mets to the lymph nodes. * Had a biopsy done at [facility] on the day before admission. * He is on tube feeds at home. We will continue tube feeds. * Currently n.p.o. pending speech therapy evaluation. * Breathing treatments of bronchodilators. Titrate oxygen as needed to maintain saturation above 90%. * on IV unasyn * MRSA PCR positive but was also positive in April 2022. We will add on v ancomycin also awaiting culture results. * #Debility and failure to thrive due to metastatic oropharyngeal cancer * follows with oncologist at [facility] * currently complaining of poorly controlled pain * on PO oxycodone. will add on IV morphine prn for pain * Biopsy from February 2022 showed well differentiated invasive keratinizing squamous cell carcinoma * Had a chest CT with contrast on 10/28/2022 which showed multiple nodular opacities in the right upper lobe possibly progression of metastatic disease. * #Oropharyngeal cancer: As above #Polysubstance abuse: He does have a history of IV drug abuse but has been clean and sober with no recent IV drug usage. Counseled on continued abstinence #Protein calorie malnutrition * Due to debilitating effects of metastatic oropharyngeal cancer * Has tube feeding placed. Speech therapy on board. Started on tube feeds #GERD: On PPI DVT prophylaxis: Lovenox CODE STATUS: DNR CCA no intubation Charges/Coding Visit Charges Inpatient E&M: 97418 [facility] Hosp L3
[2022-12-15] MEDS: Jevity 1.5. 1,000 ML Bottle 200 ML GT ×3 (14:43→22:06)
--- NOTE | 2022-12-15 16:19 | NS ---
12/15/22: RD called [facility] to order pt more enteral nutrition formula. [facility] is out of Pivot 1.5 formula that he was previously on. RD recommend they send pt Jevity 1.[address] relayed information to pt. RD recommends Jevity 1.5 5 cartons daily with 110mL feeding tube flush pre- and post-bolus for home nutrition needs. Izabel House RD, LD
[2022-12-15 18:00] VITALS: BP 134/78; PULSE 78; RESP 16; TEMP 36.7; O2SAT 94
--- NOTE | 2022-12-15 20:24 | PCM.RX.CS ---
Consult Pharmacy has been consulted to manage selected antiobiotic: Vancomycin Type of Consult: New start Prior Doses of Antibiotics Received/Current Regimen: Medications Vancomycin HCl 1,250 mg/ (Sodium Chloride) 275 mls @ 167 mls/hr IV X1 ONE Stop: 12/15/22 21:08 Last Admin: 12/15/22 20:07 Dose: 167 mls/hr Labs: Sodium 136 mmol/L (136-145) 12/15/22 05:06 Potassium 3.9 mmol/L (3.5-5.1) 12/15/22 05:06 Chloride 104 mmol/L (98-107) 12/15/22 05:06 Carbon Dioxide 24.0 mmol/L (21.0-32.0) 12/15/22 05:06 Anion Gap 8 (5-15) 12/15/22 05:06 BUN 31 mg/dL (7-18) H 12/15/22 05:06 Creatinine 0.94 mg/dL (0.70-1.30) 12/15/22 05:06 Est GFR (MDRD) Af Amer 107 mL/min (>60) 12/15/22 05:06 Est GFR (MDRD) Non-Af 89 mL/min (>60) 12/15/22 05:06 BUN/Creatinine Ratio 33.0 RATIO (10-20) H 12/15/22 05:06 Glucose 97 mg/dL (74-106) 12/15/22 05:06 Microbiology: Microbiology 12/15/22 09:05 Sputum, Expectorated/Coughed Gram Stain - Final 12/15/22 02:19 Urine, Clean Catch Streptococcus pneumoniae Antigen (M - Final 12/15/22 02:19 Urine, Clean Catch Legionella Antigen - Final 12/14/22 23:10 Mucosa - Nasopharyngeal Respiratory Panel (PCR) - Final Weight used for dosin kg Estimated Creatinine Clearance: 60 Goal Trough: 15-20 mcg/mL Pharmacy Plan for Drug Dosing: Vancomycin 1250mg given x1, 500mg IV q12h with trough prior to 4th dose per policy. Pharmacy Service will continue to monitor and adjust dosing as required. Follow-Up Labs: Trough Vancomycin - 12/17 @ 0730
[2022-12-15 22:00] VITALS: RESP 16; O2SAT 95
[2022-12-16] VITALS (7 sets, daily range): BP systolic 127–153; BP diastolic 78–86; PULSE 65–87; RESP 16–18; TEMP 36.6–36.9; O2SAT 94–97; BMI 18.1
[2022-12-16] MEDS: Morphine 2 MG/ML Syringe IV ×7 (01:00→20:13)
[2022-12-16] MEDS: oxyCODONE Soln 5 MG/0.25 ML PO.SYRINGE GT ×4 (02:04→22:44)
[2022-12-16] MEDS: Acetaminophen 650 MG/20 ML UDC GT ×4 (02:05→22:44)
[2022-12-16] MEDS: Jevity 1.5. 1,000 ML Bottle 200 ML GT ×4 (05:41→22:43)
[2022-12-16] MEDS: 0.9% Normal Saline 1,000 ML 150 ML IV ×3 (06:06→20:30)
[2022-12-16 07:00] LABS: Absolute Lymphocyte Count 0.37 X10^3/uL (0.83-4.51); Absolute Neutrophil Count 8.4 X10^3/uL (2.0-7.7); Basophil# 0.02 X10^3/uL; Basophil% 0.2 % (0-1); Eosinophil# 0.12 X10^3/uL; Eosinophils% 1.3 % (0-5); Hemoglobin 9.9 g/dL (13.0-16.5); Lymphocyte # 0.37 X10^3/ul (0.83-4.51); Mean Corp Hgb Conc 30.9 g/dL (32-36); Mean Corpuscular Hgb 26.1 pg (27.0-32.0); Mean Corpuscular Volume 84.4 fL (80-94); Mean Platelet Vol. 8.7 fl (6.2-12.0); Monocyte% 4.3 % (0-10); NRBC Flagged by Analyzer 0 % (0-5); Neutrophil # 8.36 X10^3/uL (2.7-7.7); Neutrophil % 89.8 % (47-70); POSITIVE DIFFERENTIAL YES; Platelet Count 458 K/mm3 (150-450); RBC Distribution Width CV 14.6 % (11.6-14.6); RBC Distribution Width SD 44.7 fl (35.1-43.9); Red Blood Count 3.79 M/mm3 (4.6-6.2); White Blood Count 9.3 K/mm3 (4.4-11.0)
[2022-12-16 07:28] LABS: Anion Gap 7 (5-15); BUN 22 mg/dL (7-18); BUN/Creat Ratio 27.7 RATIO (10-20); Chloride 108 mmol/L (98-107); Creatinine, Serum 0.79 mg/dL (0.70-1.30); EST Glomerular Filtration Rate 108 mL/min (>60); Est Glom Filt Rate - Afr Amer 131 mL/min (>60); Estimated Creatinine Clearance 72.57 ml/min; Glucose 117 mg/dL (74-106); Potassium 3.4 mmol/L (3.5-5.1); Sodium Level 137 mmol/L (136-145)
[2022-12-16 07:39] LABS: Differential Indicated SCAN CRITERIA MET
[2022-12-16] MEDS: Vancomycin IV 500 MG/100 ML BAG 100 MG IV ×2 (08:27→20:14)
[2022-12-16] MEDS: Potassium Chloride Oral Tablet 20 MEQ 40 MEQ PO (08:27)
[2022-12-16] MEDS: Enoxaparin 40 MG/0.4 ML Syringe SC (08:28)
--- NOTE | 2022-12-16 10:23 | ST.MBS ---
Modified Barium Swallow - Patient Information Study Date: 12/16/22 Study Time: 09:30 Direct Billable Minutes: 120 Total Minutes procedure & reportin Diagnosis: Aspiration PNA J69.0, Cancer of over. sites of oropharynx C10.8 Referring Physician: Stacy Houston Reason for Referral: Objectively assess swallow function, assess risk for aspiration, and determine recommendations for least restrictive diet textures and compensatory strategies to improve safety of swallow. Medical History: Patient is well known to this [employer] ADMINISTRATOR. 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 From 04/18/2022 ? 06/03/2022 he received definitive chemoradiation. During treatment, he had trach removed. The patient followed with OP ST during and briefly after completion of chemoradiation treatment. Most recently, he was seen at bedside by ST 09/02/2023 due to difficulty swallowing. 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 He was recommended purees only with majority of nutrition needs to be met via PEG. MBSS completed 09/08/2023 recommending PEG as primary source of nutrition w/ Puree / Hargill thick w/ Sanchez Free Water Protocol for comfort/pleasure and to maintain swallow function (SEE MBSS for full recommendations and aspiration precautions). He now presents to [facility] ED 12/15/2022 with increased fatigue and malaise. He has been admitted to PCU for management of aspiration PNA and adult FTT. PMHx: Amphetamine use, Anemia, Anxiety, Cancer of overlapping sites of oropharynx, Chronic pain, CRBSI (catheter-related bloodstream infection), Ecstasy use disorder, mild, History of ETOH abuse, Iron deficiency anemia due to chronic blood loss, Metastatic squamous cell carcinoma, Opiate addiction, Polysubstance overdose, Regional lymph node metastasis, Severe malnutrition, Smoker Substance abuse. Current Diet Ordered: NPO w/ ice chips sparingly Dentition: Edentulous Mental Status: WNL Respiratory Status: Oxygenating on Room Air - Penetration-Aspiration Scale Penetration-Aspiration Scale: OBJECTIVE ASSESSMENT OF SWALLOW FUNCTION (QUANTITATIVE ? PER TRIAL): PENETRATION / ASPIRATION SCALE (MIKE): 1 = does not enter airway 2 = enters airway/above vocal folds/ejected 3 = enters airway/above vocal folds/not ejected 4 = enters airway/contacts vocal folds/ejected 5 = enters airway/contacts vocal folds/not ejected 6 = enters airway/below vocal folds/ejected 7 = enters airway/below vocal folds/not ejected despite effort 8 = enters airway/below vocal folds/no effort VIDEOFLOROSCOPIC SCALE SCORE (MIKE): Grade I = aspiration of material that has penetrated into the laryngeal vestibule, intact cough reflex Grade II = aspiration < 10 % of the bolus, intact cough reflex Grade III = aspiration of < 10 % of the bolus, reduced cough reflex or aspiration of > 10 % of the bolus, intact cough reflex Grade IV = aspiration of > 10 % of the bolus, reduced cough reflex - Penetration-Aspiration Scale Score Thin Liquid via teaspoon Result: 8= enters airway/below vocal folds/no effort Comment: Grade IV = aspiration of > 10 % of the bolus, reduced cough reflex Pudding via 1/2 teaspoon Result: 1= does not enter airway Honey thick via 1/2 teaspoon Result: 3= enters airways/above vocal folds/not ejected Comment: [employer] AD[employer]ISTRATOR cued multiple coughs and re-swallows to prevent aspiration of trial. Due to continued laryngeal penetration and poor clearance through the upper esophageal sphincter (UES), SALES FOR[employer] ADMINISTRATOR cued patient to cough and expectorate trial. Hargill thick via 1/2 teaspoon Result: 3= enters airways/above vocal folds/not ejected Comment: [employer] ADMINISTRATOR cued multiple coughs and re-swallows to prevent aspiration of trial. Due to continued laryngeal penetration and poor clearance through the upper esophageal sphincter (UES), SAL[employer] ADMINISTRATOR cued patient to cough and expectorate trial. - Oral Phase Labial Seal: Interlabial escape, no progression to anterior lip Tongue Control During Bolus Hold: Posterior escape of greater than half of bolus Bolus Transport/Lingual Motion: Slowed tongue motion Oral Residue: Residue collection on oral structures - Pharyngeal Phase Initiation of Pharyngeal Swallow: Bolus head in pyriforms Soft Palate Elevation: No bolus between soft palate and pharyngeal wall Laryngeal Elevation: Partial superior movement thyroid cart/partial apprx aryt-epig petiole Anterior Hyoid Excursion: Partial anterior movement - minimal anterior hyoid excursion Epiglottic Movement: No inversion Pharyngeal Stripping Wave: Absent Pharyngoesophageal Segment Opening: No distension with total obstruction of flow - pudding, honey Tongue Base Retraction: Wide column of contrast between tongue base & post. pharyngeal wall Pharyngeal Residue: Minimal to no pharyngeal clearance - pudding, honey - Diagnosis/Impression Diagnosis: Severe oropharyngeal phase dysphagia (R13.12) Impression: The oral phase is primarily marked by... -Decreased bolus control of >1/2 of thin liquid trial to the vocal folds and pyriforms prior to swallow onset. -Slowed and decreased tongue motion for A-P transport. -Moderate oral residue of thin liquid by tsp after the swallow. -Did not complete cookie trial due to concerns for choking due to edentulous status and poor pharyngeal clearance across all consistencies. The pharyngeal phase is primarily marked by... -Severely decreased airway closure during the swallow due to minimal anterior hyoid excursion, no epiglottic inversion, and decreased laryngeal elevation. -Severely decreased tongue base retraction, severely decreased UES opening/duration, and no pharyngeal stripping wave with resulting severe pharyngeal residues after the swallow. No pharyngeal clearance of honey thick and pudding thick trials. Minimal pharyngeal clearance of thin and nectar thick liquids. -SILENT aspiration of thin liquid barium by tsp - SALES FOR[employer] ADMINISTRATOR cued the patient to cough and re-swallow to attempt clearing grade IV aspiration of thin liquid by tsp. The patient was at HIGH risk for aspiration of nectar, honey, and pudding thick consistencies, as well, due to little to no pharyngeal clearance and deficits in airway closure. SALES [employer] ADMINISTRATOR cued multiple coughs and re-swallows followed by cue to cough and expectorate honey thick and nectar thick trials by 1/2 tsp during the study to avoid aspiration of these consistencies. - Recommendations Diet: NPO - Ok for ice chips sparingly (5-10 chips, 3-5X/day) supervised and after oral care for patient comfort/pleasure and to provide increased opportunities for swallowing throughout the day Recommend Repeat Modified Barium Swallow: TBD Need for Skilled Speech Therapy Services: Yes Comment: Will recommend the patient for intensive dysphagia therapy to address severe deficits in oropharyngeal swallow function. Will recommend the patient for oropharyngeal strengthening to improve tongue base retraction, hyoid excursion, pharyngeal contraction, and duration of UES opening (e.g. Donna, CTAR, effortful swallows, Nicole). The patient is not appropriate for oropharyngeal strengthening in junction with myofascial release at this time due to active cancer. Would also recommend the patient for neck ROM exercises, as well as trismus exercise program to assess severe trismus. Recommended Referrals: GI Consult - If deemed clinically appropriate by hospitalist, consider GI consult due to little to no opening of the upper esophageal sphincter likely due to severe restriction/weakness in oropharyngeal musculature and late effects of radiation treatment for oropharyngeal cancer. Education Completed: 1. Described result of evaluation., 7. Pt requires further education on strategies & risks. - Status Active ST Patient: Active - Contact Information [facility] Speech Therapy:: Eleanor Aguilar M.A. [facility] Speech-Language Pathologist [facility] [address] [place] [address] [email or web address] [phone] 12/16/22 10:30
--- NOTE | 2022-12-16 12:15 | PN_ITS ---
Subjective Subjective Patient seen and examined. Still complaining of pain today. Her vaginal other complaints and had an uneventful night. Review of systems otherwise negative. He has remained hemodynamically stable. Objective Data Objective Data Vital Signs: Vital Signs Temp Pulse Resp BP Pulse Ox O2 Del Method 97.9 F 76 18 127/82 H 94 Room Air 12/16/22 11:07 12/16/22 11:07 12/16/22 11:07 12/16/22 11:07 12/16/22 11:07 12/16/22 11:07 Oxygen Delivery Method Room Air Weight: 105 lb 13.15 oz Body Mass Index (BMI) 18.1 Intake & Output: Intake and Output for Last 24 Hours 12/14/22 12/15/22 12/16/22 23:59 23:59 23:59 Intake Total 1112 / 1112 6035 / 6035 1270 / 1270 Output Total 350 / 350 Balance 1112 / 1112 5685 / 5685 1270 / 1270 Medical Nutrition Assessment Dietitian: Malnutrition Criteria Met Start: 12/15/22 12:21 Freq: Status: Active Protocol: Document 12/15/22 12:21 LO (Rec: 12/15/22 12:22 [id number]) Nutrition Malnutrition Evidence of Malnutrition Exists Yes Malnutrition (severe): Chronic Evidenced By Weight Loss (Severe),Physical Changes (Severe) Intake Problem Inadequate Oral Intake Etiology related to inability to consume sufficient energy Signs/Symptoms as evidenced by NPO per [employer] Status Active Problem Clinical Problem Chronic Disease or Condition Related Malnutrition Etiology severe related to metastatic squamous cell carcinoma Signs/Symptoms as evidenced by 25.7lbs (20%) weight loss in 8 months and severe fat/muscle loss to orbital, temporal and clavicle regions. Status Active Problem Recommendation Dietitian Recommendations/Changes Recommend Jevity 1.5 - 200mL bolus 5x daily with 70mL feeding tube flush pre- and post-bolus to meet estimated nutrition needs. Lab / Micro Data Result Diagrams: 12/16/22 06:30 12/16/22 06:30 Labs: Laboratory Results - last 24 hr 12/16/22 06:30: WBC 9.3, RBC 3.79 L, Hgb 9.9 L, Hct 32.0 L, MCV 84.4, MCH 26.1 L , MCHC 30.9 L, RDW Std Deviation 44.7 H, RDW Coeff of Rolf 14.6, Plt Count 458 H, MPV 8.7, Immature Gran % (Auto) 0.400, Neut % (Auto) 89.8 H, Lymph % (Auto) 4.0 L, Moody % (Auto) 4.3, Eos % (Auto) 1.3, Baso % (Auto) 0.2, Absolute Neuts (auto) 8.4 H, Absolute Lymphs (auto) 0.37 L, Nucleated RBC % 0, Differential Comment COMMENT 12/16/22 06:30: Sodium 137, Potassium 3.4 L, Chloride 108 H, Carbon Dioxide 22.0, Anion Gap 7, BUN 22 H, Creatinine 0.79, Estim Creat Clear Calc 72.57, Est GFR (MDRD) Af Amer 131, Est GFR (MDRD) Non-Af 108, BUN/Creatinine Ratio 27.7 H, Glucose 117 H, Calcium 8.0 L Micro: Microbiology 12/15/22 09:05 Sputum, Expectorated/Coughed Gram Stain - Final 12/15/22 09:05 Sputum, Expectorated/Coughed Respiratory Culture - Preliminary Beta streptococcus 12/15/22 02:19 Urine, Clean Catch Streptococcus pneumoniae Antigen (M - Final 12/15/22 02:19 Urine, Clean Catch Legionella Antigen - Final 12/14/22 23:10 Mucosa - Nasopharyngeal Respiratory Panel (PCR) - Final Physical Exam Const alert and oriented x3 HEENT normocephalic, head/scalp atraumatic and moist oral mucous membranes Eyes PERRL and EOMs intact bilaterally Neck no lymphadenopathy and supple Lymph Lymphatic: no lymphadenopathy noted and no lymphedema noted Resp Resp Narrative: diminished breath sounds bibasally, no wheezes or crackles. On room air. Cardio regular rate, regular rhythm, S1 normal heart sound, S2 normal heart sound and no murmurs GI normal to inspection, nondistended, normoactive bowel sounds, soft to palpation and non-tender Extremity normal capillary refill and no clubbing, cyanosis or edema General Extremity: clubbing Skin General Skin Exam: no breakdown Neuro CN's II-XII intact bilaterally, no focal motor deficits and deep tendon reflexes 2+ bilaterally Motor Exam: strength 5/5 throughout Psych thought process normal Assessment & Plan Assessment/Plan (1) Aspiration pneumonia: PLAN: Plan #PRobable aspiration pneumonia * Patient not able to eat and swallow well due to his oropharyngeal carcinoma with mets to the lymph nodes. * Had a biopsy done at [facility] on the day before admission. * He is on tube feeds at home. We will continue tube feeds. * Currently n.p.o. pending speech therapy evaluation. * Breathing treatments of bronchodilators. Titrate oxygen as needed to maintain saturation above 90%. * on IV unasyn * MRSA PCR positive but was also positive in April 2022. We will add on vancomycin also awaiting culture results. * had modified barium swallow today which showed silent aspiration of thin liquid barium and patient at high risk of aspiration of nectar, honey and pudding thick consistencies due to little or no pharyngeal clearance and deficits in airway closure. * #Debility and failure to thrive due to metastatic oropharyngeal cancer * follows with oncologist at [facility] * on PO oxycodone and IV morphine prn for pain * Biopsy from February 2022 showed well differentiated invasive keratinizing squamous cell carcinoma * Had a chest CT with contrast on 10/28/2022 which showed multiple nodular opacities in the right upper lobe possibly progression of metastatic disease. * #Oropharyngeal cancer: As above #Polysubstance abuse: He does have a history of IV drug abuse but has been clean and sober with no recent IV drug usage. Counseled on continued abstinence #Protein calorie malnutrition * Due to debilitating effects of metastatic oropharyngeal cancer * Has tube feeding placed. Speech therapy on board. Started on tube feeds #GERD: On PPI DVT prophylaxis: Lovenox CODE STATUS: DNR CCA no intubation Disposition: for likely DC home tomorrow. I want patient to get at least 72 hours of IV antibiotics as I am not sure that he will be compliant with administering his medication via the NG tube himself when he gets home. Charges/Coding Visit Charges Inpatient E&M: 36428 Subs Hosp L2
--- NOTE | 2022-12-16 19:00 | NURSING ---
Emergency Documentation started on 12/16 at 1900.
[2022-12-17] MEDS: Morphine 2 MG/ML Syringe IV ×2 (01:43→08:52)
[2022-12-17 01:44] VITALS: BP 131/90; PULSE 73; RESP 16; TEMP 36.4; O2SAT 99
[2022-12-17] MEDS: 0.9% Saline Lock 10 ML Syringe IV (01:44)
[2022-12-17] MEDS: 0.9% Normal Saline 1,000 ML 150 ML IV (03:34)
[2022-12-17 05:46] VITALS: BP 151/91; PULSE 76; RESP 16; TEMP 36.5; O2SAT 98
[2022-12-17] MEDS: Jevity 1.5. 1,000 ML Bottle 200 ML GT ×2 (05:51→10:10)
[2022-12-17] MEDS: oxyCODONE Soln 5 MG/0.25 ML PO.SYRINGE GT ×2 (05:52→11:45)
[2022-12-17] MEDS: Acetaminophen 650 MG/20 ML UDC GT ×2 (05:52→11:45)
[2022-12-17 05:57] VITALS: BMI 19.0
[2022-12-17 07:34] LABS: Absolute Lymphocyte Count 0.39 X10^3/uL (0.83-4.51); Absolute Neutrophil Count 7.8 X10^3/uL (2.0-7.7); Basophil# 0.04 X10^3/uL; Basophil% 0.5 % (0-1); Eosinophil# 0.11 X10^3/uL; Eosinophils% 1.2 % (0-5); Hematocrit 32.8 % (40-54); Hemoglobin 10.1 g/dL (13.0-16.5); Lymphocyte # 0.39 X10^3/ul (0.83-4.51); Lymphocyte % 4.4 % (19-41); Mean Corp Hgb Conc 30.8 g/dL (32-36); Mean Corpuscular Hgb 25.9 pg (27.0-32.0); Mean Corpuscular Volume 84.1 fL (80-94); Mean Platelet Vol. 8.8 fl (6.2-12.0); Monocyte# 0.42 X10^3/uL; Monocyte% 4.8 % (0-10); NRBC Flagged by Analyzer 0 % (0-5); Neutrophil % 88.5 % (47-70); POSITIVE DIFFERENTIAL YES; Platelet Count 537 K/mm3 (150-450); RBC Distribution Width CV 14.6 % (11.6-14.6); RBC Distribution Width SD 44.2 fl (35.1-43.9); White Blood Count 8.8 K/mm3 (4.4-11.0)
[2022-12-17 07:35] LABS: Differential Indicated SCAN CRITERIA MET
[2022-12-17 07:40] VITALS: O2SAT 96
[2022-12-17 08:14] LABS: Anion Gap 5 (5-15); BUN 16 mg/dL (7-18); BUN/Creat Ratio 20.3 RATIO (10-20); Calcium,Total 8.1 mg/dL (8.5-10.1); Chloride 107 mmol/L (98-107); Creatinine, Serum 0.79 mg/dL (0.70-1.30); EST Glomerular Filtration Rate 109 mL/min (>60); Est Glom Filt Rate - Afr Amer 131 mL/min (>60); Estimated Creatinine Clearance 76.13 ml/min; Glucose 150 mg/dL (74-106); Potassium 3.7 mmol/L (3.5-5.1); Sodium Level 133 mmol/L (136-145)
[2022-12-17 08:17] LABS: Vancomycin, Trough Level 13.2 ug/mL (5.0-15.0)
[2022-12-17] MEDS: Vancomycin IV 500 MG/100 ML BAG 100 MG IV (08:53)
[2022-12-17 10:30] VITALS: BP 151/100; PULSE 76; RESP 18; TEMP 36.8; O2SAT 97
[2022-12-17 10:50] VITALS: BP 151/100; PULSE 76; RESP 18; TEMP 36.8; O2SAT 97
--- NOTE | 2022-12-17 11:20 | PCM.DC ---
Discharge Instructions Diet Discharge Diet: Low fat / Low cholesterol Activity Discharge Activity: Return to Normal Activity Weight Bearing Status: Weight bearing as tolerated Dressing / Incision Call your doctor if you observe: Fever of 101 or Higher, Shortness of breath, Dizziness, Chest pain and Increased palpitations (irregular heartbeat) Follow Up Care Test Results: Test results from this visit will be discussed in further detail at your follow-up appointment, if applicable. Discharge Plan Admission Admit Date/Time: 12/14/22 22:54 Primary Reason for Your Visit: aspiration pneumonia Attending Provider: Stacy Houston Consulting Providers: Sarita Aj Instructions Patient Instructions: Dysphagia Aspiration, Dysphagia Aspiration Tx Discharge Orders/Prescriptions Prescriptions: New amoxicillin-pot clavulanate 875-125 mg tablet 1 tab PO BID Qty: 10 0RF Rx Instructions: crush pills and administer via PEG Tube Continued oxycodone 5 mg/5 mL solution 5 mg feeding tube Q6H PRN (Reason: Pain) Label Comments: TAKE 5 ML BY G TUBE EVERY 6 HOURS NEEDED FOR UP TO 7 DAYS Referrals / Follow Up: Robert Fritz MD [Med Staff - Corporate Driver] - Within 2 Weeks Disposition Disposition (needs filled in before D/C Order can be placed): Home Health Service
--- NOTE | 2022-12-17 11:21 | PCM.DC.SUM ---
Providers Date of Admission: 12/14/22 Date of Discharge: 12/17/22 Reason For Visit: ASP PNA, ADULT FTT Diagnosis Discharge Diagnosis (1) Aspiration pneumonia: Status: Acute Code(s): J69.0 - Pneumonitis due to inhalation of food and vomit (2) Cancer of overlapping sites of oropharynx: Status: Acute Code(s): C10.8 - Malignant neoplasm of overlapping sites of oropharynx (3) Cancer related pain: Status: Acute Code(s): G89.3 - Neoplasm related pain (acute) (chronic) Medications at Discharge Home Medications oxycodone 5 mg/5 mL oral solution 5 mg feeding tube Q6H PRN Pain 12/14/22 amoxicillin 875 mg-potassium clavulanate 125 mg tablet 1 tab PO BID #10 tabs 12/17/22 oxycodone 5 mg tablet 5 mg PO Q6H PRN pain 3 days #12 tabs 12/17/22 Hospital Course Operations None Procedures None Summary of Care Provided Minutes Spent on Discharge: 55 Hospital Course: Patient is a 52-year-old male with a past medical history as outlined which includes metastatic squamous cell oropharyngeal carcinoma. He was admitted through the ED on 12/14/2022 with a complaint of persistent weakness, malaise and weight loss. He had had biopsy of the left upper [facility] the day prior to admission but his symptoms improved and admission was found to have significant leukocytosis. Chest x-ray was also concerning for aspiration pneumonia. Patient was on tube feeds but had not been administering his boluses and was not supposed be taking anything orally but had been taking at least ice chips and had had difficulty maintaining his oral secretions. On admission he was noted to have elevated white cell count of 23.2. He was admitted and managed for aspiration pneumonia and started on IV Unasyn. His symptoms improved and he felt much better. Sputum cultures grew Strep. Speech therapy was consulted and he had a modified barium swallow on 12/17/2022 awhich showed evidence of dysphagia. He was recommended for intensive dysphagia and evidence of stricture and restriction as well as weakness. Was recommended that patient follows with gastroenterology. I think it is prudent that patient follows up with PCP on outpatient basis for referral to gastroenterology to be made. Patient was seen and examined prior to discharge. He had no complaints and had an uneventful night. Review of symptoms otherwise negative. Labs and vitals reviewed. Home medication reviewed and reconciled. He was discharged on p.o. Augmentin for 5 days and he is to crush the pill and administer it through his PEG tube. He is to continue with his tube feeds. Physical Exam Const alert, oriented x3 and no apparent distress General Appearance: cooperative and comfortable Orientation / Consciousness: awake HEENT normocephalic, head/scalp atraumatic, hearing grossly normal bilaterally and moist oral mucous membranes Mouth: oral and palatal mucosa normal Eyes PERRL and EOMs intact bilaterally Neck no lymphadenopathy and supple Lymph Lymphatic: no lymphadenopathy noted and no lymphedema noted Resp Resp Narrative: diminished breath sounds bibasally, no wheezes or crackles. On room air. Cardio regular rate, regular rhythm, S1 normal heart sound, S2 normal heart sound and no murmurs GI normal to inspection, nondistended, normoactive bowel sounds, soft to palpation and non-tender Extremity normal to inspection, full ROM, normal capillary refill and no clubbing, cyanosis or edema General Extremity: clubbing Skin no rashes or lesions noted General Skin Exam: no breakdown Neuro CN's II-XII intact bilaterally, moves all extremities, no focal motor deficits, no sensory deficits noted and deep tendon reflexes 2+ bilaterally Sensorium / Orientation: awake and alert Motor Exam: strength 5/5 throughout Psych thought process normal Medical Records Data Medical Nutrition Assessment Dietitian: Malnutrition Criteria Met Start: 12/15/22 12:21 Freq: Status: Active Protocol: Document 12/15/22 12:21 (Rec: 12/15/22 12:22 [id number]) Nutrition Malnutrition Evidence of Malnutrition Exists Yes Malnutrition (severe): Chronic Evidenced By Weight Loss (Severe),Physical Changes (Severe) Intake Problem Inadequate Oral Intake Etiology related to inability to consume sufficient energy Signs/Symptoms as evidenced by NPO per 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 Status Active Problem Recommendation Dietitian Recommendations/Changes Recommend Jevity 1.5 - 200mL bolus 5x daily with 70mL feeding tube flush pre- and post-bolus to meet estimated nutrition needs. Weight / BMI Weight Weight: 111 lb Body Mass Index (BMI) 19.0 ABG / Lab / Microbiology Data Result Diagrams: 12/17/22 07:20 12/17/22 07:20 Laboratory: Laboratory Results - last 24 hr 12/17/22 07:20: WBC 8.8, RBC 3.90 L, Hgb 10.1 L, Hct 32.8 L, MCV 84.1, MCH 25.9 L, MCHC 30.8 L, RDW Std Deviation 44.2 H, RDW Coeff of Rolf 14.6, Plt Count 537 H, MPV 8.8, Immature Gran % (Auto) 0.600, Neut % (Auto) 88.5 H, Lymph % (Auto) 4.4 L, [place] % (Auto) 4.8, Eos % (Auto) 1.2, Baso % (Auto) 0.5, Absolute Neuts (auto) 7.8 H, Absolute Lymphs (auto) 0.39 L, Nucleated RBC % 0 12/17/22 07:20: Sodium 133 L, Potassium 3.7, Chloride 107, Carbon Dioxide 21.0, Anion Gap 5, BUN 16, Creatinine 0.79, Estim Creat Clear Calc 76.13, Est GFR (MDRD) Af Amer 131, Est GFR (MDRD) Non-Af 109, BUN/Creatinine Ratio 20.3 H, Glucose 150 H, Calcium 8.1 L 12/17/22 07:20: Vancomycin Trough 13.2 Microbiology: Microbiology 12/15/22 09:05 Sputum, Expectorated/Coughed Gram Stain - Final 12/15/22 09:05 Sputum, Expectorated/Coughed Respiratory Culture - Preliminary Beta streptococcus 12/14/22 21:20 Blood Culture (Wb) - Arm Right Blood Culture - Preliminary No growth in 48 hours. 12/14/22 21:20 Blood Culture (Wb) - Arm Left Blood Culture - Preliminary No growth in 48 hours. 12/15/22 02:19 Urine, Clean Catch Streptococcus pneumoniae Antigen (M - Final 12/15/22 02:19 Urine, Clean Catch Legionella Antigen - Final 12/14/22 23:10 Mucosa - Nasopharyngeal Respiratory Panel (PCR) - Final D/C Instructions Discharge Diet: Low fat / Low cholesterol Discharge Activity: Return to Normal Activity Weight Bearing Status: Weight bearing as tolerated Call your doctor if you observe: Fever of 101 or Higher, Shortness of breath, Dizziness, Chest pain and Increased palpitations (irregular heartbeat) Meaningful Use Info Meaningful Use Diagnoses (Choose all that apply): None applicable Discharge Plan Admission Admit Date/Time: 12/14/22 22:54 Primary Reason for Your Visit: aspiration pneumonia Attending Provider: Stacy Houston Consulting Providers: Sarita Aj Instructions Patient Instructions: Dysphagia Aspiration, Dysphagia Aspiration Tx Discharge Orders/Prescriptions Prescriptions: New amoxicillin-pot clavulanate 875-125 mg tablet 1 tab PO BID Qty: 10 0RF Rx Instructions: crush pills and administer via PEG Tube oxycodone 5 mg tablet 5 mg PO Q6H PRN (Reason: pain) 3 Days Qty: 12 0RF Rx Instructions: crush pills and administer via PEG tube Continued oxycodone 5 mg/5 mL solution 5 mg feeding tube Q6H PRN (Reason: Pain) Label Comments: TAKE 5 ML BY G TUBE EVERY 6 HOURS NEEDED FOR UP TO 7 DAYS Referrals / Follow Up: Robert Fritz MD [Med Staff - Regulator Assembler] - Within 2 Weeks Disposition Disposition (needs filled in before D/C Order can be placed): Home Health Service Charges/Coding Visit Charges Inpatient E&M: 24351 Disch Hosp >30min
== END 2022-12-17 12:21 | disposition home health service (06) | DRG 177 ==
LOC: ED 22:25 → PCU 23:18
PROVIDERS: Admitting Provider Family Medicine; Emergency Provider Emergency Medicine; Visit Provider Student in an Organized Health Care Education/Training Program
DX: J69.0 Pneumonitis due to inhalation of food and vomit (principal); E43 Unspecified severe protein-calorie malnutrition; C77.9 Secondary and unspecified malignant neoplasm of lymph node, unspecified; Z68.1 Body mass index [BMI] 19.9 or less, adult; R62.7 Adult failure to thrive; C10.8 Malignant neoplasm of overlapping sites of oropharynx; F11.10 Opioid abuse, uncomplicated; D63.0 Anemia in neoplastic disease; G89.3 Neoplasm related pain (acute) (chronic); K21.9 Gastro-esophageal reflux disease without esophagitis; H92.02 Otalgia, left ear; M54.9 Dorsalgia, unspecified; Z80.1 Family history of malignant neoplasm of trachea, bronchus and lung; Z87.891 Personal history of nicotine dependence; Z80.8 Family history of malignant neoplasm of other organs or systems; Z66 Do not resuscitate
CPT/HCPCS: 36415; 71045; 71046; 74230; 80048; 80053; 80202; 83605; 83735; 84100; 85025; 87040; 87070; 87077; 87186; 87205; 87449; 87633; 87635; 87641; 92610; 92611; 94668; 97116; 97162; 97166; 97802; 99252; 99284; 99406; J7030; J7050; A4216; G0463; J0295; J2405; U0003; U0005

== ENCOUNTER → 2022-12-23 | Outpatient (CLI) | payer OTHER, SELFPAY ==
[2022-12-23 17:37] LABS: Amphetamine Urine VISTA POSITIVE (<1000 ng/mL); Barbiturate Urine VISTA NEGATIVE (< 200 ng/mL); Benzodiazepine Urine VISTA NEGATIVE (< 200 ng/mL); Cocaine Urine VISTA NEGATIVE (< 300 ng/mL); Ecstacy Urine VISTA NEGATIVE (< 500 ng/mL); Methadone Urine VISTA NEGATIVE (< 300 ng/mL); PCP Urine VISTA NEGATIVE (< 25 ng/mL); THC Urine VISTA NEGATIVE (< 50 ng/mL); Vista UDS pH Range 6
== END | disposition home or self-care (01) ==
PROVIDERS: Visit Provider Family Medicine
DX: Z85.21 Personal history of malignant neoplasm of larynx (principal)
CPT/HCPCS: 80307